=== PATIENT | male | born 1935 | race Caucasian/White ===

== ENCOUNTER 2019-01-31 09:04 | Inpatient (IN) | payer MEDICARE ==
[~2019-01-31] VITALS: Ht 172.7 cm; Wt 59.9 kg
--- NOTE | 2019-01-31 10:30 | NUR ---
Pt admitted to room 230, with an admitting diagnosis of S/P Aspiration Pneumonia, UTI, debility, from [facility] via w/c accompanied by transportation services. THEO SINGLETARY introduced to surroundings, call light, bed controls, phone, TV, temperature control, lights, meal times, smoking policy, visitor policy, side rail policy, bathrooms and showers. Patient Rights given to patient in the handbook. THEO SINGLETARY verbalizes understanding that [facility] is not responsible for the loss or damage to any personal effects or valuables that are kept in the patients posession during their hospitalization. The following Patient Care Plans were discussed with the pt: Discharge Planning, Impaired Mobility, Self Care Deficit, Alteration in skin integrity/air exchange. THEO SINGLETARY verbalizes understanding of Interdisciplinary Patient Education. Patient and/or family were informed about the Rapid Response Team and its purpose. Patient received Patient Rights Booklet, which includes Privacy Act Statement and Data Collection Information Summary. Pt inct of bm upon admission, max assist x2 to transfer from w/c to bed. Noted reddened bottom, & reddened, partially open areas on both heels, Allevyn patches applied to bottom & both heels.
[2019-01-31 10:45] VITALS: BP 118/75
--- NOTE | 2019-01-31 10:54 | NUR ---
Pt has reddened, irritated areas behind both ears, has dried scab which is RELAY ASSOCIATE on Rt flank area, has gauze bandadge on Lt neck. Pt was inct of Bm a 2nd time, assist of 2 to clean up, turn , new diaper on.
--- NOTE | 2019-01-31 11:34 | History & Physical ---
SENDY [facility]AE [facility] 01/31/19 1134: History of Present Illness History of Present Illness Reason for visit/HPI CC: weakness following hospitalizations Mr. Long is an 83 yo WM with a PHM of CHF. AFib with RVR, CAD, CKD Stage 3, and Prostate CA is admitted to the [facility]patient [facility] after a lengthy hospital stay. In November, he was admitted to [facility] for C. difficile and UTI with Shani and discharged on 12/07 to SNU for recovery. While in SNU, he developed hypoxia and SOB and found to have b/l aspiration pneumonia. He has a home baseline of 2L O2 requirement. He is now reporting to the unit for rehabilitation in hopes of regaining his previous lifestyle. Prior to his hospitalizations, he had been experiencing some decline in strength and had began to use a cane to ambulate. He has a multiple level home, with a chair lift access to the upper floor, but lives on the first floor. He has 3 steps needed to gain entry to his home from either the front entrance or the garage. He also has 2 larger dogs ( Witt and Retriever)He was Independent in his ADL's and has a desire to return to that level. 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 He is for the last couple of years and has support from his daughter who live approximately 8 miles away. He denies a history of smoking, and only uses alcohol sparingly. Date of Admission Jan 31, 2019 at 10:30 I consulted on this patient on 01/31/19 11:17 Attending Physician Clementina Hinton DO Admitting Physician Maryuri,Local Physician Consult Allergies and Home Medications Allergies Coded Allergies: diazepam (Verified Allergy, Unknown, 01/31/19) morphine (Verified Allergy, Unknown, 01/31/19) propoxyphene (Verified Allergy, Unknown, 01/31/19) Home Medications Acetaminophen 650 Mg Tablet.er, 650 MG PO Q6H PRN for PAIN-MILD, (Reported) Aspirin 325 Mg Tablet.dr, 325 MG PO DAILY, (Reported) Atorvastatin Calcium 40 Mg Tablet, 40 MG PO 1900, (Reported) Bisacodyl 10 Mg Supp.rect, 10 MG RC DAILY PRN for CONSTIPATION-4TH LINE, (Reported) Cetirizine HCl 10 Mg Tablet, 10 MG PO DAILY, (Reported) Cholecalciferol (Vitamin D3) 2,000 Unit Capsule, 2,000 UNIT PO BID, (Reported) Clopidogrel Bisulfate 75 Mg Tablet, 75 MG PO DAILY, (Reported) Collagenase 30 Gm Oint..gm., TP DAILY, (Reported) APPLY SANTYL NICKEL THICK TO ENTIRE WOUND BED ON BOTH HEALS DAILY. COVER WITH GAUZE AND SECURE WITH TAPE. Enoxaparin Sodium 40 Mg/0.4 Ml Syringe, 40 MG SQ 1700, (Reported) Famotidine 20 Mg Tablet, 20 MG PO BID, (Reported) Furosemide 10 Mg/1 Ml Vial, 40 MG IJ DAILY, (Reported) HOLD FOR SBP <100 Gabapentin 100 Mg Capsule, 500 MG PO TID, (Reported) TAKES 5 (100MG) CAPSULES Ipratropium/Albuterol Sulfate 3 Ml Ampul.neb, 3 ML NEB Q6H PRN for SHORTNESS OF BREATH, (Reported) Lactose-Reduced Food 237 Ml Liquid, 237 ML PO TIDWM, (Reported) Levothyroxine Sodium 75 Mcg Tablet, 75 MCG PO 0600, (Reported) Metoprolol Tartrate 5 Mg/5 Ml Vial, 2.5 MG IV Q6H PRN for PULSE>100, (Reported) Midodrine HCl 10 Mg Tablet, 10 MG PO TID, (Reported) Mv-Mn/FA/Coq10/Lycopene/Lutein 1 Each Tablet, 1 TAB PO DAILY, (Reported) Ondansetron 4 Mg Tab.rapdis, 4 MG PO Q8H PRN for NAUSEA/VOMITING-1ST LINE, (Reported) Ondansetron HCl/Pf 4 Mg/2 Ml Ampul, 4 MG IV Q6H PRN for NAUSEA/VOMITING-1ST LINE, (Reported) Oxybutynin Chloride 5 Mg Tablet, 5 MG PO BID, (Reported) Oxycodone Hcl 5 Mg Tab, 5 MG PO Q4H PRN for PAIN-SEVERE, (Reported) Pantoprazole Sodium 40 Mg Vial, 40 MG IV DAILY, (Reported) Polyethylene Glycol 3350 17 Gm Powd.pack, 17 GM PO DAILY PRN for CONSTIPATION- 2ND LINE, (Reported) Ropinirole HCl 1 Mg Tablet, 2 MG PO HS, (Reported) Sennosides/Docusate Sodium 1 Each Tablet, 1 TAB PO BID PRN for CONSTIPATION-6TH LINE, (Reported) Spironolactone 25 Mg Tablet, 25 MG PO DAILY, (Reported) Physical Exam Vital Signs Capillary Refill : Height, Weight, BMI Height: '" Weight: lbs. oz. kg; BMI Method: Rectal: Deferred Skin: Ecchymosis (to buttocks), Rash, Other (shallow wounds on b/l heels) CLEMENTINA HINTON DO 01/31/192028: History of Present Illness History of Present Illness Reason for visit/HPI Verification and Attestation of Medical Student E/M Service A medical student performed and documented this service in my presence. I reviewed and verified all information documented by the medical student and made modifications to such information, when appropriate. I personally performed the physical exam and medical decision making. Clementina Hinton, Jan 31, 2019,20:29 Date of Admission 01/31/19 Date Seen by a Provider: Jan 31, 2019 Time Seen by a Provider: 12:45 Allergies and Home Medications Allergies Coded Allergies: diazepam (Verified Allergy, Unknown, 01/31/19) morphine (Verified Allergy, Unknown, 01/31/19) propoxyphene (Verified Allergy, Unknown, 01/31/19) Home Medications Acetaminophen 650 Mg Tablet.er, 650 MG PO Q6H PRN for PAIN-MILD, (Reported) Aspirin 325 Mg Tablet.dr, 325 MG PO DAILY, (Reported) Atorvastatin Calcium 40 Mg Tablet, 40 MG PO 1900, (Reported) Bisacodyl 10 Mg Supp.rect, 10 MG RC DAILY PRN for CONSTIPATION-4TH LINE, (Reported) Cetirizine HCl 10 Mg Tablet, 10 MG PO DAILY, (Reported) Cholecalciferol (Vitamin D3) 2,000 Unit Capsule, 2,000 UNIT PO BID, (Reported) Clopidogrel Bisulfate 75 Mg Tablet, 75 MG PO DAILY, (Reported) Collagenase 30 Gm Oint..gm., TP DAILY, (Reported) APPLY SANTYL NICKEL THICK TO ENTIRE WOUND BED ON BOTH HEALS DAILY. COVER WITH GAUZE AND SECURE WITH TAPE. Enoxaparin Sodium 40 Mg/0.4 Ml Syringe, 40 MG SQ 1700, (Reported) Famotidine 20 Mg Tablet, 20 MG PO BID, (Reported) Furosemide 10 Mg/1 Ml Vial, 40 MG IJ DAILY, (Reported) HOLD FOR SBP <100 Gabapentin 100 Mg Capsule, 500 MG PO TID, (Reported) TAKES 5 (100MG) CAPSULES Ipratropium/Albuterol Sulfate 3 Ml Ampul.neb, 3 ML NEB Q6H PRN for SHORTNESS OF BREATH, (Reported) Lactose-Reduced Food 237 Ml Liquid, 237 ML PO TIDWM, (Reported) Levothyroxine Sodium 75 Mcg Tablet, 75 MCG PO 0600, (Reported) Metoprolol Tartrate 5 Mg/5 Ml Vial, 2.5 MG IV Q6H PRN for PULSE>100, (Reported) Midodrine HCl 10 Mg Tablet, 10 MG PO TID, (Reported) Mv-Mn/FA/Coq10/Lycopene/Lutein 1 Each Tablet, 1 TAB PO DAILY, (Reported) Ondansetron 4 Mg Tab.rapdis, 4 MG PO Q8H PRN for NAUSEA/VOMITING-1ST LINE, (Reported) Ondansetron HCl/Pf 4 Mg/2 Ml Ampul, 4 MG IV Q6H PRN for NAUSEA/VOMITING-1ST LINE, (Reported) Oxybutynin Chloride 5 Mg Tablet, 5 MG PO BID, (Reported) Oxycodone Hcl 5 Mg Tab, 5 MG PO Q4H PRN for PAIN-SEVERE, (Reported) Pantoprazole Sodium 40 Mg Vial, 40 MG IV DAILY, (Reported) Polyethylene Glycol 3350 17 Gm Powd.pack, 17 GM PO DAILY PRN for CONSTIPATION- 2ND LINE, (Reported) Ropinirole HCl 1 Mg Tablet, 2 MG PO HS, (Reported) Sennosides/Docusate Sodium 1 Each Tablet, 1 TAB PO BID PRN for CONSTIPATION-6TH LINE, (Reported) Spironolactone 25 Mg Tablet, 25 MG PO DAILY, (Reported) Patient Home Medication List Home Medication List Reviewed: Yes Past Nyjhzhb-Tkadyx-Tfkbcb Hx Patient Social History Marrital Status: Employed/Student: retired Review of Systems Constitutional: see HPI Physical Exam General Appearance: No Apparent Distress, WD/WN, Chronically ill Assessment/Plan Assessment and Plan Problems: (1) Myopathy Admission Diagnosis Admission Status: Inpatient Order (span 2 midnights) Reason for Inpatient Admission: irf Supervisory-Addendum Brief Verification & Attestation Participated in pt care: history, MDM, physical Personally performed: exam, history, MDM, supervision of care Care discussed with: Medical Student Procedures: n/a Results interpretation: Verified all documentation Verification and Attestation of Medical Student E/M Service A medical student performed and documented this service in my presence. I reviewed and verified all information documented by the medical student and made modifications to such information, when appropriate. I personally performed the physical exam and medical decision making. Clementina Hinton, Jan 31, 2019,20:29 SENDY [facility] Jan 31, 2019 11:34 CLEMENTINA HINTON DO Jan 31, 2019 20:29
--- NOTE | 2019-01-31 13:42 | ST Dysphagia Evaluation ---
Speech Evaluation-General Medical Diagnosis Aspiration Pneumonia Onset Date: Dec 10, 2018 Therapy Diagnosis Therapy Diagnosis: Oropharyngeal Dysphagia Precautions Precautions: Aspiration Precautions/Isolations: Aspiration, Fall Prevention, Standard Precautions Referral Referring Physician: Dr. Shi Reason for Referral: Evaluation/Treatment Medical History Pertinent Medical History: Atrial Fib, CAD, Heart Failure, Prostate CA CHF, A-Fib, CAD, Prostate CA Current History Aspiration Pneumonia Reviewed History: Yes Social History Home: Single Level Current Living Status: Alone Speech PLF/Current-Dysphagia Prior Level of Function The patient lived at home alone with support services of a medical corps officer 3x/wk and Meals on Wheels. He was independent for most of his daily needs. Subjective The patient was pleasant with the Bedside Dysphagia Evaluation. Cognitive Status Patient is oriented to all concepts Oral Motor Skills Denture Type: Full- Upper & Lower Current Food Consistancy: Mechanical Soft, Thin Liquids Ability to Follow Directions: Good Oral Expression Ability: No Impairment Voice Voice Phonatory-Based Quality: Normal Voice Pitch: Normal Voice Loudness: Normal Face Facial Symmetry: Symmetrical Oral-Facial Assessment Oral-Facial Dentition: Normal Labial Seal Description: Normal Smile: Normal Puff Cheeks: Reduced Strength Lingual Protrusion: Normal Lingual ROM: Normal Lingual Strength: Normal Volitional Dry Swallow: Yes Dysphagia Evaluation Consistencies Presented: Thin Liquid, Mechanical Soft, Ground, Pureed Patient exhibited normal function for oral phase. Patient exhibited normal function for pharyngeal phase. Funct. Velo/Pharyngeal Symptom: Clears Throat Dietary Recommendations: Mechanical Soft Liquid Recommendations: Thin Swallowing Precautions: Alternate Liquids/Solids, Liquids from Straw, Small Bites and Sips, Sitting Upright 90 Degrees, Sitting 90 Degrees 30 Post Intake Dysphagia Evaluation Summary The patient is a pleasant 83 year old man who was evaluated at bedside for his swallow function. The patient was admitted to the ARU from a SNF where he had been placed on a Dysphaia II diet level with thin liquids. The patient was followed by ST in the SNF with initial feedings via NG tube. He had advanced to the Dysphagia II diet level prior to discharge. The patient was presented trials of thin liquids at 1/2 tsp x3 and small sips via straw x3 without difficulty. He was also presented 1/2 tsp of puree, mechanical soft and ground meats without difficulty. The patient is recommended to remain on the current diet level of Dysphagia II diet with thin liquids. This information was provided to his nurse and written on the white board in patient's room. Barriers to Learning None identified Speech Short Term Goals Short Term Goals Short Term Goals 1) The patient will tolerate least restrictive diet level without s/s of aspiration with 90% or greater. 2) The patient will utilize compensatory strategies as trained with 90% or greater given minimal cues. Speech [facility] Goals [employer] Goals The patient will maintain adequate nutrition/hydration via safe effective swallow function. Speech-Plan Patient/Family Goals Patient/Family Goals: The patient plans on returning to his home post rehab. Treatment Plan Speech Therapy Treatment Plan: Continue Plan of Care The patient will receive skilled ST services for dysphagia. Treatment Duration: Feb 09, 2019 Frequency: 5 times per week Estimated Hrs Per Day: .5 hour per day Rehab Potential: Good Barriers to Learning: Patient's age Pt/Family Agrees to Plan: Yes Safety Risks/Education Teaching Recipient: Patient Teaching Methods: Demonstration, Discussion Response to Teaching: Verbalize Understanding, Return Demonstration Education Topics Provided: Safety of oral intake and diet level Time Speech Therapy Time In: 12:30 Speech Therapy Time Out: 12:45 Total Billed Time: 15 Billed Treatment Time [address]Y [address] Jan 31, 2019 13:42
[2019-01-31] MEDS ORDERED: SPIR25TA PO (13:50)
[2019-01-31] MEDS ORDERED: MIDO10TA PO (13:50)
[2019-01-31] MEDS ORDERED: IPRA3AMP31 NEB (13:50)
[2019-01-31] MEDS ORDERED: CETI10TA20 PO (13:50)
[2019-01-31] MEDS ORDERED: METO5VIA26 IV (13:50)
[2019-01-31] MEDS ORDERED: POLY17PO6 PO (13:50)
[2019-01-31] MEDS ORDERED: GABA-486 PO (13:50)
[2019-01-31] MEDS ORDERED: ONDA4AMP IV (13:50)
[2019-01-31] MEDS ORDERED: CLOP75TA69 PO (13:50)
[2019-01-31] MEDS ORDERED: ENOX40DI13 SQ (13:50)
[2019-01-31] MEDS ORDERED: FURO10VI IJ (13:50)
[2019-01-31] MEDS ORDERED: ROPI1TAB2 PO (13:50)
[2019-01-31] MEDS ORDERED: LEVO75TA6 PO (13:50)
[2019-01-31] MEDS ORDERED: ASPI325T32 PO (13:50)
[2019-01-31] MEDS ORDERED: ACET-2650 PO (13:50)
[2019-01-31] MEDS ORDERED: ATOR40TA PO (13:50)
[2019-01-31] MEDS ORDERED: OXC5T PO (13:50)
[2019-01-31] MEDS ORDERED: FAMO20TA3 PO (13:50)
[2019-01-31] MEDS ORDERED: CHOL20003 PO (13:50)
[2019-01-31] MEDS ORDERED: MV-M1TAB2 PO (13:50)
[2019-01-31] MEDS ORDERED: PANT40TA2 PO (13:50)
[2019-01-31] MEDS ORDERED: SENN-145 PO (13:50)
[2019-01-31] MEDS ORDERED: BISA10SU8 RC (13:50)
[2019-01-31] MEDS ORDERED: OXYB5TAB9 PO (13:50)
[2019-01-31] MEDS ORDERED: COLL30OI TP (13:50)
[2019-01-31] MEDS ORDERED: PANT40VI14 IV (13:55)
[2019-01-31] MEDS ORDERED: ONDA4TAB11 PO (13:55)
[2019-01-31] MEDS ORDERED: LACT-34 PO (13:59)
--- NOTE | 2019-01-31 14:02 | NUR ---
UPDATED MED REC WITH MAR FROM [facility].
[2019-01-31] MEDS ORDERED: ONDANSETRON 4 MG (ZOFRAN) ORAL DISSOLVE TAB PO PRN (14:30)
[2019-01-31] MEDS ORDERED: NON-FORMULARY MEDICATION 1 EA EA (Acetaminophen (Tylenol Arthritis) 650 MG) PO PRN (14:30)
[2019-01-31] MEDS ORDERED: NON-FORMULARY MEDICATION 1 EA EA (Sennosides/Docusate Sodium (Senna S Tablet) 1 TAB) PO PRN (14:30)
[2019-01-31] MEDS ORDERED: NON-FORMULARY MEDICATION 1 EA EA (Polyethylene Glycol 3350 (Miralax) 17 GM) PO PRN (14:30)
[2019-01-31] MEDS ORDERED: BISACODYL 10 MG SUPP (DULCOLAX) RC PRN (14:30)
[2019-01-31] MEDS ORDERED: RT-ALBUTEROL/IPRATROPIUM 3 ML (DUONEB) VIAL IH PRN (14:30)
--- NOTE | 2019-01-31 14:52 | Physical Therapy Evaluation ---
PT Evaluation-General Medical Diagnosis Admission Date Jan 31, 2019 at 10:30 Medical Diagnosis: Aspiration Pneumonia Onset Date: Dec 10, 2018 Therapy Diagnosis Therapy Diagnosis: abnormal gait Precautions Precautions/Isolations: Aspiration, Fall Prevention, Standard Precautions Referral Physician: Jose Guadalupe Reason for Referral: Evaluation/Treatment Medical History Pertinent Medical History: Atrial Fib, CAD, Heart Failure, HTN, Prostate CA Additional Medical History T3 compression fx, cirrhosis, pulmonary HTN> Current History Pt has had a lengthy recent medical course that began in September 2018. He has been on acute care, LTC, LTAC since that time. Most recently, his hospital stay was due to aspiration pneumonia. Reviewed History: Yes Social History Home: Multilevel (but he stays on one floor) Current Living Status: Alone Entry Into Home: Stairs With Railing PT Steps Into Home: 3 PT Steps Inside Home: 12 (he does not use the stairs (stays on the main level) but does have a stair lift if needed. ) Prior/Core FIM Prior Level of Function Therapy Code Descriptions/Definitions Functional Sanders Measure: 0=Not Assessed/NA 4=Minimal Assistance 1=Total Assistance 5=Supervision or Setup 2=Maximal Assistance 6=Modified Sanders 3=Moderate Assistance 7=Complete Sanders Therapy Quality Codes: 6 Independent with activity with or without an assistive device 5 Patient requires set up or clean up by helper. Patient completes activity by themselves 4 Supervision or touching assist (CGA). [place] provide cues , steadying assist 3 The helper provides less than half the effort to complete the activity 2 The helper provides more than half the effort to complete the activity 1 Dependent. The helper does all the effort to complete an activity 7 Patient refused to complete or attempt activity 9 The patient did not perform the activity before the current illness or injury 88 Not attempted due to Medical conditions or safety concerns Functional Abilities and Goals: Independent: Patient completed the activities by him/herself, with or without an assistive device, with no assistance from a helper. Needed Some Help: Patient needed partial assistance from another person to complete activities. Dependent: A helper completed the activities for the patient. Unknown: Not Applicable: Bed Mobility: 7 Transfers (B,C,W/C) (FIM): 7 Gait: 6 (cane) Stairs: 7 Indoor Mobility (Ambulation): Independent Stairs: Independent Prior Devices Use: Other-see list below (cane) Pt was indep at PLOF, driving, community mobilty, caring for himself. PT Evaluation-Current Subjective Agrees to PT. REports he is weak and needs to get stronger. Reports his plan is to discharge home. Pain Numeric Pain Scale: 0-No Pain Location: No Pain Reported Objective Patient Orientation: Person, Place, Time, Situation Problem Solving: Fair ROM/Strength ROM Lower Extremities WFL Strenght Lower Extremities B LE strength is grossly 4-/5 throughout Integumentary/Posture Integumentary Several areas covered with bandages; refer to nursing notes for full assessment Bowel Incontinence: Yes Bladder Incontinence: No Posture Thoracic kyphosis, rounded shoulders, forward head and in flexion with a slight rotation left. Forward flexed at hips as wll in standing. Neuromuscular (Tone, Coordination, Reflexes) intact and functional Sensory Vision: Functional Hearing: Functional Hand Dominance: Right Sensation Right Lower Extremit: Intact Sensation Left Lower Extremity: Intact Transfers Therapy Code Descriptions/Definitions Functional Sanders Measure: 0=Not Assessed/NA 4=Minimal Assistance 1=Total Assistance 5=Supervision or Setup 2=Maximal Assistance 6=Modified Sanders 3=Moderate Assistance 7=Complete Sanders Therapy Quality Codes: 6 Independent with activity with or without an assistive device 5 Patient requires set up or clean up by helper. Patient completes activity by themselves 4 Supervision or touching assist (CGA). [place] provide cues , steadying assist 3 The helper provides less than half the effort to complete the activity 2 The helper provides more than half the effort to complete the activity 1 Dependent. The helper does all the effort to complete an activity 7 Patient refused to complete or attempt activity 9 The patient did not perform the activity before the current illness or injury 88 Not attempted due to Medical conditions or safety concerns Transfers (B, C, W/C) (FIM): 3 Scootin Roll Left to Right (QC): 4 Supine to/from Sit: 3 (mod assit requiring assit with both legs) Sit to/from Stand: 3 (mod assist to come to a full stand) bed t/f WC(FIM only if WC use): 4 Sit to Lying (QC): 3 Lying to Sitting/Side of Bed(Q: 3 Sit to Stand (QC): 3 Chair/Zdu-rg-Bptrj Xfer(QC): 3 Car Transfer (QC): 3 Pt requires generally mod assist with all functional transfers. Follows cues well. Gait Does the Patient Walk?: Yes Mode of Locomotion: Walk Anticipated Mode of Locomotion: Walk Gait (FIM): 2 Distance (FIM): 8=150-88 ft Walk 10 feet (QC): 3 Walk 50 ft with 2 Turns(QC): 3 Walk 150 ft (QC): 88 (unable to walk this distance) Walking 10ft/uneven surface-QC: 3 Gait Assistive Device: FWW Comments/Gait Description mod assist with gait for balance; narrow BECKY with decreased step length and decreased velocity Wheelchair Training Does the Pt Use a Wheelchair?: No Stairs Stairs (FIM): 1 1 Step (curb) (QC): 1 4 Steps (QC): 88 12 Steps (QC): 88 Pt approached the step and lifted his right foot onto the step and then declined further attempt, stating he was too weak to attempt; unsafe to attempt the step Balance Sitting Static: Fair Sitting Dynamic: Fair Standing Static: Fair Standing Dynamic: Fair Picking up an Object (QC): 88 Treatment Functional mobilotiy within his room; on /off the commode x 2 with mod assist to transfer; min assist at gait belt during clothing management and min assist as he stood at the sink to wash his hands. Gait training in the room and bathroom with FWW with min assist and skilled cues for safety. Assessment/Needs Pt has had a lengthy course of institutional stays and presents with functional weakness, impaired balance, impaired functional activitiy tolerance all which lend to impaired bed mobiltiy, transfers and gait. He will benefit from a ggressive skilled intervention to allow him to return to a mod indep level of mobility Rehab Potential: Good PT Short Term Goals Short Term Goals Time Frame: Feb 14, 2019 Transfers (B,C,W/C) (FIM): 4 Gait (FIM): 4 Distance (FIM): 3=150 ft Gait Assistive Device: FWW PT Jockey Agent Goals Intermediate Goals PT Jockey Agent Goals Time Frame: Feb 28, 2019 Transfers (B,C,W/C) (FIM): 6 Sit to Lying (QC): 6 Lying-Sitting on Side/Bed(QC): 6 Sit to Stand (QC): 6 Roll Left to Right (QC): 6 Chair/Ide-pc-Lbbox Xfer(QC): 6 Car Transfer (QC): 6 Does the Patient Walk: Yes Gait (FIM): 6 Gait distance (FIM): 3=150 ft Walk 10 feet (QC): 6 Walk 10ft-Uneven Surface(QC): 6 Walk 50ft with 2 Turns (QC): 6 Walk 150 ft (QC): 6 Gait Assistive Device: FWW Does the Pt use WC or Scooter?: No Stairs (FIM): 5 # of Steps: 4 1 Step (curb) (QC): 6 4 Steps (QC): 6 12 Steps (QC): 9 Picking up an Object (QC): 88 Pt to be mod indep with all mobiltiy to return home alone PT Plan Problem List Problem List: Activity Tolerance, Functional Strength, Safety, Balance, Gait, Transfer, Bed Mobility Treatment/Plan Treatment Plan: Continue Plan of Care Treatment Plan: Bed Mobility, Education, Functional Activity Mahamed, Functional Strength, Group Therapy, Gait, Safety, Therapeutic Exercise, Transfers Treatment Duration: Feb 28, 2019 Frequency: At least 5 of 7 days/Wk (IRF) Estimated Hrs Per Day: 1.5 hours per day Patient and/or Family Agrees t: Yes Safety Risks/Education Patient Education: Transfer Techniques, Safety Issues Teaching Recipient: Patient Teaching Methods: Demonstration, Discussion Response to Teaching: Reinforcement Needed Discharge Recommendations Therapy D/C Recommendations: Physical Therapy Home Care Time/GCodes Time In: 1100 Time Out: 1200 Total Billed Treatment Time: 60 Total Billed Treatment visit EVM 15 FA 45 BENITO CHO PT Jan 31, 2019 14:52
[2019-01-31] MEDS ORDERED: SENNA W/DOCUSATE (SENOKOT S) TABLET PO PRN (15:00)
[2019-01-31] MEDS ORDERED: ACETAMINOPHEN 325 MG TABLET PO PRN (15:00)
[2019-01-31] MEDS ORDERED: POLYETHYLENE GLYCOL 17 GM (MIRALAX) PACK PO PRN (15:00)
--- NOTE | 2019-01-31 15:01 | ST Cognitive Linguistic Eval ---
Speech Evaluation-General Medical Diagnosis Aspiration Pneumonia Onset Date: Dec 10, 2018 Therapy Diagnosis Therapy Diagnosis: Cognitive-communication Precautions Precautions: Aspiration Precautions/Isolations: Aspiration, Fall Prevention, Standard Precautions Referral Referring Physician: Dr. Shi Reason for Referral: Evaluation/Treatment Medical History Pertinent Medical History: Atrial Fib, CAD, Heart Failure, HTN, Prostate CA Atrial Fib, CHF, CAD, Prostate CA Current History Aspiration Pneumonia Reviewed History: Yes Social History Home: Single Level Current Living Status: Alone Speech PLF-Current Status Prior Level of Function The patient lived in the home alone with assistance including a pulmonary physician 3x/wk and Meals on Wheels. Subjective The patient was pleasant and cooperative with the cognitive evaluation process. Language Eval: Auditory Comprehends Simple Yes/No Ques: Functional Indent/Objects Multiple [place]: Functional Ident/Pics in Multiple [place]: Functional Follows 1-Step Commands: Functional Follows Complex Directions: Functional Follows General Conversations: Functional Language Eval: Verbal Language Completes Spontaneous Greeting: Functional Produces Auto, Serial Info: Functional Imitates Simple Words/Phrases: Functional Word Finding: Functional Requests Basic Needs: Functional States Basic Personal Info: Functional Expresses Complex Ideas: Mild Objective Cognitive Domain Attention: WNL Memory: Mild Problem Solving: Functional Executive Functions: WNL Visuospatial Skills: WNL Composite Severity Rating: WNL Clock Drawing Severity Rating: WNL Objective Formal/Standardized Tests [facility] Mental Status ([facility]) Results , within normal range Oral Motor/Speech Production Within Functional Limits Impression The patient is a very pleasant 83 year old man who was admitted to the ARU from a SNF for further therapy services. The patient plans on returning home post rehab. The patient was given the SLUMS with score indicative of normal range of function. The patient does not warrant skilled dysphagia services at this time. Communication/Social Cognition Comprehension: 7 Expression: 7 Social Interaction: 7 Problem Solvin Memory: 7 Speech Patient Assess Expression of Ideas/Wants: Expression (4) Understanding Verbal Content: Understands (4) Brief Interview-Mental Status: Yes Repetition of Three Words: Three (3) Temporal Orientation: Year: Correct (3) Temporal Orientation: Month: Accurate within 5 days(2) Temporal Orientation: Day: Correct (1) Recall : Wear to say "Sock": Yes, no cue required (2) Recall : Color: Yes, after cueing (1) Recall : Bed: Yes,after cueing (1) Memory/Recall Ability: Current season, That he or she is in a hsp/hsp unit Speech Short Term Goals Short Term Goals Short Term Goals 1) The patient will tolerate least restrictive diet level without s/s of aspiration with 90% or greater. 2) The patient will utilize compensatory strategies as trained with 90% or greater given minimal cues. Speech Senior Software Engineer Goals Senior Living Goals The patient will maintain adequate nutrition/hydration via safe effective swallow function. Speech-Plan Patient/Family Goals Patient/Family Goals: The patient plans on returning home post rehab. Treatment Plan Speech Therapy Treatment Plan: Discontinue ST The patient does not warrant skilled ST services for cognitive function. Treatment Duration: Jan 31, 2019 Frequency: 1 time per week Estimated Hrs Per Day: .25 hour per day Rehab Potential: Good Barriers to Learning: None identified Pt/Family Agrees to Plan: Yes Safety Risks/Education Teaching Recipient: Patient Teaching Methods: Discussion Response to Teaching: Verbalize Understanding Education Topics Provided: Safety within his room Time Speech Therapy Time In: 14:25 Speech Therapy Time Out: 14:55 Total Billed Time: 30 Billed Treatment Time 1, KRISTIN Gonzalez Jan 31, 2019 15:01
--- NOTE | 2019-01-31 15:16 | Physical Therapy Daily Note ---
PT Daily Note-Current Subjective Pt agreeable to PT. Requests to lie down after treatment. Mental Status Patient Orientation: Person, Place, Time, Situation Transfers Therapy Code Descriptions/Definitions Functional [place] Measure: 0=Not Assessed/NA 4=Minimal Assistance 1=Total Assistance 5=Supervision or Setup 2=Maximal Assistance 6=Modified [place] 3=Moderate Assistance 7=Complete [place] Therapy Quality Codes: 6 Independent with activity with or without an assistive device 5 Patient requires set up or clean up by helper. Patient completes activity by themselves 4 Supervision or touching assist (CGA). [place] provide cues , steadying assist 3 The helper provides less than half the effort to complete the activity 2 The helper provides more than half the effort to complete the activity 1 Dependent. The helper does all the effort to complete an activity 7 Patient refused to complete or attempt activity 9 The patient did not perform the activity before the current illness or injury 88 Not attempted due to Medical conditions or safety concerns Transfers (B, C, W/C) (FIM): 3 Sit to/from Stand: 4 Sit to Stand (QC): 3 (skilled cues 50% of the time for hand placement and sequencing. ) Pt walked to the bed from the chair with FWW with min assist. Pt sat EOB and worked on functional dynamic balance activities in sitting. Pt returned to bed post treatment with needs met. Heels elevated Assessment Current Status: Good Progress Pt follows cues well with carryover of instruction noted. PT Short Term Goals Short Term Goals Time Frame: Feb 14, 2019 Transfers (B,C,W/C) (FIM): 4 Gait (FIM): 4 Distance (FIM): 3=150 ft Gait Assistive Device: FWW PT Half-Way Goals Bmet Goals PT Half-Way Goals Time Frame: Feb 28, 2019 Transfers (B,C,W/C) (FIM): 6 Sit to Lying (QC): 6 Lying-Sitting on Side/Bed(QC): 6 Sit to Stand (QC): 6 Roll Left to Right (QC): 6 Chair/Zsx-li-Zibct Xfer(QC): 6 Car Transfer (QC): 6 Does the Patient Walk: Yes Gait (FIM): 6 Gait distance (FIM): 3=150 ft Walk 10 feet (QC): 6 Walk 10ft-Uneven Surface(QC): 6 Walk 50ft with 2 Turns (QC): 6 Walk 150 ft (QC): 6 Gait Assistive Device: FWW Does the Pt use WC or Scooter?: No Stairs (FIM): 5 # of Steps: 4 1 Step (curb) (QC): 6 4 Steps (QC): 6 12 Steps (QC): 9 Picking up an Object (QC): 88 PT Plan Problem List Problem List: Activity Tolerance, Functional Strength, Safety, Balance, Gait, Transfer, Bed Mobility Treatment/Plan Treatment Plan: Continue Plan of Care Treatment Plan: Bed Mobility, Education, Functional Activity [place], Functional Strength, Group Therapy, Gait, Safety, Therapeutic Exercise, Transfers Treatment Duration: Feb 28, 2019 Frequency: At least 5 of 7 days/Wk (IRF) Estimated Hrs Per Day: 1.5 hours per day Patient and/or Family Agrees t: Yes Safety Risks/Education Patient Education: Transfer Techniques Teaching Recipient: Patient Teaching Methods: Demonstration, Discussion Response to Teaching: Return Demonstration, Reinforcement Needed Time/GCodes Time In: 1455 Time Out: 1505 Total Billed Treatment Time: 10 Total Billed Treatment visit FA 10 BENITO CHO PT Jan 31, 2019 15:16
--- NOTE | 2019-01-31 15:47 | Occupational Therapy Eval ---
OT Evaluation-General/PLF Medical Diagnosis Admission Date Jan 31, 2019 at 10:30 Medical Diagnosis: Aspiration Pneumonia Onset Date: Dec 10, 2018 Therapy Diagnosis Therapy Diagnosis: Weakness Height/Weight Height (Feet): 5 Height (Inches): 8.00 Weight (Pounds): 122 Weight (Ounces): 14.4 Precautions Precautions/Isolations: Aspiration, Fall Prevention, Standard Precautions Weight Bear Status Weight Bearing Restriction: Weight Bearing/Tolerated Referral Physician: Jose Guadalupe Referral Reason: Activity Tolerance, Self Care, Evaluation/Treatment, Strength ening/ROM Medical History Pertinent Medical History: Atrial Fib, CAD, Heart Failure, HTN, Prostate CA Additional Medical History SOB, Kyphosis, CHF Current History Pt. lives alone in [place], [place]. Daughter lives nearby and is supportive. Spouse recently . Pt. developed pneumonia and was hospitalized on 12-10-18. Reviewed History: Yes Social History Home: Multilevel (but he stays on one floor) Current Living Status: Alone Entry Into Home: Stairs With Railing Steps Into Home: 3 Steps Inside Home: 12 (he does not use the stairs (stays on the main level) but does have a stair lift if needed. ) ADL-Prior Level of Function Therapy Code Descriptions/Definitions Functional [place] Measure: 0=Not Assessed/NA 4=Minimal Assistance 1=Total Assistance 5=Supervision or Setup 2=Maximal Assistance 6=Modified [place] 3=Moderate Assistance 7=Complete [place] Therapy Quality Codes: 6 Independent with activity with or without an assistive device 5 Patient requires set up or clean up by helper. Patient completes activity by themselves 4 Supervision or touching assist (CGA). [place] provide cues , steadying assist 3 The helper provides less than half the effort to complete the activity 2 The helper provides more than half the effort to complete the activity 1 Dependent. The helper does all the effort to complete an activity 7 Patient refused to complete or attempt activity 9 The patient did not perform the activity before the current illness or injury 88 Not attempted due to Medical conditions or safety concerns Functional Abilities and Goals: Independent: Patient completed the activities by him/herself, with or without an assistive device, with no assistance from a helper. Needed Some Help: Patient needed partial assistance from another person to complete activities. Dependent: A helper completed the activities for the patient. Unknown: Not Applicable: ADL PLOF Comments Pt. reports that before becoming ill, he was independent with all tasks. Dr rojas. Self Care: Independent Functional Cognition: Independent DME/Equipment: Bath Chair, Grab Bars, Shower DME/Equipment Comments Pt. has a cane and a walker Drive Self: Yes OT Current Status Subjective No pain reported. Appearance Pt. up in chair. Agrees to treatment. Mental Status/Objective Patient Orientation: Person, Place, Time, Situation Attachments: Oxygen Current Glasses/Contacts: Yes Hand Dominance: Right Upper Extremity ROM Limited in shoulders due to kyphosis. ADL-Treatment Eating (FIM): 5 (Set up ) Eating (QC): 5 Lower Body Dressing (FIM): 4 Lower Body Dressing (QC): 4 On/Off Footwear (QC): 4 Transfers (B, C, W/C) (FIM): 4 (Sit-stand) Other Treatments Pt. up in chair. Finishing lunch when OT came into room. Pt. states that he hasn't been very hungry, but that he knows he needs to eat. OT offered to order pt. a shake and he agrees. OT does this for him. Pt. and OT talk in depth regarding home set up, and equipment at home. Spouse recently and pt. is very upset by this. Pt. already dressed from earlier hospital, and does not want to change clothing at this time. Pt. able to bend over and doff/don slippers. Stood at walker with min assist. Able to balance self once he is up. Very kyphotic posture and unable to bring head upright. Discussed OT and rehab goals. Pt. would like to be able to return home to his own house so that he can take care of his dogs. Education OT Patient Education: Correct positioning, Modified ADL techniques, Progress toward Goal/Update tx plan, Purpose of tx/functional activities, Reviewed precautions, Rehab process, Transfer techniques Teaching Recipient: Patient Teaching Methods: Demonstration, Discussion Response to Teaching: Verbalize Understanding, Return Demonstration OT Short Term Goals Short Term Goals Transfers (B,C,W/C) (FIM): 4 1=Demonstrate adherence to instructed precautions during ADL tasks. 2=Patient will verbalize/demonstrate understanding of assistive devices/modifications for ADL. 3=Patient will improve strength/tolerance for activity to enable patient to perform ADL's. OT Veneer Jointer Returner Goals Veneer Jointer Returner Goals Time Frame: Feb 21, 2019 Eating (FIM): 6 Eating (QC): 6 Groomin Oral Hygiene (QC): 6 Bathing(FIM): 5 Shower/Bathe Self (QC): 5 Upper Body Dressing(FIM): 6 Upper Body Dressing (QC): 6 Lower Body Dressing(FIM): 6 Lower Body Dressing (QC): 6 On/Off Footwear (QC): 6 Toileting(FIM): 6 Toileting Hygiene (QC): 6 Transfers (B,C,W/C) (FIM): 6 Toilet/Commode Transfer(FIM): 6 Toilet/Commode Transfer (QC): 6 Shower Transfer(FIM): 5 Additional Goals: 1-Demonstrate ADL Tasks, 2-Verbalize Understanding, 3- ImproveStrength/[place] 1=Demonstrate adherence to instructed precautions during ADL tasks. 2=Patient will verbalize/demonstrate understanding of assistive devices/modifications for ADL. 3=Patient will improve strength/tolerance for activity to enable patient to perform ADL's. OT Education/Plan Problem List/Assessment Assessment: Decreased Activ Tolerance, Decreased UE Strength, Dependent Transfers, Impaired Funct Balance, Impaired I ADL's, Impaired Self-Care Skills, Restricted Funct UE ROM Discharge Recommendations Plan/Recommendations: Continue POC Therapy D/C Recommendations: Home w/ Family Support, Occupational Therapy Home Care, Scheduled Assistance Treatment Plan/Plan of Care Treatment,Training & Education: Yes Patient would benefit from OT for education, treatment and training to promote independence in ADL's, mobility, safety and/or upper extremity function for ADL's. Plan of Care: ADL Retraining, Functional Mobility, Group Exercise/Act as Ind, UE Funct Exercise/Act Treatment Duration: Feb 21, 2019 Frequency: At least 5 of 7 days/Wk (IRF) Estimated Hrs Per Day: 1.5 hours per day Agreement: Yes Rehab Potential: Good Time/GCodes Start Time: 13:10 Stop Time: 14:25 Total Time Billed (hr/min): 75 Billed Treatment Time 1, EVM x 15minutes, ADL x 30minutes, FA x 30minutes ADITHYA MAC OT Jan 31, 2019 15:47
[2019-01-31 16:00] VITALS: BP 97/61
--- NOTE | 2019-01-31 16:22 | Consultation-Cardiology ---
HPI-Cardiology Cardiology Consultation: Date of Consultation 01/31/19 Time Seen by a Provider: 03:45 Date of Admission 01-31-19 Attending Physician Clementina Shi DO Admitting Physician Maryuri,Local Physician Consulting Physician Rebecca Blevins MD HPI: Chief Complaint: Chronic a-fib CAD SSS Mr. Long is an 83 year old male transferred to [facility] from [facility] in [place], [place] following a lengthy hospitalization for aspiration pneumonia and c- diff. He is a fair historian. He states his primary associate data scientist is Dr. Stern at [facility] in [place], [place]. He reports a h/o a-fib for which he has been on OAC, he believes Xarelto. He denies any c/o CP, palpitations, dyspnea, syncope or near syncope. He reports gen weakness and an approx 20 lb weight loss during his most recent hospitalization. He does report discomfort to his right heal. Review of Systems-Cardiology Review of Systems Constitutional: No chills, No fever; weight loss Eyes: No vision change Ears/Nose/Throat: No epistaxis, No recent hearing loss Respiratory: As described under HPI Cardiovascular: As described under HPI Gastrointestinal: No constipation, No diarrhea, No nausea, No vomiting Genitourinary: No dysuria Musculoskeletal: back pain Skin: dryness, ulcerations Psychiatric/Neurological: No anxiety, No depression, No seizure, No focal weakness, No syncope Hematologic: easy bruising; No bleeding abnormalities [id number]-[id number] Hx Patient Social History Alcohol Use: Denies Use Recreational Drug Use: No Smoking Status: Never a Smoker Recent Foreign Travel: No Recent Infectious Disease Expo: No Hospitalization with Isolation: Contact Physical Abuse Screen: No Sexual Abuse: No Past Medical History PMH As described under Assessment. Allergies and Home Medications Allergies Coded Allergies: diazepam (Verified Allergy, Unknown, 01/31/19) morphine (Verified Allergy, Unknown, 01/31/19) propoxyphene (Verified Allergy, Unknown, 01/31/19) Home Medications Acetaminophen 650 Mg Tablet.er, 650 MG PO Q6H PRN for PAIN-MILD, (Reported) Aspirin 325 Mg Tablet.dr, 325 MG PO DAILY, (Reported) Atorvastatin Calcium 40 Mg Tablet, 40 MG PO 1900, (Reported) Bisacodyl 10 Mg Supp.rect, 10 MG RC DAILY PRN for CONSTIPATION-4TH LINE, (Reported) Cetirizine HCl 10 Mg Tablet, 10 MG PO DAILY, (Reported) Cholecalciferol (Vitamin D3) 2,000 Unit Capsule, 2,000 UNIT PO BID, (Reported) Clopidogrel Bisulfate 75 Mg Tablet, 75 MG PO DAILY, (Reported) Collagenase 30 Gm Oint..gm., TP DAILY, (Reported) APPLY SANTYL NICKEL THICK TO ENTIRE WOUND BED ON BOTH HEALS DAILY. COVER WITH GAUZE AND SECURE WITH TAPE. Enoxaparin Sodium 40 Mg/0.4 Ml Syringe, 40 MG SQ 1700, (Reported) Famotidine 20 Mg Tablet, 20 MG PO BID, (Reported) Furosemide 10 Mg/1 Ml Vial, 40 MG IJ DAILY, (Reported) HOLD FOR SBP <100 Gabapentin 100 Mg Capsule, 500 MG PO TID, (Reported) TAKES 5 (100MG) CAPSULES Ipratropium/Albuterol Sulfate 3 Ml Ampul.neb, 3 ML NEB Q6H PRN for SHORTNESS OF BREATH, (Reported) Lactose-Reduced Food 237 Ml Liquid, 237 ML PO TIDWM, (Reported) Levothyroxine Sodium 75 Mcg Tablet, 75 MCG PO 0600, (Reported) Metoprolol Tartrate 5 Mg/5 Ml Vial, 2.5 MG IV Q6H PRN for PULSE>100, (Reported) Midodrine HCl 10 Mg Tablet, 10 MG PO TID, (Reported) Mv-Mn/FA/Coq10/Lycopene/Lutein 1 Each Tablet, 1 TAB PO DAILY, (Reported) Ondansetron 4 Mg Tab.rapdis, 4 MG PO Q8H PRN for NAUSEA/VOMITING-1ST LINE, (Reported) Ondansetron HCl/Pf 4 Mg/2 Ml Ampul, 4 MG IV Q6H PRN for NAUSEA/VOMITING-1ST LINE, (Reported) Oxybutynin Chloride 5 Mg Tablet, 5 MG PO BID, (Reported) Oxycodone Hcl 5 Mg Tab, 5 MG PO Q4H PRN for PAIN-SEVERE, (Reported) Pantoprazole Sodium 40 Mg Vial, 40 MG IV DAILY, (Reported) Polyethylene Glycol 3350 17 Gm Powd.pack, 17 GM PO DAILY PRN for CONSTIPATION- 2ND LINE, (Reported) Ropinirole HCl 1 Mg Tablet, 2 MG PO HS, (Reported) Sennosides/Docusate Sodium 1 Each Tablet, 1 TAB PO BID PRN for CONSTIPATION-6TH LINE, (Reported) Spironolactone 25 Mg Tablet, 25 MG PO DAILY, (Reported) Patient Home Medication List Home Medication List Reviewed: Yes Physical Exam-Cardiology Physical Exam Vital Signs/I&O 02/01/19 02/01/19 02/01/19 02/01/19 05:10 09:33 09:35 09:40 Temp 97.6 97.3 Pulse 100 155 88 Resp 16 20 B/P (MAP) 111/75 (87) 85/58 (67) 100/64 (76) Pulse Ox 95 98 O2 Delivery Nasal Cannula Nasal Cannula Nasal Cannula O2 Flow Rate 2.00 2.00 02/01/19 00:00 Intake Total 1340 ml Balance 1340 ml Capillary Refill : Constitutional: AAO x 3, other (thin) HEENT: PERRL, hearing is well preserved Neck: No carotid bruit; carotid pulses are 2 + bilaterally Respiratory: No accessory muscle use, No respiratory distress; chest expansion is symmetric, chest is bilaterally symmetric, lungs clear to auscultation Cardiovascular: irregularly irregular; No JVD; S1 and S2 Gastrointestinal: No tender; soft, round, audible bowel sounds Rectal: deferred Extremities: no lower extremity edema bilateral Neurologic/Psychiatric: alert, grossly intact Skin: other (dressings to heels bilat; not removed) Data Review Labs Laboratory Tests 02/01/19 05:55: White Blood Count 18.7H, Red Blood Count 3.65L, Hemoglobin 11.7L, Hematocrit 36L , Mean Corpuscular Volume 100H, Mean Corpuscular Hemoglobin 32, Mean Corpuscular Hemoglobin Concent 32, Red Cell Distribution Width 16.7H, Platelet Count 325, Mean Platelet Volume 10.4, Neutrophils (%) (Auto) 85H, Lymphocytes (%) (Auto) 7L , Monocytes (%) (Auto) 8, Eosinophils (%) (Auto) 1, Basophils (%) (Auto) 0, Neutrophils # (Auto) 15.9H, Lymphocytes # (Auto) 1.3, Monocytes # (Auto) 1.5H, Eosinophils # (Auto) 0.1, Basophils # (Auto) 0.0, Neutrophils % (Manual) 85, Lymphocytes % (Manual) 6, Monocytes % (Manual) 8, Eosinophils % (Manual) 0, Basophils % (Manual) 1, Band Neutrophils 0, Blood Morphology Comment NORMAL, Sodium Level 139, Potassium Level 4.9, Chloride Level 100, Carbon Dioxide Level 29, Anion Gap 10, Blood Urea Nitrogen 32H, Creatinine 1.02, Estimat Glomerular Filtration Rate > 60, BUN/Creatinine Ratio 31, Glucose Level 124H, Calcium Level 10.0, Corrected Calcium 10.7H, Total Bilirubin 0.8, Aspartate Amino Transf (AST/SGOT) 32, Alanine Aminotransferase (ALT/SGPT) 38, Alkaline Phosphatase 342H , Total Protein 6.4, Albumin 3.1L A/P-Cardiology Assessment/Admission Diagnosis Generalized weakness following lengthy hospitalization for aspiration pneumonia and c-diff CAD - reports h/o stents x7 - unsure of details - primary associate data scientist Dr. Stern at [facility] in [place], [place] Chronic a-fib with episodes of SB (per records) OAC in the past - he believes Xarelto, but unsure - currently on Lovenox and full strength ASA HLD - statin tx H/O bilat CEA - unsure of details - reports done at [facility] H/O tobacco use - quit > 20 years ago HTN CKD stage III Reported h/o cirrhosis Chronic back pain with nerve stimulator in place Kyphosis H/O hypothyroidism Clinical Quality Measures DVT/VTE Risk/Contraindication: Risk Factor Score Per Nursin RFS Level Per Nursing on Admit: 3=High FRANK REYES Jan 31, 2019 16:22
--- NOTE | 2019-01-31 16:41 | NUR ---
Dr. Mora's office called, & stated that he is unavailable until Monday. Dr. Shi requests to consult Dr. Emerson, which was done. Allevyn patches on bilat heels, bottom, 02 nasal cannula tubing padded. Heel protectors on when in bed.
[2019-01-31] MEDS ORDERED: ENOXAPARIN 40 MG/0.4 ML (LOVENOX) SYR SC SCH (17:00)
[2019-01-31] MEDS ORDERED: NON-FORMULARY MEDICATION 1 EA EA (Enoxaparin Sodium (Lovenox) 40 MG) SQ SCH (17:00)
[2019-01-31] MEDS: ATORVASTATIN 40 MG (LIPITOR) TABLET PO SCH (17:19)
[2019-01-31] MEDS: MIDODRINE 10 MG (PROAMATINE) TAB PO SCH (17:19)
--- NOTE | 2019-01-31 17:37 | Consultation-Cardiology ---
HPI-Cardiology Cardiology Consultation: Date of Consultation 01/31/19 Time Seen by a Provider: 17:10 Date of Admission Attending Physician Clementina Shi DO Admitting Physician Maryuri,Local Physician Consulting Physician NYA PENALOZA MD, MA, FACP, FACC, [facility], CCDS Physician requesting consult: Dr Shi HPI: Chief Complaint: Reason for consultation: Chronic a-fib, CAD, SSS HPI Mr. Long is an 83 year old male transferred to [facility] from [facility] in [place], [place] following a lengthy hospitalization for aspiration pneumonia and C-Diff. He is a fair historian. He states his primary auto rebuilder is Dr. Stern at [facility] in [place], [place]. He reports a h/o a-fib for which he has been on OAC, he believes Xarelto. He denies any c/o CP, palpitations, dyspnea, syncope or near syncope. He reports gen weakness and an approx 20 lb weight loss during his most recent hospitalization. He does report discomfort to his right heel. Review of Systems-Cardiology Review of Systems Constitutional: No chills, No fever; weight loss Eyes: No vision change Ears/Nose/Throat: No epistaxis, No recent hearing loss Respiratory: As described under HPI Cardiovascular: As described under HPI Gastrointestinal: No constipation, No diarrhea, No nausea, No vomiting Genitourinary: No dysuria Musculoskeletal: back pain Skin: dryness, ulcerations Psychiatric/Neurological: No anxiety, No depression, No seizure, No focal weakness, No syncope Hematologic: easy bruising; No bleeding abnormalities ZMT-Vwujcz-Ubnhtc Hx Patient Social History Alcohol Use: Denies Use Recreational Drug Use: No Smoking Status: Never a Smoker Recent Foreign Travel: No Recent Infectious Disease Expo: No Hospitalization with Isolation: Contact Physical Abuse Screen: No Sexual Abuse: No Past Medical History PMH As described under Assessment. Family Medical History Family Medical History: Denies fam h/o early CAD or SCD Allergies and Home Medications Allergies Coded Allergies: diazepam (Verified Allergy, Unknown, 01/31/19) morphine (Verified Allergy, Unknown, 01/31/19) propoxyphene (Verified Allergy, Unknown, 01/31/19) Home Medications Acetaminophen 650 Mg Tablet.er, 650 MG PO Q6H PRN for PAIN-MILD, (Reported) Aspirin 325 Mg Tablet.dr, 325 MG PO DAILY, (Reported) Atorvastatin Calcium 40 Mg Tablet, 40 MG PO 1900, (Reported) Bisacodyl 10 Mg Supp.rect, 10 MG RC DAILY PRN for CONSTIPATION-4TH LINE, (Reported) Cetirizine HCl 10 Mg Tablet, 10 MG PO DAILY, (Reported) Cholecalciferol (Vitamin D3) 2,000 Unit Capsule, 2,000 UNIT PO BID, (Reported) Clopidogrel Bisulfate 75 Mg Tablet, 75 MG PO DAILY, (Reported) Collagenase 30 Gm Oint..gm., TP DAILY, (Reported) APPLY SANTYL NICKEL THICK TO ENTIRE WOUND BED ON BOTH HEALS DAILY. COVER WITH GAUZE AND SECURE WITH TAPE. Enoxaparin Sodium 40 Mg/0.4 Ml Syringe, 40 MG SQ 1700, (Reported) Famotidine 20 Mg Tablet, 20 MG PO BID, (Reported) Furosemide 10 Mg/1 Ml Vial, 40 MG IJ DAILY, (Reported) HOLD FOR SBP <100 Gabapentin 100 Mg Capsule, 500 MG PO TID, (Reported) TAKES 5 (100MG) CAPSULES Ipratropium/Albuterol Sulfate 3 Ml Ampul.neb, 3 ML NEB Q6H PRN for SHORTNESS OF BREATH, (Reported) Lactose-Reduced Food 237 Ml Liquid, 237 ML PO TIDWM, (Reported) Levothyroxine Sodium 75 Mcg Tablet, 75 MCG PO 0600, (Reported) Metoprolol Tartrate 5 Mg/5 Ml Vial, 2.5 MG IV Q6H PRN for PULSE>100, (Reported) Midodrine HCl 10 Mg Tablet, 10 MG PO TID, (Reported) Mv-Mn/FA/Coq10/Lycopene/Lutein 1 Each Tablet, 1 TAB PO DAILY, (Reported) Ondansetron 4 Mg Tab.rapdis, 4 MG PO Q8H PRN for NAUSEA/VOMITING-1ST LINE, (Reported) Ondansetron HCl/Pf 4 Mg/2 Ml Ampul, 4 MG IV Q6H PRN for NAUSEA/VOMITING-1ST LINE, (Reported) Oxybutynin Chloride 5 Mg Tablet, 5 MG PO BID, (Reported) Oxycodone Hcl 5 Mg Tab, 5 MG PO Q4H PRN for PAIN-SEVERE, (Reported) Pantoprazole Sodium 40 Mg Vial, 40 MG IV DAILY, (Reported) Polyethylene Glycol 3350 17 Gm Powd.pack, 17 GM PO DAILY PRN for CONSTIPATION- 2ND LINE, (Reported) Ropinirole HCl 1 Mg Tablet, 2 MG PO HS, (Reported) Sennosides/Docusate Sodium 1 Each Tablet, 1 TAB PO BID PRN for CONSTIPATION-6TH LINE, (Reported) Spironolactone 25 Mg Tablet, 25 MG PO DAILY, (Reported) Patient Home Medication List Home Medication List Reviewed: Yes Physical Exam-Cardiology Physical Exam Vital Signs/I&O 01/31/19 10:45 Temp 97.0 Pulse 76 Resp 20 B/P (MAP) 118/75 (89) Pulse Ox 97 O2 Delivery Room Air Capillary Refill : Constitutional: AAO x 3, other (thin) HEENT: PERRL, hearing is well preserved Neck: No carotid bruit; carotid pulses are 2 + bilaterally Respiratory: No accessory muscle use, No respiratory distress; chest expansion is symmetric, chest is bilaterally symmetric, lungs clear to auscultation Cardiovascular: irregularly irregular; No JVD; S1 and S2 Gastrointestinal: No tender; soft, round, audible bowel sounds Rectal: deferred Extremities: no lower extremity edema bilateral Neurologic/Psychiatric: alert, grossly intact Skin: other (dressings to heels bilat; not removed) A/P-Cardiology Assessment/Admission Diagnosis Generalized weakness following lengthy hospitalization for aspiration pneumonia and C-Diff CAD - reports h/o stents x7 - unsure of details - primary auto rebuilder Dr. Stern at [facility] in [place], [place] Chronic a-fib with episodes of bradycardia (per records) OAC in the past - he believes Xarelto, but unsure - currently on Lovenox and full strength ASA and Plavix HLD - statin tx H/O bilat CEA - unsure of details - reports done at [facility] H/O tobacco use - quit > 20 years ago HTN CKD stage III Reported h/o cirrhosis Chronic back pain with nerve stimulator in place Kyphosis H/O hypothyroidism Discussion and Recomendations * Obtain card recs, if possible * If last cor stent more than a year ago, then d/c Plavix and resume Xarelto. D/c enoxaparin when Xarelto is resumed * Change ASA to 81 mg daily * ECG * Echo * Monitor labs Clinical Quality Measures DVT/VTE Risk/Contraindication: Risk Factor Score Per Nursin RFS Level Per Nursing on Admit: 3=High NYA PENALOZA MD FACP FACC CCDS Jan 31, 2019 17:37
[2019-01-31] MEDS: LACTOSE REDUCED FOOD PO SCH (17:45)
--- NOTE | 2019-01-31 18:20 | NUR ---
PT IS ON AIR BED.
[2019-01-31 20:30] VITALS: BP 115/77
--- NOTE | 2019-01-31 20:38 | PM&R H&P / Post Admit Assess ---
History of Present Illness HPI/Chief Complaint Chief complaint: Myopathy HPI: This is a 83yoWM who previously worked at [employer] who has been to [facility]x recently, because the first was pneumonia the second C-Diff colitis, and the third was an aspiration pneumonia, so he was transferred to [facility] tub was placed for nutrition and he was able to work with speech therapy ultimately and resume a dysphasia one diet. Overall he has dramatically improved but definitely needs a lot of therapy to return home. He was placed in a custodial facility after the pneumonia and the C-Diff colitis episode but his intention is to go home. I did speak with speech therapy who will evaluate what his needs are as far as his diet and resume that. He does have a history of chronic atrial fibrillation and he does have some rapid ventricular response of 120s when he was up working with therapy so I did consult cardiology, Dr. Blevins and updated him and L[place]to regarding this new Pt set to arrive any minute. I did speak with Dr. Ibrahim from [facility] regarding the admission and transfer and I accepted the care. Source: patient, RN/MD, old records Exam Limitations: no limitations Date Seen 01/31/19 Time Seen by a Provider: 12:45 Attending Physician Clementina Hinton DO PCP No,Local Physician Referring Physician Date of Admission Jan 31, 2019 at 10:30 Home Medications & Allergies Home Medications Reviewed patient Home Medication Reconciliation performed by pharmacy medication reconciliations graphics edit technician and/or nursing. Patients Allergies have been reviewed. Allergies Allergies Coded Allergies diazepam (Verified Allergy, Unknown, 01/31/19) morphine (Verified Allergy, Unknown, 01/31/19) propoxyphene (Verified Allergy, Unknown, 01/31/19) Past Utwbcpw-Txwimd-Aitger Hx Past Med/Social Hx: Reviewed Nursing Past Med/Soc Hx, Reviewed and Corrections made Patient Social History Marrital Status: Employed/Student: retired Alcohol Use: Denies Use Recreational Drug Use: No Smoking Status: Never a Smoker Physical Abuse Screen: No Sexual Abuse: No Recent Foreign Travel: No Contact w/other who traveled: No Recent Hopitalizations: Yes Recent Infectious Disease Expo: No Immunizations Up To Date Date of Pneumonia Vaccine: Jun 12, 2018 Seasonal Allergies Seasonal Allergies: No Past Medical History Respiratory: COPD, Pneumonia Currently Using CPAP: No Currently Using BIPAP: No Cardiac: Atrial Fibrillation, Chronic Edema/Swelling, Hypertension Genitourinary: Kidney Stones, UTI-Chronic prostate cancer Gastrointestinal: C-Diff, Cirrhosis Musculoskeletal: Arthritis Hearing Impairment: Hard of Hearing Skin/Integumentary: Psoriasis History of Blood Disorders: No Adverse Reaction to Blood Kaplan: No Review of Systems Constitutional: see HPI EENTM: no symptoms reported Respiratory: dyspnea on exertion Cardiovascular: no symptoms reported Gastrointestinal: no symptoms reported Genitourinary: no symptoms reported Musculoskeletal: joint pain Skin: no symptoms reported Psychiatric/Neurological: Depressed All Other Systems Reviewed Negative Unless Noted: Yes Physical Exam Exam Vital Signs Vital Signs Date Time Temp Pulse Resp B/P (MAP) Pulse Ox O2 Delivery O2 Flow Rate FiO2 01/31/19 19:29 Nasal Cannula 01/31/19 18:24 56 01/31/19 10:45 97.0 20 118/75 (89) 97 Capillary Refill : Less Than 3 Seconds General Appearance: No Apparent Distress, WD/WN, Chronically ill HEENT: PERRL/EOMI, Normal ENT Inspection, Pharynx Normal, Moist Mucous Membran es Neck: Full Range of Motion, Normal Inspection, Non Tender, Supple Respiratory: Chest Non Tender, Lungs Clear, Normal Breath Sounds, No Accessory Muscle Use, No Respiratory Distress Cardiovascular: No Gallop, No JVD, No Murmur, Irregularly Irregular, Tachycardia Gastrointestinal: Normal Bowel Sounds, No Organomegaly, No Pulsatile Mass, Non Tender, Soft Rectal: Deferred Back: Normal Inspection, No CVA Tenderness, No Vertebral Tenderness Extremity: Normal Capillary Refill, Normal Inspection, Normal Range of Motion, Non Tender, No Calf Tenderness, No Pedal Edema Neurologic/Psychiatric: Alert, Oriented x3, No Motor/Sensory Deficits, Normal Mood/Affect, educational psychology professor II-XII Norm as Tested, Motor Weakness (generalized weakness all extremities) Skin: Ecchymosis (to buttocks), Rash, Other (shallow wounds on b/l heels) Results Results/Procedures Labs Patient resulted labs reviewed. Assessment/Plan Assessment and Plan Assess & Plan/Chief Complaint Plan: IRF protocol Dysphagia management Eval for aspiration Cardiology appreciated Home meds Monitor for falls (1) Myopathy Status: Acute (2) Atrial fibrillation with rapid ventricular response Status: Acute (3) Atrial fibrillation, chronic Status: Chronic (4) CHF (congestive heart failure) Status: Chronic Qualifiers: Heart failure type: unspecified (5) COPD (chronic obstructive pulmonary disease) Status: Chronic Qualifiers: COPD type: unspecified COPD Qualified Codes: J44.9 - Chronic obstructive pulmonary disease, unspecified (6) Oxygen dependent Status: Chronic (7) Prostate cancer Status: Chronic (8) Presbycusis of both ears Status: Chronic (9) Advanced age Status: Chronic (10) At risk for aspiration Status: Chronic (11) History of Clostridioides difficile colitis Status: Chronic Post Admission Physician Asses Date seen by provider: Jan 31, 2019 Time seen by provider: 12:45 Admisison Dx: (1) Myopathy Status: Acute The preadmission screen agrees with the post admission assessment that the patient is a good candidate for inpatient rehabilitation. The patient will have a comprehensive program of inpatient rehabilitation with a goal of maximizing level of functional independence prior to discharge home with family. The patient will have PT/OT ninety minutes per day, each discipline, five days a week for gait, strengthening, conditioning, balance, ADLs, any patient/family/caregiver training as necessary. Speech therapy to do cognitive assessment and treat as indicated. Rehabilitation nursing to assist with bowel, bladder, skin, wound care, medication administration, pain management. Mobile Manager to assist with discharge planning, community reentry. SCD's for DVT prophylaxis. He appears to be well motivated to participate in three hours of therapy a day. He should be able to tolerate three hours of therapy a day from a medical standpoint. He should benefit from the three hours of therapy a day. He has a reasonable discharge plan, reasonable discharge rehabilitation goals and a supportive family. He has various comorbidities that need to be closely monitored with medications and treatments adjusted on a daily basis as needed. These include: see list Barriers to discharge for this patient who had been independent prior to this are for him to be modified independent to supervision for ADLs and mobility skills prior to discharge home with family, so as to lessen the burden of the caregivers. Risks for this patient include: 1. Fall 2. Fracture 3. DVT 4. Pulmonary embolism 5. Wound infection 6. Skin breakdown 7. Contractures 8. Poorly controlled pain 9. Urinary retention 10. UTI 11. Respiratory infection 12. Aspiration Estimated Length of Stay: 14 days Prognosis: Rehab prognosis appears good for goal of discharge home with family modified independent to supervision for ADLs and mobility skills. CLEMENTINA HINTON DO Jan 31, 2019 20:37
--- NOTE | 2019-01-31 20:40 | Individualized Plan of Care ---
Individualized Plan of Care Rehab Nursing IPOC Order Admission Date Jan 31, 2019 at 10:30 Current Orders Orders Admission Order(Inpt,Obs,Sdc) (01/31/19 09:29) Seedling Sorter-Inpt Rehab Con (01/31/19 09:29) Rehab Nursing Orders-Ipoc (01/31/19 09:29) Physical Therapy Rehab Orders (01/31/19 09:29) Occupational Therapy Rehab Ord (01/31/19 09:29) Speech Therapy Rehab Orders (01/31/19 09:29) General/Regular (01/31/19 Lunch) Intake & Output 06,14,22 (01/31/19 09:29) Precautions (Aru) (01/31/19 09:29) Weekly Weight (Lbs) WEEK (01/31/19 09:29) Rehab-Intensity Of Therapy (01/31/19 09:29) Initiate Admission Nursing Pro .admission (01/31/19 09:29) Admission Arrival Bed Request (01/31/19 10:30) Dys2 Mechanically Altered (01/31/19 Lunch) Sequential Compression Device (01/31/19 13:58) Dvt/Vte Risk - Notifiy Physici .ONCE (01/31/19 13:58) Consult Wound Care Physician (01/31/19 14:13) Aspirin Enteric Coated Tablet (Ecotrin T (02/01/19 09:00) Atorvastatin Tablet (Lipitor) (01/31/19 19:00) Bisacodyl Suppository (Dulcolax Supposit (01/31/19 14:30) Clopidogrel Tablet (Plavix Tablet) (02/01/19 09:00) Collagenase Ointment (Santyl Ointment) (02/01/19 09:00) Gabapentin Capsule/Tablet (Neurontin Cap (01/31/19 21:00) Albuterol/Ipra Inhalation Soln (Duoneb I (01/31/19 14:30) Levothyroxine Tablet (Synthroid Tablet) (02/01/19 06:00) Midodrine Tablet (Proamatine) (01/31/19 17:00) Ondansetron Oral Dissolve Tab (Zofran (01/31/19 14:30) Oxycodone Immediate Rel Tablet (Oxyir Ta (01/31/19 14:30) (Nf) Acetaminophen (Tylenol Arthritis) (01/31/19 14:30) (Nf) Cetirizine Hcl (Zyrtec) (02/01/19 09:00) (Nf) Cholecalciferol (Vitamin D3) (Vitam (01/31/19 21:00) (Nf) Enoxaparin Sodium (Lovenox) (01/31/19 17:00) (Nf) Famotidine (Acid Machinery Rigger (Famotidin (01/31/19 21:00) (Nf) Lactose-Reduced Food (Ensure Liquid (01/31/19 17:00) (Nf) Mv-Mn/Fa/Coq10/Lycopene/Lutein (The (02/01/19 09:00) (Nf) Oxybutynin Chloride (01/31/19 21:00) (Nf) Polyethylene Glycol 3350 (Miralax) (01/31/19 14:30) (Nf) Ropinirole Hcl (01/31/19 21:00) (Nf) Sennosides/Docusate Sodium (Senna S (01/31/19 14:30) (Nf) Spironolactone (Aldactone) (02/01/19 09:00) Enoxaparin Injection (Lovenox Injection) (01/31/19 17:00) Cholecalciferol Capsule/Tablet (Vitamin (01/31/19 21:00) Acetaminophen Tablet/Caplet (Tylenol T (01/31/19 15:00) Ropinirole Tablet (Requip Tablet) (01/31/19 21:00) Loratadine Tablet (Claritin Tablet) (02/01/19 09:00) Famotidine Tablet (Pepcid Tablet) (01/31/19 21:00) Spironolactone Tablet (Aldactone Tablet) (02/01/19 09:00) Polyethylene Glycol Powder Pkt (Miralax (01/31/19 15:00) Oxybutynin Tablet (Ditropan Tablet) (01/31/19 21:00) Therapeutic Multivitamin Tab (Vitamins, (02/01/19 07:00) Senna S Tablet (Senokot S Tablet) (01/31/19 15:00) Patient Visit (01/31/19 ) Pt Eval Moderate Complexity (01/31/19 ) Functional Activities, Ea 15 (01/31/19 ) Patient Visit (01/31/19 ) Dysphagia Evaluation Std (01/31/19 ) Patient Visit (01/31/19 ) Speech Sound Lang Comp (01/31/19 ) Telemetry (01/31/19 16:21) Telemetry Nursing Assessment ( (01/31/19 16:21) Obtain Records From (Order) (01/31/19 16:21) Consult Cardiology (01/31/19 16:21) Consult General Surgery (01/31/19 16:38) Seedling Sorter Consult (01/31/19 16:44) Nursing Communication (Order) (01/31/19 16:45) Aspirin Chewable Tablet (Baby Aspirin Ch (02/01/19 09:00) Echo W Doppler/Color Flow (02/01/19 06:00) Ekg Tracing (02/01/19 06:00) Dietary Consult (01/31/19 18:21) Rehab Nursing Orders: Ongoing Assess. of Cognitive Status, Ongoing Assess. of Function Status, Bladder Management, Bladder Scan, Bladder Training, Bowel Management, Bowel Training, Disease Management & Educaiton, DVT Prophylaxis, Fall Prevention, Fluid/Electrolyte/Nutrition Mgmt, Infection Prevention, Medication Management & Education, Management of Risks & Complications, Management of Skin Intergrity, Nutrition Management, Patient/Family Support, Safety Management, Swallow Precautions, Wound Management Intensity of Therapy to be met Patient to be seen: 15 hrs over 7 cons. days PT IPOC Problem List: Activity Tolerance, Functional Strength, Safety, Balance, Gait, Transfer, Bed Mobility Treatment Plan: Continue Plan of Care Bed Mobility, Education, Functional Activity Mahamed, Functional Strength, Group Therapy, Gait, Safety, Therapeutic Exercise, Transfers Treatment Duration: Feb 28, 2019 Frequency: At least 5 of 7 days/Wk (IRF) Estimated Hrs Per Day: 1.5 hours per day OT IPOC Problems: Decreased Activ Tolerance, Decreased UE Strength, Dependent Transfers, Impaired Funct Balance, Impaired I ADL's, Impaired Self-Care Skills, Restricted Funct UE ROM OT Treatment, Training and Edu: Yes Plan of Care: ADL Retraining, Functional Mobility, Group Exercise/Act as Ind, UE Funct Exercise/Act Treatment Duration: Feb 21, 2019 Frequency: At least 5 of 7 days/Wk (IRF) Estimated Hrs Per Day: 1.[address] IPOC Speech Therapy Treatment Plan: Discontinue ST Treatment Duration: Jan 31, 2019 Frequency: 1 time per week Estimated Hrs Per Day: .25 hour per day Seedling Sorter/Case Mgmt Seedling Sorter/Case Managemen: Discharge Planning Dietitian/Tool Grinding Technician Dietitian/Tool Grinding Technician to monitor nutritional status and make changes and/or recommendations as needed and work with speech pathology on dietary upgrades as the occur. Physician IPOC Medical Issues being managed closely and that require the 24 hour availability of a physician: AF w/RVR will require close monitoring of Cardiology and wound care will need to manage heels and buttocks Medical Issues: Bowel/Bladder Function, DVT Prophylaxis, Falls Precautions, Fluid/Electrolyte/Nutrition Balance, Infection Protection, Pain Management, Swallowing Precautions, Weight Bearing Precautions, Wound Care Brief Synthesis of Preadmission Screen, Post-Admission Evaluation, and Therapy Evaluations: PT will focus on ambulation with walker and fall prevention OT will help him regain independent ADL's ST will focus on aspiration prevention Medical Prognosis: Good Anticipated Length of Stay: 14 days QUANG HINTON DO Jan 31, 2019 20:40
[2019-01-31] MEDS ORDERED: NON-FORMULARY MEDICATION 1 EA EA (Famotidine (Acid Reducer (FAMOTIDINE)) 20 MG) PO SCH (21:00)
[2019-01-31] MEDS ORDERED: NON-FORMULARY MEDICATION 1 EA EA (Oxybutynin Chloride 5 MG) PO SCH (21:00)
[2019-01-31] MEDS ORDERED: NON-FORMULARY MEDICATION 1 EA EA (Cholecalciferol (Vitamin D3) (Vitamin D3) 2,000 UNIT) PO SCH (21:00)
[2019-01-31] MEDS ORDERED: NON-FORMULARY MEDICATION 1 EA EA (Ropinirole HCl 2 MG) PO SCH (21:00)
[2019-01-31] MEDS: VITAMIN D3 1,000 UNITS (CHOLECALCIFEROL) TABLET PO SCH (21:11)
[2019-01-31] MEDS: rOPINIRole 1 MG (REQUIP) TABLET PO SCH (21:11)
[2019-01-31] MEDS: OXYBUTYNIN (DITROPAN) 5 MG TAB PO SCH (21:11)
[2019-01-31] MEDS: GABAPENTIN 100 MG (NEURONTIN) CAP PO SCH (21:11)
[2019-01-31] MEDS: FAMOTIDINE 20 MG (PEPCID) TABLET PO SCH (21:11)
[2019-01-31] MEDS ORDERED: DILTIAZEM 240 MG (CARDIZEM CD) CAP PO ONE (21:15)
--- NOTE | 2019-01-31 22:11 | NUR ---
icu reports telemetry shows rate 150-155. pt asymptomatic, v/s taken . dr hernandez notified new orders noted. cont. to monitor patient
--- NOTE | 2019-02-01 05:00 | NUR ---
pt heart rate noted 80-100. pt rested most of noc with eyes closed resp reg et easy, pt incont. of b&b anisa care et linens chg. pt repositioned freq in bed
[2019-02-01 05:10] VITALS: BP 111/75
[2019-02-01 06:18] LABS: BASOPHILS % (AUTO) 0 % (0-10); EOSINOPHILS # (AUTO) 0.1 10^3/uL (0.0-0.3); EOSINOPHILS % (AUTO) 1 % (0-10); HEMATOCRIT 36 % (40-54); HEMOGLOBIN 11.7 G/DL (13.3-17.7); LYMPHOCYTES # (AUTO) 1.3 X 10^3 (1.0-4.0); LYMPHOCYTES % (AUTO) 7 % (12-44); MEAN CORPUSCULAR HEMOGLOBIN 32 PG (25-34); MEAN CORPUSCULAR HGB CONC 32 G/DL (32-36); MEAN CORPUSCULAR VOLUME 100 FL (80-99); MEAN PLATELET VOLUME 10.4 FL (7.4-10.4); MONOCYTES # (AUTO) 1.5 X 10^3 (0.0-1.0); MONOCYTES % (AUTO) 8 % (0-12); NEUTROPHILS # (AUTO) 15.9 X 10^3 (1.8-7.8); NEUTROPHILS % (AUTO) 85 % (42-75); PLATELET COUNT 325 10^3/uL (130-400); RED CELL DISTRIBUTION WIDTH 16.7 % (10.0-14.5); WHITE BLOOD COUNT 18.7 10^3/uL (4.3-11.0)
[2019-02-01] MEDS: LEVOTHYROXINE 75 MCG (LEVOTHROID) TABLET PO SCH (06:36)
[2019-02-01] MEDS: MULTIVIT W/MINERALS TAB (THERAGRAN M) PO SCH (06:36)
[2019-02-01] MEDS: MIDODRINE 10 MG (PROAMATINE) TAB PO SCH ×3 (06:36→16:38)
[2019-02-01 06:37] LABS: ALANINE AMINOTRANSFERASE 38 U/L (0-55); ALBUMIN 3.1 GM/DL (3.2-4.5); ALKALINE PHOSPHATASE 342 U/L (40-136); BILIRUBIN,TOTAL 0.8 MG/DL (0.1-1.0); BUN/CREATININE RATIO 31; CARBON DIOXIDE 29 MMOL/L (21-32); CHLORIDE 100 MMOL/L (98-107); CREATININE SERUM 1.02 MG/DL (0.60-1.30); GFR ESTIMATED > 60; GLUCOSE 124 MG/DL (70-105); POTASSIUM 4.9 MMOL/L (3.6-5.0); SODIUM 139 MMOL/L (135-145); TOTAL PROTEIN 6.4 GM/DL (6.4-8.2)
[2019-02-01 07:14] LABS: BAND NEUTROPHILS 0 %; BASOPHILS % (MANUAL) 1 %; EOSINOPHILS % (MANUAL) 0 %; LYMPHOCYTES % (MANUAL) 6 %; MONOCYTES % (MANUAL) 8 %; NEUTROPHILS % (MANUAL) 85 %; RBC MORPH NORMAL
[2019-02-01] MEDS: LACTOSE REDUCED FOOD PO SCH ×3 (07:52→17:18)
[2019-02-01] MEDS ORDERED: CLOPIDOGREL 75 MG (PLAVIX) TABLET PO SCH (09:00)
[2019-02-01] MEDS ORDERED: NON-FORMULARY MEDICATION 1 EA EA (Spironolactone (Aldactone) 25 MG) PO SCH (09:00)
[2019-02-01] MEDS ORDERED: DILTIAZEM 240 MG (CARDIZEM CD) CAP PO SCH (09:00)
[2019-02-01] MEDS ORDERED: ASPIRIN E.C. 325 MG (ECOTRIN) TABLET PO SCH (09:00)
[2019-02-01] MEDS ORDERED: NON-FORMULARY MEDICATION 1 EA EA (Cetirizine HCl (Zyrtec) 10 MG) PO SCH (09:00)
[2019-02-01 09:33] VITALS: BP 85/58
[2019-02-01 09:35] VITALS: BP 100/64
[2019-02-01] MEDS: OXYBUTYNIN (DITROPAN) 5 MG TAB PO SCH ×2 (09:47→21:39)
[2019-02-01] MEDS: GABAPENTIN 100 MG (NEURONTIN) CAP PO SCH ×3 (09:47→21:38)
[2019-02-01] MEDS: ASPIRIN 81 MG CHEW (CHILDREN'S ASA) PO SCH (09:48)
[2019-02-01] MEDS: SPIRONOLACTONE 25 MG (ALDACTONE) TAB PO SCH (09:48)
[2019-02-01] MEDS: LORATADINE (CLARITIN) 10 MG TAB PO SCH (09:48)
[2019-02-01] MEDS: FAMOTIDINE 20 MG (PEPCID) TABLET PO SCH ×2 (09:48→21:38)
[2019-02-01] MEDS: VITAMIN D3 1,000 UNITS (CHOLECALCIFEROL) TABLET PO SCH ×2 (09:48→21:38)
[2019-02-01] MEDS: DILTIAZEM 240 MG (CARDIZEM CD) CAP PO SCH (09:48)
--- NOTE | 2019-02-01 10:04 | Progress Note - Cardiology ---
Cardiology SOAP Progress Note Subjective: Gen malaise and weakness No cp or palp or syncope Did not have symptoms during episodes of tachycardia overnight Objective: I&O/Vital Signs 02/01/19 02/01/19 02/01/19 02/01/19 00:00 01:00 05:10 09:33 Temp 97.6 97.3 Pulse 81 77 100 Resp 16 B/P (MAP) 111/75 (87) 85/58 (67) Pulse Ox 95 O2 Delivery Nasal Cannula Nasal Cannula O2 Flow Rate 2.00 02/01/19 02/01/19 09:35 09:40 Pulse 155 88 Resp 20 B/P (MAP) 100/64 (76) Pulse Ox 98 O2 Delivery Nasal Cannula O2 Flow Rate 2.00 02/01/19 00:00 Intake Total 1340 ml Balance 1340 ml Weight (Pounds): 122 Weight (Ounces): 14.4 Weight (Calculated Kilograms): [id number] Constitutional: AAO x 3, other (thin) Respiratory: No accessory muscle use, No respiratory distress; chest expansion is symmetric, chest is bilaterally symmetric, lungs clear to auscultation Cardiovascular: irregularly irregular; No JVD; S1 and S2 Gastrointestional: No tender; soft, round, audible bowel sounds Extremities: no lower extremity edema bilateral Neurologic/Psychiatric: alert, grossly intact Skin: other (dressings to heels bilat; not removed) Results/Procedures: Labs Laboratory Tests 02/01/19 05:55: White Blood Count 18.7H, Red Blood Count 3.65L, Hemoglobin 11.7L, Hematocrit 36L , Mean Corpuscular Volume 100H, Mean Corpuscular Hemoglobin 32, Mean Corpuscular Hemoglobin Concent 32, Red Cell Distribution Width 16.7H, Platelet Count 325, Mean Platelet Volume 10.4, Neutrophils (%) (Auto) 85H, Lymphocytes (%) (Auto) 7L , Monocytes (%) (Auto) 8, Eosinophils (%) (Auto) 1, Basophils (%) (Auto) 0, Neutrophils # (Auto) 15.9H, Lymphocytes # (Auto) 1.3, Monocytes # (Auto) 1.5H, Eosinophils # (Auto) 0.1, Basophils # (Auto) 0.0, Neutrophils % (Manual) 85, Lymphocytes % (Manual) 6, Monocytes % (Manual) 8, Eosinophils % (Manual) 0, Basophils % (Manual) 1, Band Neutrophils 0, Blood Morphology Comment NORMAL, Sodium Level 139, Potassium Level 4.9, Chloride Level 100, Carbon Dioxide Level 29, Anion Gap 10, Blood Urea Nitrogen 32H, Creatinine 1.02, Estimat Glomerular Filtration Rate > 60, BUN/Creatinine Ratio 31, Glucose Level 124H, Calcium Level 10.0, Corrected Calcium 10.7H, Total Bilirubin 0.8, Aspartate Amino Transf (AST/SGOT) 32, Alanine Aminotransferase (ALT/SGPT) 38, Alkaline Phosphatase 342H , Total Protein 6.4, Albumin 3.1L Laboratory Tests 02/01/19 05:55 A/P: Assessment: PAF/Flutter vs SVT with vent rates up to 150 bpm Generalized weakness following lengthy hospitalization for aspiration pneumonia and C-Diff CAD - reports h/o stents x7 - states last cor stent over 2 years ago - primary personal banking assistant Dr. Stern at [facility] in [place], [place] OAC in the past - he believes Xarelto, but unsure - currently on Lovenox and ASA and Plavix HLD - statin tx H/O bilat CEA - unsure of details - reports done at [facility] H/O tobacco use - quit > 20 years ago HTN CKD stage III Reported h/o cirrhosis Chronic back pain with nerve stimulator in place Kyphosis H/O hypothyroidism Plan: * I reviewed his tele and ECG today * Long-acting dilt for vent rate control * Eliquis for stroke prophylaxis (low dose for now, given low BMI and age 83) * Echo * Monitor labs * I explained our treatment plan and answered questions NYA PENALOZA MD [facility] CCDS Feb 01, 2019 10:04
--- NOTE | 2019-02-01 10:08 | PM&R Progress Note ---
Subjective HPI/CC On Admission Date Seen by Provider: Feb 01, 2019 Time Seen by Provider: 09:45 Chief complaint: Myopathy HPI: This is a 83yoWM who previously worked at [employer] who has been to [facility] 3x recently, because the first was pneumonia the second C-Diff colitis, and the third was an aspiration pneumonia, so he was transferred to [place], NG tub was placed for nutrition and he was able to work with speech therapy ultimately and resume a dysphasia one diet. Overall he has dramatically improved but definitely needs a lot of therapy to return home. He was placed in a senior living facility after the pneumonia and the C-Diff colitis episode but his intention is to go home. I did speak with speech therapy who will evaluate what his needs are as far as his diet and resume that. He does have a history of chronic atrial fibrillation and he does have some rapid ventricular response of 120s when he was up working with therapy so I did consult cardiology, Dr. Blevins and updated him and L[place] regarding this new Pt set to arrive any minute. I did speak with Dr. Ibrahim from [facility] regarding the admission and transfer and I accepted the care. Subjective/Events-last exam Patient wants to DO NOT RESUSCITATE order as he has in the past EKG and echocardiogram completed today Telemetry with therapy showed heart rate of 140s with A. fib and cardiology was notified Cardizem 240 mg was given C. difficile presumed due to loose stools and elevated white count but no fever Conferred with RN Reviewed therapy notes Check meds and labs Denies any pain except for his right heel and wound care is managing Review of Systems General: Fatigue Pulmonary: Dyspnea Gastrointestinal: Diarrhea Objective Exam Vital Signs Vital Signs Date Time Temp Pulse Resp B/P (MAP) Pulse Ox O2 Delivery O2 Flow Rate FiO2 02/01/19 19:59 Nasal Cannula 1.00 02/01/19 18:29 68 02/01/19 16:00 98.7 16 102/64 (77) 93 Capillary Refill : Less Than 3 Seconds General Appearance: No Apparent Distress, WD/WN, Chronically ill HEENT: PERRL/EOMI, Normal ENT Inspection, Pharynx Normal, Moist Mucous Membranes Neck: Full Range of Motion, Normal Inspection, Non Tender, Supple Respiratory: Chest Non Tender, Lungs Clear, Normal Breath Sounds, No Accessory Muscle Use, No Respiratory Distress Cardiovascular: No Gallop, No JVD, No Murmur, Irregularly Irregular, Tachycardia Gastrointestinal: Normal Bowel Sounds, No Organomegaly, No Pulsatile Mass, Non Tender, Soft Rectal: Deferred Back: Normal Inspection, No CVA Tenderness, Decreased Range of Motion, Other (sevre kyphosis) Extremity: Normal Capillary Refill, Normal Inspection, Normal Range of Motion, Non Tender, No Calf Tenderness, No Pedal Edema Neurologic/Psychiatric: Alert, Oriented x3, No Motor/Sensory Deficits, Normal Mood/Affect, 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 FIM Transfers Therapy Code Descriptions/Definitions Functional [place] Measure: 0=Not Assessed/NA 4=Minimal Assistance 1=Total Assistance 5=Supervision or Setup 2=Maximal Assistance 6=Modified [place] 3=Moderate Assistance 7=Complete [place] Therapy Quality Codes: 6 Independent with activity with or without an assistive device 5 Patient requires set up or clean up by helper. Patient completes activity by themselves 4 Supervision or touching assist (CGA). [place] provide cues , steadying assist 3 The helper provides less than half the effort to complete the activity 2 The helper provides more than half the effort to complete the activity 1 Dependent. The helper does all the effort to complete an activity 7 Patient refused to complete or attempt activity 9 The patient did not perform the activity before the current illness or injury 88 Not attempted due to Medical conditions or safety concerns Transfers (B, C, W/C) (FIM): 4 (Sit-stand) Scootin Roll Left to Right (QC): 4 Supine to/from Sit: 3 (mod assit requiring assit with both legs) Sit to/from Stand: 4 Sit to Lying (QC): 3 Sit to Stand (QC): 3 (skilled cues 50% of the time for hand placement and sequencing. ) Chair/Xgn-aa-Ufgqa Xfer(QC): 3 Bed to/from Chair: 4 Car Transfer (QC): 3 Gait Training Does the Patient Walk?: Yes Gait (FIM): 2 Distance (FIM): 0=658-47 ft Walk 10 feet (QC): 3 Walk 50 ft with 2 Turns(QC): 3 Walk 150 ft (QC): 88 (unable to walk this distance) Walking 10ft/uneven surface-QC: 3 Gait Assistive Device: FWW Wheelchair Training Does the Pt Use a Wheelchair?: No Stair Training Stairs (FIM): 1 1 Step (curb) (QC): 1 4 Steps (QC): 88 12 Steps (QC): 88 Balance Picking up an Object (QC): 88 Mental Status/Objective Comprehension: 7 Expression: 7 Social Interaction: 7 Problem Solvin Memory: 7 ADL-Treatment Feedin (Set up ) Eating (QC): 5 Lower Extremity Dressin Lower Body Dressing (QC): 4 On/Off Footwear (QC): 4 Assessment/Plan Assessment and Plan Assess & Plan/Chief Complaint Plan: IRF protocol Dysphagia management Eval for aspiration Cardiology appreciated Home meds Monitor for falls Noted severe kyphosis will limit overall physical function Monitor wbc count C diff check Appreciate Cardiology management (1) Myopathy Status: Acute (2) Kyphosis Status: Chronic Qualifiers: Kyphosis type: postural Spinal region: cervicothoracic Qualified Codes: 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, cervicothoracic region (3) DNR (do not resuscitate) Status: Chronic (4) COPD (chronic obstructive pulmonary disease) Status: Chronic Qualifiers: COPD type: unspecified COPD Qualified Codes: J44.9 - Chronic obstructive pulmonary disease, unspecified (5) CHF (congestive heart failure) Status: Chronic Qualifiers: Heart failure type: unspecified (6) Prostate cancer Status: Chronic (7) Oxygen dependent Status: Chronic (8) Atrial fibrillation with rapid ventricular response Status: Acute (9) Advanced age Status: Chronic (10) Atrial fibrillation, chronic Status: Chronic (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
--- NOTE | 2019-02-01 10:42 | Progress Note - Hospitalist ---
SENDY [facility] 02/01/19 1042: Progress Note Mr Mercedes had a roungh night sleep His WBC was 18.7 this AM and is complaining of profuse diarrhea Ordering stool culture and placing in isolation with recent hx of C Diff. Beginning oral Vancomycin Follow up on echo once read by CLEMENTINA Lacy DO 02/01/19 2135: Supervisory-Addendum Brief Verification & Attestation Participated in pt care: history, MDM, physical Personally performed: exam, history, MDM, supervision of care Care discussed with: Medical Student Procedures: n/a Results interpretation: Verified all documentation Verification and Attestation of Medical Student E/M Service A medical student performed and documented this service in my presence. I reviewed and verified all information documented by the medical student and made modifications to such information, when appropriate. I personally performed the physical exam and medical decision making. Clementina Shi, Feb 01, 2019,21:[address] [facility] Feb 01, 2019 10:42 CLEMENTINA SHI DO Feb 01, 2019 21:35
--- NOTE | 2019-02-01 11:04 | Physical Therapy Daily Note ---
PT Daily Note-Current Subjective Agreeable to PT. Reports he is feeling well. Post treatment, reports he is tired. Transfers Therapy Code Descriptions/Definitions Functional [place] Measure: 0=Not Assessed/NA 4=Minimal Assistance 1=Total Assistance 5=Supervision or Setup 2=Maximal Assistance 6=Modified [place] 3=Moderate Assistance 7=Complete [place] Therapy Quality Codes: 6 Independent with activity with or without an assistive device 5 Patient requires set up or clean up by helper. Patient completes activity by themselves 4 Supervision or touching assist (CGA). [place] provide cues , steadying assist 3 The helper provides less than half the effort to complete the activity 2 The helper provides more than half the effort to complete the activity 1 Dependent. The helper does all the effort to complete an activity 7 Patient refused to complete or attempt activity 9 The patient did not perform the activity before the current illness or injury 88 Not attempted due to Medical conditions or safety concerns Transfers (B, C, W/C) (FIM): 3 Sit to/from Stand: 3 (mod assist to come to a stand and skilled cues for sequencing. ) Gait Training Does the Patient Walk?: Yes Gait (FIM): 2 Distance (FIM): 6=230-63 ft Distance: 100 ft x 5 reps Gait Assistive Device: FWW slow gait with decreased step length, lacks full hip extension and head down--these increase fall risk. Skilled cues provided 50% of the time and pt able to correct. Exercises Seated Therapy Exercises: Ankle pumps, Long arc quads, Hip flexion, Hamstring Curls, Hip abd/add Seated Reps: 12 (to increase LE strength for functional transfer and gait progression) Assessment Current Status: Good Progress PT is pleasant and cooperative. Fatigues quickly and requires frequent rest breaks but is cooperative and motivated. PT Short Term Goals Short Term Goals Time Frame: Feb 14, 2019 Transfers (B,C,W/C) (FIM): 4 Gait (FIM): 4 Distance (FIM): 3=150 ft Gait Assistive Device: FWW PT Longterm Goals Longterm Goals PT Longterm Goals Time Frame: Feb 28, 2019 Transfers (B,C,W/C) (FIM): 6 Sit to Lying (QC): 6 Lying-Sitting on Side/Bed(QC): 6 Sit to Stand (QC): 6 Roll Left to Right (QC): 6 Chair/Fns-gx-Npnih Xfer(QC): 6 Car Transfer (QC): 6 Does the Patient Walk: Yes Gait (FIM): 6 Gait distance (FIM): 3=150 ft Walk 10 feet (QC): 6 Walk 10ft-Uneven Surface(QC): 6 Walk 50ft with 2 Turns (QC): 6 Walk 150 ft (QC): 6 Gait Assistive Device: FWW Does the Pt use WC or Scooter?: No Stairs (FIM): 5 # of Steps: 4 1 Step (curb) (QC): 6 4 Steps (QC): 6 12 Steps (QC): 9 Picking up an Object (QC): 88 PT Plan Problem List Problem List: Activity Tolerance, Functional Strength, Safety, Balance, Gait, Transfer, Bed Mobility Treatment/Plan Treatment Plan: Continue Plan of Care Treatment Plan: Bed Mobility, Education, Functional Activity Mahamed, Functional Strength, Group Therapy, Gait, Safety, Therapeutic Exercise, Transfers Treatment Duration: Feb 28, 2019 Frequency: At least 5 of 7 days/Wk (IRF) Estimated Hrs Per Day: 1.5 hours per day Patient and/or Family Agrees t: Yes Safety Risks/Education Patient Education: Gait Training, Transfer Techniques, Safety Issues Teaching Recipient: Patient Teaching Methods: Demonstration, Discussion Response to Teaching: Reinforcement Needed Time/GCodes Time In: 930 Time Out: 1031 Total Billed Treatment Time: 61 Total Billed Treatment visit EX 16 FA 45 BENITO CHO PT Feb 01, 2019 11:04
--- NOTE | 2019-02-01 11:26 | Occupational Ther Daily Note ---
OT Current Status-Daily Note Subjective Pt in bed, agrees to therapy. States he had a rough night secondary to diarrhea. Pt reports pain in right foot. RN states okay for shower this morning. Mental Status/Objective Therapy Code Descriptions/Definitions Functional [place] Measure: 0=Not Assessed/NA 4=Minimal Assistance 1=Total Assistance 5=Supervision or Setup 2=Maximal Assistance 6=Modified [place] 3=Moderate Assistance 7=Complete [place] Attachments: Oxygen ADL-Treatment Pt incontinent of bowel while in bed. Rolls with assist, requires total assist for hygiene. Pt would like to shower this morning. Supine to sit with mod assist. Pt sit to stand with mod assist. Gait to restroom with FWW, slow pace. Transfer to walk in shower with min assist using grab bars, cues for hand placement and safety. Pt then requests to use BSC. Transfer to BSC with mod assist. Pt requires total assist for toileting hygiene. Seated bathing completed using hand held shower. Pt able to wash upper body with SBA. Bathes bilateral upper legs and anisa area. Assist for lower legs and buttocks. don pullover shirt with minimal assistance to pull down in back. Pt fatigues with activity, so requires max assist to don pants. Pt performed gait to chair with FWW. Sitting in chair with needs met and nursing present after session. Therapy Code Descriptions/Definitions Functional [place] Measure: 0=Not Assessed/NA 4=Minimal Assistance 1=Total Assistance 5=Supervision or Setup 2=Maximal Assistance 6=Modified [place] 3=Moderate Assistance 7=Complete [place] Therapy Quality Codes: 6 Independent with activity with or without an assistive device 5 Patient requires set up or clean up by helper. Patient completes activity by themselves 4 Supervision or touching assist (CGA). [place] provide cues , steadying assist 3 The helper provides less than half the effort to complete the activity 2 The helper provides more than half the effort to complete the activity 1 Dependent. The helper does all the effort to complete an activity 7 Patient refused to complete or attempt activity 9 The patient did not perform the activity before the current illness or injury 88 Not attempted due to Medical conditions or safety concerns Bathing (FIM): 3 Shower/Bathe Self (QC): 3 Upper Body (FIM): 4 Upper Body Dressing (QC): 3 Lower Body Dressing (FIM): 2 Lower Body Dressing (QC): 2 Toileting (FIM): 1 Toileting Hygiene (QC): 1 Toilet/Commode Transfer (FIM): 3 Shower Transfer(FIM): 3 OT Short Term Goals Short Term Goals Transfers (B,C,W/C) (FIM): 4 1=Demonstrate adherence to instructed precautions during ADL tasks. 2=Patient will verbalize/demonstrate understanding of assistive devices/modifications for ADL. 3=Patient will improve strength/tolerance for activity to enable patient to perform ADL's. OT General Foundry Worker Goals Prison Goals Time Frame: Feb 21, 2019 Eating (FIM): 6 Eating (QC): 6 Groomin Oral Hygiene (QC): 6 Bathing(FIM): 5 Shower/Bathe Self (QC): 5 Upper Body Dressing(FIM): 6 Upper Body Dressing (QC): 6 Lower Body Dressing(FIM): 6 Lower Body Dressing (QC): 6 On/Off Footwear (QC): 6 Toileting(FIM): 5 Toileting Hygiene (QC): 6 Transfers (B,C,W/C) (FIM): 6 Toilet/Commode Transfer(FIM): 6 Toilet/Commode Transfer (QC): 6 Shower Transfer(FIM): 5 Comprehension(FIM): 6 Expression (FIM): 6 Social Interaction(FIM): 6 Problem Solving(FIM): 6 Memory(FIM): 6 Additional Goals: 1-Demonstrate ADL Tasks, 2-Verbalize Understanding, 3- ImproveStrength/Mahamed 1=Demonstrate adherence to instructed precautions during ADL tasks. 2=Patient will verbalize/demonstrate understanding of assistive devices/modifications for ADL. 3=Patient will improve strength/tolerance for activity to enable patient to perform ADL's. OT Education/Plan Discharge Recommendations Plan/Recommendations: Continue POC Treatment Plan/Plan of Care Patient would benefit from OT for education, treatment and training to promote independence in ADL's, mobility, safety and/or upper extremity function for ADL's. Plan of Care: ADL Retraining, Functional Mobility, Group Exercise/Act as Ind, UE Funct Exercise/Act Treatment Duration: Feb 21, 2019 Frequency: At least 5 of 7 days/Wk (IRF) Estimated Hrs Per Day: 1.5 hours per day Agreement: Yes Rehab Potential: Good Time/GCodes Start Time: 08:30 Stop Time: 09:30 Total Time Billed (hr/min): 60 Billed Treatment Time 1 visit, ADLx4(60minutes) NOEMI LUQUE OT Feb 01, 2019 11:26
--- NOTE | 2019-02-01 11:37 | NUR ---
ENGINE PILOT met with patient to complete initial assessment. Patient was alert and oriented and agreeable to assessment; however, patient did express occasional loss in word finding. Patient admitted to ARU from [facility] following lengthy hospitalization courses and diagnosis of myopathy. Prior to hospitalization patient resided alone in [place], [place], after his approximately 3-6 months ago. The home is multilevel; however he is able to utilize the main floor, but does have a chairlift for the stairs. The home has 3 steps at the entrance with railing. Patient reports several hospitalizations since the beginning of the year. Prior to most recent hospitalization patient utilized a front-wheeled walker or Rollator walker for ambulation and can slowly complete ADLs dependently. Patient does however possess several pieces of DME left over from his handles wheelchair and a walk in shower with grab bars. Primary local contact identified as daughterInes of [place] at [phone] and secondary contact as daughter and MARIA VICTORIAAZita at [phone] and daughterEs at [phone]. Insurance verified as Medicare as listed on facies; however, patient reports having a supplemental insurance plan, but cannot recall the name at this time. Patient also reports having prescription coverage, but also cannot recall this provider. ENGINE PILOT will obtain information from family. PCP identified as Dr. Daryl Randall of [place]. ENGINE PILOT reviewed typical a RU length of stay and weekly team conferences. Patient expresses no questions or concerns at this time. ENGINE PILOT will continue to follow.
[2019-02-01] MEDS ORDERED: VANCOMYCIN ORAL SUSPENSION 60 ML BOTTLE PO SCH (12:15)
--- NOTE | 2019-02-01 12:47 | Consultation - Surgery ---
History of Present Illness History of Present Illness Patient Consulted On(kacey/time) 02/01/19 12:41 Time Seen by Provider: 12:31 History of Present Illness Surgery asked to consult regarding b/l heel wound and behind ear. HPI per IM: This is a 83yoWM who previously worked at [employer] who has been to [facility] 3x recently, because the first was pneumonia the second C-Diff colitis, and the third was an aspiration pneumonia, so he was transferred to [place], tub was placed for nutrition and he was able to work with speech therapy ultimately and resume a dysphasia one diet. Overall he has dramatically improved but definitely needs a lot of therapy to return home. He was placed in a custodial facility after the pneumonia and the C-Diff colitis episode but his intention is to go home. I did speak with speech therapy who will evaluate what his needs are as far as his diet and resume that. He does have a history of chronic atrial fibrillation and he does have some rapid ventricular response of 120s when he was up working with therapy so I did consult cardiology, Dr. Blevins and updated him and Loreto regarding this new Pt set to arrive any minute. I did speak with Dr. Ibrahim from [facility] regarding the admission and transfer and I accepted the care. When I spoke to and assessed pt he was sitting comfortably in chair, sleeping. He was easily arousable and admitted to some heel pain, right more than left. He denied any abdominal pain, nausea or vomiting. They had just brought food in for him. Allergies and Home Medications Allergies Coded Allergies: diazepam (Verified Allergy, Unknown, 01/31/19) morphine (Verified Allergy, Unknown, 01/31/19) propoxyphene (Verified Allergy, Unknown, 01/31/19) Home Medications Acetaminophen 650 Mg Tablet.er, 650 MG PO Q6H PRN for PAIN-MILD, (Reported) Aspirin 325 Mg Tablet.dr, 325 MG PO DAILY, (Reported) Atorvastatin Calcium 40 Mg Tablet, 40 MG PO 1900, (Reported) Bisacodyl 10 Mg Supp.rect, 10 MG RC DAILY PRN for CONSTIPATION-4TH LINE, (Reported) Cetirizine HCl 10 Mg Tablet, 10 MG PO DAILY, (Reported) Cholecalciferol (Vitamin D3) 2,000 Unit Capsule, 2,000 UNIT PO BID, (Reported) Clopidogrel Bisulfate 75 Mg Tablet, 75 MG PO DAILY, (Reported) Collagenase 30 Gm Oint..gm., TP DAILY, (Reported) APPLY SANTYL NICKEL THICK TO ENTIRE WOUND BED ON BOTH HEALS DAILY. COVER WITH GAUZE AND SECURE WITH TAPE. Enoxaparin Sodium 40 Mg/0.4 Ml Syringe, 40 MG SQ 1700, (Reported) Famotidine 20 Mg Tablet, 20 MG PO BID, (Reported) Furosemide 10 Mg/1 Ml Vial, 40 MG IJ DAILY, (Reported) HOLD FOR SBP <100 Gabapentin 100 Mg Capsule, 500 MG PO TID, (Reported) TAKES 5 (100MG) CAPSULES Ipratropium/Albuterol Sulfate 3 Ml Ampul.neb, 3 ML NEB Q6H PRN for SHORTNESS OF BREATH, (Reported) Lactose-Reduced Food 237 Ml Liquid, 237 ML PO TIDWM, (Reported) Levothyroxine Sodium 75 Mcg Tablet, 75 MCG PO 0600, (Reported) Metoprolol Tartrate 5 Mg/5 Ml Vial, 2.5 MG IV Q6H PRN for PULSE>100, (Reported) Midodrine HCl 10 Mg Tablet, 10 MG PO TID, (Reported) Mv-Mn/FA/Coq10/Lycopene/Lutein 1 Each Tablet, 1 TAB PO DAILY, (Reported) Ondansetron 4 Mg Tab.rapdis, 4 MG PO Q8H PRN for NAUSEA/VOMITING-1ST LINE, (Reported) Ondansetron HCl/Pf 4 Mg/2 Ml Ampul, 4 MG IV Q6H PRN for NAUSEA/VOMITING-1ST LINE, (Reported) Oxybutynin Chloride 5 Mg Tablet, 5 MG PO BID, (Reported) Oxycodone Hcl 5 Mg Tab, 5 MG PO Q4H PRN for PAIN-SEVERE, (Reported) Pantoprazole Sodium 40 Mg Vial, 40 MG IV DAILY, (Reported) Polyethylene Glycol 3350 17 Gm Powd.pack, 17 GM PO DAILY PRN for CONSTIPATION- 2ND LINE, (Reported) Ropinirole HCl 1 Mg Tablet, 2 MG PO HS, (Reported) Sennosides/Docusate Sodium 1 Each Tablet, 1 TAB PO BID PRN for CONSTIPATION-6TH LINE, (Reported) Spironolactone 25 Mg Tablet, 25 MG PO DAILY, (Reported) Patient Home Medication List Home Medication List Reviewed: Yes Past Jyqfkxq-Gdyzkg-Vibqyc Hx Patient Social History Alcohol Use: Denies Use Recreational Drug Use: No Smoking Status: Never a Smoker Recent Foreign Travel: No Contact w/Someone Who Travel: No Recent Infectious Disease Expo: No Recent Hopitalizations: Yes Physical Abuse Screen: No Sexual Abuse: No Immunizations Up To Date Date of Pneumonia Vaccine: Jun 12, 2018 Seasonal Allergies Seasonal Allergies: No Surgeries Surgeries: Angioplasty (with 7 stents) Respiratory History of Respiratory Disorde: Yes (pulmonary hypertension) Respiratory Disorders: Pneumonia Cardiovascular History of Cardiac Disorders: Yes (Cardiac stents) Cardiac Disorders: Atrial Fibrillation, Chronic Edema/Swelling, Hypertension Neurological History of Neurological Disord: No Genitourinary History of Genitourinary Disor: Yes Genitourinary Disorders: Kidney Stones, UTI-Chronic Gastrointestinal History of Gastrointestinal Di: Yes Gastrointestinal Disorders: C-Diff, Cirrhosis Musculoskeletal History of Musculoskeletal Dis: Yes (kyphosis, T3 fracture) Musculoskeletal Disorders: Arthritis Endocrine History of Endocrine Disorders: Yes HEENT History of HEENT Disorders: No Hearing Impairment: Hard of Hearing Cancer History of Cancer: No Psychosocial History of Psychiatric Problem: No Integumentary History of Skin or Integumenta: No Skin/Integumentary Disorders: Psoriasis Blood Transfusions History of Blood Disorders: No Adverse Reaction to a Blood Tr: No Family Medical History Significant Family History: Asthma (sister), Diabetes (pt denies any in his family) Review of Systems-General Constitutional: malaise, weakness EENTM: hearing loss, blurred vision; No mouth pain, No mouth swelling, No epistaxis Respiratory: No cough; dyspnea on exertion; No hemoptysis, No orthopnea, No short of breath Cardiovascular: No chest pain; palpitations, vascular heart diseas Gastrointestinal: No abdominal pain, No dysphagia, No hematemesis, No melena, No nausea, No vomiting Genitourinary: No dysuria, No frequency, No hematuria; hesitancy, incontinence Musculoskeletal: joint pain, joint swelling, muscle stiffness Skin: other (pt has bruising covering both arms) Psychiatric/Neurological: Denies Anxiety, Denies Depressed, Denies Seizure, Denies Tremors Other pt is on blood thinners, so easily bruises and bleeds. Denies heat or cold intolerance Physical Exam-General Problems Physical Exam Vital Signs Vital Signs - First Documented 01/31/19 01/31/19 10:45 20:30 Temp 97.0 Pulse 76 Resp 20 B/P (MAP) 118/75 (89) Pulse Ox 97 O2 Delivery Room Air O2 Flow Rate 2.00 Capillary Refill : Less Than 3 Seconds General Appearance: no apparent distress, other (chronically ill) Eyes: Bilateral Eye PERRL, Bilateral Eye EOMI HEENT: pharynx normal; No scleral icterus (R), No scleral icterus (L); other (poor dentition) Neck: supple; No thyromegaly Respiratory: no respiratory distress, no accessory muscle use, decreased breath sounds, crackles (at bases), wheezing Cardiovascular: no murmur, irregularly irregular Gastrointestinal: normal bowel sounds, non tender, soft, no organomegaly, no pulsatile mass Back: no CVA tenderness, no vertebral tenderness Extremities: no pedal edema, no calf tenderness, normal capillary refill Neurologic/Psychiatric: alert; No aphasia, No facial droop Skin: warm/dry, other (right heel ulcer appx 1cm diameter and 5mm deep, left heel ulcer slightly smaller, superficial erosion behind left ear. appx palm size area of erythema over sacrum) Lymphatic: no adenopathy (neck, axilla or groin) Data Review Labs Laboratory Tests 02/01/19 05:55: White Blood Count 18.7H, Red Blood Count 3.65L, Hemoglobin 11.7L, Hematocrit 36L , Mean Corpuscular Volume 100H, Mean Corpuscular Hemoglobin 32, Mean Corpuscular Hemoglobin Concent 32, Red Cell Distribution Width 16.7H, Platelet Count 325, Mean Platelet Volume 10.4, Neutrophils (%) (Auto) 85H, Lymphocytes (%) (Auto) 7L , Monocytes (%) (Auto) 8, Eosinophils (%) (Auto) 1, Basophils (%) (Auto) 0, Neutrophils # (Auto) 15.9H, Lymphocytes # (Auto) 1.3, Monocytes # (Auto) 1.5H, Eosinophils # (Auto) 0.1, Basophils # (Auto) 0.0, Neutrophils % (Manual) 85, Lymphocytes % (Manual) 6, Monocytes % (Manual) 8, Eosinophils % (Manual) 0, Basophils % (Manual) 1, Band Neutrophils 0, Blood Morphology Comment NORMAL, Sodium Level 139, Potassium Level 4.9, Chloride Level 100, Carbon Dioxide Level 29, Anion Gap 10, Blood Urea Nitrogen 32H, Creatinine 1.02, Estimat Glomerular Filtration Rate > 60, BUN/Creatinine Ratio 31, Glucose Level 124H, Calcium Level 10.0, Corrected Calcium 10.7H, Total Bilirubin 0.8, Aspartate Amino Transf (AST/SGOT) 32, Alanine Aminotransferase (ALT/SGPT) 38, Alkaline Phosphatase 342H , Total Protein 6.4, Albumin 3.1L Assessment/Plan Assessment/Plan Assessment/Plan B/L Heel ulcer Left neck superficial erosion - probably secondary to O2 tubing Sacral Decub stage I Plan is to use Evelyn-boots for both feet and continue Santyl dressings BID to heel ulcers. Apply tegaderm to area behind left ear. Apply tegaderm to Sacral area and rotate pt in bed every 2 hours, up to chair as often as possible; anything to keep pt off sacral area. Clinical Quality Measures DVT/VTE Risk/Contraindication: Risk Factor Score Per Nursin RFS Level Per Nursing on Admit: 3=High SATURNINO MOONEY DO Feb 01, 2019 12:47
--- NOTE | 2019-02-01 13:42 | Speech Therapy Daily Note ---
Speech Daily Progress Note Subjective Date Seen by Provider: Feb 01, 2019 Time Seen by Provider: 00:30 The patient was beginning to eat lunch when I entered his room. Objective Patient utilized compensatory strategy of food:drink alternation 2:1 at 80% with min to mod verbal cues. Assessment Assessment Current Status: Good Progress Treatment Plan Continue Plan of Care Communication Comprehension: 7 Expression: 7 Social Cognition Social Interaction: 7 Problem Solvin Memory: 7 Speech Short Term Goals Short Term Goals Short Term Goals 1) The patient will tolerate least restrictive diet level without s/s of aspiration with 90% or greater. 2) The patient will utilize compensatory strategies as trained with 90% or greater given minimal cues. Speech Correction Goals Glycerin Operator Goals The patient will maintain adequate nutrition/hydration via safe effective swallow function. Comprehension: 6 Expression: 6 Social Interaction: 6 Problem Solvin Memory: 6 Speech-Plan Patient/Family Goals Patient/Family Goals: The patient plans on returning home with family and home support post rehab. Treatment Plan Speech Therapy Treatment Plan: Continue Plan of Care The patient is progressing. Treatment Duration: Feb 08, 2019 Frequency: 1 time per week Estimated Hrs Per Day: .25 hour per day Rehab Potential: Good Barriers to Learning: Mild cognitive deficits, dysphagia Pt/Family Agrees to Plan: Yes Safety Risks/Education Teaching Recipient: Patient Teaching Methods: Demonstration, Discussion Response to Teaching: Verbalize Understanding, Return Demonstration Education Topics Provided: Safety of oral intake. Time Speech Therapy Time In: 12:30 Speech Therapy Time Out: 13:00 Total Billed Time: 30 Billed Treatment Time 1, JAYNE KRISTIN Nam Feb 01, 2019 13:42
--- NOTE | 2019-02-01 14:25 | Therapy Group Daily Note ---
Therapy Daily Group Note Patient Education Topic Home Safety, Fall Prevention, Home Safety, Energy Cons Session Ratio (pt:therapist): 3:1 Goal of Session: Education on ARU Expectations, Energy Conservation Tech., Home Safety Strategies, UE/LE Strengthing Goal Met for this Session: Yes Pt Benefit of Group: Contributions to Others, F/U Use of Strategies @Home, Increased Functional Safety, Improved Cognition, Recognition of Peers, Socialization Other/Notes Pt transported via wheelchair to [facility] for OT group. Group consisted of introductions (name, and fun fact about patient), socialization, ARU e xpectations, energy conservation techniques, home safety strategies, and memory strategies. Pt introduced self appropriately and actively listened to peers. pt participate in matching memory game with peer with moderate difficulty with task. pt given handout of energy conservation techniques to incorporate in every day living. Pt acknowledged understanding of hand out by giving personal strategies of how to incorporate techniques within person daily life. After therapy, pt sitting in recliner chair, with call light/phone in reach. All needs met in room. Start Time: 13:00 Stop Time: 14:05 Total Billed Treatment GRP 65 minutes SAWYER HODGSON OT Feb 01, 2019 14:25
[2019-02-01 16:00] VITALS: BP 102/64
[2019-02-01] MEDS: COLLAGENASE 30 GM (SANTYL) TUBE TP SCH (16:30)
[2019-02-01] MEDS: VANCOMYCIN ORAL 250 MG/5 ML 120 ML PO SCH ×4 (16:34→17:18)
--- NOTE | 2019-02-01 17:00 | NUR ---
Have notified Dr. Shi that pt has not had more stools or diarrhea since earlier this morning. Have not started Vanco yet d/t this. No c diff specimen. Rec'd orders to hold Vanco until any results re: c diff.
[2019-02-01] MEDS: ATORVASTATIN 40 MG (LIPITOR) TABLET PO SCH (17:14)
[2019-02-01] MEDS: CHOLESTYRAMINE 4 GM (QUESTRAN LITE, PREVALITE) PKT PO SCH (20:37)
[2019-02-01] MEDS: rOPINIRole 1 MG (REQUIP) TABLET PO SCH (21:38)
[2019-02-01] MEDS: APIXABAN 2.5 MG (ELIQUIS) TABLET PO SCH (21:39)
[2019-02-02 06:00] VITALS: BP 95/60
[2019-02-02] MEDS: MULTIVIT W/MINERALS TAB (THERAGRAN M) PO SCH (06:14)
[2019-02-02] MEDS: LEVOTHYROXINE 75 MCG (LEVOTHROID) TABLET PO SCH (06:14)
[2019-02-02] MEDS: MIDODRINE 10 MG (PROAMATINE) TAB PO SCH (06:14)
[2019-02-02] MEDS: LACTOSE REDUCED FOOD PO SCH ×3 (06:19→18:42)
[2019-02-02 07:20] LABS: BASOPHILS % (AUTO) 0 % (0-10); EOSINOPHILS # (AUTO) 0.3 10^3/uL (0.0-0.3); EOSINOPHILS % (AUTO) 2 % (0-10); HEMATOCRIT 31 % (40-54); LYMPHOCYTES # (AUTO) 1.4 X 10^3 (1.0-4.0); LYMPHOCYTES % (AUTO) 10 % (12-44); MEAN CORPUSCULAR HEMOGLOBIN 33 PG (25-34); MEAN CORPUSCULAR HGB CONC 32 G/DL (32-36); MEAN CORPUSCULAR VOLUME 101 FL (80-99); MEAN PLATELET VOLUME 10.5 FL (7.4-10.4); MONOCYTES # (AUTO) 0.9 X 10^3 (0.0-1.0); MONOCYTES % (AUTO) 7 % (0-12); NEUTROPHILS % (AUTO) 81 % (42-75); PLATELET COUNT 313 10^3/uL (130-400); RED CELL DISTRIBUTION WIDTH 16.2 % (10.0-14.5); WHITE BLOOD COUNT 13.6 10^3/uL (4.3-11.0)
[2019-02-02 07:39] LABS: ALANINE AMINOTRANSFERASE 37 U/L (0-55); ALBUMIN 2.9 GM/DL (3.2-4.5); ALKALINE PHOSPHATASE 255 U/L (40-136); BILIRUBIN,TOTAL 0.9 MG/DL (0.1-1.0); BUN/CREATININE RATIO 32; CALCIUM 9.7 MG/DL (8.5-10.1); CARBON DIOXIDE 24 MMOL/L (21-32); CHLORIDE 100 MMOL/L (98-107); CREATININE SERUM 0.95 MG/DL (0.60-1.30); GFR ESTIMATED > 60; GLUCOSE 96 MG/DL (70-105); POTASSIUM 4.1 MMOL/L (3.6-5.0); SODIUM 137 MMOL/L (135-145); TOTAL PROTEIN 5.7 GM/DL (6.4-8.2)
[2019-02-02] MEDS: VITAMIN D3 1,000 UNITS (CHOLECALCIFEROL) TABLET PO SCH ×2 (09:10→20:08)
[2019-02-02] MEDS: DILTIAZEM 240 MG (CARDIZEM CD) CAP PO SCH (09:10)
[2019-02-02] MEDS: ASPIRIN 81 MG CHEW (CHILDREN'S ASA) PO SCH (09:10)
[2019-02-02] MEDS: FAMOTIDINE 20 MG (PEPCID) TABLET PO SCH ×2 (09:13→20:08)
[2019-02-02] MEDS: SPIRONOLACTONE 25 MG (ALDACTONE) TAB PO SCH (09:13)
[2019-02-02] MEDS: APIXABAN 2.5 MG (ELIQUIS) TABLET PO SCH ×2 (09:13→20:08)
[2019-02-02] MEDS: GABAPENTIN 100 MG (NEURONTIN) CAP PO SCH ×3 (09:13→20:09)
[2019-02-02] MEDS: LORATADINE (CLARITIN) 10 MG TAB PO SCH (09:13)
[2019-02-02] MEDS: OXYBUTYNIN (DITROPAN) 5 MG TAB PO SCH ×2 (09:13→20:08)
[2019-02-02] MEDS: COLLAGENASE 30 GM (SANTYL) TUBE TP SCH (09:15)
[2019-02-02] MEDS: CHOLESTYRAMINE 4 GM (QUESTRAN LITE, PREVALITE) PKT PO SCH ×2 (10:38→21:48)
--- NOTE | 2019-02-02 11:25 | Physical Therapy Daily Note ---
PT Daily Note-Current Subjective Pt agreeable to PT visit, states he really wants to get good enough to be able to get home and walk more so he can keep his mind off the loss of his . Pt states he is going to talk to the dr about changing his type of food because is always all ground up and is very unappetizing to look at and eat. Pain Numeric Pain Scale: 0-No Pain Appearance Pt in bed awake and alert upon arrival. At end of session, pt sitting up in recliner with call light, phone and bedside table within reach Mental Status Patient Orientation: Person, Place, Time, Eyes Open, Situation Attachments: Oxygen Transfers Therapy Code Descriptions/Definitions Functional [place] Measure: 0=Not Assessed/NA 4=Minimal Assistance 1=Total Assistance 5=Supervision or Setup 2=Maximal Assistance 6=Modified [place] 3=Moderate Assistance 7=Complete [place] Therapy Quality Codes: 6 Independent with activity with or without an assistive device 5 Patient requires set up or clean up by helper. Patient completes activity by themselves 4 Supervision or touching assist (CGA). [place] provide cues , steadying assist 3 The helper provides less than half the effort to complete the activity 2 The helper provides more than half the effort to complete the activity 1 Dependent. The helper does all the effort to complete an activity 7 Patient refused to complete or attempt activity 9 The patient did not perform the activity before the current illness or injury 88 Not attempted due to Medical conditions or safety concerns Transfers (B, C, W/C) (FIM): 4 Scootin Rollin Supine to/from Sit: 5 (requiring effort, HOB elevated, use of bedrails) Sit to/from Stand: 4 pt requiring skilled cues x1 episode for safety and hand placement. Requires physical assist to stand but able to control descent to sit into chair with hands on armrests Gait Training Does the Patient Walk?: Yes Gait (FIM): 2 Distance (FIM): 0=042-12 ft Distance: 100 x2 Gait Level of Assist: 4 (CGA provided for safety due to pt report of occasional dizziness) Gait Persons Needed: 1 Gait Assistive Device: FWW slow gait with decreased step length, lacks full hip ext, kyphotic with fwd hanging head, skilled cues required occasionally but able to correct. Fatigues quickly, rest breaks required after each distance. Treatments bed mobility, transfers, balance, strength, gait, safety, education, functional mobility, activity tolerance Assessment Current Status: Good Progress fatigues easily, continues to require physical assist sit to stand, balance and quality improving with gait PT Short Term Goals Short Term Goals Time Frame: Feb 14, 2019 Transfers (B,C,W/C) (FIM): 4 Gait (FIM): 4 Distance (FIM): 3=150 ft Gait Assistive Device: FWW PT Gasoline Power Shovel Operator Goals Chcf Goals PT Chcf Goals Time Frame: Feb 28, 2019 Transfers (B,C,W/C) (FIM): 6 Sit to Lying (QC): 6 Lying-Sitting on Side/Bed(QC): 6 Sit to Stand (QC): 6 Roll Left to Right (QC): 6 Chair/Ncu-ly-Jvhwp Xfer(QC): 6 Car Transfer (QC): 6 Does the Patient Walk: Yes Gait (FIM): 6 Gait distance (FIM): 3=150 ft Walk 10 feet (QC): 6 Walk 10ft-Uneven Surface(QC): 6 Walk 50ft with 2 Turns (QC): 6 Walk 150 ft (QC): 6 Gait Assistive Device: FWW Does the Pt use WC or Scooter?: No Stairs (FIM): 5 # of Steps: 4 1 Step (curb) (QC): 6 4 Steps (QC): 6 12 Steps (QC): 9 Picking up an Object (QC): 88 PT Plan Treatment/Plan Treatment Plan: Continue Plan of Care Treatment Plan: Bed Mobility, Education, Functional Activity [place], Functional Strength, Group Therapy, Gait, Safety, Therapeutic Exercise, Transfers Treatment Duration: Feb 28, 2019 Frequency: At least 5 of 7 days/Wk (IRF) Estimated Hrs Per Day: 1.5 hours per day Patient and/or Family Agrees t: Yes Safety Risks/Education Patient Education: Gait Training, Transfer Techniques, Safety Issues Teaching Recipient: Patient Teaching Methods: Demonstration, Discussion Response to Teaching: Verbalize Understanding, Return Demonstration, Reinforcement Needed Time/GCodes Time In: 1050 Time Out: 1132 Total Billed Treatment Time: 42 Total Billed Treatment 1 visit, GT x23 min, FA x19 EMILY GARCIA STRUCTURAL RIGGER Feb 02, 2019 11:25
--- NOTE | 2019-02-02 12:25 | PM&R Progress Note ---
Subjective HPI/CC On Admission Date Seen by Provider: Feb 02, 2019 Time Seen by Provider: 12:10 Chief complaint: Myopathy HPI: This is a 83yoWM who previously worked at [employer] [facility] [employer] who has been to [facility] 3x recently, because the first was pneumonia the second C-Diff colitis, and the third was an aspiration pneumonia, so he was transferred to [place], NG tub was placed for nutrition and he was able to work with speech therapy ultimately and resume a dysphasia one diet. Overall he has dramatically improved but definitely needs a lot of therapy to return home. He was placed in a [facility] facility after the pneumonia and the C-Diff colitis episode but his intention is to go home. I did speak with speech therapy who will evaluate what his needs are as far as his diet and resume that. He does have a history of chronic atrial fibrillation and he does have some rapid ventricular response of 120s when he was up working with therapy so I did consult cardiology, Dr. Blevins and updated him and [place]ore[place] regarding this new Pt set to arrive any minute. I did speak with Dr. Ibrahim from [facility] regarding the admission and transfer and I accepted the care. Subjective/Events-last exam Patient doing well except his diet and he cannot stand the dysphagia 2 diet so he thinks he can swallow and not aspirate so will initiate regular diet and he will order soft food and eat slowly EKG and echocardiogram completed yesterday Yesterday Telemetry with therapy showed heart rate of 140s with A. fib and cardiology was notified Cardizem 240 mg was given yesterday and will monitor RVR C. difficile no longer suspected since he is now have solid stools and no diarrhea nad the RN though he had an impaction the other day and the loose stool was just going around the impaction Conferred with RN Reviewed therapy notes Check meds and labs Denies any pain except for his right heel and wound care is managing Review of Systems General: Fatigue Objective Exam Vital Signs Vital Signs Date Time Temp Pulse Resp B/P (MAP) Pulse Ox O2 Delivery O2 Flow Rate FiO2 02/02/19 17:15 97.4 62 18 92/52 (65) 96 Nasal Cannula 1.00 Capillary Refill : Less Than 3 Seconds General Appearance: No Apparent Distress, WD/WN, Chronically ill HEENT: PERRL/EOMI, Normal ENT Inspection, Pharynx Normal, Moist Mucous Membranes Neck: Full Range of Motion, Normal Inspection, Non Tender, Supple Respiratory: Chest Non Tender, Lungs Clear, Normal Breath Sounds, No Accessory Muscle Use, No Respiratory Distress Cardiovascular: No Gallop, No JVD, No Murmur, Irregularly Irregular, Tachycardia Gastrointestinal: Normal Bowel Sounds, No Organomegaly, No Pulsatile Mass, Non Tender, Soft Rectal: Deferred Back: Normal Inspection, No CVA Tenderness, Decreased Range of Motion, Other (sevre kyphosis) Extremity: Normal Capillary Refill, Normal Inspection, Normal Range of Motion, Non Tender, No Calf Tenderness, No Pedal Edema Neurologic/Psychiatric: Alert, Oriented x3, No Motor/Sensory Deficits, Normal Mood/Affect, valuer II-XII Norm as Tested, Motor Weakness (generalized weakness all extremities) Skin: Ecchymosis (to buttocks), Rash, Other (shallow wounds on b/l heels) Results/Procedures Lab Laboratory Tests 02/02/19 07:00 Patient resulted labs reviewed. FIM Transfers Therapy Code Descriptions/Definitions Functional [place] Measure: 0=Not Assessed/NA 4=Minimal Assistance 1=Total Assistance 5=Supervision or Setup 2=Maximal Assistance 6=Modified [place] 3=Moderate Assistance 7=Complete [place] Therapy Quality Codes: 6 Independent with activity with or without an assistive device 5 Patient requires set up or clean up by helper. Patient completes activity by themselves 4 Supervision or touching assist (CGA). [place] provide cues , steadying assist 3 The helper provides less than half the effort to complete the activity 2 The helper provides more than half the effort to complete the activity 1 Dependent. The helper does all the effort to complete an activity 7 Patient refused to complete or attempt activity 9 The patient did not perform the activity before the current illness or injury 88 Not attempted due to Medical conditions or safety concerns Transfers (B, C, W/C) (FIM): 4 Scootin Rollin Roll Left to Right (QC): 4 Supine to/from Sit: 5 (requiring effort, HOB elevated, use of bedrails) Sit to/from Stand: 4 Sit to Lying (QC): 3 Sit to Stand (QC): 3 (skilled cues 50% of the time for hand placement and sequencing. ) Chair/Vdo-li-Hzkfs Xfer(QC): 3 Bed to/from Chair: 4 Car Transfer (QC): 3 Gait Training Does the Patient Walk?: Yes Gait (FIM): 2 Distance (FIM): 4=680-18 ft Distance: 100 x2 Walk 10 feet (QC): 3 Walk 50 ft with 2 Turns(QC): 3 Walk 150 ft (QC): 88 (unable to walk this distance) Walking 10ft/uneven surface-QC: 3 Gait Level of Assist: 4 (CGA provided for safety due to pt report of occasional dizziness) Gait Persons Needed: 1 Gait Assistive Device: FWW Wheelchair Training Does the Pt Use a Wheelchair?: No Stair Training Stairs (FIM): 1 1 Step (curb) (QC): 1 4 Steps (QC): 88 12 Steps (QC): 88 Balance Picking up an Object (QC): 88 Mental Status/Objective Comprehension: 7 Expression: 7 Social Interaction: 7 Problem Solvin Memory: 7 ADL-Treatment Feedin (Set up ) Eating (QC): 5 Bathin Shower/Bathe Self (QC): 3 Upper Extremity Dressin Upper Body Dressing (QC): 3 Lower Extremity Dressin Lower Body Dressing (QC): 2 On/Off Footwear (QC): 4 Toiletin Toileting Hygiene (QC): 1 Toilet/Commode Transfer: 3 Shower: 3 Assessment/Plan Assessment and Plan Assess & Plan/Chief Complaint Plan: IRF protocol Dysphagia management Eval for aspiration Cardiology appreciated Home meds Monitor for falls Noted severe kyphosis will limit overall physical function Monitor wbc count but improved today C diff DC since no loose stools and solid stools noted Appreciate Cardiology management (1) Myopathy Status: Acute (2) Kyphosis Status: Chronic Qualifiers: Kyphosis type: postural Spinal region: cervicothoracic Qualified Codes: 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, cervicothoracic region (3) DNR (do not resuscitate) Status: Chronic (4) COPD (chronic obstructive pulmonary disease) Status: Chronic Qualifiers: COPD type: unspecified COPD Qualified Codes: J44.9 - Chronic obstructive pulmonary disease, unspecified (5) CHF (congestive heart failure) Status: Chronic Qualifiers: Heart failure type: unspecified (6) Prostate cancer Status: Chronic (7) Oxygen dependent Status: Chronic (8) Atrial fibrillation with rapid ventricular response Status: Acute (9) Advanced age Status: Chronic (10) Atrial fibrillation, chronic Status: Chronic (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
--- NOTE | 2019-02-02 13:21 | Progress Note - Cardiology ---
Cardiology SOAP Progress Note Subjective: No cp or syncope No palp (even during documented episodes of A Fib with RVR on telemetry) No shortness of breath Gen weakness present Objective: I&O/Vital Signs 02/02/19 02/02/19 02/02/19 06:00 07:00 12:30 Temp 97.4 Pulse 61 56 60 Resp 16 B/P (MAP) 95/60 (72) Pulse Ox 95 O2 Delivery Nasal Cannula O2 Flow Rate 1.00 02/02/19 00:00 Intake Total 1100 ml Output Total 550 ml Balance 550 ml Weight (Pounds): 122 Weight (Ounces): 14.4 Weight (Calculated Kilograms): 55.674783 Constitutional: AAO x 3, other (thin) Respiratory: No accessory muscle use, No respiratory distress; chest expansion is symmetric, chest is bilaterally symmetric, lungs clear to auscultation Cardiovascular: irregularly irregular; No JVD; S1 and S2 Gastrointestional: No tender; soft, round, audible bowel sounds Extremities: no lower extremity edema bilateral Neurologic/Psychiatric: alert, grossly intact Skin: other (dressings to heels bilat; not removed) Results/Procedures: Labs Laboratory Tests 02/02/19 07:00: White Blood Count 13.6H, Red Blood Count 3.07L, Hemoglobin 10.0L, Hematocrit 31L , Mean Corpuscular Volume 101H, Mean Corpuscular Hemoglobin 33, Mean Corpuscular Hemoglobin Concent 32, Red Cell Distribution Width 16.2H, Platelet Count 313, Mean Platelet Volume 10.5H, Neutrophils (%) (Auto) 81H, Lymphocytes (%) (Auto) 10L, Monocytes (%) (Auto) 7, Eosinophils (%) (Auto) 2, Basophils (%) (Auto) 0, Neutrophils # (Auto) 11.0H, Lymphocytes # (Auto) 1.4, Monocytes # (Auto) 0.9, Eosinophils # (Auto) 0.3, Basophils # (Auto) 0.0, Sodium Level 137, Potassium Level 4.1, Chloride Level 100, Carbon Dioxide Level 24, Anion Gap 13, Blood Urea Nitrogen 30H, Creatinine 0.95, Estimat Glomerular Filtration Rate > 60, BUN/Creatinine Ratio 32, Glucose Level 96, Calcium Level 9.7, Corrected Calcium 10.6H, Total Bilirubin 0.9, Aspartate Amino Transf (AST/SGOT) 25, Alanine Aminotransferase (ALT/SGPT) 37, Alkaline Phosphatase 255H, Total Protein 5.7L, Albumin 2.9L A/P: Assessment: PAF/Flutter vs SVT with vent rates up to 150 bpm. These are relatively brief episodes that are asymptomatic Echo of 02/01/19: LVEF 50%, dilated LA, trivial AI, mild MR, RVSP 19 mmHg Generalized weakness following lengthy hospitalization for aspiration pneumonia and C-Diff CAD - reports h/o stents x7 - states last cor stent over 2 years ago - primary aesthetics instructor Dr. Stern at [facility] in [place], [place] OAC in the past - he believes Xarelto, but unsure - currently on Lovenox and ASA and Plavix HLD - statin tx H/O bilat CEA - unsure of details - reports done at [facility] H/O tobacco use - quit > 20 years ago HTN CKD stage III Reported h/o cirrhosis Chronic back pain with nerve stimulator in place Kyphosis H/O hypothyroidism Plan: * Continue long-acting dilt for vent rate control * Continue Eliquis for stroke prophylaxis (low dose for now, given low BMI and age 83) * Monitor labs * I explained our treatment plan and answered questions NYA PENALOZA MD FACP [facility] CCDS Feb 02, 2019 13:21
[2019-02-02 17:15] VITALS: BP 92/52
[2019-02-02] MEDS: ATORVASTATIN 40 MG (LIPITOR) TABLET PO SCH (18:38)
[2019-02-02] MEDS: rOPINIRole 1 MG (REQUIP) TABLET PO SCH (20:08)
[2019-02-03 06:02] VITALS: BP 103/62
[2019-02-03] MEDS: MULTIVIT W/MINERALS TAB (THERAGRAN M) PO SCH (06:04)
[2019-02-03] MEDS: LACTOSE REDUCED FOOD PO SCH ×3 (06:04→17:01)
[2019-02-03] MEDS: LEVOTHYROXINE 75 MCG (LEVOTHROID) TABLET PO SCH (06:04)
[2019-02-03 06:16] LABS: ALANINE AMINOTRANSFERASE 27 U/L (0-55); ALBUMIN 2.9 GM/DL (3.2-4.5); ALKALINE PHOSPHATASE 273 U/L (40-136); BILIRUBIN,TOTAL 0.7 MG/DL (0.1-1.0); BUN/CREATININE RATIO 35; CALCIUM 9.5 MG/DL (8.5-10.1); CARBON DIOXIDE 25 MMOL/L (21-32); CHLORIDE 103 MMOL/L (98-107); CREATININE SERUM 0.97 MG/DL (0.60-1.30); GFR ESTIMATED > 60; GLUCOSE 110 MG/DL (70-105); MAGNESIUM 1.7 MG/DL (1.6-2.4); POTASSIUM 4.4 MMOL/L (3.6-5.0); SODIUM 139 MMOL/L (135-145)
[2019-02-03] MEDS: LORATADINE (CLARITIN) 10 MG TAB PO SCH (08:16)
[2019-02-03] MEDS: OXYBUTYNIN (DITROPAN) 5 MG TAB PO SCH ×2 (08:16→20:18)
[2019-02-03] MEDS: FAMOTIDINE 20 MG (PEPCID) TABLET PO SCH ×2 (08:17→20:18)
[2019-02-03] MEDS: DILTIAZEM 240 MG (CARDIZEM CD) CAP PO SCH (08:17)
[2019-02-03] MEDS: APIXABAN 2.5 MG (ELIQUIS) TABLET PO SCH ×2 (08:17→20:18)
[2019-02-03] MEDS: ASPIRIN 81 MG CHEW (CHILDREN'S ASA) PO SCH (08:17)
[2019-02-03] MEDS: VITAMIN D3 1,000 UNITS (CHOLECALCIFEROL) TABLET PO SCH ×2 (08:19→20:18)
[2019-02-03] MEDS: COLLAGENASE 30 GM (SANTYL) TUBE TP SCH (08:20)
[2019-02-03 08:47] VITALS: BP 117/50
[2019-02-03] MEDS: GABAPENTIN 100 MG (NEURONTIN) CAP PO SCH ×3 (08:47→20:11)
[2019-02-03] MEDS: CHOLESTYRAMINE 4 GM (QUESTRAN LITE, PREVALITE) PKT PO SCH ×2 (11:04→21:15)
--- NOTE | 2019-02-03 12:01 | PM&R Progress Note ---
Subjective HPI/CC On Admission Date Seen by Provider: Feb 03, 2019 Time Seen by Provider: 11:40 Chief complaint: Myopathy HPI: This is a 83yoWM who previously worked at [employer] who has been to [facility] 3x recently, because the first was pneumonia the second C-Diff colitis, and the third was an aspiration pneumonia, so he was transferred to [place], NG tub was placed for nutrition and he was able to work with speech therapy ultimately and resume a dysphasia one diet. Overall he has dramatically improved but definitely needs a lot of therapy to return home. He was placed in a [facility] facility after the pneumonia and the C-Diff colitis episode but his intention is to go home. I did speak with speech therapy who will evaluate what his needs are as far as his diet and resume that. He does have a history of chronic atrial fibrillation and he does have some rapid ventricular response of 120s when he was up working with therapy so I did consult cardiology, Dr. Blevins and updated him and Loreto regarding this new Pt set to arrive any minute. I did speak with Dr. Ibrahim from [facility] regarding the admission and transfer and I accepted the care. Subjective/Events-last exam Patient doing well on regular diet and eating soft food Cardiology appreciated Labs are OK TSH nl Pills taking well without choking Bowels moving well Conferred with RN Reviewed therapy notes Check meds and labs Heels off bed helps the pain Review of Systems General: Fatigue Musculoskeletal: foot pain Objective Exam Vital Signs Vital Signs Date Time Temp Pulse Resp B/P (MAP) Pulse Ox O2 Delivery O2 Flow Rate FiO2 02/03/19 13:00 70 02/03/19 09:59 97 Nasal Cannula 2.00 02/03/19 08:47 117/50 (72) 02/03/19 06:02 97.5 16 Capillary Refill : Less Than 3 Seconds General Appearance: No Apparent Distress, WD/WN, Chronically ill HEENT: PERRL/EOMI, Normal ENT Inspection, Pharynx Normal, Moist Mucous Membranes Neck: Full Range of Motion, Normal Inspection, Non Tender, Supple Respiratory: Chest Non Tender, Lungs Clear, Normal Breath Sounds, No Accessory Muscle Use, No Respiratory Distress Cardiovascular: No Gallop, No JVD, No Murmur, Irregularly Irregular, Tachycardia Gastrointestinal: Normal Bowel Sounds, No Organomegaly, No Pulsatile Mass, Non Tender, Soft Rectal: Deferred Back: Normal Inspection, No CVA Tenderness, Decreased Range of Motion, Other (sevre kyphosis) Extremity: Normal Capillary Refill, Normal Inspection, Normal Range of Motion, Non Tender, No Calf Tenderness, No Pedal Edema Neurologic/Psychiatric: Alert, Oriented x3, No Motor/Sensory Deficits, Normal Mood/Affect, music therapy teacher II-XII Norm as Tested, Motor Weakness (generalized weakness all extremities) Skin: Ecchymosis (to buttocks), Rash, Other (shallow wounds on b/l heels) Results/Procedures Lab Laboratory Tests 02/03/19 05:30 Patient resulted labs reviewed. FIM Transfers Therapy Code Descriptions/Definitions Functional [place] Measure: 0=Not Assessed/NA 4=Minimal Assistance 1=Total Assistance 5=Supervision or Setup 2=Maximal Assistance 6=Modified [place] 3=Moderate Assistance 7=Complete [place] Therapy Quality Codes: 6 Independent with activity with or without an assistive device 5 Patient requires set up or clean up by helper. Patient completes activity by themselves 4 Supervision or touching assist (CGA). [place] provide cues , steadying assist 3 The helper provides less than half the effort to complete the activity 2 The helper provides more than half the effort to complete the activity 1 Dependent. The helper does all the effort to complete an activity 7 Patient refused to complete or attempt activity 9 The patient did not perform the activity before the current illness or injury 88 Not attempted due to Medical conditions or safety concerns Transfers (B, C, W/C) (FIM): 4 Scootin Rollin Roll Left to Right (QC): 4 Supine to/from Sit: 5 (requiring effort, HOB elevated, use of bedrails) Sit to/from Stand: 4 Sit to Lying (QC): 3 Sit to Stand (QC): 3 (skilled cues 50% of the time for hand placement and sequencing. ) Chair/Ucw-vp-Olphj Xfer(QC): 3 Bed to/from Chair: 4 Car Transfer (QC): 3 Gait Training Does the Patient Walk?: Yes Gait (FIM): 2 Distance (FIM): 6=549-93 ft Distance: 100 x2 Walk 10 feet (QC): 3 Walk 50 ft with 2 Turns(QC): 3 Walk 150 ft (QC): 88 (unable to walk this distance) Walking 10ft/uneven surface-QC: 3 Gait Level of Assist: 4 (CGA provided for safety due to pt report of occasional dizziness) Gait Persons Needed: 1 Gait Assistive Device: FWW Wheelchair Training Does the Pt Use a Wheelchair?: No Stair Training Stairs (FIM): 1 1 Step (curb) (QC): 1 4 Steps (QC): 88 12 Steps (QC): 88 Balance Picking up an Object (QC): 88 Mental Status/Objective Comprehension: 7 Expression: 7 Social Interaction: 7 Problem Solvin Memory: 7 ADL-Treatment Feedin (Set up ) Eating (QC): 5 Bathin Shower/Bathe Self (QC): 3 Upper Extremity Dressin Upper Body Dressing (QC): 3 Lower Extremity Dressin Lower Body Dressing (QC): 2 On/Off Footwear (QC): 4 Toiletin Toileting Hygiene (QC): 1 Toilet/Commode Transfer: 3 Shower: 3 Assessment/Plan Assessment and Plan Assess & Plan/Chief Complaint Plan: IRF protocol Cardiology appreciated Home meds Monitor for falls Noted severe kyphosis will limit overall physical function Monitor wbc count but improved Regular diet tolerated Heels off bed Appreciate Cardiology management (1) Myopathy Status: Acute (2) Kyphosis Status: Chronic Qualifiers: Kyphosis type: postural Spinal region: cervicothoracic Qualified Codes: 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, cervicothoracic region (3) DNR (do not resuscitate) Status: Chronic (4) COPD (chronic obstructive pulmonary disease) Status: Chronic Qualifiers: COPD type: unspecified COPD Qualified Codes: J44.9 - Chronic obstructive pulmonary disease, unspecified (5) CHF (congestive heart failure) Status: Chronic Qualifiers: Heart failure type: unspecified (6) Prostate cancer Status: Chronic (7) Oxygen dependent Status: Chronic (8) Atrial fibrillation with rapid ventricular response Status: Acute (9) Advanced age Status: Chronic (10) Atrial fibrillation, chronic Status: Chronic (11) Presbycusis of both ears Status: Chronic (12) At risk for aspiration Status: Chronic (13) History of Clostridioides difficile colitis Status: Chronic QUANG HINTON DO Feb 03, 2019 12:01
--- NOTE | 2019-02-03 14:13 | NUR ---
Rec'd records from [facility]... request was sent this AM. Dr. Blevins notified that, per records, most recent Heart Cath with stenting was done on 07/27/17. Orders to continue ASA and Eliquis.
--- NOTE | 2019-02-03 14:14 | Progress Note - Cardiology ---
Cardiology SOAP Progress Note Subjective: No cp or palp or syncope Persistent gen weakness Objective: I&O/Vital Signs 02/03/19 02/03/19 02/03/19 02/03/19 06:02 07:00 08:47 09:39 Temp 97.5 Pulse 66 73 69 Resp 16 B/P (MAP) 103/62 (76) 117/50 (72) Pulse Ox 93 96 O2 Delivery Nasal Cannula Nasal Cannula O2 Flow Rate 1.00 1.00 02/03/19 09:59 Pulse Ox 97 O2 Delivery Nasal Cannula O2 Flow Rate 2.00 02/03/19 00:00 Intake Total 300 ml Balance 300 ml Weight (Pounds): 122 Weight (Ounces): 14.4 Weight (Calculated Kilograms): 55.691393 Constitutional: AAO x 3, other (thin) Respiratory: No accessory muscle use, No respiratory distress; chest expansion is symmetric, chest is bilaterally symmetric, lungs clear to auscultation Cardiovascular: irregularly irregular; No JVD; S1 and S2 Gastrointestional: No tender; soft, round, audible bowel sounds Extremities: no lower extremity edema bilateral Neurologic/Psychiatric: alert, grossly intact Skin: other (dressings to heels bilat; not removed) Results/Procedures: Labs Laboratory Tests 02/03/19 05:30: Sodium Level 139, Potassium Level 4.4, Chloride Level 103, Carbon Dioxide Level 25, Anion Gap 11, Blood Urea Nitrogen 34H, Creatinine 0.97, Estimat Glomerular Filtration Rate > 60, BUN/Creatinine Ratio 35, Glucose Level 110H, Calcium Level 9.5, Corrected Calcium 10.4H, Magnesium Level 1.7, Total Bilirubin 0.7, Aspartate Amino Transf (AST/SGOT) 20, Alanine Aminotransferase (ALT/SGPT) 27, Alkaline Phosphatase 273H, Total Protein 6.0L, Albumin 2.9L, Thyroid Stimulating Hormone (TSH) 1.43 Laboratory Tests 02/02/19 07:00 02/03/19 05:30 A/P: Assessment: PAF/Flutter vs SVT with vent rates up to 150 bpm. These are relatively brief episodes that are asymptomatic Stroke prophylaxis with apixaban Echo of 02/01/19: LVEF 50%, dilated LA, trivial AI, mild MR, RVSP 19 mmHg Generalized weakness following lengthy hospitalization for aspiration pneumonia and C-Diff CAD - reports h/o stents x7 - states last cor stent was to [facility] in Jul 2017 - primary hasher operator Dr. Stern at [facility] in [place], [place] HLD - statin tx H/O bilat CEA - unsure of details - reports done at [facility] H/O tobacco use - quit > 20 years ago HTN CKD stage III Reported h/o cirrhosis Chronic back pain with nerve stimulator in place Kyphosis H/o hypothyroidism. TSH normal (1.43) on 02/03/19 Plan: * Continue long-acting dilt for vent rate control * Continue Eliquis for stroke prophylaxis (low dose for now, given low BMI and age 83) * We reviewed his records from [facility] * We reviewed his labs of 02/03/19. Continue to monitor labs * I answered his questions regarding his arrhythmia and other cardiac issues NYA PENALOZA MD FACP [facility]S Feb 03, 2019 14:14
--- NOTE | 2019-02-03 16:57 | NUR ---
Incontinent of stool in diaper. Stool is formed. New [place] to bottom.
[2019-02-03 17:26] VITALS: BP 90/51
[2019-02-03] MEDS: ATORVASTATIN 40 MG (LIPITOR) TABLET PO SCH (18:03)
[2019-02-03] MEDS: rOPINIRole 1 MG (REQUIP) TABLET PO SCH (20:17)
[2019-02-04 05:34] VITALS: BP 117/69
[2019-02-04] MEDS: MULTIVIT W/MINERALS TAB (THERAGRAN M) PO SCH (05:37)
[2019-02-04] MEDS: LEVOTHYROXINE 75 MCG (LEVOTHROID) TABLET PO SCH (05:37)
[2019-02-04] MEDS: LACTOSE REDUCED FOOD PO SCH ×3 (05:49→16:54)
[2019-02-04 05:54] LABS: BASOPHILS % (AUTO) 0 % (0-10); EOSINOPHILS # (AUTO) 0.3 10^3/uL (0.0-0.3); EOSINOPHILS % (AUTO) 3 % (0-10); HEMATOCRIT 32 % (40-54); HEMOGLOBIN 10.3 G/DL (13.3-17.7); LYMPHOCYTES # (AUTO) 1.1 X 10^3 (1.0-4.0); LYMPHOCYTES % (AUTO) 11 % (12-44); MEAN CORPUSCULAR HEMOGLOBIN 33 PG (25-34); MEAN CORPUSCULAR HGB CONC 32 G/DL (32-36); MEAN CORPUSCULAR VOLUME 101 FL (80-99); MEAN PLATELET VOLUME 9.7 FL (7.4-10.4); MONOCYTES # (AUTO) 1.1 X 10^3 (0.0-1.0); MONOCYTES % (AUTO) 10 % (0-12); NEUTROPHILS # (AUTO) 7.9 X 10^3 (1.8-7.8); NEUTROPHILS % (AUTO) 76 % (42-75); PLATELET COUNT 274 10^3/uL (130-400); WHITE BLOOD COUNT 10.4 10^3/uL (4.3-11.0)
[2019-02-04 06:22] LABS: ALANINE AMINOTRANSFERASE 29 U/L (0-55); ALBUMIN 2.9 GM/DL (3.2-4.5); ALKALINE PHOSPHATASE 225 U/L (40-136); BILIRUBIN,TOTAL 0.6 MG/DL (0.1-1.0); BUN/CREATININE RATIO 33; CALCIUM 9.3 MG/DL (8.5-10.1); CARBON DIOXIDE 26 MMOL/L (21-32); CHLORIDE 103 MMOL/L (98-107); CREATININE SERUM 0.81 MG/DL (0.60-1.30); GFR ESTIMATED > 60; GLUCOSE 91 MG/DL (70-105); POTASSIUM 4.2 MMOL/L (3.6-5.0); SODIUM 137 MMOL/L (135-145); TOTAL PROTEIN 5.7 GM/DL (6.4-8.2)
--- NOTE | 2019-02-04 07:42 | Progress Note - Surgery ---
A[place] JOVEL,MED STUDENT 02/04/19 0742: Subjective Date Seen by a Provider: Feb 04, 2019 Time Seen by a Provider: 07:21 Subjective/Events-last exam Patient eating breakfast during exam. R heel ulcer continues to cause pain he characterizes as "deep, like someone is driving a screw into the bone." Had previously been seen in [place] a few months ago for this ulcer and was treated with sulfadiene with little improvement. No family at bedside but states daughter was helping with wound care. Review of Systems General: No Chills; Night Sweats Gastrointestinal: No: Nausea, Vomiting Objective Exam Vital Signs Date Time Temp Pulse Resp B/P (MAP) Pulse Ox O2 Delivery O2 Flow Rate FiO2 02/04/19 05:34 98.4 75 18 117/69 (85) 95 Nasal Cannula 1.00 02/04/19 01:00 82 02/03/19 20:45 Nasal Cannula 2.00 02/03/19 20:44 Nasal Cannula 2.00 02/03/19 19:00 116 02/03/19 17:26 98.7 64 16 90/51 (64) 95 Nasal Cannula 1.00 02/03/19 13:00 70 02/03/19 09:59 97 Nasal Cannula 2.00 02/03/19 09:39 96 Nasal Cannula 1.00 02/03/19 08:47 69 117/50 (72) I & O 02/04/19 07:00 Intake Total 1100 ml Output Total 1150 ml Balance -50 ml Capillary Refill : Less Than 3 Seconds General Appearance: No Apparent Distress, WD/WN, Chronically ill HEENT: PERRL/EOMI Neck: Normal Inspection; No Thyromegaly Respiratory: No Accessory Muscle Use, No Respiratory Distress Cardiovascular: No Edema Extremity: No Pedal Edema Neurologic/Psychiatric: Alert, Oriented x3, No Motor/Sensory Deficits, Normal Mood/Affect Skin: Rash, Other (Shallow ulcer on R heel, some scarring on L heel ) Results Lab Laboratory Tests 02/04/19 05:40: White Blood Count 10.4, Red Blood Count 3.16L, Hemoglobin 10.3L, Hematocrit 32L, Mean Corpuscular Volume 101H, Mean Corpuscular Hemoglobin 33, Mean Corpuscular Hemoglobin Concent 32, Red Cell Distribution Width 16.0H, Platelet Count 274, Mean Platelet Volume 9.7, Neutrophils (%) (Auto) 76H, Lymphocytes (%) (Auto) 11L , Monocytes (%) (Auto) 10, Eosinophils (%) (Auto) 3, Basophils (%) (Auto) 0, Neutrophils # (Auto) 7.9H, Lymphocytes # (Auto) 1.1, Monocytes # (Auto) 1.1H, Eosinophils # (Auto) 0.3, Basophils # (Auto) 0.0, Sodium Level 137, Potassium Level 4.2, Chloride Level 103, Carbon Dioxide Level 26, Anion Gap 8, Blood Urea Nitrogen 27H, Creatinine 0.81, Estimat Glomerular Filtration Rate > 60, BUN/Creatinine Ratio 33, Glucose Level 91, Calcium Level 9.3, Corrected Calcium 10.2H, Total Bilirubin 0.6, Aspartate Amino Transf (AST/SGOT) 24, Alanine Aminotransferase (ALT/SGPT) 29, Alkaline Phosphatase 225H, Total Protein 5.7L, Albumin 2.9L Assessment/Plan Assessment/Plan Assessment/Plan B/L Heel ulcer Left neck superficial erosion - probably secondary to O2 tubing Sacral Decub stage I Plan is to use Evelyn-boots for both feet and continue Santyl dressings BID to heel ulcers. Apply tegaderm to area behind left ear. Apply tegaderm to Sacral area and rotate pt in bed every 2 hours, up to chair as often as possible; anything to keep pt off sacral area. Clinical Quality Measures DVT/VTE Risk/Contraindication: Risk Factor Score Per Nursin RFS Level Per Nursing on Admit: 3=High UGO EMERSON DO 02/07/19 1249: Subjective Time Seen by a Provider: 12:01 Supervisory-Addendum Brief Verification & Attestation Participated in pt care: history, MDM, physical Personally performed: history, MDM Care discussed with: Medical Student Procedures: n/a Verification and Attestation of Medical Student E/M Service A medical student performed and documented this service in my presence. I reviewed and verified all information documented by the medical student and made modifications to such information, when appropriate. I personally performed the physical exam and medical decision making. Ugo Emerson, Feb 07, 2019,12:48 A[place] JOVEL,MED STUDENT Feb 04, 2019 07:42 UGO EMERSON DO Feb 07, 2019 12:49
[2019-02-04 08:00] VITALS: BP 91/60
--- NOTE | 2019-02-04 08:00 | NUR ---
HEART RATE 108 AND IRREGULAR. J2EE APPLICATION DEVELOPER CALLED AND CONFIRMED IS IN [place]. DR. PENALOZA CALLED DUE TO TACHYCARDIA AND HYPOTENSION (BP 91/60) AND NEW PARAMETERS OBTAINED FOR CARDIZEM. ONLY COMPLAINT OF PAIN IS CHRONIC RIGHT FOOT PAIN. O2 ON. STATES STILL MILD DIFFICULTY IN SWALLOWING, BUT IS OKAY BECAUSE HE IS CAREFUL.
--- NOTE | 2019-02-04 08:07 | PM&R Progress Note ---
Subjective HPI/CC On Admission Date Seen by Provider: Feb 04, 2019 Time Seen by Provider: 08:00 Chief complaint: Myopathy HPI: This is a 83yoWM who previously worked at [employer] who has been to [facility] 3x recently, because the first was pneumonia the second C-Diff colitis, and the third was an aspiration pneumonia, so he was transferred to [place], NG tub was placed for nutrition and he was able to work with speech therapy ultimately and resume a dysphasia one diet. Overall he has dramatically improved but definitely needs a lot of therapy to return home. He was placed in a shelter facility after the pneumonia and the C-Diff colitis episode but his intention is to go home. I did speak with speech therapy who will evaluate what his needs are as far as his diet and resume that. He does have a history of chronic atrial fibrillation and he does have some rapid ventricular response of 120s when he was up working with therapy so I did consult cardiology, Dr. Blevins and updated him and Loreto regarding this new Pt set to arrive any minute. I did speak with Dr. Ibrahim from [facility] regarding the admission and transfer and I accepted the care. Subjective/Events-last exam Bowel movement yesterday No loose stools No pain is reported Regular diet is being tolerated I spoke with speech therapy about advancing the diet this weekend White count remains normal at 10.4 and hgb at 10.3 Alkaline Phosphatase improved at 225 Overall progressing nicely Conferred with RN Reviewed therapy notes Check meds and labs Heels off bed helps the pain Review of Systems General: Fatigue Objective Exam Vital Signs Vital Signs Date Time Temp Pulse Resp B/P (MAP) Pulse Ox O2 Delivery O2 Flow Rate FiO2 02/04/19 20:38 Nasal Cannula 2.00 02/04/19 18:00 97.9 74 18 101/68 (79) 94 Capillary Refill : Less Than 3 Seconds General Appearance: No Apparent Distress, WD/WN, Chronically ill HEENT: PERRL/EOMI Neck: Normal Inspection; No Thyromegaly Respiratory: No Accessory Muscle Use, No Respiratory Distress Cardiovascular: No Edema Gastrointestinal: Normal Bowel Sounds, No Organomegaly, No Pulsatile Mass, Non Tender, Soft Rectal: Deferred Back: Normal Inspection, No CVA Tenderness, Decreased Range of Motion, Other (sevre kyphosis) Extremity: No Pedal Edema Neurologic/Psychiatric: Alert, Oriented x3, No Motor/Sensory Deficits, Normal Mood/Affect Skin: Rash, Other (Shallow ulcer on R heel, some scarring on L heel ) Results/Procedures Lab Laboratory Tests 02/04/19 05:40 Patient resulted labs reviewed. FIM Transfers Therapy Code Descriptions/Definitions Functional [place] Measure: 0=Not Assessed/NA 4=Minimal Assistance 1=Total Assistance 5=Supervision or Setup 2=Maximal Assistance 6=Modified [place] 3=Moderate Assistance 7=Complete [place] Therapy Quality Codes: 6 Independent with activity with or without an assistive device 5 Patient requires set up or clean up by helper. Patient completes activity by themselves 4 Supervision or touching assist (CGA). [place] provide cues , steadying assist 3 The helper provides less than half the effort to complete the activity 2 The helper provides more than half the effort to complete the activity 1 Dependent. The helper does all the effort to complete an activity 7 Patient refused to complete or attempt activity 9 The patient did not perform the activity before the current illness or injury 88 Not attempted due to Medical conditions or safety concerns Transfers (B, C, W/C) (FIM): 4 Scootin Rollin Roll Left to Right (QC): 4 Supine to/from Sit: 5 (requiring effort, HOB elevated, use of bedrails) Sit to/from Stand: 4 Sit to Lying (QC): 3 Sit to Stand (QC): 3 (skilled cues 50% of the time for hand placement and sequencing. ) Chair/Euy-dy-Pwwmb Xfer(QC): 3 Bed to/from Chair: 4 Car Transfer (QC): 3 Gait Training Does the Patient Walk?: Yes Gait (FIM): 2 Distance (FIM): 6=996-24 ft Distance: 100 x2 Walk 10 feet (QC): 3 Walk 50 ft with 2 Turns(QC): 3 Walk 150 ft (QC): 88 (unable to walk this distance) Walking 10ft/uneven surface-QC: 3 Gait Level of Assist: 4 (CGA provided for safety due to pt report of occasional dizziness) Gait Persons Needed: 1 Gait Assistive Device: FWW Wheelchair Training Does the Pt Use a Wheelchair?: No Stair Training Stairs (FIM): 1 1 Step (curb) (QC): 1 4 Steps (QC): 88 12 Steps (QC): 88 Balance Picking up an Object (QC): 88 Mental Status/Objective Comprehension: 7 Expression: 7 Social Interaction: 7 Problem Solvin Memory: 7 ADL-Treatment Feedin (Set up ) Eating (QC): 5 Bathin Shower/Bathe Self (QC): 3 Upper Extremity Dressin Upper Body Dressing (QC): 3 Lower Extremity Dressin Lower Body Dressing (QC): 2 On/Off Footwear (QC): 4 Toiletin Toileting Hygiene (QC): 1 Toilet/Commode Transfer: 3 Shower: 3 Assessment/Plan Assessment and Plan Assess & Plan/Chief Complaint Plan: IRF protocol Cardiology appreciated Home meds Monitor for falls Noted severe kyphosis will limit overall physical function Monitor wbc count but improved Regular diet tolerated Heels off bed Appreciate Cardiology management (1) Myopathy Status: Acute (2) Kyphosis Status: Chronic Qualifiers: Kyphosis type: postural Spinal region: cervicothoracic Qualified Codes: 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, cervicothoracic region (3) DNR (do not resuscitate) Status: Chronic (4) COPD (chronic obstructive pulmonary disease) Status: Chronic Qualifiers: COPD type: unspecified COPD Qualified Codes: J44.9 - Chronic obstructive pulmonary disease, unspecified (5) CHF (congestive heart failure) Status: Chronic Qualifiers: Heart failure type: unspecified (6) Prostate cancer Status: Chronic (7) Oxygen dependent Status: Chronic (8) Atrial fibrillation with rapid ventricular response Status: Acute (9) Advanced age Status: Chronic (10) Atrial fibrillation, chronic Status: Chronic (11) Presbycusis of both ears Status: Chronic (12) At risk for aspiration Status: Chronic (13) History of Clostridioides difficile colitis Status: Chronic QUANG HINTON DO Feb 04, 2019 08:07
[2019-02-04] MEDS: VITAMIN D3 1,000 UNITS (CHOLECALCIFEROL) TABLET PO SCH ×2 (08:29→20:29)
[2019-02-04] MEDS: FAMOTIDINE 20 MG (PEPCID) TABLET PO SCH ×2 (08:29→20:29)
[2019-02-04] MEDS: GABAPENTIN 100 MG (NEURONTIN) CAP PO SCH ×3 (08:29→20:28)
[2019-02-04] MEDS: OXYBUTYNIN (DITROPAN) 5 MG TAB PO SCH ×2 (08:29→20:29)
[2019-02-04] MEDS: ASPIRIN 81 MG CHEW (CHILDREN'S ASA) PO SCH (08:29)
[2019-02-04] MEDS: LORATADINE (CLARITIN) 10 MG TAB PO SCH (08:29)
[2019-02-04] MEDS: DILTIAZEM 240 MG (CARDIZEM CD) CAP PO SCH (08:34)
[2019-02-04] MEDS: APIXABAN 2.5 MG (ELIQUIS) TABLET PO SCH ×2 (08:37→20:29)
[2019-02-04] MEDS: CHOLESTYRAMINE 4 GM (QUESTRAN LITE, PREVALITE) PKT PO SCH ×2 (10:28→21:31)
[2019-02-04] MEDS: COLLAGENASE 30 GM (SANTYL) TUBE TP SCH (10:30)
[2019-02-04] MEDS ORDERED: CATHETER FLUSH 10 ML SYR IV PRN (11:00)
--- NOTE | 2019-02-04 11:54 | Physical Therapy Daily Note ---
PT Daily Note-Current Subjective Patient in bed pre tx, agrees to PT, has pain in his right foot, nurse is aware. Appearance Patient in recliner post tx with nurse call, phone, tray, set up for lunch. Mental Status Patient Orientation: Person, Place, Situation Attachments: Oxygen Transfers Therapy Code Descriptions/Definitions Functional [place] Measure: 0=Not Assessed/NA 4=Minimal Assistance 1=Total Assistance 5=Supervision or Setup 2=Maximal Assistance 6=Modified [place] 3=Moderate Assistance 7=Complete [place] Therapy Quality Codes: 6 Independent with activity with or without an assistive device 5 Patient requires set up or clean up by helper. Patient completes activity by themselves 4 Supervision or touching assist (CGA). [place] provide cues , steadying assist 3 The helper provides less than half the effort to complete the activity 2 The helper provides more than half the effort to complete the activity 1 Dependent. The helper does all the effort to complete an activity 7 Patient refused to complete or attempt activity 9 The patient did not perform the activity before the current illness or injury 88 Not attempted due to Medical conditions or safety concerns Transfers (B, C, W/C) (FIM): 3 Scootin Rollin Supine to/from Sit: 3 Sit to/from Stand: 3 Bed to/from Chair: 4 Mod assist for sit to stand, cues for hand placement. Gait Training Gait (FIM): 2 Distance: 120', 70', 50' Gait Level of Assist: 4 Gait Persons Needed: 1 Gait Assistive Device: FWW slow, fatigues quickly Exercises NuStep Minutes: 12 NuStep Workload: 4 Treatments bed mobility and transfers, ambulation, LE exercise, patient had a wet brief, changed in the room patient had to stand twice to change with max assist Assessment Current Status: Poor Progress no change in mobility PT Short Term Goals Short Term Goals Time Frame: Feb 14, 2019 Transfers (B,C,W/C) (FIM): 4 Gait (FIM): 4 Distance (FIM): 3=150 ft Gait Assistive Device: FWW PT Chcf Goals Kennel Manager Goals PT Kennel Manager Goals Time Frame: Feb 28, 2019 Transfers (B,C,W/C) (FIM): 6 Sit to Lying (QC): 6 Lying-Sitting on Side/Bed(QC): 6 Sit to Stand (QC): 6 Rollin Roll Left to Right (QC): 6 Chair/Qev-yr-Wzfrd Xfer(QC): 6 Car Transfer (QC): 6 Does the Patient Walk: Yes Gait (FIM): 6 Gait distance (FIM): 3=150 ft Walk 10 feet (QC): 6 Walk 10ft-Uneven Surface(QC): 6 Walk 50ft with 2 Turns (QC): 6 Walk 150 ft (QC): 6 Gait Assistive Device: FWW Does the Pt use WC or Scooter?: No Stairs (FIM): 5 # of Steps: 4 1 Step (curb) (QC): 6 4 Steps (QC): 6 12 Steps (QC): 9 Picking up an Object (QC): 88 PT Plan Problem List Problem List: Activity Tolerance, Functional Strength, Safety, Balance, Gait, Transfer, Bed Mobility, ROM Treatment/Plan Treatment Plan: Continue Plan of Care Treatment Plan: Bed Mobility, Education, Functional Activity Mahamed, Functional Strength, Group Therapy, Gait, Safety, Therapeutic Exercise, Transfers Treatment Duration: Feb 28, 2019 Frequency: At least 5 of 7 days/Wk (IRF) Estimated Hrs Per Day: 1.5 hours per day Patient and/or Family Agrees t: Yes Safety Risks/Education Patient Education: Gait Training, Transfer Techniques, Correct Positioning, Safety Issues Teaching Recipient: Patient Teaching Methods: Demonstration, Discussion Response to Teaching: Reinforcement Needed Time/GCodes Time In: 1100 Time Out: 1200 Total Billed Treatment Time: 60 Total Billed Treatment 1 visit EX 12' GT 30' FA 18' BIN ROSE PT Feb 04, 2019 11:54
[2019-02-04] MEDS: CATHETER FLUSH 10 ML SYR IV SCH ×2 (13:05→21:33)
--- NOTE | 2019-02-04 13:44 | Physical Therapy Daily Note ---
PT Daily Note-Current Subjective Patient in recliner pre tx, agrees to PT, has pain in right foot, states he has already had pain meds for it. Appearance Patient in bed post tx, has nurse call, phone, tray, all needs met. Mental Status Patient Orientation: Person, Place, Situation Attachments: Oxygen Transfers Therapy Code Descriptions/Definitions Functional [place] Measure: 0=Not Assessed/NA 4=Minimal Assistance 1=Total Assistance 5=Supervision or Setup 2=Maximal Assistance 6=Modified [place] 3=Moderate Assistance 7=Complete [place] Therapy Quality Codes: 6 Independent with activity with or without an assistive device 5 Patient requires set up or clean up by helper. Patient completes activity by themselves 4 Supervision or touching assist (CGA). [place] provide cues , steadying assist 3 The helper provides less than half the effort to complete the activity 2 The helper provides more than half the effort to complete the activity 1 Dependent. The helper does all the effort to complete an activity 7 Patient refused to complete or attempt activity 9 The patient did not perform the activity before the current illness or injury 88 Not attempted due to Medical conditions or safety concerns Transfers (B, C, W/C) (FIM): 4 Scootin Rollin Supine to/from Sit: 5 Sit to/from Stand: 4 Bed to/from Chair: 4 min assist for sit to stand, cues for hand placement Gait Training Gait (FIM): 4 Distance: 150' Gait Level of Assist: 4 Gait Persons Needed: 1 Gait Assistive Device: FWW CGA, very slow, needs cues for direction Exercises Seated Therapy Exercises: Ankle pumps, Long arc quads, Hip flexion Seated Reps: 15 Treatments bed mobility and transfers, ambulation, LE exercise Assessment Current Status: Fair Progress improved endurance PT Short Term Goals Short Term Goals Time Frame: Feb 14, 2019 Transfers (B,C,W/C) (FIM): 4 Gait (FIM): 4 Distance (FIM): 3=150 ft Gait Assistive Device: FWW PT Wallpaper Printer Goals Alf Goals PT Wallpaper Printer Goals Time Frame: Feb 28, 2019 Transfers (B,C,W/C) (FIM): 6 Sit to Lying (QC): 6 Lying-Sitting on Side/Bed(QC): 6 Sit to Stand (QC): 6 Rollin Roll Left to Right (QC): 6 Chair/Lry-kv-Tjjmm Xfer(QC): 6 Car Transfer (QC): 6 Does the Patient Walk: Yes Gait (FIM): 6 Gait distance (FIM): 3=150 ft Walk 10 feet (QC): 6 Walk 10ft-Uneven Surface(QC): 6 Walk 50ft with 2 Turns (QC): 6 Walk 150 ft (QC): 6 Gait Assistive Device: FWW Does the Pt use WC or Scooter?: No Stairs (FIM): 5 # of Steps: 4 1 Step (curb) (QC): 6 4 Steps (QC): 6 12 Steps (QC): 9 Picking up an Object (QC): 88 PT Plan Problem List Problem List: Activity Tolerance, Functional Strength, Safety, Balance, Gait, Transfer, Bed Mobility, ROM Treatment/Plan Treatment Plan: Continue Plan of Care Treatment Plan: Bed Mobility, Education, Functional Activity Mahamed, Functional Strength, Group Therapy, Gait, Safety, Therapeutic Exercise, Transfers Treatment Duration: Feb 28, 2019 Frequency: At least 5 of 7 days/Wk (IRF) Estimated Hrs Per Day: 1.5 hours per day Patient and/or Family Agrees t: Yes Safety Risks/Education Patient Education: Gait Training, Transfer Techniques, Correct Positioning, Safety Issues Teaching Recipient: Patient Teaching Methods: Demonstration, Discussion Response to Teaching: Reinforcement Needed Time/GCodes Time In: 1320 Time Out: 1340 Total Billed Treatment Time: 20 Total Billed Treatment 1 visit FA Adolfo BIN ROSE PT Feb 04, 2019 13:44
--- NOTE | 2019-02-04 14:04 | Occupational Ther Daily Note ---
OT Current Status-Daily Note Subjective No pain reported. Appearance Pt. in bed. Agrees to work with therapy. Mental Status/Objective Patient Orientation: Person, Place Therapy Code Descriptions/Definitions Functional [place] Measure: 0=Not Assessed/NA 4=Minimal Assistance 1=Total Assistance 5=Supervision or Setup 2=Maximal Assistance 6=Modified [place] 3=Moderate Assistance 7=Complete [place] ADL-Treatment Therapy Code Descriptions/Definitions Functional [place] Measure: 0=Not Assessed/NA 4=Minimal Assistance 1=Total Assistance 5=Supervision or Setup 2=Maximal Assistance 6=Modified [place] 3=Moderate Assistance 7=Complete [place] Therapy Quality Codes: 6 Independent with activity with or without an assistive device 5 Patient requires set up or clean up by helper. Patient completes activity by themselves 4 Supervision or touching assist (CGA). [place] provide cues , steadying assist 3 The helper provides less than half the effort to complete the activity 2 The helper provides more than half the effort to complete the activity 1 Dependent. The helper does all the effort to complete an activity 7 Patient refused to complete or attempt activity 9 The patient did not perform the activity before the current illness or injury 88 Not attempted due to Medical conditions or safety concerns Bathing (FIM): 3 (Pt. utilizes LH sponge to wash bilateral LE. Requires mod assist in stance and assist to wash anisa area.) Shower/Bathe Self (QC): 3 Upper Body (FIM): 4 Upper Body Dressing (QC): 4 Lower Body Dressing (FIM): 2 (Pt. utlilized AE for LE dressing. However, re quires assist to don over feet with DS due to heel protector pads. Required assistance in stance to don over hips.) Lower Body Dressing (QC): 2 On/Off Footwear (QC): 2 (Pt. attempted to use sock aide, as he uses one at home. However, this sock aide was different than his and he had difficulty over his heel protectors.) Toileting (FIM): 1 (Pt. incontinent of BM at bed level in depends. Required dependent assist to doff depend and cleanse anisa area.) Toileting Hygiene (QC): 1 Transfers (B, C, W/C) (FIM): 3 (Mod assist supine-sit and sit-stand.) Other Treatment Pt. completed ADLs in chair in room. Declines showering stating that he doesn't feel safe in shower. Pt. issued AE for LE bathing/dressing. Increased time overall needed and pt. required cues to continue with tasks. Pt. states that he has had diarrhea multiple times over weekend. Nursing is aware. All needs met up in chair. Education OT Patient Education: Correct positioning, Modified ADL techniques, Progress toward Goal/Update tx plan, Purpose of tx/functional activities, Reviewed precautions, Rehab process, Transfer techniques, Use of adapted equipment Teaching Recipient: Patient Teaching Methods: Demonstration, Discussion Response to Teaching: Verbalize Understanding, Return Demonstration OT Short Term Goals Short Term Goals Transfers (B,C,W/C) (FIM): 4 1=Demonstrate adherence to instructed precautions during ADL tasks. 2=Patient will verbalize/demonstrate understanding of assistive devices/modifications for ADL. 3=Patient will improve strength/tolerance for activity to enable patient to perform ADL's. OT Crayon Grader Goals Crayon Grader Goals Time Frame: Feb 21, 2019 Eating (FIM): 6 Eating (QC): 6 Groomin Oral Hygiene (QC): 6 Bathing(FIM): 5 Shower/Bathe Self (QC): 5 Upper Body Dressing(FIM): 6 Upper Body Dressing (QC): 6 Lower Body Dressing(FIM): 6 Lower Body Dressing (QC): 6 On/Off Footwear (QC): 6 Toileting(FIM): 5 Toileting Hygiene (QC): 6 Transfers (B,C,W/C) (FIM): 6 Toilet/Commode Transfer(FIM): 6 Toilet/Commode Transfer (QC): 6 Shower Transfer(FIM): 5 Comprehension(FIM): 6 Expression (FIM): 6 Social Interaction(FIM): 6 Problem Solving(FIM): 6 Memory(FIM): 6 Additional Goals: 1-Demonstrate ADL Tasks, 2-Verbalize Understanding, 3-Impr oveStrength/Mahamed 1=Demonstrate adherence to instructed precautions during ADL tasks. 2=Patient will verbalize/demonstrate understanding of assistive devices/modifications for ADL. 3=Patient will improve strength/tolerance for activity to enable patient to perform ADL's. OT Education/Plan Problem List/Assessment Assessment: Decreased Activ Tolerance, Decreased UE Strength, Dependent Transfers, Impaired Bed Mobility, Impaired Funct Balance, Impaired I ADL's, Impa ired Self-Care Skills, Restricted Funct UE ROM Discharge Recommendations Plan/Recommendations: Continue POC Equpiment Recommendations-D/C: Hip Kit Treatment Plan/Plan of Care Treatment,Training & Education: Yes Patient would benefit from OT for education, treatment and training to promote independence in ADL's, mobility, safety and/or upper extremity function for ADL's. Plan of Care: ADL Retraining, Functional Mobility, Group Exercise/Act as Ind, UE Funct Exercise/Act Treatment Duration: Feb 21, 2019 Frequency: At least 5 of 7 days/Wk (IRF) Estimated Hrs Per Day: 1.5 hours per day Agreement: Yes Rehab Potential: Fair Time/GCodes Start Time: 08:30 Stop Time: 10:00 Total Time Billed (hr/min): 90 Billed Treatment Time 1, ADL x 6 ADITHYA MAC OT Feb 04, 2019 14:04
--- NOTE | 2019-02-04 14:05 | Speech Therapy Daily Note ---
Speech Daily Progress Note Subjective Date Seen by Provider: Feb 04, 2019 Time Seen by Provider: 00:30 The patient was sitting in his chair eating lunch when I entered his room. Objective The patient utilized compensatory strategies as trained at 80% with min to mod verbal and/or visual cues. Assessment Assessment Current Status: Good Progress Treatment Plan Continue Plan of Care Communication Comprehension: 7 Expression: 7 Social Cognition Social Interaction: 7 Problem Solvin Memory: 7 Speech Short Term Goals Short Term Goals Short Term Goals 1) The patient will tolerate least restrictive diet level without s/s of aspiration with 90% or greater. 2) The patient will utilize compensatory strategies as trained with 90% or greater given minimal cues. Speech Margin Clerk Goals Longterm Goals The patient will maintain adequate nutrition/hydration via safe effective swallow function. Comprehension: 6 Expression: 6 Social Interaction: 6 Problem Solvin Memory: 6 Speech-Plan Patient/Family Goals Patient/Family Goals: The patient plans on returning to his home post rehab if he is able to. Treatment Plan Speech Therapy Treatment Plan: Continue Plan of Care The patient was upgraded to a regular diet level over the weekend by Dr. Shi. Treatment Duration: Feb 08, 2019 Frequency: 1 time per week Estimated Hrs Per Day: .25 hour per day Rehab Potential: Good Barriers to Learning: Patient has multiple health related issues. Pt/Family Agrees to Plan: Yes Safety Risks/Education Teaching Recipient: Patient Teaching Methods: Demonstration, Discussion Response to Teaching: Verbalize Understanding, Return Demonstration Education Topics Provided: Continued safety of oral intake strategies training. Time Speech Therapy Time In: 12:45 Speech Therapy Time Out: 13:15 Total Billed Time: 30 Billed Treatment Time 1, KRISTIN Stanford Feb 04, 2019 14:05
--- NOTE | 2019-02-04 16:00 | NUR ---
HEART RATE REGULAR. APPEARS TO GO IN AND OUT OF AFIB. MEDICATED FOR RIGHT HEEL ULCER PAIN AT 1300. STATES PAIN MED "TAKES THE EDGE OFF OF THE PAIN". O2 ON AT 2L, BUT CANNULA FREQUENTLY OUT OF NOSE.
--- NOTE | 2019-02-04 17:06 | NUR ---
Pastoral care visit, pt shared about recent loss of his and also much of his life story.
[2019-02-04 18:00] VITALS: BP 101/68
[2019-02-04] MEDS: ATORVASTATIN 40 MG (LIPITOR) TABLET PO SCH (18:56)
[2019-02-04] MEDS: rOPINIRole 1 MG (REQUIP) TABLET PO SCH (20:30)
[2019-02-05 06:01] VITALS: BP 108/66
[2019-02-05] MEDS: LEVOTHYROXINE 75 MCG (LEVOTHROID) TABLET PO SCH (06:12)
[2019-02-05] MEDS: MULTIVIT W/MINERALS TAB (THERAGRAN M) PO SCH (06:12)
[2019-02-05] MEDS: LACTOSE REDUCED FOOD PO SCH ×3 (06:12→17:13)
[2019-02-05] MEDS: CATHETER FLUSH 10 ML SYR IV SCH ×3 (06:12→22:07)
--- NOTE | 2019-02-05 08:30 | NUR ---
Dr. Shi to floor and informed of loose incontinent stool in diaper. This RN asked if we still need to send down a stool to test for Cdiff??? Orders to DC Cdiff order. States, "not worried about it". New order for I/S and Acapella. RT, Alexandre, notified.
--- NOTE | 2019-02-05 08:45 | PM&R Progress Note ---
Subjective HPI/CC On Admission Date Seen by Provider: Feb 05, 2019 Time Seen by Provider: 08:30 Chief complaint: Myopathy HPI: This is a 83yoWM who previously worked at [facility] who has been to [facility] 3x recently, because the first was pneumonia the second C-Diff colitis, and the third was an aspiration pneumonia, so he was transferred to [place], NG tub was placed for nutrition and he was able to work with speech therapy [facility] and resume a dysphasia one diet. Overall he has dramatically improved but definitely needs a lot of therapy to return home. He was placed in a fpc facility after the pneumonia and the C-Diff colitis episode but his intention is to go home. I did speak with speech therapy who will evaluate what his needs are as far as his diet and resume that. He does have a history of chronic atrial fibrillation and he does have some rapid ventricular response of 120s when he was up working with therapy so I did consult cardiology, Dr. Blevins and updated him and [place] regarding this new Pt set to arrive any minute. I did speak with Dr. Ibrahim from [facility] regarding the admission and transfer and I accepted the care. Subjective/Events-last exam Will discontinue telemetry. Coughing when he ate a little bit of supper last night is rare. Loose stools periodically. Lower lung sounds are crackly so will initiate IS. Kyphosis puts him at risk for pneumonias. No pain is reported except for the heel. No SOB. Bowels are moving, a little bit loose still, but no suspicion for C-diff at this current time. Overall progressing nicely Conferred with RN Reviewed therapy notes Check meds and labs Heels off bed helps the pain Review of Systems General: Fatigue Pulmonary: Dyspnea Objective Exam Vital Signs Vital Signs Date Time Temp Pulse Resp B/P (MAP) Pulse Ox O2 Delivery O2 Flow Rate FiO2 02/05/19 19:47 2.00 02/05/19 18:35 92 Room Air 02/05/19 17:54 98.1 78 18 119/69 (86) Capillary Refill : Less Than 3 Seconds General Appearance: No Apparent Distress, WD/WN, Chronically ill HEENT: PERRL/EOMI, Normal ENT Inspection, Pharynx Normal Neck: Normal Inspection; No Thyromegaly Respiratory: Chest Non Tender, No Accessory Muscle Use, No Respiratory Distress, Crackles, Decreased Breath Sounds Cardiovascular: Regular Rate, Rhythm, No Edema, Tachycardia Gastrointestinal: Normal Bowel Sounds, No Organomegaly, No Pulsatile Mass, Non Tender, Soft Rectal: Deferred Back: Normal Inspection, No CVA Tenderness, Decreased Range of Motion, Other (sevre kyphosis) Extremity: No Pedal Edema Neurologic/Psychiatric: Alert, Oriented x3, No Motor/Sensory Deficits, Normal Mood/Affect Skin: Rash, Other (Shallow ulcer on R heel, some scarring on L heel ) Results/Procedures Lab Patient resulted labs reviewed. FIM Transfers Therapy Code Descriptions/Definitions Functional [place] Measure: 0=Not Assessed/NA 4=Minimal Assistance 1=Total Assistance 5=Supervision or Setup 2=Maximal Assistance 6=Modified [place] 3=Moderate Assistance 7=Complete [place] Therapy Quality Codes: 6 Independent with activity with or without an assistive device 5 Patient requires set up or clean up by helper. Patient completes activity by themselves 4 Supervision or touching assist (CGA). [place] provide cues , steadying assist 3 The helper provides less than half the effort to complete the activity 2 The helper provides more than half the effort to complete the activity 1 Dependent. The helper does all the effort to complete an activity 7 Patient refused to complete or attempt activity 9 The patient did not perform the activity before the current illness or injury 88 Not attempted due to Medical conditions or safety concerns Transfers (B, C, W/C) (FIM): 3 (Mod assist supine-sit and sit-stand.) Scootin Rollin Roll Left to Right (QC): 4 Supine to/from Sit: 5 Sit to/from Stand: 4 Sit to Lying (QC): 3 Sit to Stand (QC): 3 (skilled cues 50% of the time for hand placement and sequencing. ) Chair/Jrn-pa-Jkoyw Xfer(QC): 3 Bed to/from Chair: 4 Car Transfer (QC): 3 Gait Training Does the Patient Walk?: Yes Gait (FIM): 4 Distance (FIM): 8=332-94 ft Distance: 150' Walk 10 feet (QC): 3 Walk 50 ft with 2 Turns(QC): 3 Walk 150 ft (QC): 88 (unable to walk this distance) Walking 10ft/uneven surface-QC: 3 Gait Level of Assist: 4 Gait Persons Needed: 1 Gait Assistive Device: FWW Wheelchair Training Does the Pt Use a Wheelchair?: No Stair Training Stairs (FIM): 1 1 Step (curb) (QC): 1 4 Steps (QC): 88 12 Steps (QC): 88 Balance Picking up an Object (QC): 88 Mental Status/Objective Comprehension: 7 Expression: 7 Social Interaction: 7 Problem Solvin Memory: 7 ADL-Treatment Feedin (Set up ) Eating (QC): 5 Bathin (Pt. utilizes LH sponge to wash bilateral LE. Requires mod assist in stance and assist to wash anisa area.) Shower/Bathe Self (QC): 3 Upper Extremity Dressin Upper Body Dressing (QC): 4 Lower Extremity Dressin (Pt. utlilized AE for LE dressing. However, requires assist to don over feet with DS due to heel protector pads. Required assistance in stance to don over hips.) Lower Body Dressing (QC): 2 On/Off Footwear (QC): 2 (Pt. attempted to use sock aide, as he uses one at home. However, this sock aide was different than his and he had difficulty over his heel protectors.) Toiletin (Pt. incontinent of BM at bed level in depends. Required d ependent assist to doff depend and cleanse anisa area.) Toileting Hygiene (QC): 1 Toilet/Commode Transfer: 3 Shower: 3 Assessment/Plan Assessment and Plan Assess & Plan/Chief Complaint Plan: IRF protocol Cardiology appreciated Home meds Monitor for falls Noted severe kyphosis will limit overall physical function Monitor wbc count but improved Regular diet tolerated Heels off bed Appreciate Cardiology management IS for lung expansion due to severe kyphosis and crackles on exam (1) Myopathy Status: Acute (2) Kyphosis Status: Chronic Qualifiers: Kyphosis type: postural Spinal region: cervicothoracic Qualified Codes: 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, cervicothoracic region (3) DNR (do not resuscitate) Status: Chronic (4) COPD (chronic obstructive pulmonary disease) Status: Chronic Qualifiers: COPD type: unspecified COPD Qualified Codes: J44.9 - Chronic obstructive pulmonary disease, unspecified (5) CHF (congestive heart failure) Status: Chronic Qualifiers: Heart failure type: unspecified (6) Prostate cancer Status: Chronic (7) Oxygen dependent Status: Chronic (8) Atrial fibrillation with rapid ventricular response Status: Acute (9) Advanced age Status: Chronic (10) Atrial fibrillation, chronic Status: Chronic (11) Presbycusis of both ears Status: Chronic (12) At risk for aspiration Status: Chronic (13) History of Clostridioides difficile colitis Status: Chronic QUANG HINTON DO Feb 05, 2019 08:44
[2019-02-05] MEDS: GABAPENTIN 100 MG (NEURONTIN) CAP PO SCH ×3 (08:47→20:39)
[2019-02-05] MEDS: VITAMIN D3 1,000 UNITS (CHOLECALCIFEROL) TABLET PO SCH ×2 (08:48→20:40)
[2019-02-05] MEDS: ASPIRIN 81 MG CHEW (CHILDREN'S ASA) PO SCH (08:48)
[2019-02-05] MEDS: DILTIAZEM 240 MG (CARDIZEM CD) CAP PO SCH (08:48)
[2019-02-05] MEDS: APIXABAN 2.5 MG (ELIQUIS) TABLET PO SCH ×2 (08:48→20:40)
[2019-02-05] MEDS: OXYBUTYNIN (DITROPAN) 5 MG TAB PO SCH ×2 (08:48→20:40)
[2019-02-05] MEDS: LORATADINE (CLARITIN) 10 MG TAB PO SCH (08:48)
[2019-02-05] MEDS: FAMOTIDINE 20 MG (PEPCID) TABLET PO SCH (08:48)
[2019-02-05] MEDS: COLLAGENASE 30 GM (SANTYL) TUBE TP SCH (08:56)
[2019-02-05 08:57] VITALS: BP 105/70
[2019-02-05] MEDS: CHOLESTYRAMINE 4 GM (QUESTRAN LITE, PREVALITE) PKT PO SCH ×2 (10:44→20:40)
--- NOTE | 2019-02-05 10:45 | NUR ---
Pastoral care visit, pt continues to do life review w/Barrel [employer]s Sol[facility]
--- NOTE | 2019-02-05 11:25 | Progress Note - Cardiology ---
Cardiology SOAP Progress Note Subjective: Working with PT. States he feels he is improving. Denies any c/o CP or palpitations. Objective: I&O/Vital Signs 02/05/19 02/05/19 02/05/19 02/05/19 08:57 09:59 15:08 17:54 Temp 98.1 Pulse 78 Resp 18 B/P (MAP) 105/70 (82) 119/69 (86) Pulse Ox 96 O2 Delivery Room Air Nasal Cannula Nasal Cannula O2 Flow Rate 2.00 2.00 02/05/19 18:35 Pulse Ox 92 O2 Delivery Room Air 02/05/19 00:00 Intake Total 620 ml Output Total 250 ml Balance 370 ml Weight (Pounds): 122 Weight (Ounces): 14.4 Weight (Calculated Kilograms): 55.545803 Constitutional: AAO x 3, other (thin) Respiratory: No accessory muscle use, No respiratory distress; chest expansion is symmetric, chest is bilaterally symmetric, lungs clear to auscultation Cardiovascular: irregularly irregular; No JVD; S1 and S2 Gastrointestional: No tender; soft, round, audible bowel sounds Extremities: no lower extremity edema bilateral Neurologic/Psychiatric: alert, grossly intact Skin: other (dressings to heels bilat; not removed) A/P: Assessment: PAF/Flutter vs SVT with vent rates up to 150 bpm. 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 Stern at [facility] in [place], [place] HLD - statin tx H/O bilat CEA - unsure of details - reports done at [facility] H/O tobacco use - quit > 20 years ago HTN CKD stage III Reported h/o cirrhosis Chronic back pain with nerve stimulator in place Kyphosis H/o hypothyroidism. TSH normal (1.43) on 02/03/19 Plan: * Continue long-acting dilt for vent rate control * Low dose Dig for rate control * Not suitable candidate for BB d/t hypotension * Continue Eliquis for stroke prophylaxis (low dose for now, given low BMI and age 83) * I answered his questions regarding his arrhythmia and other cardiac issues Physician Assessment Physician Assessment He feels he is regaining some strength Denies cp or palp or syncope or shortness of breath Lungs: good air entry, diminished at the bases Cor: irreg Ext: no c/c/e A&R * As documented in our note above that I updated and as noted below * Continue current regimen * Monitor labs * I answered his CV-related questions FRANK REYES [facility] Feb 05, 2019 11:25 NYA PENALOZA MD FACP [facility] Feb 05, 2019 19:12
--- NOTE | 2019-02-05 11:26 | NUR ---
HBaima to floor. Informed of HR in the 150s for most of the morning.
[2019-02-05] MEDS ORDERED: DIGOXIN 0.125 MG (LANOXIN) TAB PO ONE (11:30)
--- NOTE | 2019-02-05 11:56 | Physical Therapy Daily Note ---
PT Daily Note-Current Subjective Patient in chair at bedside pre tx, agrees to PT, has no complaints of pain at rest. Appearance Patient in chair at bedside post tx with nurse call, phone, tray, all needs met. Mental Status Patient Orientation: Person, Place, Situation Transfers Therapy Code Descriptions/Definitions Functional [place] Measure: 0=Not Assessed/NA 4=Minimal Assistance 1=Total Assistance 5=Supervision or Setup 2=Maximal Assistance 6=Modified [place] 3=Moderate Assistance 7=Complete [place] Therapy Quality Codes: 6 Independent with activity with or without an assistive device 5 Patient requires set up or clean up by helper. Patient completes activity by themselves 4 Supervision or touching assist (CGA). [place] provide cues , steadying assist 3 The helper provides less than half the effort to complete the activity 2 The helper provides more than half the effort to complete the activity 1 Dependent. The helper does all the effort to complete an activity 7 Patient refused to complete or attempt activity 9 The patient did not perform the activity before the current illness or injury 88 Not attempted due to Medical conditions or safety concerns Transfers (B, C, W/C) (FIM): 4 Sit to/from Stand: 4 Bed to/from Chair: 4 Min assist for sit to stand, CGA for transfers, cues for hand placement and safety. Gait Training Gait (FIM): 4 Distance: 400', 200', 150' Gait Level of Assist: 4 Gait Persons Needed: 1 Gait Assistive Device: FWW After the first ambulation patient's O2 was at 95% but HR was 163bpm. Patient ambulates slowly, very slumped kyphotic posture. Exercises Standing: Hip Abduction, Heel/toe raises, Marching, Mini squats Standing Reps: 20 LAQ alternating for 5 min Treatments transfers, ambulation, LE exercise Assessment Current Status: Fair Progress improved endurance PT Short Term Goals Short Term Goals Time Frame: Feb 14, 2019 Transfers (B,C,W/C) (FIM): 4 Gait (FIM): 4 Distance (FIM): 3=150 ft Gait Assistive Device: FWW PT Tree Planter Goals Custodial Goals PT Tree Planter Goals Time Frame: Feb 28, 2019 Transfers (B,C,W/C) (FIM): 6 Sit to Lying (QC): 6 Lying-Sitting on Side/Bed(QC): 6 Sit to Stand (QC): 6 Rollin Roll Left to Right (QC): 6 Chair/Mzs-cc-Wavvg Xfer(QC): 6 Car Transfer (QC): 6 Does the Patient Walk: Yes Gait (FIM): 6 Gait distance (FIM): 3=150 ft Walk 10 feet (QC): 6 Walk 10ft-Uneven Surface(QC): 6 Walk 50ft with 2 Turns (QC): 6 Walk 150 ft (QC): 6 Gait Assistive Device: FWW Does the Pt use WC or Scooter?: No Stairs (FIM): 5 # of Steps: 4 1 Step (curb) (QC): 6 4 Steps (QC): 6 12 Steps (QC): 9 Picking up an Object (QC): 88 PT Plan Problem List Problem List: Activity Tolerance, Functional Strength, Safety, Balance, Gait, Transfer, Bed Mobility, ROM Treatment/Plan Treatment Plan: Continue Plan of Care Treatment Plan: Bed Mobility, Education, Functional Activity Mahamed, Functional Strength, Group Therapy, Gait, Safety, Therapeutic Exercise, Transfers Treatment Duration: Feb 28, 2019 Frequency: At least 5 of 7 days/Wk (IRF) Estimated Hrs Per Day: 1.5 hours per day Patient and/or Family Agrees t: Yes Safety Risks/Education Patient Education: Gait Training, Transfer Techniques, Correct Positioning, Safety Issues Teaching Recipient: Patient Teaching Methods: Demonstration, Discussion Response to Teaching: Reinforcement Needed Time/GCodes Time In: 1100 Time Out: 1200 Total Billed Treatment Time: 60 Total Billed Treatment 1 visit EX 20' GT 40' BIN ROSE PT Feb 05, 2019 11:56
--- NOTE | 2019-02-05 13:03 | Occupational Ther Daily Note ---
OT Current Status-Daily Note Subjective No pain reported. Appearance Pt. in bed finishing breakfast. Agrees to work with OT. Mental Status/Objective Patient Orientation: Person, Place Therapy Code Descriptions/Definitions Functional [place] Measure: 0=Not Assessed/NA 4=Minimal Assistance 1=Total Assistance 5=Supervision or Setup 2=Maximal Assistance 6=Modified [place] 3=Moderate Assistance 7=Complete [place] ADL-Treatment Therapy Code Descriptions/Definitions Functional [place] Measure: 0=Not Assessed/NA 4=Minimal Assistance 1=Total Assistance 5=Supervision or Setup 2=Maximal Assistance 6=Modified [place] 3=Moderate Assistance 7=Complete [place] Therapy Quality Codes: 6 Independent with activity with or without an assistive device 5 Patient requires set up or clean up by helper. Patient completes activity by themselves 4 Supervision or touching assist (CGA). [place] provide cues , steadying assist 3 The helper provides less than half the effort to complete the activity 2 The helper provides more than half the effort to complete the activity 1 Dependent. The helper does all the effort to complete an activity 7 Patient refused to complete or attempt activity 9 The patient did not perform the activity before the current illness or injury 88 Not attempted due to Medical conditions or safety concerns Eating (FIM): 5 Eating (QC): 5 Grooming (FIM): 5 Oral Hygiene (QC): 4 Bathing (FIM): 3 Shower/Bathe Self (QC): 3 Upper Body (FIM): 4 Upper Body Dressing (QC): 4 Lower Body Dressing (FIM): 3 Lower Body Dressing (QC): 3 Toileting (FIM): 1 Toileting Hygiene (QC): 1 Transfers (B, C, W/C) (FIM): 3 Pt. agrees to work with therapist. Transfers to EOB with mod assist and notices that he has been incontinent of BM in depend. Requires max assist to cleanse self and apply cream to bottom area. Transferred to chair to finish ADLs. Pt. declines showering. Attempts to utilize AE as needed for ADLs. Requires increased time and effort for these tasks. Pt. requires mod assist for sit- stand out of chair, and assist to maintain upright balance while standing to pull depends and pants over hips. After ADL tasks, pt. up in chair with call light and all needs met. Education OT Patient Education: Correct positioning, Modified ADL techniques, Progress toward Goal/Update tx plan, Purpose of tx/functional activities, Reviewed precautions, Rehab process, Transfer techniques, Use of adapted equipment Teaching Recipient: Patient Teaching Methods: Demonstration, Discussion Response to Teaching: Verbalize Understanding, Return Demonstration OT Short Term Goals Short Term Goals Transfers (B,C,W/C) (FIM): 4 1=Demonstrate adherence to instructed precautions during ADL tasks. 2=Patient will verbalize/demonstrate understanding of assistive devices/modifications for ADL. 3=Patient will improve strength/tolerance for activity to enable patient to perform ADL's. OT Flask Maker Goals Flask Maker Goals Time Frame: Feb 21, 2019 Eating (FIM): 6 Eating (QC): 6 Groomin Oral Hygiene (QC): 6 Bathing(FIM): 5 Shower/Bathe Self (QC): 5 Upper Body Dressing(FIM): 6 Upper Body Dressing (QC): 6 Lower Body Dressing(FIM): 6 Lower Body Dressing (QC): 6 On/Off Footwear (QC): 6 Toileting(FIM): 5 Toileting Hygiene (QC): 6 Transfers (B,C,W/C) (FIM): 6 Toilet/Commode Transfer(FIM): 6 Toilet/Commode Transfer (QC): 6 Shower Transfer(FIM): 5 Comprehension(FIM): 6 Expression (FIM): 6 Social Interaction(FIM): 6 Problem Solving(FIM): 6 Memory(FIM): 6 Additional Goals: 1-Demonstrate ADL Tasks, 2-Verbalize Understanding, 3-I mproveStrength/Mahamed 1=Demonstrate adherence to instructed precautions during ADL tasks. 2=Patient will verbalize/demonstrate understanding of assistive devices/modifications for ADL. 3=Patient will improve strength/tolerance for activity to enable patient to perform ADL's. OT Education/Plan Problem List/Assessment Assessment: Decreased Activ Tolerance, Decreased UE Strength, Dependent Transfers, Impaired Bed Mobility, Impaired Funct Balance, Impaired I ADL's, I mpaired Self-Care Skills, Restricted Funct UE ROM Discharge Recommendations Plan/Recommendations: Continue POC Therapy D/C Recommendations: 24 hr Supervision Equpiment Recommendations-D/C: Hip Kit Treatment Plan/Plan of Care Treatment,Training & Education: Yes Patient would benefit from OT for education, treatment and training to promote independence in ADL's, mobility, safety and/or upper extremity function for ADL's. Plan of Care: ADL Retraining, Functional Mobility, Group Exercise/Act as Ind, UE Funct Exercise/Act Treatment Duration: Feb 21, 2019 Frequency: At least 5 of 7 days/Wk (IRF) Estimated Hrs Per Day: 1.5 hours per day Agreement: Yes Rehab Potential: Fair Time/GCodes Start Time: 08:15 Stop Time: 09:30 Total Time Billed (hr/min): 75 Billed Treatment Time 1, ADL x 5 ADITHYA MAC OT Feb 05, 2019 13:02
[2019-02-05] MEDS ORDERED: DIGOXIN 0.125 MG (LANOXIN) TAB ONE (13:34)
--- NOTE | 2019-02-05 13:51 | Physical Therapy Daily Note ---
PT Daily Note-Current Subjective Patient in chair at bedside pre tx, agrees to PT, has 8/10 pain in right foot, nurse notified. Appearance Patient in chair at bedside post tx with nurse call, phone, tray, all needs met. Mental Status Patient Orientation: Person, Place, Situation Transfers Therapy Code Descriptions/Definitions Functional [place] Measure: 0=Not Assessed/NA 4=Minimal Assistance 1=Total Assistance 5=Supervision or Setup 2=Maximal Assistance 6=Modified [place] 3=Moderate Assistance 7=Complete [place] Therapy Quality Codes: 6 Independent with activity with or without an assistive device 5 Patient requires set up or clean up by helper. Patient completes activity by themselves 4 Supervision or touching assist (CGA). [place] provide cues , steadying assist 3 The helper provides less than half the effort to complete the activity 2 The helper provides more than half the effort to complete the activity 1 Dependent. The helper does all the effort to complete an activity 7 Patient refused to complete or attempt activity 9 The patient did not perform the activity before the current illness or injury 88 Not attempted due to Medical conditions or safety concerns Transfers (B, C, W/C) (FIM): 4 Sit to/from Stand: 4 Bed to/from Chair: 4 min assist for sit to stand, CGA for transfers Gait Training Gait (FIM): 4 Distance: 200', 150' Gait Level of Assist: 4 Gait Assistive Device: FWW slow ambulation, slumped kyphotic posture Treatments transfers, ambulation Assessment Current Status: Poor Progress patient fatigued this afternoon. PT Short Term Goals Short Term Goals Time Frame: Feb 14, 2019 Transfers (B,C,W/C) (FIM): 4 Gait (FIM): 4 Distance (FIM): 3=150 ft Gait Assistive Device: FWW PT Mcfp Goals Special Technical Operations Officer Goals PT Special Technical Operations Officer Goals Time Frame: Feb 28, 2019 Transfers (B,C,W/C) (FIM): 6 Sit to Lying (QC): 6 Lying-Sitting on Side/Bed(QC): 6 Sit to Stand (QC): 6 Rollin Roll Left to Right (QC): 6 Chair/Hwv-im-Thxcj Xfer(QC): 6 Car Transfer (QC): 6 Does the Patient Walk: Yes Gait (FIM): 6 Gait distance (FIM): 3=150 ft Walk 10 feet (QC): 6 Walk 10ft-Uneven Surface(QC): 6 Walk 50ft with 2 Turns (QC): 6 Walk 150 ft (QC): 6 Gait Assistive Device: FWW Does the Pt use WC or Scooter?: No Stairs (FIM): 5 # of Steps: 4 1 Step (curb) (QC): 6 4 Steps (QC): 6 12 Steps (QC): 9 Picking up an Object (QC): 88 PT Plan Problem List Problem List: Activity Tolerance, Functional Strength, Safety, Balance, Gait, Transfer, Bed Mobility, ROM Treatment/Plan Treatment Plan: Continue Plan of Care Treatment Plan: Bed Mobility, Education, Functional Activity Mahamed, Functional Strength, Group Therapy, Gait, Safety, Therapeutic Exercise, Transfers Treatment Duration: Feb 28, 2019 Frequency: At least 5 of 7 days/Wk (IRF) Estimated Hrs Per Day: 1.5 hours per day Patient and/or Family Agrees t: Yes Safety Risks/Education Patient Education: Gait Training, Transfer Techniques, Correct Positioning, Safety Issues Teaching Recipient: Patient Teaching Methods: Demonstration, Discussion Response to Teaching: Reinforcement Needed Time/GCodes Time In: 1325 Time Out: 1340 Total Billed Treatment Time: 15 Total Billed Treatment 1 visit GT 15' BIN ROSE PT Feb 05, 2019 13:51
--- NOTE | 2019-02-05 15:48 | Speech Therapy Daily Note ---
Speech Daily Progress Note Subjective Date Seen by Provider: Feb 05, 2019 Time Seen by Provider: 00:30 The patient was eating his lunch when I entered his room. Objective The patient utilized compensatory strategies as trained at 80% with minimal verbal cues. Assessment Assessment Current Status: Good Progress Treatment Plan Continue Plan of Care Communication Comprehension: 7 Expression: 7 Social Cognition Social Interaction: 7 Problem Solvin Memory: 7 Speech Short Term Goals Short Term Goals Short Term Goals 1) The patient will tolerate least restrictive diet level without s/s of aspiration with 90% or greater. 2) The patient will utilize compensatory strategies as trained with 90% or greater given minimal cues. Speech Therapy Assistant Goals Mcc Goals The patient will maintain adequate nutrition/hydration via safe effective swallow function. Comprehension: 6 Expression: 6 Social Interaction: 6 Problem Solvin Memory: 6 Speech-Plan Patient/Family Goals Patient/Family Goals: The patient plans on returning to his home post rehab, however his current medical status may make SNF a better placement. Treatment Plan Speech Therapy Treatment Plan: Continue Plan of Care The patient is progressing on the upgraded diet. Treatment Duration: Feb 08, 2019 Frequency: 1 time per week Estimated Hrs Per Day: .25 hour per day Rehab Potential: Fair Barriers to Learning: Patient has a complex medical status Pt/Family Agrees to Plan: Yes Safety Risks/Education Teaching Recipient: Patient Teaching Methods: Discussion Response to Teaching: Verbalize Understanding Education Topics Provided: Safety of oral intake Time Speech Therapy Time In: 12:30 Speech Therapy Time Out: 13:00 Total Billed Time: 30 Billed Treatment Time 1, DYST KRISTIN Nam Feb 05, 2019 15:48
[2019-02-05 17:54] VITALS: BP 119/69
[2019-02-05] MEDS: ATORVASTATIN 40 MG (LIPITOR) TABLET PO SCH (18:16)
[2019-02-05] MEDS: rOPINIRole 1 MG (REQUIP) TABLET PO SCH (20:39)
[2019-02-06 06:00] VITALS: BP 97/58
[2019-02-06] MEDS: LACTOBACILLUS ACIDOPHILUS (PROBIOTIC) CAPSULE PO SCH ×3 (06:11→16:53)
[2019-02-06] MEDS: MULTIVIT W/MINERALS TAB (THERAGRAN M) PO SCH (06:11)
[2019-02-06] MEDS: LEVOTHYROXINE 75 MCG (LEVOTHROID) TABLET PO SCH (06:11)
[2019-02-06] MEDS: LACTOSE REDUCED FOOD PO SCH ×3 (06:12→16:54)
[2019-02-06] MEDS: CATHETER FLUSH 10 ML SYR IV SCH ×3 (06:16→21:19)
[2019-02-06 06:27] LABS: HEMOGLOBIN 9.6 G/DL (13.3-17.7); RED CELL DISTRIBUTION WIDTH 15.9 % (10.0-14.5); WHITE BLOOD COUNT 11.2 10^3/uL (4.3-11.0)
[2019-02-06 06:47] LABS: ALANINE AMINOTRANSFERASE 29 U/L (0-55); ALBUMIN 2.8 GM/DL (3.2-4.5); ALKALINE PHOSPHATASE 246 U/L (40-136); BILIRUBIN,TOTAL 0.4 MG/DL (0.1-1.0); BUN/CREATININE RATIO 27; CALCIUM 9.1 MG/DL (8.5-10.1); CARBON DIOXIDE 27 MMOL/L (21-32); CHLORIDE 106 MMOL/L (98-107); CREATININE SERUM 0.85 MG/DL (0.60-1.30); GFR ESTIMATED > 60; GLUCOSE 100 MG/DL (70-105); MAGNESIUM 1.9 MG/DL (1.6-2.4); POTASSIUM 4.1 MMOL/L (3.6-5.0); SODIUM 140 MMOL/L (135-145); TOTAL PROTEIN 5.6 GM/DL (6.4-8.2)
[2019-02-06 08:43] VITALS: BP 100/64
[2019-02-06 08:50] VITALS: BP 105/63
[2019-02-06] MEDS: DIGOXIN 0.125 MG (LANOXIN) TAB PO SCH (08:54)
[2019-02-06] MEDS: GABAPENTIN 100 MG (NEURONTIN) CAP PO SCH ×3 (08:55→21:10)
[2019-02-06] MEDS: DILTIAZEM 240 MG (CARDIZEM CD) CAP PO SCH (08:56)
[2019-02-06] MEDS: ASPIRIN 81 MG CHEW (CHILDREN'S ASA) PO SCH (08:56)
[2019-02-06] MEDS: APIXABAN 2.5 MG (ELIQUIS) TABLET PO SCH ×2 (08:57→21:10)
[2019-02-06] MEDS: OXYBUTYNIN (DITROPAN) 5 MG TAB PO SCH ×2 (08:57→21:10)
[2019-02-06] MEDS: VITAMIN D3 1,000 UNITS (CHOLECALCIFEROL) TABLET PO SCH ×3 (08:57→21:11)
[2019-02-06] MEDS: LORATADINE (CLARITIN) 10 MG TAB PO SCH (08:57)
[2019-02-06] MEDS: FAMOTIDINE 20 MG (PEPCID) TABLET PO SCH (08:59)
--- NOTE | 2019-02-06 09:19 | NUR ---
Spoke to Minesh, in Pharmacy re: Vitamin D3
[2019-02-06] MEDS: CHOLESTYRAMINE 4 GM (QUESTRAN LITE, PREVALITE) PKT PO SCH ×2 (09:20→21:10)
[2019-02-06] MEDS: COLLAGENASE 30 GM (SANTYL) TUBE TP SCH (09:21)
--- NOTE | 2019-02-06 09:56 | PM&R Progress Note ---
Subjective HPI/CC On Admission Date Seen by Provider: Feb 06, 2019 Time Seen by Provider: 09:00 Chief complaint: Myopathy HPI: This is a 83yoWM who previously worked at [employer] who has been to [facility] 3x recently, because the first was pneumonia the second C-Diff colitis, and the third was an aspiration pneumonia, so he was transferred to [place], NG tub was placed for nutrition and he was able to work with speech therapy ultimately and resume a dysphasia one diet. Overall he has dramatically improved but definitely needs a lot of therapy to return home. He was placed in a [facility] facility after the pneumonia and the C-Diff colitis episode but his intention is to go home. I did speak with speech therapy who will evaluate what his needs are as far as his diet and resume that. He does have a history of chronic atrial fibrillation and he does have some rapid ventricular response of 120s when he was up working with therapy so I did consult cardiology, Dr. Blevins and updated him and [place] regarding this new Pt set to arrive any minute. I did speak with Dr. Ibrahim from [facility] regarding the admission and transfer and I accepted the care. Subjective/Events-last exam Pt doing very well. Oxygen maintained at night most of the time. IS use has been very helpful in clearing out the crackles in the lower lobes. Heel pain is the only pain he has, he takes Oxycodone for that. BM was yesterday. PT reports he walks 400 feet but speech therapy will continue working with him for aspiration risk and dysphasia and cognition and assisted living will be pursued for the Pt. Conferred with RN Reviewed therapy notes Check meds and labs Heels off bed helps the pain Review of Systems General: Fatigue Pulmonary: Cough Objective Exam Vital Signs Vital Signs Date Time Temp Pulse Resp B/P (MAP) Pulse Ox O2 Delivery O2 Flow Rate FiO2 02/06/19 20:18 Nasal Cannula 2.00 02/06/19 18:00 99.3 110 18 113/68 (83) 96 Capillary Refill : Less Than 3 Seconds General Appearance: No Apparent Distress, WD/WN, Chronically ill HEENT: PERRL/EOMI, Normal ENT Inspection, Pharynx Normal Neck: Normal Inspection; No Thyromegaly Respiratory: Chest Non Tender, No Accessory Muscle Use, No Respiratory Distress, Crackles, Decreased Breath Sounds Cardiovascular: Regular Rate, Rhythm, No Edema, Tachycardia Gastrointestinal: Normal Bowel Sounds, No Organomegaly, No Pulsatile Mass, Non Tender, Soft Rectal: Deferred Back: Normal Inspection, No CVA Tenderness, Decreased Range of Motion, Other (sevre kyphosis) Extremity: No Pedal Edema Neurologic/Psychiatric: Alert, Oriented x3, No Motor/Sensory Deficits, Normal Mood/Affect Skin: Rash, Other (Shallow ulcer on R heel, some scarring on L heel ) Results/Procedures Lab Laboratory Tests 02/06/19 06:15 Patient resulted labs reviewed. FIM Transfers Therapy Code Descriptions/Definitions Functional [place] Measure: 0=Not Assessed/NA 4=Minimal Assistance 1=Total Assistance 5=Supervision or Setup 2=Maximal Assistance 6=Modified [place] 3=Moderate Assistance 7=Complete [place] Therapy Quality Codes: 6 Independent with activity with or without an assistive device 5 Patient requires set up or clean up by helper. Patient completes activity by themselves 4 Supervision or touching assist (CGA). [place] provide cues , steadying assist 3 The helper provides less than half the effort to complete the activity 2 The helper provides more than half the effort to complete the activity 1 Dependent. The helper does all the effort to complete an activity 7 Patient refused to complete or attempt activity 9 The patient did not perform the activity before the current illness or injury 88 Not attempted due to Medical conditions or safety concerns Transfers (B, C, W/C) (FIM): 4 Scootin Rollin Roll Left to Right (QC): 4 Supine to/from Sit: 5 Sit to/from Stand: 4 Sit to Lying (QC): 3 Sit to Stand (QC): 3 (skilled cues 50% of the time for hand placement and sequencing. ) Chair/Zkv-uv-Iadyx Xfer(QC): 3 Bed to/from Chair: 4 Car Transfer (QC): 3 Gait Training Does the Patient Walk?: Yes Gait (FIM): 4 Distance (FIM): 1=498-93 ft Distance: 200', 150' Walk 10 feet (QC): 3 Walk 50 ft with 2 Turns(QC): 3 Walk 150 ft (QC): 88 (unable to walk this distance) Walking 10ft/uneven surface-QC: 3 Gait Level of Assist: 4 Gait Persons Needed: 1 Gait Assistive Device: FWW Wheelchair Training Does the Pt Use a Wheelchair?: No Stair Training Stairs (FIM): 1 1 Step (curb) (QC): 1 4 Steps (QC): 88 12 Steps (QC): 88 Balance Picking up an Object (QC): 88 Mental Status/Objective Comprehension: 7 Expression: 7 Social Interaction: 7 Problem Solvin Memory: 7 ADL-Treatment Feedin Eating (QC): 5 Groomin Oral Hygiene (QC): 4 Bathin Shower/Bathe Self (QC): 3 Upper Extremity Dressin Upper Body Dressing (QC): 4 Lower Extremity Dressin Lower Body Dressing (QC): 3 On/Off Footwear (QC): 2 (Pt. attempted to use sock aide, as he uses one at home. However, this sock aide was different than his and he had difficulty over his heel protectors.) Toiletin Toileting Hygiene (QC): 1 Toilet/Commode Transfer: 3 Shower: 3 Assessment/Plan Assessment and Plan Assess & Plan/Chief Complaint Plan: IRF protocol Cardiology appreciated Home meds Monitor for falls Noted severe kyphosis will limit overall physical function Monitor wbc count but improved Regular diet tolerated Heels off bed Appreciate Cardiology management IS for lung expansion due to severe kyphosis and crackles on exam which are now much improved Needs AL (1) Myopathy Status: Acute (2) Kyphosis Status: Chronic Qualifiers: Kyphosis type: postural Spinal region: cervicothoracic Qualified Codes: 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, cervicothoracic region (3) DNR (do not resuscitate) Status: Chronic (4) COPD (chronic obstructive pulmonary disease) Status: Chronic Qualifiers: COPD type: unspecified COPD Qualified Codes: J44.9 - Chronic obstructive pulmonary disease, unspecified (5) CHF (congestive heart failure) Status: Chronic Qualifiers: Heart failure type: unspecified (6) Prostate cancer Status: Chronic (7) Oxygen dependent Status: Chronic (8) Atrial fibrillation with rapid ventricular response Status: Acute (9) Advanced age Status: Chronic (10) Atrial fibrillation, chronic Status: Chronic (11) Presbycusis of both ears Status: Chronic (12) At risk for aspiration Status: Chronic (13) History of Clostridioides difficile colitis Status: Chronic QUANG HINTON DO Feb 06, 2019 09:55
--- NOTE | 2019-02-06 12:13 | Physical Therapy Daily Note ---
PT Daily Note-Current Subjective Pt sitting in Therapy Gym on Arm bike upon arrival. OT is just finishing as PT begins. Pt agrees to PT. Pain Location: No Pain Reported Mental Status Patient Orientation: Person, Place, Time, Situation Transfers Therapy Code Descriptions/Definitions Functional [place] Measure: 0=Not Assessed/NA 4=Minimal Assistance 1=Total Assistance 5=Supervision or Setup 2=Maximal Assistance 6=Modified [place] 3=Moderate Assistance 7=Complete [place] Therapy Quality Codes: 6 Independent with activity with or without an assistive device 5 Patient requires set up or clean up by helper. Patient completes activity by themselves 4 Supervision or touching assist (CGA). [place] provide cues , steadying assist 3 The helper provides less than half the effort to complete the activity 2 The helper provides more than half the effort to complete the activity 1 Dependent. The helper does all the effort to complete an activity 7 Patient refused to complete or attempt activity 9 The patient did not perform the activity before the current illness or injury 88 Not attempted due to Medical conditions or safety concerns Scootin Sit to/from Stand: 4 Sit to Stand (QC): 4 Weight Bearing Full Weight Bearing Full Weight Bearing Gait Training Does the Patient Walk?: Yes Gait (FIM): 5 Distance (FIM): 3=150 ft Distance: 200' Walk 10 feet (QC): 5 Walk 50 ft with 2 Turns(QC): 5 Walk 150 ft (QC): 5 Gait Level of Assist: 5 Gait Persons Needed: 1 Gait Assistive Device: FWW Pt walks with kyphotic posture. Pt has slow mateo as well. Pt fatigues and needs occasional RB. Wheelchair Training Does the Pt Use a Wheelchair?: No Exercises Seated Therapy Exercises: Ankle pumps, Long arc quads, Hip flexion, Kicking activity Seated Reps: 15 Standing: Hamstring curls, Heel/toe raises, Marching, Mini squats, Weight shifts Standing Reps: 15 Treatments Pt completes time on Arm bike. Pt completes Standing Ex at //bars. Pt takes RB before ambulating in hallway. Pt completes Seated EX in chair. Pt takes RB before ambulating back to room. Pt transfers back to recliner awaiting lunch. Pt has all needs met, call light next to pt. Assessment Current Status: Good Progress Pt tolerates tx well despite feeling fatigued at times, needing RB. PT Short Term Goals Short Term Goals Time Frame: Feb 14, 2019 Transfers (B,C,W/C) (FIM): 4 Gait (FIM): 4 Distance (FIM): 3=150 ft Gait Assistive Device: FWW PT Senior Care Goals Senior Care Goals PT Hospital Insurance Clerk Goals Time Frame: Feb 28, 2019 Transfers (B,C,W/C) (FIM): 6 Sit to Lying (QC): 6 Lying-Sitting on Side/Bed(QC): 6 Sit to Stand (QC): 6 Rollin Roll Left to Right (QC): 6 Chair/[id number] Xfer(QC): 6 Car Transfer (QC): 6 Does the Patient Walk: Yes Gait (FIM): 6 Gait distance (FIM): 3=150 ft Walk 10 feet (QC): 6 Walk 10ft-Uneven Surface(QC): 6 Walk 50ft with 2 Turns (QC): 6 Walk 150 ft (QC): 6 Gait Assistive Device: FWW Does the Pt use WC or Scooter?: No Stairs (FIM): 5 # of Steps: 4 1 Step (curb) (QC): 6 4 Steps (QC): 6 12 Steps (QC): 9 Picking up an Object (QC): 88 PT Plan Problem List Problem List: Activity Tolerance, Functional Strength, Transfer Treatment/Plan Treatment Plan: Continue Plan of Care Treatment Plan: Bed Mobility, Education, Functional Activity Mahamed, Functional Strength, Group Therapy, Gait, Safety, Therapeutic Exercise, Transfers Treatment Duration: Feb 28, 2019 Frequency: At least 5 of 7 days/Wk (IRF) Estimated Hrs Per Day: 1.5 hours per day Patient and/or Family Agrees t: Yes Safety Risks/Education Patient Education: Gait Training, Transfer Techniques, Correct Positioning, Safety Issues Teaching Recipient: Patient Teaching Methods: Discussion Response to Teaching: Verbalize Understanding Time/GCodes Time In: 1100 Time Out: 1200 Total Billed Treatment Time: 60 Total Billed Treatment 1, GT (20m), FA (10m) & EX x2 (30m) PRINCE MENDOZA CARD HANGER Feb 06, 2019 12:12
--- NOTE | 2019-02-06 13:30 | Occupational Ther Daily Note ---
OT Current Status-Daily Note Subjective No pain reported. Appearance Pt. in bed. Agrees to work with therapy. Mental Status/Objective Patient Orientation: Person, Place Therapy Code Descriptions/Definitions Functional [place] Measure: 0=Not Assessed/NA 4=Minimal Assistance 1=Total Assistance 5=Supervision or Setup 2=Maximal Assistance 6=Modified [place] 3=Moderate Assistance 7=Complete [place] ADL-Treatment Therapy Code Descriptions/Definitions Functional [place] Measure: 0=Not Assessed/NA 4=Minimal Assistance 1=Total Assistance 5=Supervision or Setup 2=Maximal Assistance 6=Modified [place] 3=Moderate Assistance 7=Complete [place] Therapy Quality Codes: 6 Independent with activity with or without an assistive device 5 Patient requires set up or clean up by helper. Patient completes activity by themselves 4 Supervision or touching assist (CGA). [place] provide cues , steadying assist 3 The helper provides less than half the effort to complete the activity 2 The helper provides more than half the effort to complete the activity 1 Dependent. The helper does all the effort to complete an activity 7 Patient refused to complete or attempt activity 9 The patient did not perform the activity before the current illness or injury 88 Not attempted due to Medical conditions or safety concerns Upper Body (FIM): 4 (Increased time needed.) Upper Body Dressing (QC): 4 Lower Body Dressing (FIM): 3 Lower Body Dressing (QC): 3 On/Off Footwear (QC): 3 Toileting (FIM): 4 (With urinal) Toileting Hygiene (QC): 4 Transfers (B, C, W/C) (FIM): 3 (Min assist supine-sit and increased time. Mod assist sit-stand. Once pt. is on his feet and his balance is good, he can ambulate with CGA with walker.) Other Treatment After ADLS in room, pt. ambulated with CGA and walker to therapy gym. Tolerated arm bike x 10 minutes at min resistance for increased strength and overall endurance for daily tasks. PT took over in therapy gym to assist pt. All needs met. Education OT Patient Education: Correct positioning, Exercise program, Modified ADL techniques, Progress toward Goal/Update tx plan, Purpose of tx/functional activities, Reviewed precautions, Rehab process, Transfer techniques, Use of adapted equipment Teaching Recipient: Patient Teaching Methods: Demonstration, Discussion Response to Teaching: Verbalize Understanding, Return Demonstration OT Short Term Goals Short Term Goals Transfers (B,C,W/C) (FIM): 4 1=Demonstrate adherence to instructed precautions during ADL tasks. 2=Patient will verbalize/demonstrate understanding of assistive devices/modifications for ADL. 3=Patient will improve strength/tolerance for activity to enable patient to perform ADL's. OT Concrete Carpenter Goals Concrete Carpenter Goals Time Frame: Feb 21, 2019 Eating (FIM): 6 Eating (QC): 6 Groomin Oral Hygiene (QC): 6 Bathing(FIM): 5 Shower/Bathe Self (QC): 5 Upper Body Dressing(FIM): 6 Upper Body Dressing (QC): 6 Lower Body Dressing(FIM): 6 Lower Body Dressing (QC): 6 On/Off Footwear (QC): 6 Toileting(FIM): 5 Toileting Hygiene (QC): 6 Transfers (B,C,W/C) (FIM): 6 Toilet/Commode Transfer(FIM): 6 Toilet/Commode Transfer (QC): 6 Shower Transfer(FIM): 5 Comprehension(FIM): 6 Expression (FIM): 6 Social Interaction(FIM): 6 Problem Solving(FIM): 6 Memory(FIM): 6 Additional Goals: 1-Demonstrate ADL Tasks, 2-Verbalize Understanding, 3- ImproveStrength/[place] 1=Demonstrate adherence to instructed precautions during ADL tasks. 2=Patient will verbalize/demonstrate understanding of assistive devices/mo difications for ADL. 3=Patient will improve strength/tolerance for activity to enable patient to perform ADL's. OT Education/Plan Problem List/Assessment Assessment: Decreased Activ Tolerance, Decreased UE Strength, Dependent Transfers, Impaired Bed Mobility, Impaired Funct Balance, Impaired I ADL's, Impaired Self-Care Skills, Restricted Funct UE ROM Discharge Recommendations Plan/Recommendations: Continue POC Therapy D/C Recommendations: 24 hr Supervision Comment Equipment needs to be determined. Treatment Plan/Plan of Care Treatment,Training & Education: Yes Patient would benefit from OT for education, treatment and training to promote independence in ADL's, mobility, safety and/or upper extremity function for ADL's. Plan of Care: ADL Retraining, Functional Mobility, Group Exercise/Act as Ind, UE Funct Exercise/Act Treatment Duration: Feb 21, 2019 Frequency: At least 5 of 7 days/Wk (IRF) Estimated Hrs Per Day: 1.5 hours per day Agreement: Yes Rehab Potential: Fair Time/GCodes Start Time: 10:00 Stop Time: 11:00 Total Time Billed (hr/min): 60 Billed Treatment Time 1, ADL x 45minutes, Ex x 15minutes ADITHYA MAC OT Feb 06, 2019 13:30
--- NOTE | 2019-02-06 13:55 | Progress Note - Cardiology ---
Cardiology SOAP Progress Note Subjective: Gen weakness and malaise No cp or palp or syncope Shortness of breath with mild to mod exertion Objective: I&O/Vital Signs 02/06/19 02/06/19 02/06/19 02/06/19 06:00 06:00 06:28 08:43 Temp 97.9 97.0 Pulse 75 73 Resp 18 18 B/P (MAP) 97/58 (71) 100/64 (76) Pulse Ox 92 92 O2 Delivery Nasal Cannula Nasal Cannula Room Air O2 Flow Rate 2.00 2.00 02/06/19 02/06/19 08:49 08:50 B/P (MAP) 105/63 (77) Pulse Ox 97 O2 Delivery Room Air 02/06/19 00:00 Intake Total 560 ml Output Total 475 ml Balance 85 ml Weight (Pounds): 122 Weight (Ounces): 14.4 Weight (Calculated Kilograms): 55.109294 Constitutional: AAO x 3, other (thin) Respiratory: No accessory muscle use, No respiratory distress; chest expansion is symmetric, chest is bilaterally symmetric, lungs clear to auscultation Cardiovascular: irregularly irregular; No JVD; S1 and S2 Gastrointestional: No tender; soft, round, audible bowel sounds Extremities: no lower extremity edema bilateral Neurologic/Psychiatric: alert, grossly intact Skin: other (dressings to heels bilat; not removed) Results/Procedures: Labs Laboratory Tests 02/06/19 06:15: White Blood Count 11.2H, Red Blood Count 2.96L, Hemoglobin 9.6L, Hematocrit 30L, Mean Corpuscular Volume 101H, Mean Corpuscular Hemoglobin 32, Mean Corpuscular Hemoglobin Concent 32, Red Cell Distribution Width 15.9H, Platelet Count 281, Mean Platelet Volume 10.0, Sodium Level 140, Potassium Level 4.1, Chloride Level 106, Carbon Dioxide Level 27, Anion Gap 7, Blood Urea Nitrogen 23H, Creatinine 0.85, Estimat Glomerular Filtration Rate > 60, BUN/Creatinine Ratio 27, Glucose Level 100, Calcium Level 9.1, Corrected Calcium 10.1, Magnesium Level 1.9, Total Bilirubin 0.4, Aspartate Amino Transf (AST/SGOT) 23, Alanine Aminotransferase (ALT/SGPT) 29, Alkaline Phosphatase 246H, Total Protein 5.6L, Albumin 2.8L, Digoxin Level < 0.30L Laboratory Tests 02/06/19 06:15 A/P: Assessment: PAF/Flutter vs SVT with vent rates up to 150 bpm. 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 Stern at [facility] in [place], [place] HLD - statin tx H/O bilat CEA - unsure of details - reports done at [facility] H/O tobacco use - quit > 20 years ago HTN CKD stage III Reported h/o cirrhosis Chronic back pain with nerve stimulator in place Kyphosis H/o hypothyroidism. TSH normal (1.43) on 02/03/19 Plan: * Continue long-acting dilt for vent rate control * Low dose Dig added on 12/06/18 for rate control * Not suitable candidate for BB d/t hypotension * Continue Eliquis for stroke prophylaxis (low dose for now, given low BMI and age 83) * I answered his questions regarding his arrhythmia and other cardiac issues NYA PENALOZA MD FACP FAC CCDS Feb 06, 2019 13:55
--- NOTE | 2019-02-06 14:11 | Therapy Group Daily Note ---
Therapy Daily Group Note Patient Education Topic Home Safety, Fall Prevention, Home Safety, ADL Session Ratio (pt:therapist): 4:1 Goal of Session: Education on ARU Expectations, Energy Conservation Tech., Home Safety Strategies, Safety with Transfers, Use of Adaptive Equipment Goal Met for this Session: Yes Pt Benefit of Group: Contributions to Others, F/U Use of Strategies @Home, Increased Functional Safety, Improved Cognition, Recognition of Peers, Socialization Other/Notes Pt transported via wheelchair to [facility] for OT group. Group consisted of introductions (name, place living, and favorite invention), socialization, use of AE/ DME, and ARU expectations. Pt introduced self appropriately and actively listened to peers. Pt acknowledged understanding of educational topics of AE/ DME within the house including: shower chair vs. shower bench, buildup handle, basket for RW, rocker knife, leg delivery and mail sorter, and maintaining a personal emergency card. pt engaged in session by listing example of how to personally use AE within own daily live. After therapy, pt lying in bed with call light/phone in reach. All needs met in room. Start Time: 12:40 Stop Time: 13:50 Total Billed Treatment GRP 70 minutes SAWYER HODGSON OT Feb 06, 2019 14:11
--- NOTE | 2019-02-06 15:17 | Speech Therapy Daily Note ---
Speech Daily Progress Note Subjective Date Seen by Provider: Feb 06, 2019 Time Seen by Provider: 00:30 The patient stated he ate a little of his lunch but didn't really care for it. He stated he thought he would like a shake. Clinician assisted patient in ordering a shake. Objective The patient utilized compensatory strategies as trained with intake of his shake at 80% with min to mod verbal cues. Assessment Assessment Current Status: Good Progress Treatment Plan Continue Plan of Care Communication Comprehension: 7 Expression: 7 Social Cognition Social Interaction: 7 Problem Solvin Memory: 7 Speech Short Term Goals Short Term Goals Short Term Goals 1) The patient will tolerate least restrictive diet level without s/s of aspiration with 90% or greater. 2) The patient will utilize compensatory strategies as trained with 90% or greater given minimal cues. Speech Longterm Goals Java Developer Goals The patient will maintain adequate nutrition/hydration via safe effective swallow function. Comprehension: 6 Expression: 6 Social Interaction: 6 Problem Solvin Memory: 6 Speech-Plan Patient/Family Goals Patient/Family Goals: The patient plans on returning to his home upon discharge from rehab. Treatment Plan Speech Therapy Treatment Plan: Continue Plan of Care The patient is progressing toward meeting ST goals. Treatment Duration: Feb 15, 2019 Frequency: 1 time per week Estimated Hrs Per Day: .25 hour per day Rehab Potential: Fair Barriers to Learning: Patient's age and mild decrease in memory Pt/Family Agrees to Plan: Yes Safety Risks/Education Teaching Recipient: Patient Teaching Methods: Demonstration, Discussion Response to Teaching: Verbalize Understanding, Return Demonstration Education Topics Provided: Continued safety of oral intake. Time Speech Therapy Time In: 14:00 Speech Therapy Time Out: 14:30 Total Billed Time: 30 Billed Treatment Time 1, KRISTIN Stanford Feb 06, 2019 15:17
[2019-02-06] MEDS: ATORVASTATIN 40 MG (LIPITOR) TABLET PO SCH (16:53)
--- NOTE | 2019-02-06 16:56 | NUR ---
manufacturing shift supervisor RN, Calli Flanagan changed midline drsg changed this AM.
[2019-02-06 18:00] VITALS: BP 113/68
[2019-02-06] MEDS: rOPINIRole 1 MG (REQUIP) TABLET PO SCH (21:10)
[2019-02-07 06:23] VITALS: BP 119/72
[2019-02-07] MEDS: MULTIVIT W/MINERALS TAB (THERAGRAN M) PO SCH (06:38)
[2019-02-07] MEDS: LEVOTHYROXINE 75 MCG (LEVOTHROID) TABLET PO SCH (06:38)
[2019-02-07] MEDS: LACTOBACILLUS ACIDOPHILUS (PROBIOTIC) CAPSULE PO SCH ×3 (06:38→18:29)
[2019-02-07] MEDS: LACTOSE REDUCED FOOD PO SCH ×3 (06:38→17:45)
[2019-02-07] MEDS: CATHETER FLUSH 10 ML SYR IV SCH ×3 (06:38→20:51)
--- NOTE | 2019-02-07 09:04 | PM&R Progress Note ---
Subjective HPI/CC On Admission Date Seen by Provider: Feb 07, 2019 Time Seen by Provider: 08:30 Chief complaint: Myopathy HPI: This is a 83yoWM who previously worked at [employer] who has been to [facility] 3x recently, because the first was pneumonia the second C-Diff colitis, and the third was an aspiration pneumonia, so he was transferred to [place], NG tub was placed for nutrition and he was able to work with speech therapy Swagsya Anipipo and resume a dysphasia one diet. Overall he has dramatically improved but definitely needs a lot of therapy to return home. He was placed in a long-term facility after the pneumonia and the C-Diff colitis episode but his intention is to go home. I did speak with speech therapy who will evaluate what his needs are as far as his diet and resume that. He does have a history of chronic atrial fibrillation and he does have some rapid ventricular response of 120s when he was up working with therapy so I did consult cardiology, Dr. Blevins and updated him and [place] regarding this new Pt set to arrive any minute. I did speak with Dr. Ibrahim from [facility] regarding the admission and transfer and I accepted the care. Subjective/Events-last exam Crackles upon exam but minimal and he will be increasing the use of IS. Dr. Blevins did review records from [facility]. Slow recovery. Bowels are moving and no evidence of any loose stools to think that it is C-Diff colitis. Conferred with RN Reviewed therapy notes Check meds and labs Heels off bed helps the pain Review of Systems General: Fatigue Pulmonary: Cough Musculoskeletal: foot pain Objective Exam Vital Signs Vital Signs Date Time Temp Pulse Resp B/P (MAP) Pulse Ox O2 Delivery O2 Flow Rate FiO2 02/07/19 20:38 Room Air 02/07/19 16:28 97.4 110 16 100/61 (74) 94 02/07/19 08:15 2.00 Capillary Refill : Less Than 3 Seconds General Appearance: No Apparent Distress, WD/WN, Chronically ill HEENT: PERRL/EOMI, Normal ENT Inspection, Pharynx Normal Neck: Normal Inspection; No Thyromegaly Respiratory: Chest Non Tender, No Accessory Muscle Use, No Respiratory Distress, Crackles, Decreased Breath Sounds Cardiovascular: Regular Rate, Rhythm, No Edema, Tachycardia Gastrointestinal: Normal Bowel Sounds, No Organomegaly, No Pulsatile Mass, Non Tender, Soft Rectal: Deferred Back: Normal Inspection, No CVA Tenderness, Decreased Range of Motion, Other (sevre kyphosis) Extremity: No Pedal Edema Neurologic/Psychiatric: Alert, Oriented x3, No Motor/Sensory Deficits, Normal Mood/Affect Skin: Rash, Other (Shallow ulcer on R heel, some scarring on L heel ) Results/Procedures Lab Patient resulted labs reviewed. FIM Transfers Therapy Code Descriptions/Definitions Functional [place] Measure: 0=Not Assessed/NA 4=Minimal Assistance 1=Total Assistance 5=Supervision or Setup 2=Maximal Assistance 6=Modified [place] 3=Moderate Assistance 7=Complete [place] Therapy Quality Codes: 6 Independent with activity with or without an assistive device 5 Patient requires set up or clean up by helper. Patient completes activity by themselves 4 Supervision or touching assist (CGA). [place] provide cues , steadying assist 3 The helper provides less than half the effort to complete the activity 2 The helper provides more than half the effort to complete the activity 1 Dependent. The helper does all the effort to complete an activity 7 Patient refused to complete or attempt activity 9 The patient did not perform the activity before the current illness or injury 88 Not attempted due to Medical conditions or safety concerns Transfers (B, C, W/C) (FIM): 3 (Min assist supine-sit and increased time. Mod assist sit-stand. Once pt. is on his feet and his balance is good, he can ambulate with CGA with walker.) Scootin Rollin Roll Left to Right (QC): 4 Supine to/from Sit: 5 Sit to/from Stand: 4 Sit to Lying (QC): 3 Sit to Stand (QC): 4 Chair/[id number]-Qzvhr Xfer(QC): 3 Bed to/from Chair: 4 Car Transfer (QC): 3 Gait Training Does the Patient Walk?: Yes Gait (FIM): 5 Distance (FIM): 3=150 ft Distance: 200' Walk 10 feet (QC): 5 Walk 50 ft with 2 Turns(QC): 5 Walk 150 ft (QC): 5 Walking 10ft/uneven surface-QC: 3 Gait Level of Assist: 5 Gait Persons Needed: 1 Gait Assistive Device: FWW Wheelchair Training Does the Pt Use a Wheelchair?: No Stair Training Stairs (FIM): 1 1 Step (curb) (QC): 1 4 Steps (QC): 88 12 Steps (QC): 88 Balance Picking up an Object (QC): 88 Mental Status/Objective Comprehension: 7 Expression: 7 Social Interaction: 7 Problem Solvin Memory: 7 ADL-Treatment Feedin Eating (QC): 5 Groomin Oral Hygiene (QC): 4 Bathin Shower/Bathe Self (QC): 3 Upper Extremity Dressin (Increased time needed.) Upper Body Dressing (QC): 4 Lower Extremity Dressin Lower Body Dressing (QC): 3 On/Off Footwear (QC): 3 Toiletin (With urinal) Toileting Hygiene (QC): 4 Toilet/Commode Transfer: 3 Shower: 3 Assessment/Plan Assessment and Plan Assess & Plan/Chief Complaint Plan: IRF protocol Cardiology appreciated Home meds Monitor for falls Noted severe kyphosis will limit overall physical function Monitor wbc count but improved Regular diet tolerated Heels off bed Appreciate Cardiology management IS for lung expansion due to severe kyphosis and crackles on exam which are now much improved Needs AL so will inquire with SW regarding that option (1) Myopathy Status: Acute (2) Kyphosis Status: Chronic Qualifiers: Kyphosis type: postural Spinal region: cervicothoracic Qualified Codes: 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, cervicothoracic region (3) DNR (do not resuscitate) Status: Chronic (4) COPD (chronic obstructive pulmonary disease) Status: Chronic Qualifiers: COPD type: unspecified COPD Qualified Codes: J44.9 - Chronic obstructive pulmonary disease, unspecified (5) CHF (congestive heart failure) Status: Chronic Qualifiers: Heart failure type: unspecified (6) Prostate cancer Status: Chronic (7) Oxygen dependent Status: Chronic (8) Atrial fibrillation with rapid ventricular response Status: Acute (9) Advanced age Status: Chronic (10) Atrial fibrillation, chronic Status: Chronic (11) Presbycusis of both ears Status: Chronic (12) At risk for aspiration Status: Chronic (13) History of Clostridioides difficile colitis Status: Chronic QUANG HINTON DO Feb 07, 2019 09:04
[2019-02-07] MEDS ORDERED: DIGOXIN 0.125 MG (LANOXIN) TAB PO ONE (09:30)
[2019-02-07] MEDS: APIXABAN 2.5 MG (ELIQUIS) TABLET PO SCH ×2 (09:40→20:50)
[2019-02-07] MEDS: LORATADINE (CLARITIN) 10 MG TAB PO SCH (09:40)
[2019-02-07] MEDS: GABAPENTIN 100 MG (NEURONTIN) CAP PO SCH ×3 (09:41→20:51)
[2019-02-07] MEDS: DIGOXIN 0.125 MG (LANOXIN) TAB PO SCH (09:41)
[2019-02-07] MEDS: ASPIRIN 81 MG CHEW (CHILDREN'S ASA) PO SCH (09:42)
[2019-02-07] MEDS: DILTIAZEM 240 MG (CARDIZEM CD) CAP PO SCH (09:42)
[2019-02-07] MEDS: FAMOTIDINE 20 MG (PEPCID) TABLET PO SCH (09:42)
[2019-02-07] MEDS: VITAMIN D3 1,000 UNITS (CHOLECALCIFEROL) TABLET PO SCH ×2 (09:42→20:51)
[2019-02-07] MEDS: OXYBUTYNIN (DITROPAN) 5 MG TAB PO SCH ×2 (09:42→20:50)
[2019-02-07] MEDS: CHOLESTYRAMINE 4 GM (QUESTRAN LITE, PREVALITE) PKT PO SCH ×2 (09:43→20:49)
[2019-02-07] MEDS: COLLAGENASE 30 GM (SANTYL) TUBE TP SCH (09:44)
--- NOTE | 2019-02-07 11:03 | Physical Therapy Daily Note ---
PT Daily Note-Current Subjective Pt laying Supine in bed upon arrival. Pt agrees to PT. Pain Numeric Pain Scale: 4 Location: Left Location Body Site: Knee Pain Description: Ache Mental Status Patient Orientation: Person, Place, Time, Situation Transfers Therapy Code Descriptions/Definitions Functional [place] Measure: 0=Not Assessed/NA 4=Minimal Assistance 1=Total Assistance 5=Supervision or Setup 2=Maximal Assistance 6=Modified [place] 3=Moderate Assistance 7=Complete [place] Therapy Quality Codes: 6 Independent with activity with or without an assistive device 5 Patient requires set up or clean up by helper. Patient completes activity by themselves 4 Supervision or touching assist (CGA). [place] provide cues , steadying assist 3 The helper provides less than half the effort to complete the activity 2 The helper provides more than half the effort to complete the activity 1 Dependent. The helper does all the effort to complete an activity 7 Patient refused to complete or attempt activity 9 The patient did not perform the activity before the current illness or injury 88 Not attempted due to Medical conditions or safety concerns Scootin Rollin Supine to/from Sit: 5 Sit to/from Stand: 4 Sit to Stand (QC): 4 Weight Bearing Full Weight Bearing Full Weight Bearing Gait Training Does the Patient Walk?: Yes Gait (FIM): 5 Distance (FIM): 3=150 ft Distance: 175' Walk 10 feet (QC): 5 Walk 50 ft with 2 Turns(QC): 5 Walk 150 ft (QC): 5 Gait Level of Assist: 5 Gait Persons Needed: 1 Gait Assistive Device: FWW Pt walks with kyphotic posture and slow mateo. Wheelchair Training Does the Pt Use a Wheelchair?: No Exercises NuStep Minutes: 15 NuStep Workload: 5 Treatments Pt transfers from bed to EOB to Standing. Pt needs assistance donning shoes. Pt then ambulates in hallway. Pt uses NuStep for 15m at WL 5. Pt takes RB before returning to room at end of tx. Pt resting in recliner at end of tx with all needs met, call light in hand. Assessment Current Status: Good Progress Pt takes extended time to complete any task due to slow mateo as well needing VC to continue to work while visiting. PT Short Term Goals Short Term Goals Time Frame: Feb 14, 2019 Transfers (B,C,W/C) (FIM): 4 Gait (FIM): 4 Distance (FIM): 3=150 ft Gait Assistive Device: FWW PT Cracker Dough Mixer Goals Correction Goals PT Cracker Dough Mixer Goals Time Frame: Feb 28, 2019 Transfers (B,C,W/C) (FIM): 6 Sit to Lying (QC): 6 Lying-Sitting on Side/Bed(QC): 6 Sit to Stand (QC): 6 Rollin Roll Left to Right (QC): 6 Chair/Mpw-ht-Vforq Xfer(QC): 6 Car Transfer (QC): 6 Does the Patient Walk: Yes Gait (FIM): 6 Gait distance (FIM): 3=150 ft Walk 10 feet (QC): 6 Walk 10ft-Uneven Surface(QC): 6 Walk 50ft with 2 Turns (QC): 6 Walk 150 ft (QC): 6 Gait Assistive Device: FWW Does the Pt use WC or Scooter?: No Stairs (FIM): 5 # of Steps: 4 1 Step (curb) (QC): 6 4 Steps (QC): 6 12 Steps (QC): 9 Picking up an Object (QC): 88 PT Plan Problem List Problem List: Activity Tolerance, Functional Strength, Safety, Balance, Gait, Transfer Treatment/Plan Treatment Plan: Continue Plan of Care Treatment Plan: Bed Mobility, Education, Functional Activity Mahamed, Functional Strength, Group Therapy, Gait, Safety, Therapeutic Exercise, Transfers Treatment Duration: Feb 28, 2019 Frequency: At least 5 of 7 days/Wk (IRF) Estimated Hrs Per Day: 1.5 hours per day Patient and/or Family Agrees t: Yes Safety Risks/Education Patient Education: Gait Training, Transfer Techniques, Correct Positioning, Safety Issues Teaching Recipient: Patient Teaching Methods: Discussion Response to Teaching: Verbalize Understanding Time/GCodes Time In: 800 Time Out: 900 Total Billed Treatment Time: 60 Total Billed Treatment 1, FA (15m), GT x2 (25m) & EX (20m) PRINCE MENDOZA PTA Feb 07, 2019 11:03
--- NOTE | 2019-02-07 12:46 | Occupational Ther Daily Note ---
OT Current Status-Daily Note Subjective No pain reported. Appearance Pt. up in chair. Agrees to shower today. Mental Status/Objective Patient Orientation: Person Therapy Code Descriptions/Definitions Functional [place] Measure: 0=Not Assessed/NA 4=Minimal Assistance 1=Total Assistance 5=Supervision or Setup 2=Maximal Assistance 6=Modified [place] 3=Moderate Assistance 7=Complete [place] ADL-Treatment Therapy Code Descriptions/Definitions Functional [place] Measure: 0=Not Assessed/NA 4=Minimal Assistance 1=Total Assistance 5=Supervision or Setup 2=Maximal Assistance 6=Modified [place] 3=Moderate Assistance 7=Complete [place] Therapy Quality Codes: 6 Independent with activity with or without an assistive device 5 Patient requires set up or clean up by helper. Patient completes activity by themselves 4 Supervision or touching assist (CGA). [place] provide cues , steadying assist 3 The helper provides less than half the effort to complete the activity 2 The helper provides more than half the effort to complete the activity 1 Dependent. The helper does all the effort to complete an activity 7 Patient refused to complete or attempt activity 9 The patient did not perform the activity before the current illness or injury 88 Not attempted due to Medical conditions or safety concerns Bathing (FIM): 4 (CGA in stance in shower.) Shower/Bathe Self (QC): 4 Upper Body (FIM): 4 Upper Body Dressing (QC): 4 Lower Body Dressing (FIM): 3 (Pt. utilized AE. Required assistance in stance to don over hips and apply suspenders.) Lower Body Dressing (QC): 3 On/Off Footwear (QC): 4 (Min assist with sock aide.) Toileting (FIM): 1 (Pt. incontinent of BM in depend.) Toileting Hygiene (QC): 1 Transfers (B, C, W/C) (FIM): 3 (Mod assist the first time to transfer sit- stand. The second time, from lower chair, pt. required min assist. Min/Mod in stance to gain balance.) Shower Transfer(FIM): 4 Other Treatment After ADLs, pt. ambulated to therapy gym with CGA and increased time needed. Completed 10 minutes on arm bike to increase overall strength and independence. Increased time needed, as pt. would slow down on the bike. Cues to continue for strengthening. Ambulated back to room with all needs met. Education OT Patient Education: Correct positioning, Exercise program, Modified ADL techniques, Progress toward Goal/Update tx plan, Purpose of tx/functional activities, Reviewed precautions, Rehab process, Transfer techniques, Use of adapted equipment Teaching Recipient: Patient Teaching Methods: Demonstration, Discussion Response to Teaching: Verbalize Understanding, Return Demonstration OT Short Term Goals Short Term Goals Transfers (B,C,W/C) (FIM): 4 1=Demonstrate adherence to instructed precautions during ADL tasks. 2=Patient will verbalize/demonstrate understanding of assistive devices/nora fications for ADL. 3=Patient will improve strength/tolerance for activity to enable patient to perform ADL's. OT User Interface Developer Goals User Interface Developer Goals Time Frame: Feb 21, 2019 Eating (FIM): 6 Eating (QC): 6 Groomin Oral Hygiene (QC): 6 Bathing(FIM): 5 Shower/Bathe Self (QC): 5 Upper Body Dressing(FIM): 6 Upper Body Dressing (QC): 6 Lower Body Dressing(FIM): 6 Lower Body Dressing (QC): 6 On/Off Footwear (QC): 6 Toileting(FIM): 5 Toileting Hygiene (QC): 6 Transfers (B,C,W/C) (FIM): 6 Toilet/Commode Transfer(FIM): 6 Toilet/Commode Transfer (QC): 6 Shower Transfer(FIM): 5 Comprehension(FIM): 6 Expression (FIM): 6 Social Interaction(FIM): 6 Problem Solving(FIM): 6 Memory(FIM): 6 Additional Goals: 1-Demonstrate ADL Tasks, 2-Verbalize Understanding, 3- ImproveStrength/Mahamed 1=Demonstrate adherence to instructed precautions during ADL tasks. 2=Patient will verbalize/demonstrate understanding of assistive devices/modifications for ADL. 3=Patient will improve strength/tolerance for activity to enable patient to perform ADL's. OT Education/Plan Problem List/Assessment Assessment: Decreased Activ Tolerance, Decreased UE Strength, Dependent Transfers, Impaired Bed Mobility, Impaired Funct Balance, Impaired I ADL's, Impaired Self-Care Skills, Restricted Funct UE ROM Discharge Recommendations Plan/Recommendations: Continue POC Equpiment Recommendations-D/C: Hip Kit Treatment Plan/Plan of Care Treatment,Training & Education: Yes Patient would benefit from OT for education, treatment and training to promote independence in ADL's, mobility, safety and/or upper extremity function for ADL's. Plan of Care: ADL Retraining, Functional Mobility, Group Exercise/Act as Ind, UE Funct Exercise/Act Treatment Duration: Feb 21, 2019 Frequency: At least 5 of 7 days/Wk (IRF) Estimated Hrs Per Day: 1.5 hours per day Agreement: Yes Rehab Potential: Fair Time/GCodes Start Time: 10:00 Stop Time: 11:30 Total Time Billed (hr/min): 90 Billed Treatment Time 1, ADL x 60minutes, FA x 15minutes, Ex x 15minutes ADITHYA MAC OT Feb 07, 2019 12:46
--- NOTE | 2019-02-07 13:05 | NUR ---
APPRENTICE PAINTER BRUSH met with patient to review team conference summary. As patient is performing transfers with min assist, lower body ADLs with mod assist, upper body ADLs with min assist and requires max assist for sit to stand sectioning, team is recommended patient be reevaluated at next team conference on 02/13. Patient is agreeable to this. Team made recommendation of assisted living; however, APPRENTICE PAINTER BRUSH reviewed recommendation with patient and he has not interested at this time. APPRENTICE PAINTER BRUSH will continue to follow.
--- NOTE | 2019-02-07 13:20 | NUR ---
Pastoral care visit.
--- NOTE | 2019-02-07 13:28 | Speech Therapy Daily Note ---
Speech Daily Progress Note Subjective Date Seen by Provider: Feb 07, 2019 Time Seen by Provider: 00:30 The patient was eating his lunch when I entered his room for our ST session. Objective The patient utilized compensatory strategies as trained at 80% with min to mod cues. Assessment Assessment Current Status: Good Progress Treatment Plan Continue Plan of Care Communication Comprehension: 7 Expression: 7 Social Cognition Social Interaction: 7 Problem Solvin Memory: 7 Speech Short Term Goals Short Term Goals Short Term Goals 1) The patient will tolerate least restrictive diet level without s/s of aspiration with 90% or greater. 2) The patient will utilize compensatory strategies as trained with 90% or greater given minimal cues. Speech Pricing Actuary Goals Pricing Actuary Goals The patient will maintain adequate nutrition/hydration via safe effective swallow function. Comprehension: 6 Expression: 6 Social Interaction: 6 Problem Solvin Memory: 6 Speech-Plan Patient/Family Goals Patient/Family Goals: The patient plans on returnig home when discharged from skilled rehab. Treatment Plan Speech Therapy Treatment Plan: Continue Plan of Care The patient is progressing with dysphagia therapy. Treatment Duration: Feb 15, 2019 Frequency: 5 times per week Estimated Hrs Per Day: .25 hour per day Rehab Potential: Fair Barriers to Learning: The patient's age and medical status. Pt/Family Agrees to Plan: Yes Safety Risks/Education Teaching Recipient: Patient Teaching Methods: Demonstration, Discussion Response to Teaching: Verbalize Understanding, Return Demonstration Education Topics Provided: Continued safety and utilization of compensatory strategies with oral intake. Time Speech Therapy Time In: 12:30 Speech Therapy Time Out: 13:00 Total Billed Time: 30 Billed Treatment Time 1, DYST KRISTIN Nam Feb 07, 2019 13:28
--- NOTE | 2019-02-07 14:29 | NUR ---
JOB SETTER contacted patient's daughter, Ines to review team conference summary and recommendation of reevaluation at next team conference. Ines is agreeable to this as she is hopeful that patient will advance more prior to discharge. Ines informs JOB SETTER of intent to install additional hand rails, modify steps going into the home and install a walk in tub. Ines states she resides only 6 miles away and visits the patient several times throughout each day. She expresses no concerns regarding his plan to return home.
--- NOTE | 2019-02-07 16:09 | Progress Note - Cardiology ---
Cardiology SOAP Progress Note Subjective: Gen weakness No cp or palp or syncope or shortness of breath Objective: I&O/Vital Signs 02/07/19 02/07/19 06:23 08:15 Temp 97.4 Pulse 67 Resp 16 B/P (MAP) 119/72 (88) Pulse Ox 93 O2 Delivery Room Air Nasal Cannula O2 Flow Rate 2.00 02/07/19 00:00 Intake Total 1250 ml Output Total 830 ml Balance 420 ml Weight (Pounds): 132 Weight (Ounces): 1.6 Weight (Calculated Kilograms): [id number] Constitutional: AAO x 3, other (thin) Respiratory: No accessory muscle use, No respiratory distress; chest expansion is symmetric, chest is bilaterally symmetric, lungs clear to auscultation Cardiovascular: irregularly irregular; No JVD; S1 and S2 Gastrointestional: No tender; soft, round, audible bowel sounds Extremities: no lower extremity edema bilateral Neurologic/Psychiatric: alert, grossly intact Skin: other (dressings to heels bilat; not removed) Results/Procedures: Labs Laboratory Tests 02/06/19 06:15 A/P: Assessment: PAF/Flutter vs SVT with vent rates up to 150 bpm. 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 Stern at [facility] in [place], [place] HLD - statin tx H/O bilat CEA - unsure of details - reports done at [facility] H/O tobacco use - quit > 20 years ago HTN CKD stage III Reported h/o cirrhosis Chronic back pain with nerve stimulator in place Kyphosis H/o hypothyroidism. TSH normal (1.43) on 02/03/19 Plan: * Additional dig today because dig level undetectable and continual A Fib/Fl with RVR * Continue long-acting dilt for vent rate control * Not suitable candidate for BB d/t hypotension * Continue Eliquis for stroke prophylaxis * I answered his questions regarding his arrhythmia and other cardiac issues NYA PENALOAZ MD FACP FAC CCDS Feb 07, 2019 16:09
[2019-02-07 16:28] VITALS: BP 100/61
--- NOTE | 2019-02-07 18:21 | Progress Note - Surgery ---
AFR[place] JOVEL,MED STUDENT 02/07/19 1821: Subjective Date Seen by a Provider: Feb 08, 2019 Time Seen by a Provider: 09:06 Subjective/Events-last exam Pt states he feels well. Appears in good spirits today and says he is motivated to get better. Has continued pain in his right heel but no other complaints at this time. Rates the pain 6/10, stable, like a screw driving into his heel. No family at bedside. Objective Exam Vital Signs Date Time Temp Pulse Resp B/P (MAP) Pulse Ox O2 Delivery O2 Flow Rate FiO2 02/07/19 16:28 97.4 110 16 100/61 (74) 94 Room Air 02/07/19 08:15 Nasal Cannula 2.00 02/07/19 06:23 97.4 67 16 119/72 (88) 93 Room Air 02/06/19 20:40 Nasal Cannula 2.00 02/06/19 20:18 Nasal Cannula 2.00 I & O 02/07/19 07:00 Intake Total 1500 ml Output Total 1280 ml Balance 220 ml Capillary Refill : Less Than 3 Seconds General Appearance: No Apparent Distress, WD/WN, Chronically ill HEENT: PERRL/EOMI; No Pale Conjunctivae (L), No Pale Conjunctivae (R) Neck: Normal Inspection; No Thyromegaly Respiratory: No Accessory Muscle Use, No Respiratory Distress Cardiovascular: Regular Rate, Rhythm, Irregularly Irregular Extremity: Normal Inspection; No Swelling Neurologic/Psychiatric: Alert, Oriented x3, Normal Mood/Affect Skin: Ecchymosis, Mottled, Rash, Other (Shallow ulcer on R heel, appears to be improving. L heel still blanching ) Assessment/Plan Assessment/Plan Assessment/Plan L/R Heel ulcer Left neck superficial erosion - probably secondary to O2 tubing Sacral Decub stage I Continue Evelyn-boots and Santyl dressings BID for both feet. Continue tegaderm for L ear. Discontinue tegaderm for sacral area but continue rotating patient and moving him into the chair as often as possible. Movement as tolerated and continue OT. Clinical Quality Measures DVT/VTE Risk/Contraindication: Risk Factor Score Per Nursin RFS Level Per Nursing on Admit: 3=High UGO EMERSON DO 02/08/19 0947: Subjective Time Seen by a Provider: 09:06 Assessment/Plan Assessment/Plan Assessment/Plan Med student saw pt yesterday and today, I only saw pt today. Supervisory-Addendum Brief Verification & Attestation Participated in pt care: history, MDM, physical Personally performed: exam, history, MDM Care discussed with: Medical Student Procedures: n/a Verification and Attestation of Medical Student E/M Service A medical student performed and documented this service in my presence. I reviewed and verified all information documented by the medical student and made modifications to such information, when appropriate. I personally performed the physical exam and medical decision making. Ugo Emerson, Feb 08, 2019,09:47 AFRICA JOVEL,MED STUDENT Feb 07, 2019 18:21 UGO EMERSON DO Feb 08, 2019 09:47
[2019-02-07] MEDS: ATORVASTATIN 40 MG (LIPITOR) TABLET PO SCH (18:29)
[2019-02-07] MEDS: rOPINIRole 1 MG (REQUIP) TABLET PO SCH (20:50)
[2019-02-08] MEDS: LEVOTHYROXINE 75 MCG (LEVOTHROID) TABLET PO SCH (06:05)
[2019-02-08] MEDS: MULTIVIT W/MINERALS TAB (THERAGRAN M) PO SCH (06:05)
[2019-02-08] MEDS: LACTOBACILLUS ACIDOPHILUS (PROBIOTIC) CAPSULE PO SCH ×3 (06:05→18:24)
[2019-02-08] MEDS: CATHETER FLUSH 10 ML SYR IV SCH ×3 (06:06→21:13)
[2019-02-08] MEDS: LACTOSE REDUCED FOOD PO SCH ×3 (06:06→18:24)
[2019-02-08 06:23] LABS: HEMOGLOBIN 9.8 G/DL (13.3-17.7); MEAN PLATELET VOLUME 10.2 FL (7.4-10.4); RED CELL DISTRIBUTION WIDTH 15.9 % (10.0-14.5); WHITE BLOOD COUNT 8.8 10^3/uL (4.3-11.0)
[2019-02-08 06:45] LABS: BUN/CREATININE RATIO 27; CALCIUM 9.4 MG/DL (8.5-10.1); CARBON DIOXIDE 23 MMOL/L (21-32); CHLORIDE 106 MMOL/L (98-107); CREATININE SERUM 0.82 MG/DL (0.60-1.30); GFR ESTIMATED > 60; GLUCOSE 89 MG/DL (70-105); MAGNESIUM 1.9 MG/DL (1.6-2.4); POTASSIUM 4.1 MMOL/L (3.6-5.0); SODIUM 140 MMOL/L (135-145)
[2019-02-08 06:49] VITALS: BP 112/66
--- NOTE | 2019-02-08 09:38 | PM&R Progress Note ---
Subjective HPI/CC On Admission Date Seen by Provider: Feb 08, 2019 Time Seen by Provider: 09:30 Chief complaint: Myopathy HPI: This is a 83yoWM who previously worked at [employer] who has been to [facility] 3x recently, because the first was pneumonia the second C-Diff colitis, and the third was an aspiration pneumonia, so he was transferred to [place], NG tub was placed for nutrition and he was able to work with speech therapy ultimately and resume a dysphasia one diet. Overall he has dramatically improved but definitely needs a lot of therapy to return home. He was placed in a fdc facility after the pneumonia and the C-Diff colitis episode but his intention is to go home. I did speak with speech therapy who will evaluate what his needs are as far as his diet and resume that. He does have a history of chronic atrial fibrillation and he does have some rapid ventricular response of 120s when he was up working with therapy so I did consult cardiology, Dr. Blevins and updated him and [place] regarding this new Pt set to arrive any minute. I did speak with Dr. Ibrahim from [facility] regarding the admission and transfer and I accepted the care. Subjective/Events-last exam Patient doing very well Had a large bowel movement today Lately weaned off oxygen on room air now Using incentive spirometer and instructed him to do this on a long-term basis Pain is well controlled at the heel No falls reported Participating in therapy Check meds and labs Reviewed therapy notes Conferred with aluminum molding machine operator of Systems General: Fatigue Pulmonary: Cough Musculoskeletal: foot pain Objective Exam Vital Signs Vital Signs Date Time Temp Pulse Resp B/P (MAP) Pulse Ox O2 Delivery O2 Flow Rate FiO2 02/08/19 08:00 Room Air 95 02/08/19 06:49 97.8 65 16 112/66 (81) 94 02/07/19 08:15 2.00 Capillary Refill : Less Than 3 Seconds General Appearance: No Apparent Distress, WD/WN, Chronically ill HEENT: PERRL/EOMI; No Pale Conjunctivae (L), No Pale Conjunctivae (R) Neck: Normal Inspection; No Thyromegaly Respiratory: Chest Non Tender, No Accessory Muscle Use, No Respiratory Distress, Crackles Cardiovascular: Regular Rate, Rhythm, Irregularly Irregular Gastrointestinal: Normal Bowel Sounds, No Organomegaly, No Pulsatile Mass, Non Tender, Soft Rectal: Deferred Back: Normal Inspection, No CVA Tenderness, Decreased Range of Motion, Other (sevre kyphosis) Extremity: Normal Inspection; No Swelling Neurologic/Psychiatric: Alert, Oriented x3, Normal Mood/Affect Skin: Ecchymosis, Mottled, Rash, Other (Shallow ulcer on R heel, appears to be improving. L heel still blanching ) Results/Procedures Lab Laboratory Tests 02/08/19 06:10 Patient resulted labs reviewed. FIM Transfers Therapy Code Descriptions/Definitions Functional [place] Measure: 0=Not Assessed/NA 4=Minimal Assistance 1=Total Assistance 5=Supervision or Setup 2=Maximal Assistance 6=Modified [place] 3=Moderate Assistance 7=Complete [place] Therapy Quality Codes: 6 Independent with activity with or without an assistive device 5 Patient requires set up or clean up by helper. Patient completes activity by themselves 4 Supervision or touching assist (CGA). [place] provide cues , steadying assist 3 The helper provides less than half the effort to complete the activity 2 The helper provides more than half the effort to complete the activity 1 Dependent. The helper does all the effort to complete an activity 7 Patient refused to complete or attempt activity 9 The patient did not perform the activity before the current illness or injury 88 Not attempted due to Medical conditions or safety concerns Transfers (B, C, W/C) (FIM): 3 (Mod assist the first time to transfer sit-stand . The second time, from lower chair, pt. required min assist. Min/Mod in stance to gain balance.) Scootin Rollin Roll Left to Right (QC): 4 Supine to/from Sit: 5 Sit to/from Stand: 4 Sit to Lying (QC): 3 Sit to Stand (QC): 4 Chair/Hvd-im-Hjioq Xfer(QC): 3 Bed to/from Chair: 4 Car Transfer (QC): 3 Gait Training Does the Patient Walk?: Yes Gait (FIM): 5 Distance (FIM): 3=150 ft Distance: 175' Walk 10 feet (QC): 5 Walk 50 ft with 2 Turns(QC): 5 Walk 150 ft (QC): 5 Walking 10ft/uneven surface-QC: 3 Gait Level of Assist: 5 Gait Persons Needed: 1 Gait Assistive Device: FWW Wheelchair Training Does the Pt Use a Wheelchair?: No Stair Training Stairs (FIM): 1 1 Step (curb) (QC): 1 4 Steps (QC): 88 12 Steps (QC): 88 Balance Picking up an Object (QC): 88 Mental Status/Objective Comprehension: 7 Expression: 7 Social Interaction: 7 Problem Solvin Memory: 7 ADL-Treatment Feedin Eating (QC): 5 Groomin Oral Hygiene (QC): 4 Bathin (CGA in stance in shower.) Shower/Bathe Self (QC): 4 Upper Extremity Dressin Upper Body Dressing (QC): 4 Lower Extremity Dressin (Pt. utilized AE. Required assistance in stance to don over hips and apply suspenders.) Lower Body Dressing (QC): 3 On/Off Footwear (QC): 4 (Min assist with sock aide.) Toiletin (Pt. incontinent of BM in depend.) Toileting Hygiene (QC): 1 Toilet/Commode Transfer: 3 Shower: 4 Assessment/Plan Assessment and Plan Assess & Plan/Chief Complaint Plan: IRF protocol Cardiology appreciated Home meds Monitor for falls Noted severe kyphosis will limit overall physical function Monitor wbc count but improved Regular diet tolerated Heels off bed Appreciate Cardiology management IS for lung expansion due to severe kyphosis and crackles on exam which are now much improved Needs AL so will inquire with SW regarding that option (1) Myopathy Status: Acute (2) Kyphosis Status: Chronic Qualifiers: Kyphosis type: postural Spinal region: cervicothoracic Qualified Codes: 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, cervicothoracic region (3) DNR (do not resuscitate) Status: Chronic (4) COPD (chronic obstructive pulmonary disease) Status: Chronic Qualifiers: COPD type: unspecified COPD Qualified Codes: J44.9 - Chronic obstructive pulmonary disease, unspecified (5) CHF (congestive heart failure) Status: Chronic Qualifiers: Heart failure type: unspecified (6) Prostate cancer Status: Chronic (7) Oxygen dependent Status: Chronic (8) Atrial fibrillation with rapid ventricular response Status: Acute (9) Advanced age Status: Chronic (10) Atrial fibrillation, chronic Status: Chronic (11) Presbycusis of both ears Status: Chronic (12) At risk for aspiration Status: Chronic (13) History of Clostridioides difficile colitis Status: Chronic QUANG HINTON DO Feb 08, 2019 09:38
--- NOTE | 2019-02-08 10:19 | Occupational Ther Daily Note ---
OT Current Status-Daily Note Subjective Pt in bed, agrees to therapy. Mental Status/Objective Therapy Code Descriptions/Definitions Functional [place] Measure: 0=Not Assessed/NA 4=Minimal Assistance 1=Total Assistance 5=Supervision or Setup 2=Maximal Assistance 6=Modified [place] 3=Moderate Assistance 7=Complete [place] ADL-Treatment Pt incontinent of bowel while in bed, requires total assist for hygiene. Supine to sit with min assist. Sat EOB for sponge bath. Upper body bathing with SBA. Pt able to wash upper legs and anisa area. Required assist to wash buttocks thoroughly. Pt donned button up shirt with min assist. Able to thread bilateral LE into Depends with min assist using dressing stick. Stood with min assist for pant hike. Requests to use restroom. Gait to restroom with FWW. Transfer to [facility] over toilet with min assist. Pt requires assist for thorough hygiene. Able to pull pants down/up with min assist for balance. Stood at sink to wash hands with supervision. Pt returned to chair to finish dressing. Donned pants with min assist. Assist to don shoes. Pt sit to stand with min assist. Pt ambulated a round commons area to increase activity tolerance and strength for mobility. Pt uses FWW and requires occasional cues for safety. Pt returned to room, transferred to bed with FWW. Sit to supine with min assist. Pt resting in bed with needs met after session. Therapy Code Descriptions/Definitions Functional [place] Measure: 0=Not Assessed/NA 4=Minimal Assistance 1=Total Assistance 5=Supervision or Setup 2=Maximal Assistance 6=Modified [place] 3=Moderate Assistance 7=Complete [place] Therapy Quality Codes: 6 Independent with activity with or without an assistive device 5 Patient requires set up or clean up by helper. Patient completes activity by themselves 4 Supervision or touching assist (CGA). [place] provide cues , steadying assist 3 The helper provides less than half the effort to complete the activity 2 The helper provides more than half the effort to complete the activity 1 Dependent. The helper does all the effort to complete an activity 7 Patient refused to complete or attempt activity 9 The patient did not perform the activity before the current illness or injury 88 Not attempted due to Medical conditions or safety concerns Upper Body (FIM): 4 Upper Body Dressing (QC): 3 Lower Body Dressing (FIM): 3 Toilet/Commode Transfer (FIM): 4 Toilet Transfer (QC): 3 OT Short Term Goals Short Term Goals Transfers (B,C,W/C) (FIM): 4 1=Demonstrate adherence to instructed precautions during ADL tasks. 2=Patient will verbalize/demonstrate understanding of assistive devices/modifications for ADL. 3=Patient will improve strength/tolerance for activity to enable patient to perform ADL's. OT Political Theory Professor Goals Care Home Goals Time Frame: Feb 21, 2019 Eating (FIM): 6 Eating (QC): 6 Groomin Oral Hygiene (QC): 6 Bathing(FIM): 5 Shower/Bathe Self (QC): 5 Upper Body Dressing(FIM): 6 Upper Body Dressing (QC): 6 Lower Body Dressing(FIM): 6 Lower Body Dressing (QC): 6 On/Off Footwear (QC): 6 Toileting(FIM): 5 Toileting Hygiene (QC): 6 Transfers (B,C,W/C) (FIM): 6 Toilet/Commode Transfer(FIM): 6 Toilet/Commode Transfer (QC): 6 Shower Transfer(FIM): 5 Comprehension(FIM): 6 Expression (FIM): 6 Social Interaction(FIM): 6 Problem Solving(FIM): 6 Memory(FIM): 6 Additional Goals: 1-Demonstrate ADL Tasks, 2-Verbalize Understanding, 3- ImproveStrength/Mahamed 1=Demonstrate adherence to instructed precautions during ADL tasks. 2=Patient will verbalize/demonstrate understanding of assistive devices/modifications for ADL. 3=Patient will improve strength/tolerance for activity to enable patient to perform ADL's. OT Education/Plan Discharge Recommendations Plan/Recommendations: Continue POC Treatment Plan/Plan of Care Patient would benefit from OT for education, treatment and training to promote independence in ADL's, mobility, safety and/or upper extremity function for ADL's. Plan of Care: ADL Retraining, Functional Mobility, Group Exercise/Act as Ind, UE Funct Exercise/Act Treatment Duration: Feb 21, 2019 Frequency: At least 5 of 7 days/Wk (IRF) Estimated Hrs Per Day: 1.5 hours per day Agreement: Yes Rehab Potential: Fair Time/GCodes Start Time: 09:00 Stop Time: 10:00 Total Time Billed (hr/min): 60 Billed Treatment Time 1 visit, ADLx3(50minutes), FA(10minutes) NOEMI LUQUE OT Feb 08, 2019 10:19
--- NOTE | 2019-02-08 11:29 | Physical Therapy Daily Note ---
PT Daily Note-Current Subjective Patient in bed pre tx, agrees to PT, has no complaints of pain. Appearance Patient in bed post tx with nurse call, phone tray, all needs met. Mental Status Patient Orientation: Person, Place, Situation Transfers Therapy Code Descriptions/Definitions Functional [place] Measure: 0=Not Assessed/NA 4=Minimal Assistance 1=Total Assistance 5=Supervision or Setup 2=Maximal Assistance 6=Modified [place] 3=Moderate Assistance 7=Complete [place] Therapy Quality Codes: 6 Independent with activity with or without an assistive device 5 Patient requires set up or clean up by helper. Patient completes activity by themselves 4 Supervision or touching assist (CGA). [place] provide cues , steadying assist 3 The helper provides less than half the effort to complete the activity 2 The helper provides more than half the effort to complete the activity 1 Dependent. The helper does all the effort to complete an activity 7 Patient refused to complete or attempt activity 9 The patient did not perform the activity before the current illness or injury 88 Not attempted due to Medical conditions or safety concerns Transfers (B, C, W/C) (FIM): 4 Scootin Rollin Supine to/from Sit: 5 Sit to/from Stand: 4 Bed to/from Chair: 4 Min assist to stand from lower surfaces,, CGA for transfers Weight Bearing Full Weight Bearing Full Weight Bearing Gait Training Gait (FIM): 5 Distance: 200', 150' Gait Level of Assist: 5 Gait Persons Needed: 1 Gait Assistive Device: FWW very slow ambulation but steady Exercises Standing: Hip Abduction, Hamstring curls, Heel/toe raises, Marching, Mini squats Standing Reps: 15 NuStep Minutes: 15 NuStep Workload: 4 Treatments bed mobility and transfers, ambulation, LE exercise Assessment Current Status: Fair Progress improving endurance PT Short Term Goals Short Term Goals Time Frame: Feb 14, 2019 Transfers (B,C,W/C) (FIM): 4 Gait (FIM): 4 Distance (FIM): 3=150 ft Gait Assistive Device: FWW PT Pad Assembler Goals Pad Assembler Goals PT Pad Assembler Goals Time Frame: Feb 28, 2019 Transfers (B,C,W/C) (FIM): 6 Sit to Lying (QC): 6 Lying-Sitting on Side/Bed(QC): 6 Sit to Stand (QC): 6 Rollin Roll Left to Right (QC): 6 Chair/Pel-qv-Rxzte Xfer(QC): 6 Car Transfer (QC): 6 Does the Patient Walk: Yes Gait (FIM): 6 Gait distance (FIM): 3=150 ft Walk 10 feet (QC): 6 Walk 10ft-Uneven Surface(QC): 6 Walk 50ft with 2 Turns (QC): 6 Walk 150 ft (QC): 6 Gait Assistive Device: FWW Does the Pt use WC or Scooter?: No Stairs (FIM): 5 # of Steps: 4 1 Step (curb) (QC): 6 4 Steps (QC): 6 12 Steps (QC): 9 Picking up an Object (QC): 88 PT Plan Problem List Problem List: Activity Tolerance, Functional Strength, Safety, Balance, Gait, Transfer, Bed Mobility, ROM Treatment/Plan Treatment Plan: Continue Plan of Care Treatment Plan: Bed Mobility, Education, Functional Activity Mahamed, Functional Strength, Group Therapy, Gait, Safety, Therapeutic Exercise, Transfers Treatment Duration: Feb 28, 2019 Frequency: At least 5 of 7 days/Wk (IRF) Estimated Hrs Per Day: 1.5 hours per day Patient and/or Family Agrees t: Yes Safety Risks/Education Patient Education: Gait Training, Transfer Techniques, Correct Positioning, Safety Issues Teaching Recipient: Patient Teaching Methods: Demonstration, Discussion Response to Teaching: Reinforcement Needed Time/GCodes Time In: 1030 Time Out: 1130 Total Billed Treatment Time: 60 Total Billed Treatment 1 visit EX 30' GT 20' FA 10' BIN ROSE PT Feb 08, 2019 11:29
[2019-02-08] MEDS: FAMOTIDINE 20 MG (PEPCID) TABLET PO SCH (12:02)
[2019-02-08] MEDS: DIGOXIN 0.125 MG (LANOXIN) TAB PO SCH (12:02)
[2019-02-08] MEDS: GABAPENTIN 100 MG (NEURONTIN) CAP PO SCH ×3 (12:02→21:07)
[2019-02-08] MEDS: LORATADINE (CLARITIN) 10 MG TAB PO SCH (12:03)
[2019-02-08] MEDS: ASPIRIN 81 MG CHEW (CHILDREN'S ASA) PO SCH (12:03)
[2019-02-08] MEDS: DILTIAZEM 240 MG (CARDIZEM CD) CAP PO SCH (12:03)
[2019-02-08] MEDS: APIXABAN 2.5 MG (ELIQUIS) TABLET PO SCH ×2 (12:03→21:07)
[2019-02-08] MEDS: OXYBUTYNIN (DITROPAN) 5 MG TAB PO SCH ×2 (12:03→21:07)
[2019-02-08] MEDS: VITAMIN D3 1,000 UNITS (CHOLECALCIFEROL) TABLET PO SCH ×2 (12:09→21:13)
[2019-02-08] MEDS: COLLAGENASE 30 GM (SANTYL) TUBE TP SCH (12:09)
[2019-02-08] MEDS: CHOLESTYRAMINE 4 GM (QUESTRAN LITE, PREVALITE) PKT PO SCH ×2 (12:10→22:39)
--- NOTE | 2019-02-08 13:01 | Progress Note - Cardiology ---
Cardiology SOAP Progress Note Subjective: No cp or palp or syncope or shortness of breath Persistent weakness and malaise Objective: I&O/Vital Signs 02/08/19 02/08/19 06:49 08:00 Temp 97.8 Pulse 65 Resp 16 B/P (MAP) 112/66 (81) Pulse Ox 94 O2 Delivery Room Air Room Air FiO2 95 02/08/19 00:00 Intake Total 680 ml Output Total 250 ml Balance 430 ml Weight (Pounds): 132 Weight (Ounces): 1.6 Weight (Calculated Kilograms): [id number] Constitutional: AAO x 3, other (thin) Respiratory: No accessory muscle use, No respiratory distress; chest expansion is symmetric, chest is bilaterally symmetric, lungs clear to auscultation Cardiovascular: irregularly irregular; No JVD; S1 and S2 Gastrointestional: No tender; soft, round, audible bowel sounds Extremities: no lower extremity edema bilateral Neurologic/Psychiatric: alert, grossly intact Skin: other (dressings to heels bilat; not removed) Results/Procedures: Labs Laboratory Tests 02/08/19 06:10: White Blood Count 8.8, Red Blood Count 2.99L, Hemoglobin 9.8L, Hematocrit 30L, Mean Corpuscular Volume 101H, Mean Corpuscular Hemoglobin 33, Mean Corpuscular Hemoglobin Concent 32, Red Cell Distribution Width 15.9H, Platelet Count 285, Mean Platelet Volume 10.2, Sodium Level 140, Potassium Level 4.1, Chloride Level 106, Carbon Dioxide Level 23, Anion Gap 11, Blood Urea Nitrogen 22H, Creatinine 0.82, Estimat Glomerular Filtration Rate > 60, BUN/Creatinine Ratio 27, Glucose Level 89, Calcium Level 9.4, Magnesium Level 1.9, Digoxin Level 0.58L Laboratory Tests 02/08/19 06:10 A/P: Assessment: PAF/Flutter vs SVT with vent rates up to 150 bpm. These are relatively brief episodes that are asymptomatic Stroke prophylaxis with apixaban Echo of 02/01/19: LVEF 50%, dilated LA, trivial AI, mild MR, RVSP 19 mmHg Generalized weakness following lengthy hospitalization for aspiration pneumonia and C-Diff CAD - reports h/o stents x7 - states last cor stent was to [facility] in Jul 2017 - primary research development manager Dr. Stern at [facility] in [place], [place] HLD - statin tx H/O bilat CEA - unsure of details - reports done at [facility] H/O tobacco use - quit > 20 years ago HTN CKD stage III Reported h/o cirrhosis Chronic back pain with nerve stimulator in place Kyphosis H/o hypothyroidism. TSH normal (1.43) on 02/03/19 Plan: * Continue long-acting dilt for vent rate control * Not suitable candidate for BB d/t hypotension * Continue Eliquis for stroke prophylaxis * Dr Almeida covering the Card Svce this long weekend. Please call if needed NYA PENALOZA MD FACP FACC CCDS Feb 08, 2019 13:01
--- NOTE | 2019-02-08 13:25 | Speech Therapy Daily Note ---
Speech Daily Progress Note Subjective Date Seen by Provider: Feb 08, 2019 Time Seen by Provider: 00:30 The patient was sitting up in his bed eating his lunch when I entered his room. Objective The patient utilized compensatory strategies for safe oral intake of his regular diet at 80% with minimal verbal cues. Assessment Assessment Current Status: Good Progress Treatment Plan Continue Plan of Care Communication Comprehension: 7 Expression: 7 Social Cognition Social Interaction: 7 Problem Solvin Memory: 7 Speech Short Term Goals Short Term Goals Short Term Goals 1) The patient will tolerate least restrictive diet level without s/s of aspiration with 90% or greater. 2) The patient will utilize compensatory strategies as trained with 90% or greater given minimal cues. Speech [facility] Goals Ladies Attendant Goals The patient will maintain adequate nutrition/hydration via safe effective swallow function. Comprehension: 6 Expression: 6 Social Interaction: 6 Problem Solvin Memory: 6 Speech-Plan Patient/Family Goals Patient/Family Goals: The patient plans on returning to his home post rehab if he is able. He will have a daughter close by for assistance as needed. Treatment Plan Speech Therapy Treatment Plan: Continue Plan of Care The patient is continuing to improve percentage of oral intake. Treatment Duration: Feb 15, 2019 Frequency: 5 times per week Estimated Hrs Per Day: .25 hour per day Rehab Potential: Fair Barriers to Learning: The patient is weak and has multiple health issues. Pt/Family Agrees to Plan: Yes Safety Risks/Education Teaching Recipient: Patient Teaching Methods: Demonstration, Discussion Response to Teaching: Verbalize Understanding, Return Demonstration Education Topics Provided: Continued safety of oral intake Time Speech Therapy Time In: 12:30 Speech Therapy Time Out: 13:00 Total Billed Time: 30 Billed Treatment Time 1, DYST KRISTIN Nam Feb 08, 2019 13:25
--- NOTE | 2019-02-08 14:36 | Therapy Group Daily Note ---
Therapy Daily Group Note Patient Education Topic Home Safety, Fall Prevention, Home Safety, Exercises Exercises LE Seated Exercise, UE Exercise Session Ratio (pt:therapist): 4:1 Goal of Session: Education on ARU Expectations, Home Safety Strategies, UE/LE Strengthing Goal Met for this Session: Yes Pt Benefit of Group: Contributions to Others, F/U Use of Strategies @Home, Increased Functional Safety, Increased Functional Strength, Recognition of Peers, Socialization Other/Notes Each patient participated in group therapy in the common area of rehab. Each patient ambulated or was transported into a seated [place] with the other patients. Each patient had to introduce themselves and answer a question involving memory and recall. Patients then played a home safety jeopardy game with UE and LE exercises at different times. Patients were encouraged to participate with others during the answer time and exercises. Afterward, each patient ambulated or was transported back to their room and placed in bed or recliner with nurse call, phone, tray. Patient benefitted from this group by knowing more about home safety to decrease risk of falling and injury at home. Start Time: 13:00 Stop Time: 14:15 Total Billed Treatment Time: 75 Total Billed Treatment 1 visit GRP 75' BIN ROSE PT Feb 08, 2019 14:36
[2019-02-08 17:28] VITALS: BP 93/61
[2019-02-08] MEDS: ATORVASTATIN 40 MG (LIPITOR) TABLET PO SCH (18:24)
[2019-02-08] MEDS: rOPINIRole 1 MG (REQUIP) TABLET PO SCH (21:08)
[2019-02-09 05:51] VITALS: BP 105/62
[2019-02-09] MEDS: LEVOTHYROXINE 75 MCG (LEVOTHROID) TABLET PO SCH (06:20)
[2019-02-09] MEDS: MULTIVIT W/MINERALS TAB (THERAGRAN M) PO SCH (06:20)
[2019-02-09] MEDS: LACTOBACILLUS ACIDOPHILUS (PROBIOTIC) CAPSULE PO SCH ×3 (06:20→18:09)
[2019-02-09] MEDS: LACTOSE REDUCED FOOD PO SCH ×3 (06:21→17:37)
[2019-02-09] MEDS: CATHETER FLUSH 10 ML SYR IV SCH ×3 (06:21→20:51)
[2019-02-09] MEDS: DILTIAZEM 240 MG (CARDIZEM CD) CAP PO SCH (09:16)
[2019-02-09] MEDS: OXYBUTYNIN (DITROPAN) 5 MG TAB PO SCH ×2 (09:16→20:48)
[2019-02-09] MEDS: DIGOXIN 0.125 MG (LANOXIN) TAB PO SCH (09:16)
[2019-02-09] MEDS: FAMOTIDINE 20 MG (PEPCID) TABLET PO SCH (09:16)
[2019-02-09] MEDS: GABAPENTIN 100 MG (NEURONTIN) CAP PO SCH ×3 (09:17→20:47)
[2019-02-09] MEDS: APIXABAN 2.5 MG (ELIQUIS) TABLET PO SCH ×2 (09:17→20:47)
[2019-02-09] MEDS: LORATADINE (CLARITIN) 10 MG TAB PO SCH (09:17)
[2019-02-09] MEDS: ASPIRIN 81 MG CHEW (CHILDREN'S ASA) PO SCH (09:17)
[2019-02-09] MEDS: VITAMIN D3 1,000 UNITS (CHOLECALCIFEROL) TABLET PO SCH ×2 (09:18→20:48)
[2019-02-09] MEDS: COLLAGENASE 30 GM (SANTYL) TUBE TP SCH (09:37)
[2019-02-09 10:08] VITALS: BP 92/57
[2019-02-09] MEDS: CHOLESTYRAMINE 4 GM (QUESTRAN LITE, PREVALITE) PKT PO SCH ×2 (10:17→21:01)
--- NOTE | 2019-02-09 10:35 | PM&R Progress Note ---
Subjective HPI/CC On Admission Date Seen by Provider: Feb 09, 2019 Time Seen by Provider: 10:30 Chief complaint: Myopathy HPI: This is a 83yoWM who previously worked at [employer] [employer] [facility] who has been to [facility] 3x recently, because the first was pneumonia the second C-Diff colitis, and the third was an aspiration pneumonia, so he was transferred to [place], NG tub was placed for nutrition and he was able to work with speech therapy [employer] and resume a dysphasia one diet. Overall he has dramatically improved but definitely needs a lot of therapy to return home. He was placed in a [facility] facility after the pneumonia and the C-Diff colitis episode but his intention is to go home. I did speak with speech therapy who will evaluate what his needs are as far as his diet and resume that. He does have a history of chronic atrial fibrillation and he does have some rapid ventricular response of 120s when he was up working with therapy so I did consult cardiology, Dr. Blevins and updated him and [place] regarding this new Pt set to arrive any minute. I did speak with Dr. Ibrahim from [facility] regarding the admission and transfer and I accepted the care. Subjective/Events-last exam Patient doing very well Had a large bowel movement yesterday Weaned off O2 now Using incentive spirometer and instructed him to do this on a long-term basis which has made a dramatic difference in his overall status and prognosis Pain is well controlled at the heel No falls reported Sometimes he spills urinal Hypotension occurs at times Participating in therapy Check meds and labs Reviewed therapy notes Conferred with batter mixer of Systems General: Fatigue Pulmonary: Dyspnea Objective Exam Vital Signs Vital Signs Date Time Temp Pulse Resp B/P (MAP) Pulse Ox O2 Delivery O2 Flow Rate FiO2 02/09/19 17:00 97.3 68 16 105/61 (76) 93 Room Air 02/08/19 08:00 95 02/07/19 08:15 2.00 Capillary Refill : Less Than 3 Seconds General Appearance: No Apparent Distress, WD/WN, Chronically ill HEENT: PERRL/EOMI, Normal ENT Inspection, Pharynx Normal; No Pale Conjunctivae (L), No Pale Conjunctivae (R) Neck: Normal Inspection; No Thyromegaly Respiratory: Chest Non Tender, Lungs Clear, Normal Breath Sounds, No Accessory Muscle Use, No Respiratory Distress, Crackles (subtle) Cardiovascular: Regular Rate, Rhythm, Irregularly Irregular Gastrointestinal: Normal Bowel Sounds, No Organomegaly, No Pulsatile Mass, Non Tender, Soft Rectal: Deferred Back: Normal Inspection, No CVA Tenderness, Decreased Range of Motion, Other (sevre kyphosis) Extremity: Normal Inspection; No Swelling Neurologic/Psychiatric: Alert, Oriented x3, Normal Mood/Affect Skin: Ecchymosis, Mottled, Rash, Other (Shallow ulcer on R heel, appears to be improving. L heel still blanching ) Results/Procedures Lab Patient resulted labs reviewed. FIM Transfers Therapy Code Descriptions/Definitions Functional [place] Measure: 0=Not Assessed/NA 4=Minimal Assistance 1=Total Assistance 5=Supervision or Setup 2=Maximal Assistance 6=Modified [place] 3=Moderate Assistance 7=Complete [place] Therapy Quality Codes: 6 Independent with activity with or without an assistive device 5 Patient requires set up or clean up by helper. Patient completes activity by themselves 4 Supervision or touching assist (CGA). [place] provide cues , steadying assist 3 The helper provides less than half the effort to complete the activity 2 The helper provides more than half the effort to complete the activity 1 Dependent. The helper does all the effort to complete an activity 7 Patient refused to complete or attempt activity 9 The patient did not perform the activity before the current illness or injury 88 Not attempted due to Medical conditions or safety concerns Transfers (B, C, W/C) (FIM): 4 Scootin Rollin Roll Left to Right (QC): 4 Supine to/from Sit: 5 Sit to/from Stand: 4 Sit to Lying (QC): 3 Sit to Stand (QC): 4 Chair/Rha-tn-Kiara Xfer(QC): 3 Bed to/from Chair: 4 Car Transfer (QC): 3 Gait Training Does the Patient Walk?: Yes Gait (FIM): 5 Distance (FIM): 3=150 ft Distance: 200', 150' Walk 10 feet (QC): 5 Walk 50 ft with 2 Turns(QC): 5 Walk 150 ft (QC): 5 Walking 10ft/uneven surface-QC: 3 Gait Level of Assist: 5 Gait Persons Needed: 1 Gait Assistive Device: FWW Wheelchair Training Does the Pt Use a Wheelchair?: No Stair Training Stairs (FIM): 1 1 Step (curb) (QC): 1 4 Steps (QC): 88 12 Steps (QC): 88 Balance Picking up an Object (QC): 88 Mental Status/Objective Comprehension: 7 Expression: 7 Social Interaction: 7 Problem Solvin Memory: 7 ADL-Treatment Feedin Eating (QC): 5 Groomin Oral Hygiene (QC): 4 Bathin (CGA in stance in shower.) Shower/Bathe Self (QC): 4 Upper Extremity Dressin Upper Body Dressing (QC): 3 Lower Extremity Dressin Lower Body Dressing (QC): 3 On/Off Footwear (QC): 4 (Min assist with sock aide.) Toiletin (Pt. incontinent of BM in depend.) Toileting Hygiene (QC): 1 Toilet/Commode Transfer: 4 Toilet Transfer (QC): 3 Shower: 4 Assessment/Plan Assessment and Plan Assess & Plan/Chief Complaint Plan: IRF protocol Cardiology appreciated Home meds Monitor for falls Noted severe kyphosis will limit overall physical function Monitor wbc count but improved Regular diet tolerated Heels off bed Appreciate Cardiology management IS for lung expansion due to severe kyphosis and crackles on exam which are now much improved Needs AL so will inquire with SW regarding that option (1) Myopathy Status: Acute (2) Kyphosis Status: Chronic Qualifiers: Kyphosis type: postural Spinal region: cervicothoracic Qualified Codes: 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, cervicothoracic region (3) DNR (do not resuscitate) Status: Chronic (4) COPD (chronic obstructive pulmonary disease) Status: Chronic Qualifiers: COPD type: unspecified COPD Qualified Codes: J44.9 - Chronic obstructive pulmonary disease, unspecified (5) CHF (congestive heart failure) Status: Chronic Qualifiers: Heart failure type: unspecified (6) Prostate cancer Status: Chronic (7) Oxygen dependent Status: Chronic (8) Atrial fibrillation with rapid ventricular response Status: Acute (9) Advanced age Status: Chronic (10) Atrial fibrillation, chronic Status: Chronic (11) Presbycusis of both ears Status: Chronic (12) At risk for aspiration Status: Chronic (13) History of Clostridioides difficile colitis Status: Chronic QUANG HINTON DO Feb 09, 2019 10:35
--- NOTE | 2019-02-09 12:53 | Physical Therapy Daily Note ---
PT Daily Note-Current Subjective Pt is awake and agreeable to treatment. Mental Status Patient Orientation: Person, Place, Situation Transfers Therapy Code Descriptions/Definitions Functional [place] Measure: 0=Not Assessed/NA 4=Minimal Assistance 1=Total Assistance 5=Supervision or Setup 2=Maximal Assistance 6=Modified [place] 3=Moderate Assistance 7=Complete [place] Therapy Quality Codes: 6 Independent with activity with or without an assistive device 5 Patient requires set up or clean up by helper. Patient completes activity by themselves 4 Supervision or touching assist (CGA). [place] provide cues , steadying assist 3 The helper provides less than half the effort to complete the activity 2 The helper provides more than half the effort to complete the activity 1 Dependent. The helper does all the effort to complete an activity 7 Patient refused to complete or attempt activity 9 The patient did not perform the activity before the current illness or injury 88 Not attempted due to Medical conditions or safety concerns Transfers (B, C, W/C) (FIM): 5 Scootin Rollin Supine to/from Sit: 5 Sit to/from Stand: 5 Sit to Stand (QC): 5 Weight Bearing Full Weight Bearing Full Weight Bearing Gait Training Does the Patient Walk?: Yes Distance (FIM): 3=150 ft Distance: 150ft x2 Gait Assistive Device: FWW Wheelchair Training Does the Pt Use a Wheelchair?: No Exercises Standin way Ex=Flex, Abd, Ext, Marching Standing Reps: 20 NuStep Minutes: 10 NuStep Workload: 5 Assessment Current Status: Good Progress Pt was motivated to continue with his normal exercises. He appeared safe when moving between exercises and with sit to/from standing. PT Short Term Goals Short Term Goals Time Frame: Feb 14, 2019 Transfers (B,C,W/C) (FIM): 4 Gait (FIM): 4 Distance (FIM): 3=150 ft Gait Assistive Device: FWW PT Detention Goals Detention Goals PT Detention Goals Time Frame: Feb 28, 2019 Transfers (B,C,W/C) (FIM): 6 Sit to Lying (QC): 6 Lying-Sitting on Side/Bed(QC): 6 Sit to Stand (QC): 6 Rollin Roll Left to Right (QC): 6 Chair/Wch-vb-Owxno Xfer(QC): 6 Car Transfer (QC): 6 Does the Patient Walk: Yes Gait (FIM): 6 Gait distance (FIM): 3=150 ft Walk 10 feet (QC): 6 Walk 10ft-Uneven Surface(QC): 6 Walk 50ft with 2 Turns (QC): 6 Walk 150 ft (QC): 6 Gait Assistive Device: FWW Does the Pt use WC or Scooter?: No Stairs (FIM): 5 # of Steps: 4 1 Step (curb) (QC): 6 4 Steps (QC): 6 12 Steps (QC): 9 Picking up an Object (QC): 88 PT Plan Treatment/Plan Treatment Plan: Continue Plan of Care Treatment Plan: Bed Mobility, Education, Functional Activity Mahamed, Functional Strength, Group Therapy, Gait, Safety, Therapeutic Exercise, Transfers Treatment Duration: Feb 28, 2019 Frequency: At least 5 of 7 days/Wk (IRF) Estimated Hrs Per Day: 1.5 hours per day Patient and/or Family Agrees t: Yes Time/GCodes Time In: 0905 Time Out: 9045 Total Billed Treatment Time: 40 Total Billed Treatment 1, gt 10, exx2 30' HENRY MELO PT Feb 09, 2019 12:53
[2019-02-09 17:00] VITALS: BP 105/61
[2019-02-09] MEDS: ATORVASTATIN 40 MG (LIPITOR) TABLET PO SCH (18:09)
[2019-02-09] MEDS: rOPINIRole 1 MG (REQUIP) TABLET PO SCH (20:51)
[2019-02-10 05:45] VITALS: BP 109/60
[2019-02-10] MEDS: CATHETER FLUSH 10 ML SYR IV SCH ×3 (06:27→21:10)
[2019-02-10] MEDS: LACTOSE REDUCED FOOD PO SCH ×3 (06:28→16:35)
[2019-02-10] MEDS: LACTOBACILLUS ACIDOPHILUS (PROBIOTIC) CAPSULE PO SCH ×3 (06:28→16:35)
[2019-02-10] MEDS: LEVOTHYROXINE 75 MCG (LEVOTHROID) TABLET PO SCH (06:28)
[2019-02-10] MEDS: MULTIVIT W/MINERALS TAB (THERAGRAN M) PO SCH (06:28)
[2019-02-10] MEDS: APIXABAN 2.5 MG (ELIQUIS) TABLET PO SCH ×2 (12:04→20:57)
[2019-02-10] MEDS: DIGOXIN 0.125 MG (LANOXIN) TAB PO SCH (12:04)
[2019-02-10] MEDS: OXYBUTYNIN (DITROPAN) 5 MG TAB PO SCH ×2 (12:04→20:58)
[2019-02-10] MEDS: GABAPENTIN 100 MG (NEURONTIN) CAP PO SCH ×3 (12:05→20:57)
[2019-02-10] MEDS: FAMOTIDINE 20 MG (PEPCID) TABLET PO SCH (12:06)
[2019-02-10] MEDS: VITAMIN D3 1,000 UNITS (CHOLECALCIFEROL) TABLET PO SCH ×2 (12:06→21:07)
[2019-02-10] MEDS: ASPIRIN 81 MG CHEW (CHILDREN'S ASA) PO SCH (12:07)
[2019-02-10] MEDS: LORATADINE (CLARITIN) 10 MG TAB PO SCH (12:07)
[2019-02-10] MEDS: CHOLESTYRAMINE 4 GM (QUESTRAN LITE, PREVALITE) PKT PO SCH ×2 (12:08→21:05)
[2019-02-10] MEDS: COLLAGENASE 30 GM (SANTYL) TUBE TP SCH (12:08)
[2019-02-10] MEDS: DILTIAZEM 240 MG (CARDIZEM CD) CAP PO SCH (12:08)
--- NOTE | 2019-02-10 13:29 | PM&R Progress Note ---
Subjective HPI/CC On Admission Date Seen by Provider: Feb 10, 2019 Time Seen by Provider: 11:10 Chief complaint: Myopathy HPI: This is a 83yoWM who previously worked at [employer] who has been to [facility] 3x recently, because the first was pneumonia the second C-Diff colitis, and the third was an aspiration pneumonia, so he was transferred to [place], NG tub was placed for nutrition and he was able to work with speech therapy [employer] and resume a dysphasia one diet. Overall he has dramatically improved but definitely needs a lot of therapy to return home. He was placed in a half-way facility after the pneumonia and the C-Diff colitis episode but his intention is to go home. I did speak with speech therapy who will evaluate what his needs are as far as his diet and resume that. He does have a history of chronic atrial fibrillation and he does have some rapid ventricular response of 120s when he was up working with therapy so I did consult cardiology, Dr. Blevins and updated him and Loreto regarding this new Pt set to arrive any minute. I did speak with Dr. Ibrahim from [facility] regarding the admission and transfer and I accepted the care. Subjective/Events-last exam Patient doing very well BM regular and normal Weaned off O2 now Using incentive spirometer and instructed him to do this on a long-term basis which has made a dramatic difference in his overall status and prognosis Pain is well controlled at the heel and it only hurts some of the time No falls reported Hypotension occurs at times will monitor closely Participating in therapy Check meds and labs Reviewed therapy notes Conferred with RN Objective Exam Vital Signs Vital Signs Date Time Temp Pulse Resp B/P (MAP) Pulse Ox O2 Delivery O2 Flow Rate FiO2 02/10/19 20:00 Room Air 02/10/19 17:00 98.4 71 16 114/73 (87) 93 02/08/19 08:00 95 02/07/19 08:15 2.00 Capillary Refill : Less Than 3 Seconds General Appearance: No Apparent Distress, WD/WN, Chronically ill HEENT: PERRL/EOMI, Normal ENT Inspection, Pharynx Normal; No Pale Conjunctivae (L), No Pale Conjunctivae (R) Neck: Normal Inspection; No Thyromegaly Respiratory: Chest Non Tender, Lungs Clear, Normal Breath Sounds, No Accessory Muscle Use, No Respiratory Distress, Crackles (subtle) Cardiovascular: Regular Rate, Rhythm, Irregularly Irregular Gastrointestinal: Normal Bowel Sounds, No Organomegaly, No Pulsatile Mass, Non Tender, Soft Rectal: Deferred Back: Normal Inspection, No CVA Tenderness, Decreased Range of Motion, Other (sevre kyphosis) Extremity: Normal Inspection; No Swelling Neurologic/Psychiatric: Alert, Oriented x3, Normal Mood/Affect Skin: Ecchymosis, Mottled, Rash, Other (Shallow ulcer on R heel, appears to be improving. L heel still blanching ) Results/Procedures Lab Patient resulted labs reviewed. FIM Transfers Therapy Code Descriptions/Definitions Functional [place] Measure: 0=Not Assessed/NA 4=Minimal Assistance 1=Total Assistance 5=Supervision or Setup 2=Maximal Assistance 6=Modified [place] 3=Moderate Assistance 7=Complete [place] Therapy Quality Codes: 6 Independent with activity with or without an assistive device 5 Patient requires set up or clean up by helper. Patient completes activity by themselves 4 Supervision or touching assist (CGA). [place] provide cues , steadying assist 3 The helper provides less than half the effort to complete the activity 2 The helper provides more than half the effort to complete the activity 1 Dependent. The helper does all the effort to complete an activity 7 Patient refused to complete or attempt activity 9 The patient did not perform the activity before the current illness or injury 88 Not attempted due to Medical conditions or safety concerns Transfers (B, C, W/C) (FIM): 5 Scootin Rollin Roll Left to Right (QC): 4 Supine to/from Sit: 5 Sit to/from Stand: 5 Sit to Lying (QC): 3 Sit to Stand (QC): 5 Chair/Rav-te-Ogzpx Xfer(QC): 3 Bed to/from Chair: 4 Car Transfer (QC): 3 Gait Training Does the Patient Walk?: Yes Gait (FIM): 5 Distance (FIM): 3=150 ft Distance: 150ft x2 Walk 10 feet (QC): 5 Walk 50 ft with 2 Turns(QC): 5 Walk 150 ft (QC): 5 Walking 10ft/uneven surface-QC: 3 Gait Level of Assist: 5 Gait Persons Needed: 1 Gait Assistive Device: FWW Wheelchair Training Does the Pt Use a Wheelchair?: No Stair Training Stairs (FIM): 1 1 Step (curb) (QC): 1 4 Steps (QC): 88 12 Steps (QC): 88 Balance Picking up an Object (QC): 88 Mental Status/Objective Comprehension: 7 Expression: 7 Social Interaction: 7 Problem Solvin Memory: 7 ADL-Treatment Feedin Eating (QC): 5 Groomin Oral Hygiene (QC): 4 Bathin (CGA in stance in shower.) Shower/Bathe Self (QC): 4 Upper Extremity Dressin Upper Body Dressing (QC): 3 Lower Extremity Dressin Lower Body Dressing (QC): 3 On/Off Footwear (QC): 4 (Min assist with sock aide.) Toiletin (Pt. incontinent of BM in depend.) Toileting Hygiene (QC): 1 Toilet/Commode Transfer: 4 Toilet Transfer (QC): 3 Shower: 4 Assessment/Plan Assessment and Plan Assess & Plan/Chief Complaint Plan: IRF protocol Cardiology appreciated Home meds Monitor for falls Noted severe kyphosis will limit overall physical function Monitor wbc count but improved Regular diet tolerated Heels off bed Appreciate Cardiology management IS for lung expansion due to severe kyphosis and crackles on exam which are now much improved Needs AL so will inquire with SW regarding that option (1) Myopathy Status: Acute (2) Kyphosis Status: Chronic Qualifiers: Kyphosis type: postural Spinal region: cervicothoracic Qualified Codes: 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, cervicothoracic region (3) DNR (do not resuscitate) Status: Chronic (4) COPD (chronic obstructive pulmonary disease) Status: Chronic Qualifiers: COPD type: unspecified COPD Qualified Codes: J44.9 - Chronic obstructive pulmonary disease, unspecified (5) CHF (congestive heart failure) Status: Chronic Qualifiers: Heart failure type: unspecified (6) Prostate cancer Status: Chronic (7) Oxygen dependent Status: Chronic (8) Atrial fibrillation with rapid ventricular response Status: Acute (9) Advanced age Status: Chronic (10) Atrial fibrillation, chronic Status: Chronic (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
[2019-02-10] MEDS: ATORVASTATIN 40 MG (LIPITOR) TABLET PO SCH (16:36)
[2019-02-10 17:00] VITALS: BP 114/73
[2019-02-10] MEDS: rOPINIRole 1 MG (REQUIP) TABLET PO SCH (20:57)
[2019-02-11 05:40] VITALS: BP 108/58
[2019-02-11] MEDS: CATHETER FLUSH 10 ML SYR IV SCH ×3 (06:08→22:30)
[2019-02-11] MEDS: LEVOTHYROXINE 75 MCG (LEVOTHROID) TABLET PO SCH (06:09)
[2019-02-11] MEDS: LACTOBACILLUS ACIDOPHILUS (PROBIOTIC) CAPSULE PO SCH ×3 (06:09→16:33)
[2019-02-11] MEDS: LACTOSE REDUCED FOOD PO SCH ×3 (06:09→16:34)
[2019-02-11] MEDS: MULTIVIT W/MINERALS TAB (THERAGRAN M) PO SCH (06:09)
[2019-02-11 06:21] LABS: BASOPHILS % (AUTO) 0 % (0-10); EOSINOPHILS # (AUTO) 0.3 10^3/uL (0.0-0.3); EOSINOPHILS % (AUTO) 3 % (0-10); HEMATOCRIT 31 % (40-54); HEMOGLOBIN 9.7 G/DL (13.3-17.7); LYMPHOCYTES # (AUTO) 1.8 X 10^3 (1.0-4.0); LYMPHOCYTES % (AUTO) 17 % (12-44); MEAN CORPUSCULAR HEMOGLOBIN 32 PG (25-34); MEAN CORPUSCULAR HGB CONC 32 G/DL (32-36); MEAN CORPUSCULAR VOLUME 102 FL (80-99); MEAN PLATELET VOLUME 9.4 FL (7.4-10.4); MONOCYTES # (AUTO) 0.9 X 10^3 (0.0-1.0); MONOCYTES % (AUTO) 9 % (0-12); NEUTROPHILS # (AUTO) 7.2 X 10^3 (1.8-7.8); NEUTROPHILS % (AUTO) 71 % (42-75); PLATELET COUNT 306 10^3/uL (130-400); RED CELL DISTRIBUTION WIDTH 16.4 % (10.0-14.5); WHITE BLOOD COUNT 10.2 10^3/uL (4.3-11.0)
[2019-02-11 06:40] LABS: ALANINE AMINOTRANSFERASE 43 U/L (0-55); ALBUMIN 2.7 GM/DL (3.2-4.5); ALKALINE PHOSPHATASE 322 U/L (40-136); BILIRUBIN,TOTAL 0.5 MG/DL (0.1-1.0); BUN/CREATININE RATIO 28; CALCIUM 8.7 MG/DL (8.5-10.1); CARBON DIOXIDE 28 MMOL/L (21-32); CHLORIDE 107 MMOL/L (98-107); CREATININE SERUM 0.79 MG/DL (0.60-1.30); GFR ESTIMATED > 60; GLUCOSE 77 MG/DL (70-105); SODIUM 140 MMOL/L (135-145); TOTAL PROTEIN 5.5 GM/DL (6.4-8.2)
[2019-02-11 08:31] VITALS: BP 116/63
[2019-02-11] MEDS: GABAPENTIN 100 MG (NEURONTIN) CAP PO SCH ×3 (08:45→21:19)
[2019-02-11] MEDS: DIGOXIN 0.125 MG (LANOXIN) TAB PO SCH (08:45)
[2019-02-11] MEDS: FAMOTIDINE 20 MG (PEPCID) TABLET PO SCH (08:45)
[2019-02-11] MEDS: ASPIRIN 81 MG CHEW (CHILDREN'S ASA) PO SCH (08:45)
[2019-02-11] MEDS: LORATADINE (CLARITIN) 10 MG TAB PO SCH (08:46)
[2019-02-11] MEDS: APIXABAN 2.5 MG (ELIQUIS) TABLET PO SCH ×2 (08:46→21:20)
[2019-02-11] MEDS: CHOLESTYRAMINE 4 GM (QUESTRAN LITE, PREVALITE) PKT PO SCH ×2 (08:46→21:30)
[2019-02-11] MEDS: OXYBUTYNIN (DITROPAN) 5 MG TAB PO SCH ×2 (08:46→21:20)
[2019-02-11] MEDS: DILTIAZEM 240 MG (CARDIZEM CD) CAP PO SCH (08:46)
[2019-02-11] MEDS: VITAMIN D3 1,000 UNITS (CHOLECALCIFEROL) TABLET PO SCH ×2 (08:47→21:20)
--- NOTE | 2019-02-11 08:47 | NUR ---
Have notified industrial service technician that the vitamin D is still not scanning, as was the case on Monday.
[2019-02-11] MEDS: COLLAGENASE 30 GM (SANTYL) TUBE TP SCH (09:43)
--- NOTE | 2019-02-11 10:10 | PM&R Progress Note ---
Subjective HPI/CC On Admission Date Seen by Provider: Feb 11, 2019 Time Seen by Provider: 10:45 Chief complaint: Myopathy HPI: This is a 83yoWM who previously worked at [employer] [facility] who has been to [facility] 3x recently, because the first was pneumonia the second C-Diff colitis, and the third was an aspiration pneumonia, so he was transferred to [place], NG tub was placed for nutrition and he was able to work with speech therapy ultimately and resume a dysphasia one diet. Overall he has dramatically improved but definitely needs a lot of therapy to return home. [place] [facility] after the pneumonia and the C-Diff colitis episode but his intention is to go home. I did speak with speech therapy who will evaluate what his needs are as far as his diet and resume that. He does have a history of c hronic atrial fibrillation and he does have some rapid ventricular response of 120s when he was up working with therapy so I did consult cardiology, Dr. Blevins and updated him and [place]oreto regarding this new Pt set to arrive any minute. I did speak with Dr. Ibrahim from [facility] regarding the admission and transfer and I accepted the care. Subjective/Events-last exam Patient doing very well and walking with parallel bars today with PT BM regular and normal Weaned off O2 now Using incentive spirometer and instructed him to do this on a long-term basis which has made a dramatic difference in his overall status and prognosis Pain is well controlled at the heel and it only hurts some of the time No falls reported Hypotension will be monitored closely Participating in therapy Check meds and labs Reviewed therapy notes Conferred with oil well shooter of Systems General: Fatigue Musculoskeletal: foot pain Objective Exam Vital Signs Vital Signs Date Time Temp Pulse Resp B/P (MAP) Pulse Ox O2 Delivery O2 Flow Rate FiO2 02/11/19 08:31 96.7 69 20 116/63 (80) 95 Room Air 02/08/19 08:00 95 02/07/19 08:15 2.00 Capillary Refill : Less Than 3 Seconds General Appearance: No Apparent Distress, WD/WN, Chronically ill HEENT: PERRL/EOMI, Normal ENT Inspection, Pharynx Normal; No Pale Conjunctivae (L), No Pale Conjunctivae (R) Neck: Normal Inspection; No Thyromegaly Respiratory: Chest Non Tender, Lungs Clear, Normal Breath Sounds, No Accessory Muscle Use, No Respiratory Distress, Crackles (subtle) Cardiovascular: Regular Rate, Rhythm, Irregularly Irregular Gastrointestinal: Normal Bowel Sounds, No Organomegaly, No Pulsatile Mass, Non Tender, Soft Rectal: Deferred Back: Normal Inspection, No CVA Tenderness, Decreased Range of Motion, Other (sevre kyphosis) Extremity: Normal Inspection; No Swelling Neurologic/Psychiatric: Alert, Oriented x3, Normal Mood/Affect Skin: Ecchymosis, Mottled, Rash, Other (Shallow ulcer on R heel, appears to be improving. L heel still blanching ) Results/Procedures Lab Laboratory Tests 02/11/19 06:15 Patient resulted labs reviewed. FIM Transfers Therapy Code Descriptions/Definitions Functional [place] Measure: 0=Not Assessed/NA 4=Minimal Assistance 1=Total Assistance 5=Supervision or Setup 2=Maximal Assistance 6=Modified [place] 3=Moderate Assistance 7=Complete [place] Therapy Quality Codes: 6 Independent with activity with or without an assistive device 5 Patient requires set up or clean up by helper. Patient completes activity by themselves 4 Supervision or touching assist (CGA). [place] provide cues , steadying assist 3 The helper provides less than half the effort to complete the activity 2 The helper provides more than half the effort to complete the activity 1 Dependent. The helper does all the effort to complete an activity 7 Patient refused to complete or attempt activity 9 The patient did not perform the activity before the current illness or injury 88 Not attempted due to Medical conditions or safety concerns Transfers (B, C, W/C) (FIM): 5 Scootin Rollin Roll Left to Right (QC): 4 Supine to/from Sit: 5 Sit to/from Stand: 5 Sit to Lying (QC): 3 Sit to Stand (QC): 5 Chair/Qen-sa-Nmwnb Xfer(QC): 3 Bed to/from Chair: 4 Car Transfer (QC): 3 Gait Training Does the Patient Walk?: Yes Gait (FIM): 5 Distance (FIM): 3=150 ft Distance: 150ft x2 Walk 10 feet (QC): 5 Walk 50 ft with 2 Turns(QC): 5 Walk 150 ft (QC): 5 Walking 10ft/uneven surface-QC: 3 Gait Level of Assist: 5 Gait Persons Needed: 1 Gait Assistive Device: FWW Wheelchair Training Does the Pt Use a Wheelchair?: No Stair Training Stairs (FIM): 1 1 Step (curb) (QC): 1 4 Steps (QC): 88 12 Steps (QC): 88 Balance Picking up an Object (QC): 88 Mental Status/Objective Comprehension: 7 Expression: 7 Social Interaction: 7 Problem Solvin Memory: 7 ADL-Treatment Feedin Eating (QC): 5 Groomin Oral Hygiene (QC): 4 Bathin (CGA in stance in shower.) Shower/Bathe Self (QC): 4 Upper Extremity Dressin Upper Body Dressing (QC): 3 Lower Extremity Dressin Lower Body Dressing (QC): 3 On/Off Footwear (QC): 4 (Min assist with sock aide.) Toiletin (Pt. incontinent of BM in depend.) Toileting Hygiene (QC): 1 Toilet/Commode Transfer: 4 Toilet Transfer (QC): 3 Shower: 4 Assessment/Plan Assessment and Plan Assess & Plan/Chief Complaint Plan: IRF protocol Cardiology appreciated Home meds Monitor for falls Noted severe kyphosis will limit overall physical function wbc count now normal Regular diet tolerated Heels off bed Appreciate Cardiology management IS for lung expansion due to severe kyphosis and crackles on exam which are now much improved Needs AL so will inquire with SW regarding that option (1) Myopathy Status: Acute (2) Kyphosis Status: Chronic Qualifiers: Kyphosis type: postural Spinal region: cervicothoracic Qualified Codes: 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, cervicothoracic region (3) DNR (do not resuscitate) Status: Chronic (4) COPD (chronic obstructive pulmonary disease) Status: Chronic Qualifiers: COPD type: unspecified COPD Qualified Codes: J44.9 - Chronic obstructive pulmonary disease, unspecified (5) CHF (congestive heart failure) Status: Chronic Qualifiers: Heart failure type: unspecified (6) Prostate cancer Status: Chronic (7) Oxygen dependent Status: Chronic (8) Atrial fibrillation with rapid ventricular response Status: Acute (9) Advanced age Status: Chronic (10) Atrial fibrillation, chronic Status: Chronic (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
--- NOTE | 2019-02-11 10:46 | Speech Therapy Daily Note ---
Speech Daily Progress Note Subjective Date Seen by Provider: Feb 11, 2019 Time Seen by Provider: 00:30 The patient was in bed, just finishing his breakfast when I entered his room. Objective The patient finished eating his morning meal with utilization of compensatory strategies as trained at 90% with minimal cues. Assessment Assessment Current Status: Good Progress Treatment Plan Continue Plan of Care Communication Comprehension: 7 Expression: 7 Social Cognition Social Interaction: 7 Problem Solvin Memory: 7 Speech Short Term Goals Short Term Goals Short Term Goals 1) The patient will tolerate least restrictive diet level without s/s of aspiration with 90% or greater. 2) The patient will utilize compensatory strategies as trained with 90% or greater given minimal cues. Speech [facility]iary Goals Leaf Stamper Goals The patient will maintain adequate nutrition/hydration via safe effective swallow function. Comprehension: 6 Expression: 6 Social Interaction: 6 Problem Solvin Memory: 6 Speech-Plan Patient/Family Goals Patient/Family Goals: The patient plans on returning home post rehab. Treatment Plan Speech Therapy Treatment Plan: Continue Plan of Care The patient is noted to be consuming more of his meals each day. Treatment Duration: Feb 15, 2019 Frequency: 5 times per week Estimated Hrs Per Day: .25 hour per day Rehab Potential: Fair Barriers to Learning: Patient's age and decreased level of intake. Pt/Family Agrees to Plan: Yes Safety Risks/Education Teaching Recipient: Patient Teaching Methods: Demonstration, Discussion Response to Teaching: Verbalize Understanding, Return Demonstration Education Topics Provided: Continued safety with his oral intake. Time Speech Therapy Time In: 08:30 Speech Therapy Time Out: 09:00 Total Billed Time: 30 Billed Treatment Time 1, KRISTIN Stanford Feb 11, 2019 10:46
--- NOTE | 2019-02-11 11:14 | Occupational Ther Daily Note ---
OT Current Status-Daily Note Subjective Pt laying in bed at start of session, agreed to OT tx focusing on ADLs. Pt did not report any pain this session. Mental Status/Objective Patient Orientation: Normal For Age Therapy Code Descriptions/Definitions Functional [place] Measure: 0=Not Assessed/NA 4=Minimal Assistance 1=Total Assistance 5=Supervision or Setup 2=Maximal Assistance 6=Modified [place] 3=Moderate Assistance 7=Complete [place] Attachments: IV ADL-Treatment Therapy Code Descriptions/Definitions Functional [place] Measure: 0=Not Assessed/NA 4=Minimal Assistance 1=Total Assistance 5=Supervision or Setup 2=Maximal Assistance 6=Modified [place] 3=Moderate Assistance 7=Complete [place] Therapy Quality Codes: 6 Independent with activity with or without an assistive device 5 Patient requires set up or clean up by helper. Patient completes activity by themselves 4 Supervision or touching assist (CGA). [place] provide cues , steadying assist 3 The helper provides less than half the effort to complete the activity 2 The helper provides more than half the effort to complete the activity 1 Dependent. The helper does all the effort to complete an activity 7 Patient refused to complete or attempt activity 9 The patient did not perform the activity before the current illness or injury 88 Not attempted due to Medical conditions or safety concerns Grooming (FIM): 5 (set up, pt used electric razor to shave, brushed his dentures, washed face and hands with set up assistance) Oral Hygiene (QC): 5 Bathing (FIM): 4 (Pt completed sponge bath seated EOB, CGA during stand) Shower/Bathe Self (QC): 4 Upper Body (FIM): 4 (Min A required to don button up shirt) Upper Body Dressing (QC): 3 Lower Body Dressing (FIM): 3 (Pt able to don shoes and donned pants with CGA during stand at [facility]. OT assisted pt in donning tab style brief.) Lower Body Dressing (QC): 3 On/Off Footwear (QC): 6 (shoes only) Toileting (FIM): 5 (CGA during stand for clothing management) Toileting Hygiene (QC): 4 Transfers (B, C, W/C) (FIM): 3 (Min A to stand, Mod A supine to sit (assist with trunk)) Toilet/Commode Transfer (FIM): 4 (Min A to stand) Toilet Transfer (QC): 3 Other Treatment Pt laying in bed with nurse present at start of session, OT prepared room for ADLs as nurse finished her task. Pt used electric razor then transferred to EOB to complete sponge bath and UE dressing. After donning shirt, pt stated he needed to use the restroom and ambulated to toilet using FWW. Pt completed toileting, then transferred to recliner to finish LE dressing. Pt then ambulated to bathroom to complete grooming standing at sink and FWW. Pt transferred back to recliner. Post OT session, pt seated in recliner, call light in reach and all needs met with PT present to begin session. Education OT Patient Education: Correct positioning, Energy conservation, Progress toward Goal/Update tx plan, Purpose of tx/functional activities, Transfer techniques Teaching Recipient: Patient Teaching Methods: Demonstration Response to Teaching: Verbalize Understanding, Return Demonstration OT Short Term Goals Short Term Goals Transfers (B,C,W/C) (FIM): 4 1=Demonstrate adherence to instructed precautions during ADL tasks. 2=Patient will verbalize/demonstrate understanding of assistive d evices/modifications for ADL. 3=Patient will improve strength/tolerance for activity to enable patient to perform ADL's. OT Residential Goals Fsr Goals Time Frame: Feb 21, 2019 Eating (FIM): 6 Eating (QC): 6 Groomin Oral Hygiene (QC): 6 Bathing(FIM): 5 Shower/Bathe Self (QC): 5 Upper Body Dressing(FIM): 6 Upper Body Dressing (QC): 6 Lower Body Dressing(FIM): 6 Lower Body Dressing (QC): 6 On/Off Footwear (QC): 6 Toileting(FIM): 5 Toileting Hygiene (QC): 6 Transfers (B,C,W/C) (FIM): 6 Toilet/Commode Transfer(FIM): 6 Toilet/Commode Transfer (QC): 6 Shower Transfer(FIM): 5 Comprehension(FIM): 6 Expression (FIM): 6 Social Interaction(FIM): 6 Problem Solving(FIM): 6 Memory(FIM): 6 Additional Goals: 1-Demonstrate ADL Tasks, 2-Verbalize Understanding, 3- ImproveStrength/[place]amed 1=Demonstrate adherence to instructed precautions during ADL tasks. 2=Patient will verbalize/demonstrate understanding of assistive devices/modifications for ADL. 3=Patient will improve strength/tolerance for activity to enable patient to perform ADL's. OT Education/Plan Problem List/Assessment Assessment: Decreased Activ Tolerance, Decreased UE Strength, Impaired Self- Care Skills Discharge Recommendations Plan/Recommendations: Continue POC Treatment Plan/Plan of Care Treatment,Training & Education: Yes Patient would benefit from OT for education, treatment and training to promote independence in ADL's, mobility, safety and/or upper extremity function for ADL's. Plan of Care: ADL Retraining, Functional Mobility, Group Exercise/Act as Ind, UE Funct Exercise/Act Treatment Duration: Feb 21, 2019 Frequency: At least 5 of 7 days/Wk (IRF) Estimated Hrs Per Day: 1.5 hours per day Agreement: Yes Rehab Potential: Fair Time/GCodes Start Time: 10:00 Stop Time: 11:00 Total Time Billed (hr/min): 60 Billed Treatment Time 1, ADL 4 [id number] EARNEST BETTENCOURT OT Feb 11, 2019 11:14
--- NOTE | 2019-02-11 11:59 | Physical Therapy Daily Note ---
PT Daily Note-Current Subjective Patient in recliner pre tx, agrees to PT, has no complaints of pain Appearance Patient in recliner post tx with nurse call, phone, tray, all needs met. Mental Status Patient Orientation: Person, Place, Situation Transfers Therapy Code Descriptions/Definitions Functional [place] Measure: 0=Not Assessed/NA 4=Minimal Assistance 1=Total Assistance 5=Supervision or Setup 2=Maximal Assistance 6=Modified [place] 3=Moderate Assistance 7=Complete [place] Therapy Quality Codes: 6 Independent with activity with or without an assistive device 5 Patient requires set up or clean up by helper. Patient completes activity by themselves 4 Supervision or touching assist (CGA). [place] provide cues , steadying assist 3 The helper provides less than half the effort to complete the activity 2 The helper provides more than half the effort to complete the activity 1 Dependent. The helper does all the effort to complete an activity 7 Patient refused to complete or attempt activity 9 The patient did not perform the activity before the current illness or injury 88 Not attempted due to Medical conditions or safety concerns Transfers (B, C, W/C) (FIM): 5 Sit to/from Stand: 5 Bed to/from Chair: 5 no retropulsion initially with standing Weight Bearing Full Weight Bearing Full Weight Bearing Gait Training Gait (FIM): 5 Distance: 250', 150' Gait Level of Assist: 5 Gait Assistive Device: FWW slow but steady ambulation Exercises Standing: Hip Abduction, Hamstring curls (x10), Heel/toe raises, Marching (x10), Mini squats Standing Reps: 20 NuStep Minutes: 15 NuStep Workload: 4 Treatments transfers, ambulation, LE exercise Assessment Current Status: Fair Progress improved ambulation and balance PT Short Term Goals Short Term Goals Time Frame: Feb 14, 2019 Transfers (B,C,W/C) (FIM): 4 Gait (FIM): 4 Distance (FIM): 3=150 ft Gait Assistive Device: FWW PT Pile Driver Operator Helper Goals Pile Driver Operator Helper Goals PT Usp Goals Time Frame: Feb 28, 2019 Transfers (B,C,W/C) (FIM): 6 Sit to Lying (QC): 6 Lying-Sitting on Side/Bed(QC): 6 Sit to Stand (QC): 6 Rollin Roll Left to Right (QC): 6 Chair/[place] Xfer(QC): 6 Car Transfer (QC): 6 Does the Patient Walk: Yes Gait (FIM): 6 Gait distance (FIM): 3=150 ft Walk 10 feet (QC): 6 Walk 10ft-Uneven Surface(QC): 6 Walk 50ft with 2 Turns (QC): 6 Walk 150 ft (QC): 6 Gait Assistive Device: FWW Does the Pt use WC or Scooter?: No Stairs (FIM): 5 # of Steps: 4 1 Step (curb) (QC): 6 4 Steps (QC): 6 12 Steps (QC): 9 Picking up an Object (QC): 88 PT Plan Problem List Problem List: Activity Tolerance, Functional Strength, Safety, Balance, Gait, Transfer, Bed Mobility Treatment/Plan Treatment Plan: Continue Plan of Care Treatment Plan: Bed Mobility, Education, Functional Activity [place], Functional Strength, Group Therapy, Gait, Safety, Therapeutic Exercise, Transfers Treatment Duration: Feb 28, 2019 Frequency: At least 5 of 7 days/Wk (IRF) Estimated Hrs Per Day: 1.5 hours per day Patient and/or Family Agrees t: Yes Safety Risks/Education Patient Education: Gait Training, Transfer Techniques, Correct Positioning, Safety Issues Teaching Recipient: Patient Teaching Methods: Demonstration, Discussion Response to Teaching: Reinforcement Needed Time/GCodes Time In: 1100 Time Out: 1200 Total Billed Treatment Time: 60 Total Billed Treatment 1 visit GT 25' EX 35' BIN ROSE PT Feb 11, 2019 11:59
--- NOTE | 2019-02-11 14:26 | Therapy Group Daily Note ---
Therapy Daily Group Note Patient Education Topic Exercises Exercises LE Seated Exercise, UE Exercise Session Ratio (pt:therapist): 3:1 Goal of Session: Education on ARU Expectations, UE/LE Strengthing Goal Met for this Session: Yes Pt Benefit of Group: Contributions to Others, Increased Functional Strength, Improved Cognition, Recognition of Peers, Socialization Other/Notes Pt ambulated using FWW to [facility] for OT/PT group. Group consisted of introductions (name, place living, first job), socialization, description/expectations of ARU, benefits of exercise and pt lead exercises. Pt able to introduced self appropriately and actively listened to peers. Pt acknowledged understanding of educational topics by leading own exercise and giving personal experiences. Pt tolerated exercises well and actively participated when other pt's led exercises. Pt acknowledged understanding of ARU description by affirmative gestures. After therapy, pt requested to sit in [facility] area to finish lunch. All needs met. Start Time: 12:40 Stop Time: 13:50 Total Billed Treatment Time: 70 Total Billed Treatment 1-BENITO ALMARAZ Feb 11, 2019 14:26
[2019-02-11 17:00] VITALS: BP 97/66
[2019-02-11] MEDS: ATORVASTATIN 40 MG (LIPITOR) TABLET PO SCH (17:45)
--- NOTE | 2019-02-11 19:16 | NUR ---
bedside report received from JARAD BARFIELD, assume care of pt
--- NOTE | 2019-02-11 19:28 | NUR ---
reports pain level 2/10 on numeric scale
[2019-02-11] MEDS: rOPINIRole 1 MG (REQUIP) TABLET PO SCH (21:20)
--- NOTE | 2019-02-11 21:20 | NUR ---
assessments & interventions completed, see assessments & interventions, refused Aidan mace
[2019-02-12 06:04] VITALS: BP 92/58
[2019-02-12] MEDS: CATHETER FLUSH 10 ML SYR IV SCH ×3 (06:29→20:59)
[2019-02-12] MEDS: LEVOTHYROXINE 75 MCG (LEVOTHROID) TABLET PO SCH (06:30)
[2019-02-12] MEDS: LACTOBACILLUS ACIDOPHILUS (PROBIOTIC) CAPSULE PO SCH ×3 (06:30→16:44)
[2019-02-12] MEDS: MULTIVIT W/MINERALS TAB (THERAGRAN M) PO SCH (06:30)
--- NOTE | 2019-02-12 07:18 | NUR ---
bedside report given to WIL BARFIELD
[2019-02-12] MEDS: LACTOSE REDUCED FOOD PO SCH ×3 (07:45→17:04)
[2019-02-12] MEDS: DIGOXIN 0.125 MG (LANOXIN) TAB PO SCH (08:37)
[2019-02-12] MEDS: GABAPENTIN 100 MG (NEURONTIN) CAP PO SCH ×3 (08:37→20:59)
[2019-02-12] MEDS: ASPIRIN 81 MG CHEW (CHILDREN'S ASA) PO SCH (08:37)
[2019-02-12] MEDS: APIXABAN 2.5 MG (ELIQUIS) TABLET PO SCH ×2 (08:37→20:58)
[2019-02-12] MEDS: FAMOTIDINE 20 MG (PEPCID) TABLET PO SCH (08:37)
[2019-02-12] MEDS: LORATADINE (CLARITIN) 10 MG TAB PO SCH (08:38)
[2019-02-12] MEDS: DILTIAZEM 240 MG (CARDIZEM CD) CAP PO SCH (08:38)
[2019-02-12] MEDS: VITAMIN D3 1,000 UNITS (CHOLECALCIFEROL) TABLET PO SCH ×2 (08:38→20:59)
[2019-02-12] MEDS: OXYBUTYNIN (DITROPAN) 5 MG TAB PO SCH ×2 (08:38→20:58)
[2019-02-12] MEDS: COLLAGENASE 30 GM (SANTYL) TUBE TP SCH (08:39)
[2019-02-12 08:43] VITALS: BP 96/62
--- NOTE | 2019-02-12 09:52 | PM&R Progress Note ---
Subjective HPI/CC On Admission Date Seen by Provider: Feb 12, 2019 Time Seen by Provider: 09:00 Chief complaint: Myopathy HPI: This is a 83yoWM who previously worked at [employer] who has been to [facility] 3x recently, because the first was pneumonia the second C-Diff colitis, and the third was an aspiration pneumonia, so he was transferred to [place], NG tub was placed for nutrition and he was able to work with speech therapy [employer] and resume a dysphasia one diet. Overall he has dramatically improved but definitely needs a lot of therapy to return home. He was placed in a fdc facility after the pneumonia and the C-Diff colitis episode but his intention is to go home. I did speak with speech therapy who will evaluate what his needs are as far as his diet and resume that. He does have a history of chronic atrial fibrillation and he does have some rapid ventricular response of 120s when he was up working with therapy so I did consult cardiology, Dr. Blevins and updated him and L[place]to regarding this new Pt set to arrive any minute. I did speak with Dr. Ibrahim from [facility] regarding the admission and transfer and I accepted the care. Subjective/Events-last exam Pt hopes to go home at the end of the week. Using IS well. That has made a huge difference for the Pt overall. Stools are normal now. Will discontinue Vancomycin which has been on hold before it was given for the first time. Participating in therapy Check meds and labs Reviewed therapy notes Conferred with connection worker of Systems General: Fatigue Objective Exam Vital Signs Vital Signs Date Time Temp Pulse Resp B/P (MAP) Pulse Ox O2 Delivery O2 Flow Rate FiO2 02/12/19 17:31 97.9 71 20 113/66 (82) 94 Room Air 02/08/19 08:00 95 02/07/19 08:15 2.00 Capillary Refill : Less Than 3 Seconds General Appearance: No Apparent Distress, WD/WN, Chronically ill HEENT: PERRL/EOMI, Normal ENT Inspection, Pharynx Normal; No Pale Conjunctivae (L), No Pale Conjunctivae (R) Neck: Normal Inspection; No Thyromegaly Respiratory: Chest Non Tender, Lungs Clear, Normal Breath Sounds, No Accessory Muscle Use, No Respiratory Distress, Crackles (subtle) Cardiovascular: Regular Rate, Rhythm, Irregularly Irregular Gastrointestinal: Normal Bowel Sounds, No Organomegaly, No Pulsatile Mass, Non Tender, Soft Rectal: Deferred Back: Normal Inspection, No CVA Tenderness, Decreased Range of Motion, Other (sevre kyphosis) Extremity: Normal Inspection; No Swelling Neurologic/Psychiatric: Alert, Oriented x3, Normal Mood/Affect Skin: Ecchymosis, Mottled, Rash, Other (Shallow ulcer on R heel, appears to be improving. L heel still blanching ) Results/Procedures Lab Patient resulted labs reviewed. FIM Transfers Therapy Code Descriptions/Definitions Functional [place] Measure: 0=Not Assessed/NA 4=Minimal Assistance 1=Total Assistance 5=Supervision or Setup 2=Maximal Assistance 6=Modified K[place] 3=Moderate Assistance 7=Complete K[place] Therapy Quality Codes: 6 Independent with activity with or without an assistive device 5 Patient requires set up or clean up by helper. Patient completes activity by themselves 4 Supervision or touching assist (CGA). [place] provide cues , steadying assist 3 The helper provides less than half the effort to complete the activity 2 The helper provides more than half the effort to complete the activity 1 Dependent. The helper does all the effort to complete an activity 7 Patient refused to complete or attempt activity 9 The patient did not perform the activity before the current illness or injury 88 Not attempted due to Medical conditions or safety concerns Transfers (B, C, W/C) (FIM): 5 Scootin Rollin Roll Left to Right (QC): 4 Supine to/from Sit: 5 Sit to/from Stand: 5 Sit to Lying (QC): 3 Sit to Stand (QC): 5 Chair/Sde-kl-Nefgj Xfer(QC): 3 Bed to/from Chair: 5 Car Transfer (QC): 3 Gait Training Does the Patient Walk?: Yes Gait (FIM): 5 Distance (FIM): 3=150 ft Distance: 250', 150' Walk 10 feet (QC): 5 Walk 50 ft with 2 Turns(QC): 5 Walk 150 ft (QC): 5 Walking 10ft/uneven surface-QC: 3 Gait Level of Assist: 5 Gait Persons Needed: 1 Gait Assistive Device: FWW Wheelchair Training Does the Pt Use a Wheelchair?: No Stair Training Stairs (FIM): 1 1 Step (curb) (QC): 1 4 Steps (QC): 88 12 Steps (QC): 88 Balance Picking up an Object (QC): 88 Mental Status/Objective Comprehension: 7 Expression: 7 Social Interaction: 7 Problem Solvin Memory: 7 ADL-Treatment Feedin Eating (QC): 5 Groomin (set up, pt used electric razor to shave, brushed his dentures, washed face and hands with set up assistance) Oral Hygiene (QC): 5 Bathin (Pt completed sponge bath seated EOB, CGA during stand) Shower/Bathe Self (QC): 4 Upper Extremity Dressin (Min A required to don button up shirt) Upper Body Dressing (QC): 3 Lower Extremity Dressin (Pt able to don shoes and donned pants with CGA during stand at W. OT assisted pt in donning tab style brief.) Lower Body Dressing (QC): 3 On/Off Footwear (QC): 6 (shoes only) Toiletin (CGA during stand for clothing management) Toileting Hygiene (QC): 4 Toilet/Commode Transfer: 4 (Min A to stand) Toilet Transfer (QC): 3 Shower: 4 Assessment/Plan Assessment and Plan Assess & Plan/Chief Complaint Plan: IRF protocol Cardiology appreciated Home meds Monitor for falls Noted severe kyphosis will limit overall physical function wbc count now normal Regular diet tolerated Heels off bed Appreciate Cardiology management IS for lung expansion due to severe kyphosis and crackles on exam which are now much improved Needs AL so will inquire with SW regarding that option (1) Myopathy Status: Acute (2) Kyphosis Status: Chronic Qualifiers: Kyphosis type: postural Spinal region: cervicothoracic Qualified Codes: 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, cervicothoracic region (3) DNR (do not resuscitate) Status: Chronic (4) COPD (chronic obstructive pulmonary disease) Status: Chronic Qualifiers: COPD type: unspecified COPD Qualified Codes: J44.9 - Chronic obstructive pulmonary disease, unspecified (5) CHF (congestive heart failure) Status: Chronic Qualifiers: Heart failure type: unspecified (6) Prostate cancer Status: Chronic (7) Oxygen dependent Status: Chronic (8) Atrial fibrillation with rapid ventricular response Status: Acute (9) Advanced age Status: Chronic (10) Atrial fibrillation, chronic Status: Chronic (11) Presbycusis of both ears Status: Chronic (12) At risk for aspiration Status: Chronic (13) History of Clostridioides difficile colitis Status: Chronic QUANG HINTON DO Feb 12, 2019 09:52
[2019-02-12] MEDS: CHOLESTYRAMINE 4 GM (QUESTRAN LITE, PREVALITE) PKT PO SCH (10:00)
--- NOTE | 2019-02-12 11:24 | Progress Note - Cardiology ---
Cardiology SOAP Progress Note Subjective: Up ambulating with PT with walker. Objective: I&O/Vital Signs 02/12/19 02/12/19 02/12/19 02/12/19 06:04 06:29 08:43 09:59 Temp 97.0 Pulse 67 91 Resp 16 16 B/P (MAP) 92/58 (69) 96/62 (73) Pulse Ox 96 91 94 O2 Delivery Room Air Room Air Room Air Room Air 02/12/19 00:00 Intake Total 1030 ml Output Total 1000 ml Balance 30 ml Weight (Pounds): 132 Weight (Ounces): 1.6 Weight (Calculated Kilograms): [id number] Constitutional: AAO x 3, other (thin) Respiratory: No accessory muscle use, No respiratory distress; chest expansion is symmetric, chest is bilaterally symmetric, lungs clear to auscultation Cardiovascular: irregularly irregular; No JVD; S1 and S2 Gastrointestional: No tender; soft, round, audible bowel sounds Extremities: no lower extremity edema bilateral Neurologic/Psychiatric: alert, grossly intact Skin: other (dressings to heels bilat; not removed) Results/Procedures: Labs Laboratory Tests 02/11/19 06:15 A/P: Assessment: PAF/Flutter vs SVT with vent rates up to 150 bpm. 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 TSH normal (1.43) on 02/03/19 Plan: * Continue long-acting dilt for vent rate control * Not suitable candidate for BB d/t hypotension * Continue Eliquis for stroke prophylaxis * Monitor lab from time to time FRANK REYES Feb 12, 2019 11:24
--- NOTE | 2019-02-12 11:54 | Physical Therapy Daily Note ---
PT Daily Note-Current Subjective Patient in therapy gym pre tx, agrees to PT, has no complaints of pain. Appearance Patient in recliner post tx, nurse in room to change dressing on his foot, has nurse call, magdiel. Mental Status Patient Orientation: Person, Place, Situation Transfers Therapy Code Descriptions/Definitions Functional [place] Measure: 0=Not Assessed/NA 4=Minimal Assistance 1=Total Assistance 5=Supervision or Setup 2=Maximal Assistance 6=Modified [place] 3=Moderate Assistance 7=Complete [place] Therapy Quality Codes: 6 Independent with activity with or without an assistive device 5 Patient requires set up or clean up by helper. Patient completes activity by themselves 4 Supervision or touching assist (CGA). [place] provide cues , steadying assist 3 The helper provides less than half the effort to complete the activity 2 The helper provides more than half the effort to complete the activity 1 Dependent. The helper does all the effort to complete an activity 7 Patient refused to complete or attempt activity 9 The patient did not perform the activity before the current illness or injury 88 Not attempted due to Medical conditions or safety concerns Transfers (B, C, W/C) (FIM): 5 Sit to/from Stand: 5 Bed to/from Chair: 5 no retropulsion or unsteadiness Weight Bearing Full Weight Bearing Full Weight Bearing Gait Training Gait (FIM): 5 Distance: 200'x3 Gait Level of Assist: 5 Gait Persons Needed: 1 Gait Assistive Device: FWW slow but steady ambulation Exercises LAQ alternating for 5 min with 2# ankle weights NuStep Minutes: 15 NuStep Workload: 4 Treatments LE exercise, ambulation, transfers Assessment Current Status: Fair Progress improving endurance and balance PT Short Term Goals Short Term Goals Time Frame: Feb 14, 2019 Transfers (B,C,W/C) (FIM): 4 Gait (FIM): 4 Distance (FIM): 3=150 ft Gait Assistive Device: FWW PT Collection Manager Goals Collection Manager Goals PT Residential Goals Time Frame: Feb 28, 2019 Transfers (B,C,W/C) (FIM): 6 Sit to Lying (QC): 6 Lying-Sitting on Side/Bed(QC): 6 Sit to Stand (QC): 6 Rollin Roll Left to Right (QC): 6 Chair/Kqw-mj-Qoezd Xfer(QC): 6 Car Transfer (QC): 6 Does the Patient Walk: Yes Gait (FIM): 6 Gait distance (FIM): 3=150 ft Walk 10 feet (QC): 6 Walk 10ft-Uneven Surface(QC): 6 Walk 50ft with 2 Turns (QC): 6 Walk 150 ft (QC): 6 Gait Assistive Device: FWW Does the Pt use WC or Scooter?: No Stairs (FIM): 5 # of Steps: 4 1 Step (curb) (QC): 6 4 Steps (QC): 6 12 Steps (QC): 9 Picking up an Object (QC): 88 PT Plan Problem List Problem List: Activity Tolerance, Functional Strength, Safety, Balance, Gait, Transfer, Bed Mobility Treatment/Plan Treatment Plan: Continue Plan of Care Treatment Plan: Bed Mobility, Education, Functional Activity Mahamed, Functional Strength, Group Therapy, Gait, Safety, Therapeutic Exercise, Transfers Treatment Duration: Feb 28, 2019 Frequency: At least 5 of 7 days/Wk (IRF) Estimated Hrs Per Day: 1.5 hours per day Patient and/or Family Agrees t: Yes Safety Risks/Education Patient Education: Gait Training, Transfer Techniques, Correct Positioning, Safety Issues Teaching Recipient: Patient Teaching Methods: Demonstration, Discussion Response to Teaching: Reinforcement Needed Time/GCodes Time In: 1100 Time Out: 1200 Total Billed Treatment Time: 60 Total Billed Treatment 1 visit EX 20' GT 40' BIN ROSE PT Feb 12, 2019 11:54
--- NOTE | 2019-02-12 13:25 | Speech Therapy Daily Note ---
Speech Daily Progress Note Subjective Date Seen by Provider: Feb 12, 2019 Time Seen by Provider: 00:30 The patient was sitting up in his bed eating breakfast when I entered his room. Objective The patient utilizes directions for intake of liquids of small sips and food in small bites with 90% and minimal cues. Assessment Assessment Current Status: Good Progress Treatment Plan Continue Plan of Care Communication Comprehension: 7 Expression: 7 Social Cognition Social Interaction: 7 Problem Solvin Memory: 7 Speech Short Term Goals Short Term Goals Short Term Goals 1) The patient will tolerate least restrictive diet level without s/s of aspiration with 90% or greater. 2) The patient will utilize compensatory strategies as trained with 90% or greater given minimal cues. Speech Health Education Assistant Goals Fdc Goals The patient will maintain adequate nutrition/hydration via safe effective swallow function. Comprehension: 6 Expression: 6 Social Interaction: 6 Problem Solvin Memory: 6 Speech-Plan Patient/Family Goals Patient/Family Goals: The patient plans to return home with family support upon discharge. Treatment Plan Speech Therapy Treatment Plan: Continue Plan of Care The patient has made good progress with oral intake. Treatment Duration: Feb 15, 2019 Frequency: 5 times per week Estimated Hrs Per Day: .25 hour per day Rehab Potential: Fair Barriers to Learning: The patient has mild cognitive deficits intermittently Pt/Family Agrees to Plan: Yes Safety Risks/Education Teaching Recipient: Patient Teaching Methods: Demonstration, Discussion Response to Teaching: Verbalize Understanding, Return Demonstration Education Topics Provided: Continued safety with oral intake. Time Speech Therapy Time In: 08:30 Speech Therapy Time Out: 09:00 Total Billed Time: 30 Billed Treatment Time 1, KRISTIN Stanford Feb 12, 2019 13:25
--- NOTE | 2019-02-12 14:05 | NUR ---
SAEID Bermudez per Dr. Shi.
--- NOTE | 2019-02-12 14:57 | Physical Therapy Daily Note ---
PT Daily Note-Current Subjective Patient in recliner pre tx, agrees to PT, has no complaints of pain. Appearance Patient in bed post tx with nurse call, phone, tray, all needs met. Mental Status Patient Orientation: Person, Place, Situation Transfers Therapy Code Descriptions/Definitions Functional Wallace Measure: 0=Not Assessed/NA 4=Minimal Assistance 1=Total Assistance 5=Supervision or Setup 2=Maximal Assistance 6=Modified [place] 3=Moderate Assistance 7=Complete [place] Therapy Quality Codes: 6 Independent with activity with or without an assistive device 5 Patient requires set up or clean up by helper. Patient completes activity by themselves 4 Supervision or touching assist (CGA). [place] provide cues , steadying assist 3 The helper provides less than half the effort to complete the activity 2 The helper provides more than half the effort to complete the activity 1 Dependent. The helper does all the effort to complete an activity 7 Patient refused to complete or attempt activity 9 The patient did not perform the activity before the current illness or injury 88 Not attempted due to Medical conditions or safety concerns Transfers (B, C, W/C) (FIM): 5 Scootin Rollin Supine to/from Sit: 5 Sit to/from Stand: 5 Bed to/from Chair: 5 Weight Bearing Full Weight Bearing Full Weight Bearing Gait Training Gait (FIM): 5 Distance: 200'x2 Gait Level of Assist: 5 Gait Persons Needed: 1 Gait Assistive Device: FWW slow ambulation but steady Exercises Seated Therapy Exercises: Ankle pumps, Long arc quads Seated Reps: 20 Treatments LE exercise, ambulation, bed mobility and transfers Assessment Current Status: Fair Progress improving general mobility PT Short Term Goals Short Term Goals Time Frame: Feb 14, 2019 Transfers (B,C,W/C) (FIM): 4 Gait (FIM): 4 Distance (FIM): 3=150 ft Gait Assistive Device: FWW PT Long-Term Goals [place]bler Goals PT Long-Term Goals Time Frame: Feb 28, 2019 Transfers (B,C,W/C) (FIM): 6 Sit to Lying (QC): 6 Lying-Sitting on Side/Bed(QC): 6 Sit to Stand (QC): 6 Rollin Roll Left to Right (QC): 6 Chair/Wtl-sg-Uhihj Xfer(QC): 6 Car Transfer (QC): 6 Does the Patient Walk: Yes Gait (FIM): 6 Gait distance (FIM): 3=150 ft Walk 10 feet (QC): 6 Walk 10ft-Uneven Surface(QC): 6 Walk 50ft with 2 Turns (QC): 6 Walk 150 ft (QC): 6 Gait Assistive Device: FWW Does the Pt use WC or Scooter?: No Stairs (FIM): 5 # of Steps: 4 1 Step (curb) (QC): 6 4 Steps (QC): 6 12 Steps (QC): 9 Picking up an Object (QC): 88 PT Plan Problem List Problem List: Activity Tolerance, Functional Strength, Safety, Balance, Gait, Transfer, Bed Mobility, ROM Treatment/Plan Treatment Plan: Continue Plan of Care Treatment Plan: Bed Mobility, Education, Functional Activity Mahamed, Functional Strength, Group Therapy, Gait, Safety, Therapeutic Exercise, Transfers Treatment Duration: Feb 28, 2019 Frequency: At least 5 of 7 days/Wk (IRF) Estimated Hrs Per Day: 1.5 hours per day Patient and/or Family Agrees t: Yes Safety Risks/Education Patient Education: Gait Training, Transfer Techniques, Correct Positioning, Safety Issues Teaching Recipient: Patient Teaching Methods: Demonstration, Discussion Response to Teaching: Reinforcement Needed Time/GCodes Time In: 1400 Time Out: 1430 Total Billed Treatment Time: 30 Total Billed Treatment 1 visit GT 30' BIN ROSE PT Feb 12, 2019 14:57
--- NOTE | 2019-02-12 15:19 | Occupational Ther Daily Note ---
OT Current Status-Daily Note Subjective No pain reported. Appearance Pt. in bed. Agrees to work with OT. Mental Status/Objective Patient Orientation: Person, Place Therapy Code Descriptions/Definitions Functional [place] Measure: 0=Not Assessed/NA 4=Minimal Assistance 1=Total Assistance 5=Supervision or Setup 2=Maximal Assistance 6=Modified [place] 3=Moderate Assistance 7=Complete [place] ADL-Treatment Therapy Code Descriptions/Definitions Functional [place] Measure: 0=Not Assessed/NA 4=Minimal Assistance 1=Total Assistance 5=Supervision or Setup 2=Maximal Assistance 6=Modified [place] 3=Moderate Assistance 7=Complete [place] Therapy Quality Codes: 6 Independent with activity with or without an assistive device 5 Patient requires set up or clean up by helper. Patient completes activity by themselves 4 Supervision or touching assist (CGA). [place] provide cues , steadying assist 3 The helper provides less than half the effort to complete the activity 2 The helper provides more than half the effort to complete the activity 1 Dependent. The helper does all the effort to complete an activity 7 Patient refused to complete or attempt activity 9 The patient did not perform the activity before the current illness or injury 88 Not attempted due to Medical conditions or safety concerns Bathing (FIM): 4 (CGA/min assist in stance.) Shower/Bathe Self (QC): 4 Upper Body (FIM): 5 Upper Body Dressing (QC): 4 Lower Body Dressing (FIM): 3 Lower Body Dressing (QC): 3 On/Off Footwear (QC): 4 Transfers (B, C, W/C) (FIM): 3 (Mod assist sit-stand from bed. Min assist sit- stand from chair in room.) Shower Transfer(FIM): 4 Other Treatment After ADLs, pt. ambulated with walker and CGA to therapy gym. Tolerated 5 minut es on arm bike at min resistance to increase overall endurance. Then ambulated back to room with CGA and walker. Pt. requires increased time to ambulate. All needs met back in room. Education OT Patient Education: Correct positioning, Exercise program, Modified ADL techniques, Progress toward Goal/Update tx plan, Purpose of tx/functional activities, Reviewed precautions, Rehab process, Transfer techniques, Use of adapted equipment Teaching Recipient: Patient Teaching Methods: Demonstration, Discussion Response to Teaching: Verbalize Understanding, Return Demonstration OT Short Term Goals Short Term Goals Transfers (B,C,W/C) (FIM): 4 1=Demonstrate adherence to instructed precautions during ADL tasks. 2=Patient will verbalize/demonstrate understanding of assistive devices/modifications for ADL. 3=Patient will improve strength/tolerance for activity to enable patient to perform ADL's. OT Parts Counter Associate Goals [facility] Goals Time Frame: Feb 21, 2019 Eating (FIM): 6 Eating (QC): 6 Groomin Oral Hygiene (QC): 6 Bathing(FIM): 5 Shower/Bathe Self (QC): 5 Upper Body Dressing(FIM): 6 Upper Body Dressing (QC): 6 Lower Body Dressing(FIM): 6 Lower Body Dressing (QC): 6 On/Off Footwear (QC): 6 Toileting(FIM): 5 Toileting Hygiene (QC): 6 Transfers (B,C,W/C) (FIM): 6 Toilet/Commode Transfer(FIM): 6 Toilet/Commode Transfer (QC): 6 Shower Transfer(FIM): 5 Comprehension(FIM): 6 Expression (FIM): 6 Social Interaction(FIM): 6 Problem Solving(FIM): 6 Memory(FIM): 6 Additional Goals: 1-Demonstrate ADL Tasks, 2-Verbalize Understanding, 3- ImproveStrength/Mahamed 1=Demonstrate adherence to instructed precautions during ADL tasks. 2=Patient will verbalize/demonstrate understanding of assistive devices/modifications for ADL. 3=Patient will improve strength/tolerance for activity to enable patient to perform ADL's. OT Education/Plan Problem List/Assessment Assessment: Decreased Activ Tolerance, Decreased UE Strength, Dependent Transfers, Impaired Bed Mobility, Impaired Funct Balance, Impaired I ADL's, Impaired Self-Care Skills, Restricted Funct UE ROM Discharge Recommendations Plan/Recommendations: Continue POC Treatment Plan/Plan of Care Treatment,Training & Education: Yes Patient would benefit from OT for education, treatment and training to promote independence in ADL's, mobility, safety and/or upper extremity function for ADL's. Plan of Care: ADL Retraining, Functional Mobility, Group Exercise/Act as Ind, UE Funct Exercise/Act Treatment Duration: Feb 21, 2019 Frequency: At least 5 of 7 days/Wk (IRF) Estimated Hrs Per Day: 1.5 hours per day Agreement: Yes Rehab Potential: Fair Time/GCodes Start Time: 09:45 Stop Time: 11:00 Total Time Billed (hr/min): 75 Billed Treatment Time 1, ADL x 60minutes, Ex x 15minutes ADITHYA MAC OT Feb 12, 2019 15:19
--- NOTE | 2019-02-12 16:16 | Progress Note - Cardiology ---
Cardiology SOAP Progress Note Subjective: No cp or palp or syncope Still weak and tires easily No shortness of breath at rest Objective: I&O/Vital Signs 02/12/19 02/12/19 02/12/19 02/12/19 06:04 06:29 08:43 09:59 Temp 97.0 Pulse 67 91 Resp 16 16 B/P (MAP) 92/58 (69) 96/62 (73) Pulse Ox 96 91 94 O2 Delivery Room Air Room Air Room Air Room Air 02/12/19 00:00 Intake Total 1030 ml Output Total 1000 ml Balance 30 ml Weight (Pounds): 132 Weight (Ounces): 1.6 Weight (Calculated Kilograms): 59.227985 Constitutional: AAO x 3, other (thin) Respiratory: No accessory muscle use, No respiratory distress; chest expansion is symmetric, chest is bilaterally symmetric, lungs clear to auscultation Cardiovascular: irregularly irregular; No JVD; S1 and S2 Gastrointestional: No tender; soft, round, audible bowel sounds Extremities: no lower extremity edema bilateral Neurologic/Psychiatric: alert, grossly intact Skin: other (dressings to heels bilat; not removed) Results/Procedures: Labs Laboratory Tests 02/11/19 06:15 A/P: Assessment: PAF/Flutter vs SVT with vent rates up to 150 bpm. These are relatively brief episodes that are asymptomatic Stroke prophylaxis with apixaban Echo of 02/01/19: LVEF 50%, dilated LA, trivial AI, mild MR, RVSP 19 mmHg Generalized weakness following lengthy hospitalization for aspiration pneumonia and C-Diff CAD - reports h/o stents x7 - states last cor stent was to [facility] in Jul 2017 - primary front office help Dr. Stern at [facility] in [place], [place] HLD - statin tx H/O bilat CEA - unsure of details - reports done at [facility] H/O tobacco use - quit > 20 years ago HTN CKD stage III Reported h/o cirrhosis Chronic back pain with nerve stimulator in place Kyphosis H/o hypothyroidism. TSH normal (1.43) on 02/03/19 Plan: * Continue current cardiac regimen * Monitor lab from time to time NYA PENALOZA MD FACP FAC CCDS Feb 12, 2019 16:15
[2019-02-12 17:31] VITALS: BP 113/66
[2019-02-12] MEDS: ATORVASTATIN 40 MG (LIPITOR) TABLET PO SCH (18:06)
[2019-02-12] MEDS: rOPINIRole 1 MG (REQUIP) TABLET PO SCH (20:58)
--- NOTE | 2019-02-13 04:51 | Progress Note - Hospitalist ---
[facility]: Progress Note Mr. Long is an 83 y.o WM w/ PMH of CHF, AFib w/ RVR, CAD, CKD stage 3, and prostate CA who is admitted to Inpatient Rehab after a lengthy hospital stay He is recovering and feels like he is doing much better currently. Since last discussed with patient, not much has changed at home; he is still living on the first floor of his 2 story home with chair lift access to the second floor. Gaining entry to his home entails climbing up 3 steps which he states may provide some trouble for him until he is able to gain more strength. Pt states he is able dress, use the facilities, and shower by himself but he has outside assistance for daily chores (e.g cleaning) and cooking. Pt still has his 2 large dogs and states he wont be able to walk them without his walker at this . Pt denies any change to his social hx since last reconciled on Jan 31, 2019. CLEMENTINA HINTON DO 02/13/19 1131: Supervisory-Addendum Brief Verification & Attestation Participated in pt care: history, MDM, physical Personally performed: exam, history, MDM, supervision of care Care discussed with: Medical Student Procedures: n/a Results interpretation: Verified all documentation Verification and Attestation of Medical Student E/M Service A medical student performed and documented this service in my presence. I reviewed and verified all information documented by the medical student and made modifications to such information, when appropriate. I personally performed the physical exam and medical decision making. Clementina Hinton Feb 13, 2019,11:[address] [facility] Feb 13, 2019 04:51 CLEMENTINA HINTON DO Feb 13, 2019 11:31
[2019-02-13 05:55] LABS: BUN/CREATININE RATIO 27; CALCIUM 8.7 MG/DL (8.5-10.1); CARBON DIOXIDE 27 MMOL/L (21-32); CHLORIDE 108 MMOL/L (98-107); CREATININE SERUM 0.79 MG/DL (0.60-1.30); GFR ESTIMATED > 60; GLUCOSE 91 MG/DL (70-105); SODIUM 141 MMOL/L (135-145)
[2019-02-13 06:05] VITALS: BP 104/50
[2019-02-13] MEDS: LEVOTHYROXINE 75 MCG (LEVOTHROID) TABLET PO SCH (06:08)
[2019-02-13] MEDS: LACTOBACILLUS ACIDOPHILUS (PROBIOTIC) CAPSULE PO SCH ×3 (06:08→17:59)
[2019-02-13] MEDS: MULTIVIT W/MINERALS TAB (THERAGRAN M) PO SCH (06:08)
[2019-02-13] MEDS: LACTOSE REDUCED FOOD PO SCH ×3 (06:08→17:59)
[2019-02-13] MEDS: CATHETER FLUSH 10 ML SYR IV SCH ×3 (06:10→22:11)
[2019-02-13] MEDS: FAMOTIDINE 20 MG (PEPCID) TABLET PO SCH (07:56)
[2019-02-13] MEDS: GABAPENTIN 100 MG (NEURONTIN) CAP PO SCH ×3 (07:56→21:03)
[2019-02-13 07:57] VITALS: BP 95/59
[2019-02-13] MEDS: DILTIAZEM 240 MG (CARDIZEM CD) CAP PO SCH (07:57)
[2019-02-13] MEDS: APIXABAN 2.5 MG (ELIQUIS) TABLET PO SCH ×2 (07:57→21:05)
[2019-02-13] MEDS: OXYBUTYNIN (DITROPAN) 5 MG TAB PO SCH ×2 (07:57→21:05)
[2019-02-13] MEDS: DIGOXIN 0.125 MG (LANOXIN) TAB PO SCH (07:57)
[2019-02-13] MEDS: LORATADINE (CLARITIN) 10 MG TAB PO SCH (07:57)
[2019-02-13] MEDS: VITAMIN D3 1,000 UNITS (CHOLECALCIFEROL) TABLET PO SCH ×2 (07:57→22:11)
[2019-02-13] MEDS: ASPIRIN 81 MG CHEW (CHILDREN'S ASA) PO SCH (07:57)
--- NOTE | 2019-02-13 10:18 | Physical Therapy Daily Note ---
PT Daily Note-Current Subjective Pt. agrees to Rx, jovial and pleasant Pain Location: No Pain Reported Appearance very kyphotic, Mental Status Patient Orientation: Normal For Age Transfers Therapy Code Descriptions/Definitions Functional Heard Measure: 0=Not Assessed/NA 4=Minimal Assistance 1=Total Assistance 5=Supervision or Setup 2=Maximal Assistance 6=Modified Heard 3=Moderate Assistance 7=Complete Heard Therapy Quality Codes: 6 Independent with activity with or without an assistive device 5 Patient requires set up or clean up by helper. Patient completes activity by themselves 4 Supervision or touching assist (CGA). [place] provide cues , steadying assist 3 The helper provides less than half the effort to complete the activity 2 The helper provides more than half the effort to complete the activity 1 Dependent. The helper does all the effort to complete an activity 7 Patient refused to complete or attempt activity 9 The patient did not perform the activity before the current illness or injury 88 Not attempted due to Medical conditions or safety concerns Transfers (B, C, W/C) (FIM): 5 Scootin Rollin Supine to/from Sit: 6 Sit to/from Stand: 5 Bed to/from Chair: 5 pt. requires tall seated surface and is then Mod I sit to stand, uses hosp bed at home as well as lift recline chair Weight Bearing Full Weight Bearing Full Weight Bearing Gait Training Does the Patient Walk?: Yes Gait (FIM): 5 Distance (FIM): 3=150 ft (200x3) Gait Level of Assist: 5 Gait Persons Needed: 1 Gait Assistive Device: FWW small step length, head down extreme kyphosis Stair Training Stair Training: Handrails/: 2 handrails Stairs (FIM): 2 #of Steps: 4 Stairs: Pattern: Reciprocal Level of Assist: 4 Exercises Seated Therapy Exercises: Ankle pumps, Sit to stand, Long arc quads, Hip flexion Seated Reps: 10 NuStep Minutes: 10 NuStep Workload: 4 Treatments seated U&L reciprocating excercises Assessment Current Status: Good Progress PT Short Term Goals Short Term Goals Time Frame: Feb 14, 2019 Transfers (B,C,W/C) (FIM): 4 Gait (FIM): 4 Distance (FIM): 3=150 ft Gait Assistive Device: FWW PT Front End Web Designer Goals Front End Web Designer Goals PT Front End Web Designer Goals Time Frame: Feb 28, 2019 Transfers (B,C,W/C) (FIM): 6 Sit to Lying (QC): 6 Lying-Sitting on Side/Bed(QC): 6 Sit to Stand (QC): 6 Rollin Roll Left to Right (QC): 6 Chair/Wek-gg-Uvqyc Xfer(QC): 6 Car Transfer (QC): 6 Does the Patient Walk: Yes Gait (FIM): 6 Gait distance (FIM): 3=150 ft Walk 10 feet (QC): 6 Walk 10ft-Uneven Surface(QC): 6 Walk 50ft with 2 Turns (QC): 6 Walk 150 ft (QC): 6 Gait Assistive Device: FWW Does the Pt use WC or Scooter?: No Stairs (FIM): 5 # of Steps: 4 1 Step (curb) (QC): 6 4 Steps (QC): 6 12 Steps (QC): 9 Picking up an Object (QC): 88 PT Plan Treatment/Plan Treatment Plan: Continue Plan of Care Treatment Plan: Bed Mobility, Education, Functional Activity Mahamed, Functional Strength, Group Therapy, Gait, Safety, Therapeutic Exercise, Transfers Treatment Duration: Feb 28, 2019 Frequency: At least 5 of 7 days/Wk (IRF) Estimated Hrs Per Day: 1.5 hours per day Patient and/or Family Agrees t: Yes Safety Risks/Education Patient Education: Gait Training, Transfer Techniques, Steps, Correct Positioning, Disease Process, Safety Issues Teaching Recipient: Patient Teaching Methods: Demonstration, Discussion Response to Teaching: Verbalize Understanding, Return Demonstration, Reinforcement Needed Time/GCodes Time In: 935 Time Out: 1015 Total Billed Treatment Time: 40 Total Billed Treatment 1,GT15,EX15,FA10 SHAILA MCCULLOUGH DETAIL SUPERVISOR Feb 13, 2019 10:18
--- NOTE | 2019-02-13 10:27 | Occupational Ther Daily Note ---
OT Current Status-Daily Note Subjective pt agreed to OT TX session with focus on increasing indep with ADLS and functional mobility. 2nd OT session with focus on increasing energy conservation techniques and activity tolerance for daily activities. pt reports no pain Mental Status/Objective Patient Orientation: Normal For Age Therapy Code Descriptions/Definitions Functional Coleman Measure: 0=Not Assessed/NA 4=Minimal Assistance 1=Total Assistance 5=Supervision or Setup 2=Maximal Assistance 6=Modified Coleman 3=Moderate Assistance 7=Complete Coleman ADL-Treatment Therapy Code Descriptions/Definitions Functional Coleman Measure: 0=Not Assessed/NA 4=Minimal Assistance 1=Total Assistance 5=Supervision or Setup 2=Maximal Assistance 6=Modified Coleman 3=Moderate Assistance 7=Complete Coleman Therapy Quality Codes: 6 Independent with activity with or without an assistive device 5 Patient requires set up or clean up by helper. Patient completes activity by themselves 4 Supervision or touching assist (CGA). [place] provide cues , steadying assist 3 The helper provides less than half the effort to complete the activity 2 The helper provides more than half the effort to complete the activity 1 Dependent. The helper does all the effort to complete an activity 7 Patient refused to complete or attempt activity 9 The patient did not perform the activity before the current illness or injury 88 Not attempted due to Medical conditions or safety concerns Grooming (FIM): 5 (standing at sink to wash hands, close SBA ) Upper Body (FIM): 5 (set up/ SBA ) Lower Body Dressing (FIM): 3 (pants, underpatns, matty socks and shoes. ) Transfers (B, C, W/C) (FIM): 4 (useof RW) pt perform bed mobility with SBA and stand step transfer to recliner chair with CGA for safety/ balance using RW. pt perform dressing whiel seated in chair. post session pt seated in recliner chair and transition to MAIL SORTER AND DELIVERY services. Other Treatment 2nd OT session. pt perform UBE with no resistance for 5 minutes forward to increase activity tolerance for ADLs. pt then given energy conservation hand out of how to incorporate the "4'P" in daily living. pt read through handout and verbalized way how how to incorporate techniques within tasks. pt then ambulated back to room and sat in recliner chair, call light within reach, all needs met. Education OT Patient Education: Energy conservation, Modified ADL techniques, Progress toward Goal/Update tx plan, Purpose of tx/functional activities, Transfer techniques Teaching Recipient: Patient Teaching Methods: Demonstration, Discussion Response to Teaching: Verbalize Understanding, Return Demonstration OT Short Term Goals Short Term Goals Transfers (B,C,W/C) (FIM): 4 1=Demonstrate adherence to instructed precautions during ADL tasks. 2=Patient will verbalize/demonstrate understanding of assistive devices/modifications for ADL. 3=Patient will improve strength/tolerance for activity to enable patient to perform ADL's. OT Camp Dining Room Attendant Goals Camp Dining Room Attendant Goals Time Frame: Feb 21, 2019 Eating (FIM): 6 Eating (QC): 6 Groomin Oral Hygiene (QC): 6 Bathing(FIM): 5 Shower/Bathe Self (QC): 5 Upper Body Dressing(FIM): 6 Upper Body Dressing (QC): 6 Lower Body Dressing(FIM): 6 Lower Body Dressing (QC): 6 On/Off Footwear (QC): 6 Toileting(FIM): 5 Toileting Hygiene (QC): 6 Transfers (B,C,W/C) (FIM): 6 Toilet/Commode Transfer(FIM): 6 Toilet/Commode Transfer (QC): 6 Shower Transfer(FIM): 5 Comprehension(FIM): 6 Expression (FIM): 6 Social Interaction(FIM): 6 Problem Solving(FIM): 6 Memory(FIM): 6 Additional Goals: 1-Demonstrate ADL Tasks, 2-Verbalize Understanding, 3-I mproveStrength/Mahamed 1=Demonstrate adherence to instructed precautions during ADL tasks. 2=Patient will verbalize/demonstrate understanding of assistive devices/modifications for ADL. 3=Patient will improve strength/tolerance for activity to enable patient to perform ADL's. OT Education/Plan Problem List/Assessment Assessment: Decreased Activ Tolerance, Decreased UE Strength, Impaired I ADL's, Impaired Self-Care Skills Discharge Recommendations Plan/Recommendations: Continue POC Treatment Plan/Plan of Care Treatment,Training & Education: Yes Patient would benefit from OT for education, treatment and training to promote independence in ADL's, mobility, safety and/or upper extremity function for ADL's. Plan of Care: ADL Retraining, Functional Mobility, Group Exercise/Act as Ind, UE Funct Exercise/Act Treatment Duration: Feb 21, 2019 Frequency: At least 5 of 7 days/Wk (IRF) Estimated Hrs Per Day: 1.5 hours per day Agreement: Yes Rehab Potential: Fair Time/GCodes Start Time: 08:00 (829) Stop Time: 08:30 Billed Treatment Time 1st session 8-830, ADL 30 minutes, 2 units 2nd session 1015- 2045, FA 30 minutes, 2 units SAWYER HODGSON OT Feb 13, 2019 10:27
--- NOTE | 2019-02-13 11:10 | PM&R Progress Note ---
Subjective HPI/CC On Admission Date Seen by Provider: Feb 13, 2019 Time Seen by Provider: 09:30 Chief complaint: Myopathy HPI: This is a 83yoWM who previously worked at [employer] who has been to [facility] 3x recently, because the first was pneumonia the second C-Diff colitis, and the third was an aspiration pneumonia, so he was transferred to [facility], tub was placed for nutrition and he was able to work with speech therapy ultimately and resume a dysphasia one diet. Overall he has dramatically improved but definitely needs a lot of therapy to return home. He was placed in a shelter facility after the pneumonia and the C-Diff colitis episode but his intention is to go home. I did speak with speech therapy who will evaluate what his needs are as far as his diet and resume that. He does have a history of c hronic atrial fibrillation and he does have some rapid ventricular response of 120s when he was up working with therapy so I did consult cardiology, Dr. Blevins and updated him and [place] regarding this new Pt set to arrive any minute. I did speak with Dr. Ibrahim from [facility] regarding the admission and transfer and I accepted the care. Subjective/Events-last exam DC is planned for tomorrow Regular diet for 7 days and has been eating more and appetite is back Dr. Mora will be consulted on the right heel chronic decubitus ulcer that he had when he came in on 02/11 Blood pressure 95/59 but asymptomatic No dizziness Four steps with contact guard assist and did very well but he seems to be fragile but his daughters are very aware and very involved in his care. Participating in therapy Check meds and labs Reviewed therapy notes Conferred with public policy analyst of Systems General: Fatigue Objective Exam Vital Signs Vital Signs Date Time Temp Pulse Resp B/P (MAP) Pulse Ox O2 Delivery O2 Flow Rate FiO2 02/13/19 19:23 Room Air 02/13/19 17:08 98.0 62 18 119/63 (81) 96 02/08/19 08:00 95 02/07/19 08:15 2.00 Capillary Refill : Less Than 3 Seconds General Appearance: No Apparent Distress, WD/WN, Chronically ill HEENT: PERRL/EOMI, Normal ENT Inspection, Pharynx Normal; No Pale Conjunctivae (L), No Pale Conjunctivae (R) Neck: Normal Inspection; No Thyromegaly Respiratory: Chest Non Tender, Lungs Clear, Normal Breath Sounds, No Accessory Muscle Use, No Respiratory Distress, Crackles (subtle) Cardiovascular: Regular Rate, Rhythm, Irregularly Irregular Gastrointestinal: Normal Bowel Sounds, No Organomegaly, No Pulsatile Mass, Non Tender, Soft Rectal: Deferred Back: Normal Inspection, No CVA Tenderness, Decreased Range of Motion, Other (sevre kyphosis) Extremity: Normal Inspection; No Swelling Neurologic/Psychiatric: Alert, Oriented x3, Normal Mood/Affect Skin: Ecchymosis, Mottled, Rash, Other (Shallow ulcer on R heel, appears to be improving. L heel still blanching ) Results/Procedures Lab Laboratory Tests 02/13/19 05:25 Patient resulted labs reviewed. FIM Transfers Therapy Code Descriptions/Definitions Functional [place] Measure: 0=Not Assessed/NA 4=Minimal Assistance 1=Total Assistance 5=Supervision or Setup 2=Maximal Assistance 6=Modified [place] 3=Moderate Assistance 7=Complete [place] Therapy Quality Codes: 6 Independent with activity with or without an assistive device 5 Patient requires set up or clean up by helper. Patient completes activity by themselves 4 Supervision or touching assist (CGA). [place] provide cues , steadying assist 3 The helper provides less than half the effort to complete the activity 2 The helper provides more than half the effort to complete the activity 1 Dependent. The helper does all the effort to complete an activity 7 Patient refused to complete or attempt activity 9 The patient did not perform the activity before the current illness or injury 88 Not attempted due to Medical conditions or safety concerns Transfers (B, C, W/C) (FIM): 4 (useof RW) Scootin Rollin Roll Left to Right (QC): 4 Supine to/from Sit: 6 Sit to/from Stand: 5 Sit to Lying (QC): 3 Sit to Stand (QC): 5 Chair/Exv-wy-Gwvdi Xfer(QC): 3 Bed to/from Chair: 5 Car Transfer (QC): 3 Gait Training Does the Patient Walk?: Yes Gait (FIM): 5 Distance (FIM): 3=150 ft (200x3) Distance: 200'x2 Walk 10 feet (QC): 5 Walk 50 ft with 2 Turns(QC): 5 Walk 150 ft (QC): 5 Walking 10ft/uneven surface-QC: 3 Gait Level of Assist: 5 Gait Persons Needed: 1 Gait Assistive Device: FWW Wheelchair Training Does the Pt Use a Wheelchair?: No Stair Training Stair Training: Handrails/: 2 handrails Stairs (FIM): 2 #of Steps: 4 1 Step (curb) (QC): 1 4 Steps (QC): 88 12 Steps (QC): 88 Stairs: Pattern: Reciprocal Level of Assist: 4 Balance Picking up an Object (QC): 88 Mental Status/Objective Comprehension: 7 Expression: 7 Social Interaction: 7 Problem Solvin Memory: 7 ADL-Treatment Feedin Eating (QC): 5 Groomin (standing at sink to wash hands, close SBA ) Oral Hygiene (QC): 5 Bathin (CGA/min assist in stance.) Shower/Bathe Self (QC): 4 Upper Extremity Dressin (set up/ SBA ) Upper Body Dressing (QC): 4 Lower Extremity Dressin (pants, underpatns, matty socks and shoes. ) Lower Body Dressing (QC): 3 On/Off Footwear (QC): 4 Toiletin (CGA during stand for clothing management) Toileting Hygiene (QC): 4 Toilet/Commode Transfer: 4 (Min A to stand) Toilet Transfer (QC): 3 Shower: 4 Assessment/Plan Assessment and Plan Assess & Plan/Chief Complaint Plan: IRF protocol Cardiology appreciated Home meds Monitor for falls Noted severe kyphosis will limit overall physical function wbc count now normal Regular diet tolerated Heels off bed Appreciate Cardiology management IS for lung expansion due to severe kyphosis and crackles on exam which are now much improved DC home with family (1) Myopathy Status: Acute (2) Kyphosis Status: Chronic Qualifiers: Kyphosis type: postural Spinal region: cervicothoracic Qualified Codes: 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, cervicothoracic region (3) DNR (do not resuscitate) Status: Chronic (4) COPD (chronic obstructive pulmonary disease) Status: Chronic Qualifiers: COPD type: unspecified COPD Qualified Codes: J44.9 - Chronic obstructive pulmonary disease, unspecified (5) CHF (congestive heart failure) Status: Chronic Qualifiers: Heart failure type: unspecified (6) Prostate cancer Status: Chronic (7) Oxygen dependent Status: Chronic (8) Atrial fibrillation with rapid ventricular response Status: Acute (9) Advanced age Status: Chronic (10) Atrial fibrillation, chronic Status: Chronic (11) Presbycusis of both ears Status: Chronic (12) At risk for aspiration Status: Chronic (13) History of Clostridioides difficile colitis Status: Chronic QUANG HINTON DO Feb 13, 2019 11:10
[2019-02-13] MEDS: COLLAGENASE 30 GM (SANTYL) TUBE TP SCH (11:21)
--- NOTE | 2019-02-13 12:41 | NUR ---
FILLING TECHNICIAN received call from patient's daughter, Ena requesting that patient be discharged tomorrow as his other daughter will be in town to stay with him through Monday and then she is available to be with him often, as she was before. FILLING TECHNICIAN spoke with therapy, nursing and Dr. Shi to inquire about stability for discharge tomorrow. Therapy believes he has progressed to his new baseline, RN and Dr. Shi have no concerns with discharge plans for tomorrow. Ena would like to provide transport home early tomorrow morning. FILLING TECHNICIAN discussed options of [facility] services with patient and daughter, they would like to utilize [facility] if available. FILLING TECHNICIAN will follow up for additional needs.
--- NOTE | 2019-02-13 12:48 | Speech Therapy Daily Note ---
Speech Daily Progress Note Subjective Date Seen by Provider: Feb 13, 2019 Time Seen by Provider: 00:30 The patient was finishing eating his breakfast when I entered his room. Objective The patient utilizes directions for intake of food and drink alternation with 90% and minimal cues. Assessment Assessment Current Status: Good Progress Treatment Plan Continue Plan of Care Communication Comprehension: 7 Expression: 7 Social Cognition Social Interaction: 7 Problem Solvin Memory: 7 Speech Short Term Goals Short Term Goals Short Term Goals 1) The patient will tolerate least restrictive diet level without s/s of aspiration with 90% or greater. 2) The patient will utilize compensatory strategies as trained with 90% or greater given minimal cues. Speech Prison Goals Lift Truck Operator Goals The patient will maintain adequate nutrition/hydration via safe effective swallow function. Comprehension: 6 Expression: 6 Social Interaction: 6 Problem Solvin Memory: 6 Speech-Plan Patient/Family Goals Patient/Family Goals: The patient plans on returning to his home with family and staff support. Treatment Plan Speech Therapy Treatment Plan: Continue Plan of Care The patient has made good progress as oral intake increases. Treatment Duration: Feb 15, 2019 Frequency: 5 times per week Estimated Hrs Per Day: .25 hour per day Rehab Potential: Fair Barriers to Learning: Patient's age Pt/Family Agrees to Plan: Yes Safety Risks/Education Teaching Recipient: Patient Teaching Methods: Demonstration, Discussion Response to Teaching: Verbalize Understanding, Return Demonstration Education Topics Provided: Continued safety with oral intake as trained Time Speech Therapy Time In: 08:45 Speech Therapy Time Out: 09:15 Total Billed Time: 30 Billed Treatment Time 1, JAYNE KRISTIN Nam Feb 13, 2019 12:48
--- NOTE | 2019-02-13 13:08 | Progress Note - Cardiology ---
Cardiology SOAP Progress Note Subjective: No cp or palp or syncope Gen weakness present Mild to mod shortness of breath with exertion. Stamina gradually improving Objective: I&O/Vital Signs 02/13/19 02/13/19 02/13/19 02/13/19 06:05 07:57 08:00 08:17 Temp 97.4 Pulse 62 76 Resp 17 B/P (MAP) 104/50 (68) 95/59 (71) Pulse Ox 92 O2 Delivery Room Air Room Air Room Air 02/13/19 00:00 Intake Total 680 ml Output Total 600 ml Balance 80 ml Weight (Pounds): 132 Weight (Ounces): 1.6 Weight (Calculated Kilograms): 59.637923 Constitutional: AAO x 3, other (thin) Respiratory: No accessory muscle use, No respiratory distress; chest expansion is symmetric, chest is bilaterally symmetric, lungs clear to auscultation Cardiovascular: irregularly irregular; No JVD; S1 and S2 Gastrointestional: No tender; soft, round, audible bowel sounds Extremities: no lower extremity edema bilateral Neurologic/Psychiatric: alert, grossly intact Skin: other (dressings to heels bilat; not removed) Results/Procedures: Labs Laboratory Tests 02/13/19 05:25: Sodium Level 141, Potassium Level 4.0, Chloride Level 108H, Carbon Dioxide Level 27, Anion Gap 6, Blood Urea Nitrogen 21H, Creatinine 0.79, Estimat Glomerular Filtration Rate > 60, BUN/Creatinine Ratio 27, Glucose Level 91, Calcium Level 8.7, Digoxin Level 0.83 Laboratory Tests 02/13/19 05:25 A/P: Assessment: PAF/Flutter vs SVT with vent rates up to 150 bpm. These are relatively brief episodes that are asymptomatic Stroke prophylaxis with apixaban Echo of 02/01/19: LVEF 50%, dilated LA, trivial AI, mild MR, RVSP 19 mmHg Generalized weakness following lengthy hospitalization for aspiration pneumonia and C-Diff CAD - reports h/o stents x7 - states last cor stent was to [facility] in Jul 2017 - primary data modeling architect Dr. Stern at [facility] in [place], [place] HLD - statin tx H/O bilat CEA - unsure of details - reports done at [facility] H/O tobacco use - quit > 20 years ago HTN CKD stage III Reported h/o cirrhosis Chronic back pain with nerve stimulator in place Kyphosis H/o hypothyroidism. TSH normal (1.43) on 02/03/19 Plan: * I discussed his CV issues with him and answered questions * Continue current cardiac regimen * Monitor lab from time to time NYA PENALOZA MD FACP FAC CCDS Feb 13, 2019 13:08
--- NOTE | 2019-02-13 14:20 | NUR ---
Pastoral care visit.
--- NOTE | 2019-02-13 14:55 | Therapy Group Daily Note ---
Therapy Daily Group Note Patient Education Topic Exercises, Other List Below Exercises LE Seated Exercise, Stretching, UE Exercise Session Ratio (pt:therapist): 4:1 Goal of Session: Education on ARU Expectations, Memory Strategies, UE/LE Strengthing Goal Met for this Session: Yes Pt Benefit of Group: Contributions to Others, F/U Use of Strategies @Home, I ncreased Functional Strength, Improved Cognition, Recognition of Peers, Socialization Other/Notes Pt walked with FWW with assist to ARU [place] for OT group. Group consisted of introductions (name, place living, an item they forgot in the past), socialization, description/expectations of ARU, benefits of exercise and OT-lead exercises. Pt able to introduced self appropriately and actively listened to peers. Pt acknowledged understanding of educational topics by completing exercises, following instruction, and giving personal experiences. Pt acknowledged understanding of ARU description by affirmative gestures. Pt listened to and actively participated in cognitive memory strategies such as repetition, categorization, simplification, and identifying the main idea for daily use within ARF and home living. Pt participated within memory game, appropriately waited turns, and correctly identified and matched pictures with cognitive strategies. After therapy, pt transferred to recliner chair. Call light/phone in reach. All needs met in room. Start Time: 13:00 Stop Time: 14:20 Total Billed Treatment Time: 80 Total Billed Treatment 1 GRP XOCHITL BURT OTR Feb 13, 2019 14:55
[2019-02-13 17:08] VITALS: BP 119/63
[2019-02-13] MEDS: ATORVASTATIN 40 MG (LIPITOR) TABLET PO SCH (18:00)
[2019-02-13] MEDS: rOPINIRole 1 MG (REQUIP) TABLET PO SCH (21:05)
[2019-02-14 05:06] VITALS: BP 111/64
[2019-02-14] MEDS: LACTOBACILLUS ACIDOPHILUS (PROBIOTIC) CAPSULE PO SCH (05:08)
[2019-02-14] MEDS: LEVOTHYROXINE 75 MCG (LEVOTHROID) TABLET PO SCH (05:09)
[2019-02-14] MEDS: MULTIVIT W/MINERALS TAB (THERAGRAN M) PO SCH (05:09)
[2019-02-14] MEDS: LACTOSE REDUCED FOOD PO SCH (05:10)
[2019-02-14] MEDS: CATHETER FLUSH 10 ML SYR IV SCH (05:10)
--- NOTE | 2019-02-14 07:58 | Occupational Ther Daily Note ---
OT Current Status-Daily Note Subjective Pt alert, lying in bed. Pt agrees to therapy. No c/o pain at this time. Mental Status/Objective Patient Orientation: Person, Place, Time, Situation Therapy Code Descriptions/Definitions Functional Eden Measure: 0=Not Assessed/NA 4=Minimal Assistance 1=Total Assistance 5=Supervision or Setup 2=Maximal Assistance 6=Modified Eden 3=Moderate Assistance 7=Complete Eden Attachments: IV ADL-Treatment Ambulated to bathroom using FWW with CGA then transferred to toilet using FWW, BSC and grabbar with close SBA. Pt ambulated to shower using FWW with CGA. CGA for shower transfer using FWW, grabbbar and shower bench. Pt. is able to shower with SBA using grabbar, hand held shower and shower bench. Set up for dressing. Pt. is able to don pants/briefs using dressing stick with CGA in standing to hike over hips. Dons shirt after set up. Pt. transfers from chair surface with min assist, better when from a higher surface. Per previous OT report pt is able to complete grooming standing at sink with SBA. Pt is able to open packages/containers then uses regular utensils to eat. After therapy, pt sitting in recliner with call light/phone in reach. All needs met in room. Therapy Code Descriptions/Definitions Functional Eden Measure: 0=Not Assessed/NA 4=Minimal Assistance 1=Total Assistance 5=Supervision or Setup 2=Maximal Assistance 6=Modified Eden 3=Moderate Assistance 7=Complete Eden Therapy Quality Codes: 6 Independent with activity with or without an assistive device 5 Patient requires set up or clean up by helper. Patient completes activity by themselves 4 Supervision or touching assist (CGA). [place]on provide cues , steadying assist 3 The helper provides less than half the effort to complete the activity 2 The helper provides more than half the effort to complete the activity 1 Dependent. The helper does all the effort to complete an activity 7 Patient refused to complete or attempt activity 9 The patient did not perform the activity before the current illness or injury 88 Not attempted due to Medical conditions or safety concerns Eating (FIM): 6 (Dentures.) Eating (QC): 6 Grooming (FIM): 5 Oral Hygiene (QC): 4 Bathing (FIM): 4 (Pt requires shower bench, long handled sponge, and hand held shower head. Pt able to wash, rinse, and dry self. ) Bathing Location: L Arm, R Arm, L Upper Leg, R Upper Leg, L Lower Leg (including foot), R Lower Leg (including foot), Chest, Abdomen, Buttocks, Perineal Area Shower/Bathe Self (QC): 4 Upper Body (FIM): 5 Upper Body Dressing (QC): 5 Lower Body Dressing (FIM): 4 Lower Body Dressing (QC): 4 On/Off Footwear (QC): 5 Toileting (FIM): 4 Toileting Hygiene (QC): 4 Transfers (B, C, W/C) (FIM): 3 Toilet/Commode Transfer (FIM): 4 Toilet Transfer (QC): 4 Shower Transfer(FIM): 4 Pt to discharge home with [facility] and family support. OT Short Term Goals Short Term Goals Transfers (B,C,W/C) (FIM): 4 1=Demonstrate adherence to instructed precautions during ADL tasks. 2=Patient will verbalize/demonstrate understanding of assistive devices/modifications for ADL. 3=Patient will improve strength/tolerance for activity to enable patient to perform ADL's. OT Priming Machine Operator Goals Priming Machine Operator Goals Time Frame: Feb 21, 2019 Eating (FIM): 6 (met-02/14/19) Eating (QC): 6 (met-02/14/19) Groomin (not met) Oral Hygiene (QC): 6 (not met) Bathing(FIM): 5 (not met) Shower/Bathe Self (QC): 5 (not met) Upper Body Dressing(FIM): 6 (not met) Upper Body Dressing (QC): 6 (not met) Lower Body Dressing(FIM): 6 (not met) Lower Body Dressing (QC): 6 (not met) On/Off Footwear (QC): 6 (met-02/14/2019) Toileting(FIM): 6 (not met) Toileting Hygiene (QC): 6 (not met) Transfers (B,C,W/C) (FIM): 6 (not met) Toilet/Commode Transfer(FIM): 6 (not met) Toilet/Commode Transfer (QC): 6 (not met) Shower Transfer(FIM): 5 (not met) Comprehension(FIM): 6 Expression (FIM): 6 Social Interaction(FIM): 6 Problem Solving(FIM): 6 Memory(FIM): 6 Additional Goals: 1-Demonstrate ADL Tasks, 2-Verbalize Understanding, 3-ImproveStrength/Mahamed 1=Demonstrate adherence to instructed precautions during ADL tasks. 2=Patient will verbalize/demonstrate understanding of assistive devices/modifications for ADL. 3=Patient will improve strength/tolerance for activity to enable patient to perform ADL's. OT Education/Plan Discharge Recommendations Plan/Recommendations: Discharge/Goals Met (discharge 02/14/19) Therapy Discharge Recommendati: Other, See Comments (home with C and family support), Post Acute OT Equpiment Recommendations-D/C: Bath Chair, Hip Kit Treatment Plan/Plan of Care Patient would benefit from OT for education, treatment and training to promote independence in ADL's, mobility, safety and/or upper extremity function for ADL's. Plan of Care: ADL Retraining, Functional Mobility, Group Exercise/Act as Ind, UE Funct Exercise/Act Treatment Duration: Feb 21, 2019 Frequency: At least 5 of 7 days/Wk (IRF) Estimated Hrs Per Day: 1.5 hours per day Agreement: Yes Rehab Potential: Fair Time/GCodes Start Time: 07:00 Stop Time: 08:00 Total Time Billed (hr/min): 60 Billed Treatment Time 1 visit-ADL 4 (60 min) BENITO SERRANO Feb 14, 2019 07:58
[2019-02-14] MEDS: LORATADINE (CLARITIN) 10 MG TAB PO SCH (08:24)
[2019-02-14] MEDS: VITAMIN D3 1,000 UNITS (CHOLECALCIFEROL) TABLET PO SCH (08:24)
[2019-02-14] MEDS: APIXABAN 2.5 MG (ELIQUIS) TABLET PO SCH (08:24)
[2019-02-14] MEDS: FAMOTIDINE 20 MG (PEPCID) TABLET PO SCH (08:24)
[2019-02-14] MEDS: DIGOXIN 0.125 MG (LANOXIN) TAB PO SCH (08:24)
[2019-02-14] MEDS: DILTIAZEM 240 MG (CARDIZEM CD) CAP PO SCH (08:24)
[2019-02-14] MEDS: ASPIRIN 81 MG CHEW (CHILDREN'S ASA) PO SCH (08:24)
[2019-02-14] MEDS: COLLAGENASE 30 GM (SANTYL) TUBE TP SCH (08:24)
[2019-02-14] MEDS: OXYBUTYNIN (DITROPAN) 5 MG TAB PO SCH (08:24)
[2019-02-14] MEDS: GABAPENTIN 100 MG (NEURONTIN) CAP PO SCH (08:24)
--- NOTE | 2019-02-14 08:33 | Physical Therapy Daily Note ---
PT Daily Note-Current Subjective Patient in recliner pre tx, agrees to PT, has no complaints of pain. Patient is discharging today and needs FIM'ed Appearance Patient in recliner post tx with nurse call, phone, tray, all needs met. Mental Status Patient Orientation: Normal For Age Transfers Therapy Code Descriptions/Definitions Functional Foard Measure: 0=Not Assessed/NA 4=Minimal Assistance 1=Total Assistance 5=Supervision or Setup 2=Maximal Assistance 6=Modified Foard 3=Moderate Assistance 7=Complete Foard Therapy Quality Codes: 6 Independent with activity with or without an assistive device 5 Patient requires set up or clean up by helper. Patient completes activity by themselves 4 Supervision or touching assist (CGA). Jackson provide cues , steadying za t 3 The helper provides less than half the effort to complete the activity 2 The helper provides more than half the effort to complete the activity 1 Dependent. The helper does all the effort to complete an activity 7 Patient refused to complete or attempt activity 9 The patient did not perform the activity before the current illness or injury 88 Not attempted due to Medical conditions or safety concerns Transfers (B, C, W/C) (FIM): 5 Scootin Rollin Roll Left to Right (QC): 6 Supine to/from Sit: 6 Sit to/from Stand: 5 Sit to Lying (QC): 6 Sit to Stand (QC): 4 Chair/Pse-jk-Cvkfj Xfer(QC): 4 Bed to/from Chair: 5 Car Transfer (QC): 4 Patient performs bed mobility with mod I, supine <-> sit with mod I, sit <-> stand with SBA, transfers with SBA, car transfer SBA. Has some difficulty standing from lower surfaces but can do it with effort without assist. Weight Bearing Full Weight Bearing Full Weight Bearing Gait Training Gait (FIM): 5 Distance: 200', 150' Walk 10 feet (QC): 4 Walk 50 ft with 2 Turns(QC): 4 Walk 150 ft (QC): 4 Walking 10ft/uneven surface-QC: 4 Gait Level of Assist: 5 Gait Persons Needed: 1 Gait Assistive Device: FWW Patient can ambulate 200' with a rolling walker with SBA (including 50' with at least 2 turns of 90 degrees and 10' over an uneven surface). Patient ambulates very slowly but steady. Stair Training Stair Training: Handrails/: 2 handrails Stairs (FIM): 2 #of Steps: 4 1 Step (curb) (QC): 4 4 Steps (QC): 4 Stairs: Pattern: Reciprocal Level of Assist: 5 Patient can go up and down 4 steps using 2 handrails with SBA. Treatments bed mobility and transfers, ambulation, stairs Assessment Current Status: Fair Progress improved general mobility and balance PT Short Term Goals Short Term Goals Time Frame: Feb 14, 2019 Transfers (B,C,W/C) (FIM): 4 Gait (FIM): 4 Distance (FIM): 3=150 ft Gait Assistive Device: FWW PT Die Cut Operator Goals Die Cut Operator Goals PT Die Cut Operator Goals Time Frame: Feb 28, 2019 Transfers (B,C,W/C) (FIM): 6 Sit to Lying (QC): 6 (met) Lying-Sitting on Side/Bed(QC): 6 (met) Sit to Stand (QC): 6 Rollin (met) Roll Left to Right (QC): 6 (met) Chair/Uay-ts-Ahlut Xfer(QC): 6 Car Transfer (QC): 6 Does the Patient Walk: Yes Gait (FIM): 6 Gait distance (FIM): 3=150 ft Walk 10 feet (QC): 6 Walk 10ft-Uneven Surface(QC): 6 Walk 50ft with 2 Turns (QC): 6 Walk 150 ft (QC): 6 Gait Assistive Device: FWW Does the Pt use WC or Scooter?: No Stairs (FIM): 5 # of Steps: 4 1 Step (curb) (QC): 6 4 Steps (QC): 6 12 Steps (QC): 9 Picking up an Object (QC): 88 PT Plan Problem List Problem List: Activity Tolerance, Functional Strength, Safety, Balance, Gait, Transfer Treatment/Plan Treatment Plan: Continue Plan of Care Treatment Plan: Bed Mobility, Education, Functional Activity Mahamed, Functional Strength, Group Therapy, Gait, Safety, Therapeutic Exercise, Transfers Treatment Duration: Feb 28, 2019 Frequency: At least 5 of 7 days/Wk (IRF) Estimated Hrs Per Day: 1.5 hours per day Patient and/or Family Agrees t: Yes Safety Risks/Education Patient Education: Gait Training, Transfer Techniques, Steps, Correct Positioning, Safety Issues Teaching Recipient: Patient Teaching Methods: Demonstration, Discussion Response to Teaching: Reinforcement Needed Time/GCodes Time In: 0800 Time Out: 08 Total Billed Treatment Time: 26 Total Billed Treatment 1 visit FA 26' BIN ROSE PT Feb 14, 2019 08:33
--- NOTE | 2019-02-14 08:38 | Therapy Team Discharge Summary ---
Therapy Discharge Summary Discharge Recommendations Date of Discharge Therapy D/C Recommendations: 24 hr Supervision Physical Therapy Patient came to rehab with aspiration pneumonia. Upon evaluation patient performed bed mobility and transfers with mod assist, ambulated 50' with a rolling walker with min assist. Patient has been performing bed mobility and transfer training, balance and endurance training, functional strengthening, stair training, gait training, and education. He has made fair progress but has only met his [facility] goals for bed mobility. Now, patient performs bed mobility with mod I, supine <-> sit with mod I, sit <-> stand with SBA, transfers with SBA, car transfer SBA, ambulates 200' with a rolling walker with SBA (including 50' with at least 2 turns of 90 degrees and 10' over an uneven surface), and can go up and down 4 steps using 2 handrails with SBA. Patient is discharging from this facility today and will be discharged from PT at this time. Occupational Therapy Decreased Activ Tolerance, Decreased UE Strength, Impaired I ADL's, Impaired Self-Care Skills PT Long-Term Goals Minute Clerk Goals PT Minute Clerk Goals Time Frame: Feb 28, 2019 Transfers (B,C,W/C) (FIM): 6 Roll Left to Right (QC): 6 (met) Sit to Lying (QC): 6 (met) Lying-Sitting on Side/Bed(QC): 6 (met) Sit to Stand (QC): 6 Chair/Hge-sp-Wetfw Xfer(QC): 6 Car Transfer (QC): 6 Does the Patient Walk: Yes Gait (FIM): 6 Gait distance (FIM): 3=150 ft Walk 10 feet (QC): 6 Walk 10ft-Uneven Surface(QC): 6 Walk 50ft with 2 Turns (QC): 6 Walk 150 ft (QC): 6 Gait Assistive Device: FWW Does the Pt use WC or Scooter?: No Stairs (FIM): 5 # of Steps: 4 1 Step (curb) (QC): 6 4 Steps (QC): 6 12 Steps (QC): 9 Picking up an Object (QC): 88 OT Long-Term Goals Long-Term Goals Time Frame: Feb 21, 2019 Eating (FIM): 6 Eating (QC): 6 Oral Hygiene (QC): 6 Grooming(FIM): 6 Bathing(FIM): 5 Shower/Bathe Self (QC): 5 Upper Body Dressing(FIM): 6 Upper Body Dressing (QC): 6 Lower Body Dressing(FIM): 6 Lower Body Dressing (QC): 6 On/Off Footwear (QC): 6 Toileting(FIM): 5 Toileting Hygiene (QC): 6 Transfers (B,C,W/C) (FIM): 6 Toilet/Commode Transfer(FIM): 6 Toilet/Commode Transfer (QC): 6 Shower Transfer(FIM): 5 Comprehension(FIM): 6 Expression (FIM): 6 Social Interaction(FIM): 6 Problem Solving(FIM): 6 Memory(FIM): 6 Additional Goals: 1-Demonstrate ADL Tasks, 2-Verbalize Understanding, 3-ImproveStrength/Mahamed 1=Demonstrate adherence to instructed precautions during ADL tasks. 2=Patient will verbalize/demonstrate understanding of assistive devices/modifications for ADL. 3=Patient will improve strength/tolerance for activity to enable patient to perf orm ADL's. Speech Minute Clerk Goals Long-Term Goals The patient will maintain adequate nutrition/hydration via safe effective swallow function. Comprehension: 6 Expression: 6 Social Interaction: 6 Problem Solvin Memory: 6 BIN ROSE PT Feb 14, 2019 08:38
[2019-02-14] MEDS ORDERED: OXC5T PO (08:55)
[2019-02-14] MEDS ORDERED: ASPI-999 PO (08:55)
[2019-02-14] MEDS ORDERED: DILT240C97 PO (08:55)
[2019-02-14] MEDS ORDERED: DIGO125T18 PO (08:55)
[2019-02-14] MEDS ORDERED: LACT1CAP7 PO (08:55)
[2019-02-14] MEDS ORDERED: APIX2.5T PO (08:55)
--- NOTE | 2019-02-14 08:59 | D/C HH Face to Face Order ---
D/C HH Face to Face Orders Reconcile Patient Problems Problems Reviewed?: Yes Instructions for Patient HH Patient Instructions/FollowUp: PCP 1 week Physician to follow Patient: PCP Discharge Diet for Home: No Restrictions Patient Problems: s/p pneumonia Right heel decubitus ulcer Kyphosis Goals for Patient: Return to independent living Patient Data-Allergies,Ht & Wt Patient Allergies: Coded Allergies: diazepam (Verified Allergy, Unknown, 01/31/19) morphine (Verified Allergy, Unknown, 01/31/19) propoxyphene (Verified Allergy, Unknown, 01/31/19) Height (Feet): 5 Height (Inches): 8.00 Weight (Pounds): 132 Weight (Ounces): 1.6 Home Health Need/Face to Face Date of Face to Face: Feb 14, 2019 Clinical Findings: Generalized weakness and fatigue, Instability, Muscle weakness, Unsteady gait, Non-healing wound I have seen Pt owqg-on-[id number]: Yes Discharged To: Home Diagnosis/Conditions: s/p pneumonia Right heel decubitus ulcer Kyphosis Patient is Homebound due to: Felix fall risk due to instabilty, Muscle weakness, Pain w/ambulation Homebound Status Due to the above stated illness, injury or surgical procedure (medical condition or diagnosis) and associated clinical findings, the patient is homebound because of his/her inability to leave home except with aid of a supportive device and/or person AND leaving the home requires a considerable and taxing effort or is medically contraindicated. Pt req the following assistanc: Aid of another person, Walker Home Health Nursing Orders Home Health Services Order: Nursing Services (BP monitoring), Benefits Representative-Evaluate & Treat, Physical Therapy-Evaluate & Treat, Speech Language- Evaluate & Treat (right heel dressing changes) Certify Stmt I certify that this patient is under my care and that I, a nurse practitioner or a physician; a medical receptionist medical assistant working with me, had a face to face encounter that - meets the physician face to face encounter requirements with this patient as dated. QUANG HINTON DO Feb 14, 2019 08:59
--- NOTE | 2019-02-14 09:00 | Discharge Summary ---
Diagnosis/Chief Complaint Date of Admission Jan 31, 2019 at 10:30 Date of Discharge Discharge Date: Feb 14, 2019 Discharge Diagnosis Plan: IRF protocol Cardiology appreciated Home meds Monitor for falls Noted severe kyphosis will limit overall physical function wbc count now normal Regular diet tolerated Heels off bed Appreciate Cardiology management IS for lung expansion due to severe kyphosis and crackles on exam which are now much improved DC home with family (1) Myopathy Status: Acute (2) Kyphosis Status: Chronic Qualifiers: Kyphosis type: postural Spinal region: cervicothoracic Qualified Codes: 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, cervicothoracic region (3) DNR (do not resuscitate) Status: Chronic (4) COPD (chronic obstructive pulmonary disease) Status: Chronic Qualifiers: COPD type: unspecified COPD Qualified Codes: J44.9 - Chronic obstructive pulmonary disease, unspecified (5) CHF (congestive heart failure) Status: Chronic Qualifiers: Heart failure type: unspecified (6) Prostate cancer Status: Chronic (7) Oxygen dependent Status: Chronic (8) Atrial fibrillation with rapid ventricular response Status: Acute (9) Advanced age Status: Chronic (10) Atrial fibrillation, chronic Status: Chronic (11) Presbycusis of both ears Status: Chronic (12) At risk for aspiration Status: Chronic (13) History of Clostridioides difficile colitis Status: Chronic Reason Hospital Visit Verification and Attestation of Medical Student E/M Service A medical student performed and documented this service in my presence. I reviewed and verified all information documented by the medical student and made modifications to such information, when appropriate. I personally performed the physical exam and medical decision making. Clementina Shi, Jan 31, 2019,20:29 Discharge Summary Discharge Physical Examination Allergies: Coded Allergies: diazepam (Verified Allergy, Unknown, 01/31/19) morphine (Verified Allergy, Unknown, 01/31/19) propoxyphene (Verified Allergy, Unknown, 01/31/19) Vitals & I&Os Vital Signs Date Time Temp Pulse Resp B/P (MAP) Pulse Ox O2 Delivery O2 Flow Rate FiO2 02/14/19 10:59 02/14/19 08:00 Room Air 02/14/19 05:06 97.7 73 20 96 02/13/19 20:00 2.00 02/08/19 08:00 95 General Appearance: Alert, Oriented X3, Cooperative Respiratory: Clear to Auscultation Cardiovascular: Regular Rate, Normal S1, Normal S2 Neuro: Normal Speech, Strength at 5/5 X4 Ext Psych/Mental Status: Mental Status NL Hospital Course Was the Problem List Reviewed?: Yes Hospital course: Pt had an uneventful hospital course for 15 days in inpatient rehab after he was transferred from [place] due to pneumonia then recurrent pneumonia aspiration type after discharge from [facility] went to long term then back to [facility] then [place] then here to continue recovery. His Kyphosis put him at additional risk for pneumonia B/L basis because of positional and restrictive lung disease. He did have very good luck with IS, which has made a huge difference in his lung function and he will continue using that at home and will make a world of difference and possibly prevent a pneumonia although kyphosis and advanced age and history of pneumonias in the past will increase risk regardless. Bowel function was regained to normalcy although loose stools and history of C-Diff put us at a concern for C-diff Colitis recurrence but he then had formed stools from then on out and no need for checking C-diff in a formed stool. Labs remained stable, he did not require any additional transfusions or anything of that matter. Dr. Blevins was consulted for atrial fibrillation. Digoxin was started at 0.125 in addition to Cardizem that has resulted in better rate control with exertion and really did well for the Pt. He is maintained on Plavix, Aspirin and low dose Eliquis for anti-platelet agent for coronary artery disease in addition to atrial-fibrillation stroke prophylaxis. A the current time he is participating in all therapy, he is back to prior level of functioning with the use of a walker, he had been weened off oxygen completely and overall he will have additional support with his daughters and he will need home health, PT, OT and RN for wound care for right heel from small decubitis ulcer he had acquired before arrival to the inpatient rehab unit and will do well in returning back home as he wished. Labs (last 24 hrs) Laboratory Tests 02/01/19 05:55: White Blood Count 18.7H, Red Blood Count 3.65L, Hemoglobin 11.7L, Hematocrit 36L , Mean Corpuscular Volume 100H, Mean Corpuscular Hemoglobin 32, Mean Corpuscular Hemoglobin Concent 32, Red Cell Distribution Width 16.7H, Platelet Count 325, Mean Platelet Volume 10.4, Neutrophils (%) (Auto) 85H, Lymphocytes (%) (Auto) 7L , Monocytes (%) (Auto) 8, Eosinophils (%) (Auto) 1, Basophils (%) (Auto) 0, Neutrophils # (Auto) 15.9H, Lymphocytes # (Auto) 1.3, Monocytes # (Auto) 1.5H, Eosinophils # (Auto) 0.1, Basophils # (Auto) 0.0, Neutrophils % (Manual) 85, Lymphocytes % (Manual) 6, Monocytes % (Manual) 8, Eosinophils % (Manual) 0, Basophils % (Manual) 1, Band Neutrophils 0, Blood Morphology Comment NORMAL, Sodium Level 139, Potassium Level 4.9, Chloride Level 100, Carbon Dioxide Level 29, Anion Gap 10, Blood Urea Nitrogen 32H, Creatinine 1.02, Estimat Glomerular Filtration Rate > 60, BUN/Creatinine Ratio 31, Glucose Level 124H, Calcium Level 10.0, Corrected Calcium 10.7H, Total Bilirubin 0.8, Aspartate Amino Transf (AST/SGOT) 32, Alanine Aminotransferase (ALT/SGPT) 38, Alkaline Phosphatase 342H , Total Protein 6.4, Albumin 3.1L 02/02/19 07:00: White Blood Count 13.6H, Red Blood Count 3.07L, Hemoglobin 10.0L, Hematocrit 31L , Mean Corpuscular Volume 101H, Mean Corpuscular Hemoglobin 33, Mean Corpuscular Hemoglobin Concent 32, Red Cell Distribution Width 16.2H, Platelet Count 313, Mean Platelet Volume 10.5H, Neutrophils (%) (Auto) 81H, Lymphocytes (%) (Auto) 10L, Monocytes (%) (Auto) 7, Eosinophils (%) (Auto) 2, Basophils (%) (Auto) 0, Neutrophils # (Auto) 11.0H, Lymphocytes # (Auto) 1.4, Monocytes # (Auto) 0.9, Eosinophils # (Auto) 0.3, Basophils # (Auto) 0.0, Sodium Level 137, Potassium Level 4.1, Chloride Level 100, Carbon Dioxide Level 24, Anion Gap 13, Blood Urea Nitrogen 30H, Creatinine 0.95, Estimat Glomerular Filtration Rate > 60, BUN/Creatinine Ratio 32, Glucose Level 96, Calcium Level 9.7, Corrected Calcium 10.6H, Total Bilirubin 0.9, Aspartate Amino Transf (AST/SGOT) 25, Alanine Aminotransferase (ALT/SGPT) 37, Alkaline Phosphatase 255H, Total Protein 5.7L, Albumin 2.9L 02/03/19 05:30: Sodium Level 139, Potassium Level 4.4, Chloride Level 103, Carbon Dioxide Level 25, Anion Gap 11, Blood Urea Nitrogen 34H, Creatinine 0.97, Estimat Glomerular Filtration Rate > 60, BUN/Creatinine Ratio 35, Glucose Level 110H, Calcium Level 9.5, Corrected Calcium 10.4H, Total Bilirubin 0.7, Aspartate Amino Transf (AST/SGOT) 20, Alanine Aminotransferase (ALT/SGPT) 27, Alkaline Phosphatase 273H , Total Protein 6.0L, Albumin 2.9L, Magnesium Level 1.7, Thyroid Stimulating Hormone (TSH) 1.43 02/04/19 05:40: White Blood Count 10.4, Red Blood Count 3.16L, Hemoglobin 10.3L, Hematocrit 32L, Mean Corpuscular Volume 101H, Mean Corpuscular Hemoglobin 33, Mean Corpuscular Hemoglobin Concent 32, Red Cell Distribution Width 16.0H, Platelet Count 274, Mean Platelet Volume 9.7, Neutrophils (%) (Auto) 76H, Lymphocytes (%) (Auto) 11L , Monocytes (%) (Auto) 10, Eosinophils (%) (Auto) 3, Basophils (%) (Auto) 0, Neutrophils # (Auto) 7.9H, Lymphocytes # (Auto) 1.1, Monocytes # (Auto) 1.1H, Eosinophils # (Auto) 0.3, Basophils # (Auto) 0.0, Sodium Level 137, Potassium Le pritesh 4.2, Chloride Level 103, Carbon Dioxide Level 26, Anion Gap 8, Blood Urea Nitrogen 27H, Creatinine 0.81, Estimat Glomerular Filtration Rate > 60, BUN/Creatinine Ratio 33, Glucose Level 91, Calcium Level 9.3, Corrected Calcium 10.2H, Total Bilirubin 0.6, Aspartate Amino Transf (AST/SGOT) 24, Alanine Aminotransferase (ALT/SGPT) 29, Alkaline Phosphatase 225H, Total Protein 5.7L, Albumin 2.9L 02/06/19 06:15: White Blood Count 11.2H, Red Blood Count 2.96L, Hemoglobin 9.6L, Hematocrit 30L, Mean Corpuscular Volume 101H, Mean Corpuscular Hemoglobin 32, Mean Corpuscular Hemoglobin Concent 32, Red Cell Distribution Width 15.9H, Platelet Count 281, Mean Platelet Volume 10.0, Sodium Level 140, Potassium Level 4.1, Chloride Level 106, Carbon Dioxide Level 27, Anion Gap 7, Blood Urea Nitrogen 23H, Creatinine 0.85, Estimat Glomerular Filtration Rate > 60, BUN/Creatinine Ratio 27, Glucose Level 100, Calcium Level 9.1, Corrected Calcium 10.1, Magnesium Level 1.9, Total Bilirubin 0.4, Aspartate Amino Transf (AST/SGOT) 23, Alanine Aminotransferase (ALT/SGPT) 29, Alkaline Phosphatase 246H, Total Protein 5.6L, Albumin 2.8L, Digoxin Level < 0.30L 02/08/19 06:10: White Blood Count 8.8, Red Blood Count 2.99L, Hemoglobin 9.8L, Hematocrit 30L, Mean Corpuscular Volume 101H, Mean Corpuscular Hemoglobin 33, Mean Corpuscular Hemoglobin Concent 32, Red Cell Distribution Width 15.9H, Platelet Count 285, Mean Platelet Volume 10.2, Sodium Level 140, Potassium Level 4.1, Chloride Level 106, Carbon Dioxide Level 23, Anion Gap 11, Blood Urea Nitrogen 22H, Creatinine 0.82, Estimat Glomerular Filtration Rate > 60, BUN/Creatinine Ratio 27, Glucose Level 89, Calcium Level 9.4, Magnesium Level 1.9, Digoxin Level 0.58L 02/11/19 06:15: White Blood Count 10.2, Red Blood Count 3.00L, Hemoglobin 9.7L, Hematocrit 31L, Mean Corpuscular Volume 102H, Mean Corpuscular Hemoglobin 32, Mean Corpuscular Hemoglobin Concent 32, Red Cell Distribution Width 16.4H, Platelet Count 306, Mean Platelet Volume 9.4, Sodium Level 140, Potassium Level 4.0, Chloride Level 107, Carbon Dioxide Level 28, Anion Gap 5, Blood Urea Nitrogen 22H, Creatinine 0.79, Estimat Glomerular Filtration Rate > 60, BUN/Creatinine Ratio 28, Glucose Level 77, Calcium Level 8.7, Corrected Calcium 9.7, Total Bilirubin 0.5, Aspartate Amino Transf (AST/SGOT) 45H, Alanine Aminotransferase (ALT/SGPT) 43, Alkaline Phosphatase 322H, Total Protein 5.5L, Albumin 2.7L, Digoxin Level 0.85, Neutrophils (%) (Auto) 71, Lymphocytes (%) (Auto) 17, Monocytes (%) (Auto) 9, Eosinophils (%) (Auto) 3, Basophils (%) (Auto) 0, Neutrophils # (Auto) 7.2, Lymphocytes # (Auto) 1.8, Monocytes # (Auto) 0.9, Eosinophils # (Auto) 0.3, Basophils # (Auto) 0.0 02/13/19 05:25: Sodium Level 141, Potassium Level 4.0, Chloride Level 108H, Carbon Dioxide Level 27, Anion Gap 6, Blood Urea Nitrogen 21H, Creatinine 0.79, Estimat Glomerular Filtration Rate > 60, BUN/Creatinine Ratio 27, Glucose Level 91, Calcium Level 8.7, Digoxin Level 0.83 Pending Labs Laboratory Tests 02/01/19 05:55: White Blood Count 18.7, Red Blood Count 3.65, Hemoglobin 11.7, Hematocrit 36, Mean Corpuscular Volume 100, Mean Corpuscular Hemoglobin 32, Mean Corpuscular Hemoglobin Concent 32, Red Cell Distribution Width 16.7, Platelet Count 325, Mean Platelet Volume 10.4, Neutrophils (%) (Auto) 85, Lymphocytes (%) (Auto) 7, Monocytes (%) (Auto) 8, Eosinophils (%) (Auto) 1, Basophils (%) (Auto) 0, Neutrophils # (Auto) 15.9, Lymphocytes # (Auto) 1.3, Monocytes # (Auto) 1.5, Eosinophils # (Auto) 0.1, Basophils # (Auto) 0.0, Neutrophils % (Manual) 85, Lymphocytes % (Manual) 6, Monocytes % (Manual) 8, Eosinophils % (Manual) 0, Basophils % (Manual) 1, Band Neutrophils 0, Blood Morphology Comment NORMAL, Sodium Level 139, Potassium Level 4.9, Chloride Level 100, Carbon Dioxide Level 29, Anion Gap 10, Blood Urea Nitrogen 32, Creatinine 1.02, Estimat Glomerular Filtration Rate > 60, BUN/Creatinine Ratio 31, Glucose Level 124, Calcium Level 10.0, Corrected Calcium 10.7, Total Bilirubin 0.8, Aspartate Amino Transf (AST/SGOT) 32, Alanine Aminotransferase (ALT/SGPT) 38, Alkaline Phosphatase 342, Total Protein 6.4, Albumin 3.1 02/02/19 07:00: White Blood Count 13.6, Red Blood Count 3.07, Hemoglobin 10.0, Hematocrit 31, Mean Corpuscular Volume 101, Mean Corpuscular Hemoglobin 33, Mean Corpuscular Hemoglobin Concent 32, Red Cell Distribution Width 16.2, Platelet Count 313, Mean Platelet Volume 10.5, Neutrophils (%) (Auto) 81, Lymphocytes (%) (Auto) 10, Monocytes (%) (Auto) 7, Eosinophils (%) (Auto) 2, Basophils (%) (Auto) 0, Neutrophils # (Auto) 11.0, Lymphocytes # (Auto) 1.4, Monocytes # (Auto) 0.9, Eosinophils # (Auto) 0.3, Basophils # (Auto) 0.0, Sodium Level 137, Potassium Level 4.1, Chloride Level 100, Carbon Dioxide Level 24, Anion Gap 13, Blood Urea Nitrogen 30, Creatinine 0.95, Estimat Glomerular Filtration Rate > 60, BUN/Creatinine Ratio 32, Glucose Level 96, Calcium Level 9.7, Corrected Calcium 10.6, Total Bilirubin 0.9, Aspartate Amino Transf (AST/SGOT) 25, Alanine Aminotransferase (ALT/SGPT) 37, Alkaline Phosphatase 255, Total Protein 5.7, Albumin 2.9 02/03/19 05:30: Sodium Level 139, Potassium Level 4.4, Chloride Level 103, Carbon Dioxide Level 25, Anion Gap 11, Blood Urea Nitrogen 34, Creatinine 0.97, Estimat Glomerular Filtration Rate > 60, BUN/Creatinine Ratio 35, Glucose Level 110, Calcium Level 9.5, Corrected Calcium 10.4, Total Bilirubin 0.7, Aspartate Amino Transf (AST/SGOT) 20, Alanine Aminotransferase (ALT/SGPT) 27, Alkaline Phosphatase 273, Total Protein 6.0, Albumin 2.9, Magnesium Level 1.7, Thyroid Stimulating Hormone (TSH) 1.43 02/04/19 05:40: White Blood Count 10.4, Red Blood Count 3.16, Hemoglobin 10.3, Hematocrit 32, Mean Corpuscular Volume 101, Mean Corpuscular Hemoglobin 33, Mean Corpuscular Hemoglobin Concent 32, Red Cell Distribution Width 16.0, Platelet Count 274, Mean Platelet Volume 9.7, Neutrophils (%) (Auto) 76, Lymphocytes (%) (Auto) 11, Monocytes (%) (Auto) 10, Eosinophils (%) (Auto) 3, Basophils (%) (Auto) 0, Neutrophils # (Auto) 7.9, Lymphocytes # (Auto) 1.1, Monocytes # (Auto) 1.1, Eosinophils # (Auto) 0.3, Basophils # (Auto) 0.0, Sodium Level 137, Potassium Level 4.2, Chloride Level 103, Carbon Dioxide Level 26, Anion Gap 8, Blood Urea Nitrogen 27, Creatinine 0.81, Estimat Glomerular Filtration Rate > 60, BUN/Creatinine Ratio 33, Glucose Level 91, Calcium Level 9.3, Corrected Calcium 10.2, Total Bilirubin 0.6, Aspartate Amino Transf (AST/SGOT) 24, Alanine Aminotransferase (ALT/SGPT) 29, Alkaline Phosphatase 225, Total Protein 5.7, Albumin 2.9 02/06/19 06:15: White Blood Count 11.2, Red Blood Count 2.96, Hemoglobin 9.6, Hematocrit 30, Mean Corpuscular Volume 101, Mean Corpuscular Hemoglobin 32, Mean Corpuscular Hemoglobin Concent 32, Red Cell Distribution Width 15.9, Platelet Count 281, Mean Platelet Volume 10.0, Sodium Level 140, Potassium Level 4.1, Chloride Level 106, Carbon Dioxide Level 27, Anion Gap 7, Blood Urea Nitrogen 23, Creatinine 0.85, Estimat Glomerular Filtration Rate > 60, BUN/Creatinine Ratio 27, Glucose Level 100, Calcium Level 9.1, Corrected Calcium 10.1, Magnesium Level 1.9, Total Bilirubin 0.4, Aspartate Amino Transf (AST/SGOT) 23, Alanine Aminotransferase (ALT/SGPT) 29, Alkaline Phosphatase 246, Total Protein 5.6, Albumin 2.8, Digoxin Level < 0.30 02/08/19 06:10: White Blood Count 8.8, Red Blood Count 2.99, Hemoglobin 9.8, Hematocrit 30, Mean Corpuscular Volume 101, Mean Corpuscular Hemoglobin 33, Mean Corpuscular Hemoglobin Concent 32, Red Cell Distribution Width 15.9, Platelet Count 285, Mean Platelet Volume 10.2, Sodium Level 140, Potassium Level 4.1, Chloride Level 106, Carbon Dioxide Level 23, Anion Gap 11, Blood Urea Nitrogen 22, Creatinine 0.82, Estimat Glomerular Filtration Rate > 60, BUN/Creatinine Ratio 27, Glucose Level 89, Calcium Level 9.4, Magnesium Level 1.9, Digoxin Level 0.58 02/11/19 06:15: White Blood Count 10.2, Red Blood Count 3.00, Hemoglobin 9.7, Hematocrit 31, Mean Corpuscular Volume 102, Mean Corpuscular Hemoglobin 32, Mean Corpuscular Hemoglobin Concent 32, Red Cell Distribution Width 16.4, Platelet Count 306, Mean Platelet Volume 9.4, Sodium Level 140, Potassium Level 4.0, Chloride Level 107, Carbon Dioxide Level 28, Anion Gap 5, Blood Urea Nitrogen 22, Creatinine 0.79, Estimat Glomerular Filtration Rate > 60, BUN/Creatinine Ratio 28, Glucose Level 77, Calcium Level 8.7, Corrected Calcium 9.7, Total Bilirubin 0.5, Aspartate Amino Transf (AST/SGOT) 45, Alanine Aminotransferase (ALT/SGPT) 43, Alkaline Phosphatase 322, Total Protein 5.5, Albumin 2.7, Digoxin Level 0.85, Neutrophils (%) (Auto) 71, Lymphocytes (%) (Auto) 17, Monocytes (%) (Auto) 9, Eosinophils (%) (Auto) 3, Basophils (%) (Auto) 0, Neutrophils # (Auto) 7.2, Lymphocytes # (Auto) 1.8, Monocytes # (Auto) 0.9, Eosinophils # (Auto) 0.3, Basophils # (Auto) 0.0 02/13/19 05:25: Sodium Level 141, Potassium Level 4.0, Chloride Level 108, Carbon Dioxide Level 27, Anion Gap 6, Blood Urea Nitrogen 21, Creatinine 0.79, Estimat Glomerular Filtration Rate > 60, BUN/Creatinine Ratio 27, Glucose Level 91, Calcium Level 8.7, Digoxin Level 0.83 Discharge Home Medications: Active Scripts Active Acidophilus-Pectin Capsule (Lactobacillus Acidophilus/Pect) 1 Each Capsule 2 Each PO TIDWM Digox (Digoxin) 125 Mcg Tablet 0.125 Mg PO DAILY Aspirin 81 Mg Tab.chew 81 Mg PO DAILY Diltiazem 24Hr Cd (Diltiazem HCl) 240 Mg Cap.er.24h 240 Mg PO DAILY Eliquis (Apixaban) 2.5 Mg Tablet 2.5 Mg PO BID Oxyir Tablet (Oxycodone HCl) 5 Mg Tab 5 Mg PO Q4H PRN Reported Ensure Liquid (Lactose-Reduced Food) 237 Ml Liquid 237 Ml PO TIDWM Ondansetron Odt (Ondansetron) 4 Mg Tab.rapdis 4 Mg PO Q8H PRN Miralax (Polyethylene Glycol 3350) 17 Gm Powd.pack 17 Gm PO DAILY PRN Metoprolol Tartrate 5 Mg/5 Ml Vial 2.5 Mg IV Q6H PRN Senna S Tablet (Sennosides/Docusate Sodium) 1 Each Tablet 1 Tab PO BID PRN Bisacodyl 10 Mg Supp.rect 10 Mg RC DAILY PRN Iprat-Albut 0.5-3(2.5) mg/3 ml (Ipratropium/Albuterol Sulfate) 3 Ml Ampul.neb 3 Ml NEB Q6H PRN Tylenol Arthritis (Acetaminophen) 650 Mg Tablet.er 650 Mg PO Q6H PRN Vitamin D3 (Cholecalciferol (Vitamin D3)) 2,000 Unit Capsule 2,000 Unit PO BID Aldactone (Spironolactone) 25 Mg Tablet 25 Mg PO DAILY Ropinirole HCl 1 Mg Tablet 2 Mg PO HS Oxybutynin Chloride 5 Mg Tablet 5 Mg PO BID Theragran-M Premier 50+ Caplet (Mv-Mn/FA/Coq10/Lycopene/Lutein) 1 Each Tablet 1 Tab PO DAILY Midodrine HCl 10 Mg Tablet 10 Mg PO TID Levothyroxine Sodium 75 Mcg Tablet 75 Mcg PO 0600 Gabapentin 100 Mg Capsule 500 Mg PO TID TAKES 5 (100MG) CAPSULES Acid Entry Level Recruiter (FAMOTIDINE) (Famotidine) 20 Mg Tablet 20 Mg PO BID Santyl (Collagenase) 30 Gm Oint..gm. TP DAILY APPLY SANTYL NICKEL THICK TO ENTIRE WOUND BED ON BOTH HEALS DAILY. COVER WITH GAUZE AND SECURE WITH TAPE. Plavix (Clopidogrel Bisulfate) 75 Mg Tablet 75 Mg PO DAILY Zyrtec (Cetirizine HCl) 10 Mg Tablet 10 Mg PO DAILY Lipitor (Atorvastatin Calcium) 40 Mg Tablet 40 Mg PO 1900 Instructions to patient/family Please see electronic discharge instructions given to patient. 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, cervicothoracic region (3) DNR (do not resuscitate) Status: Chronic (4) COPD (chronic obstructive pulmonary disease) Status: Chronic Qualifiers: Qualified Codes: J44.9 - Chronic obstructive pulmonary disease, unspecified (5) CHF (congestive heart failure) Status: Chronic Qualifiers: (6) Prostate cancer Status: Chronic (7) Oxygen dependent Status: Chronic (8) Atrial fibrillation with rapid ventricular response Status: Acute (9) Advanced age Status: Chronic (10) Atrial fibrillation, chronic Status: Chronic (11) Presbycusis of both ears Status: Chronic (12) At risk for aspiration Status: Chronic (13) History of Clostridioides difficile colitis Status: Chronic Clinical Quality Measures DVT/VTE Risk/Contraindication: Risk Factor Score Per Nursin RFS Level Per Nursing on Admit: 3=High CLEMENTINA SHI DO Feb 14, 2019 09:00
--- NOTE | 2019-02-14 10:10 | Progress Note - Cardiology ---
Cardiology SOAP Progress Note Subjective: No cp or palp or syncope Stamina improving Objective: I&O/Vital Signs 02/14/19 02/14/19 02/14/19 05:06 07:30 08:00 Temp 97.7 Pulse 73 Resp 20 B/P (MAP) 111/64 (80) Pulse Ox 96 O2 Delivery Room Air Room Air 02/14/19 00:00 Intake Total 680 ml Balance 680 ml Weight (Pounds): 132 Weight (Ounces): 1.6 Weight (Calculated Kilograms): [id number] Constitutional: AAO x 3, other (thin) Respiratory: No accessory muscle use, No respiratory distress; chest expansion is symmetric, chest is bilaterally symmetric, lungs clear to auscultation Cardiovascular: irregularly irregular; No JVD; S1 and S2 Gastrointestional: No tender; soft, round, audible bowel sounds Extremities: no lower extremity edema bilateral Neurologic/Psychiatric: alert, grossly intact Skin: other (dressings to heels bilat; not removed) Results/Procedures: Labs Laboratory Tests 02/13/19 05:25 A/P: Assessment: PAF/Flutter vs SVT with vent rates up to 150 bpm. 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 Stern at [facility] in [place], [place] HLD - statin tx H/O bilat CEA - unsure of details - reports done at [facility] H/O tobacco use - quit > 20 years ago HTN CKD stage III Reported h/o cirrhosis Chronic back pain with nerve stimulator in place Kyphosis H/o hypothyroidism. TSH normal (1.43) on 02/03/19 Plan: * I answered his CV-related questions * Continue current regimen * Monitor lab from time to time NYA PENALOZA MD FACP [facility] Feb 14, 2019 10:10
--- NOTE | 2019-02-14 11:36 | Progress Note ---
[facility] 02/14/19 1136: Subjective Date Seen by a Provider: Feb 14, 2019 Time Seen by a Provider: 07:30 Subjective/Events-last exam pt is alert, pleasant, well groomed, smiling and interactive. His vitals and PE are normal, except for R heel pain 2/2 chronic decubitus ulcer. Dressing for his R heel was changed this morning. Pt denies any new pain, Diarrhea, constipation, bowel incontinence, however reports Urinary incontinence which is not a new complaint. pt has no new complaints and is excited to be D/C home. He was seen by Dr. Blevins who reviewed his current CV problems with him and answered CV- related questions. Pt has done well in therapy and will be D/C. Reviewed Labs/consults/Pt notes. Review of Systems General: No Fatigue HEENT: No Head Aches Pulmonary: No Dyspnea, No Cough, No Pleuritic Chest Pain Cardiovascular: Other (irregular Heart beat); No: Chest Pain, Orthopnea, Paroxysmal Noc. Dyspnea, Edema, Lt Headedness Gastrointestinal: No: Nausea, Vomiting Genitourinary: No Dysuria; Incontinence Musculoskeletal: foot pain (R foot ulcer, chronic) Neurological: No: Change in speech, Confusion Objective Exam Last Set of Vital Signs Vital Signs Date Time Temp Pulse Resp B/P (MAP) Pulse Ox O2 Delivery O2 Flow Rate FiO2 02/14/19 10:59 02/14/19 08:00 Room Air 02/14/19 05:06 97.7 73 20 96 02/13/19 20:00 2.00 02/08/19 08:00 95 Capillary Refill : Less Than 3 Seconds I&O Intake and Output 02/14/19 00:00 Intake Total 1260 ml Output Total 450 ml Balance 810 ml Intake Oral 1260 ml Output Urine Total 450 ml # Voids 3 # Bowel Movements 1 General: Alert, Oriented X3, Cooperative, No Acute Distress HEENT: Atraumatic Neck: Supple Lungs: Clear to Auscultation, Normal Air Movement Heart: Normal S1, Normal S2, No Murmurs, Other (+irregular heart beat: PER cardiology: PAF/Flutter vs SVT with vent rates up to 150 bpm, Asymptomatic episodes) Extremities: No Clubbing, No Cyanosis, No Edema, Normal Pulses Skin: No Rashes, No Breakdown, No Significant Lesion Psych/Mental Status: Mental Status NL Assessment/Plan Assessment/Plan Assess & Plan/Chief Complaint PAF/Flutter vs SVT with vent rates up to 150 bpm. These are relatively brief episodes that are asymptomatic Per Dr. Blevins: Continue Stroke prophylaxis with apixaban, current regimen, and Monitor lab from time to time Significantly improved weakness R heel decubitus ulcer, dressing in place Pt to be d/c to family: home-bound 2/2 high fall risk Pt to continue using his walker to ambulate after d/c Take d/c Meds as prescribed Clinical Quality Measures DVT/VTE Risk/Contraindication: Risk Factor Score Per Nursin RFS Level Per Nursing on Admit: 3=High CLEMENTINA SHI DO 02/14/192128: Supervisory-Addendum Brief Verification & Attestation Participated in pt care: history, MDM, physical Personally performed: exam, history, MDM, supervision of care Care discussed with: Medical Student Procedures: n/a Results interpretation: Verified all documentation Verification and Attestation of Medical Student E/M Service A medical student performed and documented this service in my presence. I reviewed and verified all information documented by the medical student and made modifications to such information, when appropriate. I personally performed the physical exam and medical decision making. Clementina Shi, Feb 14, 2019,21:29 [facility] Feb 14, 2019 11:36 CLEMENTINA SHI DO Feb 14, 2019 21:29
--- NOTE | 2019-02-14 13:17 | Speech Therapy Daily Note ---
Speech Daily Progress Note Subjective Date Seen by Provider: Feb 14, 2019 Time Seen by Provider: 00:10 The patient was waiting for his daughter to come and take him home. Objective The patient continued to utilize compensatory strategies as trained for safe oral intake at 90% with minimal cues. Assessment Assessment Current Status: Good Progress Treatment Plan Discontinue ST, Goals Met Communication Comprehension: 7 Expression: 7 Social Cognition Social Interaction: 7 Problem Solvin Memory: 7 Speech Short Term Goals Short Term Goals Short Term Goals 1) The patient will tolerate least restrictive diet level without s/s of aspiration with 90% or greater. 2) The patient will utilize compensatory strategies as trained with 90% or greater given minimal cues. Speech Production Ski Repairer Goals Production Ski Repairer Goals The patient will maintain adequate nutrition/hydration via safe effective swallow function. Comprehension: 6 Expression: 6 Social Interaction: 6 Problem Solvin Memory: 6 Speech-Plan Patient/Family Goals Patient/Family Goals: The patient was discharged to home this am. Treatment Plan Speech Therapy Treatment Plan: Discontinue ST, Goals Met Patient made very good progress with meeting ST goals. Treatment Duration: Feb 14, 2019 Frequency: 5 times per week Estimated Hrs Per Day: .25 hour per day Rehab Potential: Fair Barriers to Learning: Patient was weak but remembered his training for safe oral intake with minimal cues. Pt/Family Agrees to Plan: Yes Safety Risks/Education Teaching Recipient: Patient Teaching Methods: Demonstration, Discussion Response to Teaching: Verbalize Understanding, Return Demonstration Education Topics Provided: Continued safety strategies for oral intake upon his return home. Time Speech Therapy Time In: 10:45 Speech Therapy Time Out: 10:55 Total Billed Time: 10 Billed Treatment Time 1, DYST KRISTIN Nam Feb 14, 2019 13:17
--- NOTE | 2019-02-14 13:20 | Therapy Team Discharge Summary ---
Therapy Discharge Summary Discharge Recommendations Date of Discharge Feb 14, 2019 at 11:00 Therapy D/C Recommendations: 24 hr Supervision Occupational Therapy Decreased Activ Tolerance, Decreased UE Strength, Impaired I ADL's, Impaired Self-Care Skills Speech-Language Pathology The patient was admitted to the ARU due to debility. He was having difficulty with oral intake upon admission. He completed and EGD and was able to eat soft foods. He received skilled dysphagia therapy and was advanced to a regular diet level with thin liquids. His level of consumption improved as his medical status improved. The patient was discharged to his home with family support and hired staff. He met ST goals and is being discharged from skilled therapy today as well. PT Lacquer Coater Goals Intermediate Goals PT Lacquer Coater Goals Time Frame: Feb 28, 2019 Transfers (B,C,W/C) (FIM): 6 Roll Left to Right (QC): 6 (met) Sit to Lying (QC): 6 (met) Lying-Sitting on Side/Bed(QC): 6 (met) Sit to Stand (QC): 6 Chair/[id number]-uc-[id number] Xfer(QC): 6 Car Transfer (QC): 6 Does the Patient Walk: Yes Gait (FIM): 6 Gait distance (FIM): 3=150 ft Walk 10 feet (QC): 6 Walk 10ft-Uneven Surface(QC): 6 Walk 50ft with 2 Turns (QC): 6 Walk 150 ft (QC): 6 Gait Assistive Device: FWW Does the Pt use WC or Scooter?: No Stairs (FIM): 5 # of Steps: 4 1 Step (curb) (QC): 6 4 Steps (QC): 6 12 Steps (QC): 9 Picking up an Object (QC): 88 OT Intermediate Goals Lacquer Coater Goals Time Frame: Feb 21, 2019 Eating (FIM): 6 (met-02/14/19) Eating (QC): 6 (met-02/14/19) Oral Hygiene (QC): 6 (not met) Grooming(FIM): 6 (not met) Bathing(FIM): 5 (not met) Shower/Bathe Self (QC): 5 (not met) Upper Body Dressing(FIM): 6 (not met) Upper Body Dressing (QC): 6 (not met) Lower Body Dressing(FIM): 6 (not met) Lower Body Dressing (QC): 6 (not met) On/Off Footwear (QC): 6 (met-02/14/2019) Toileting(FIM): 6 (not met) Toileting Hygiene (QC): 6 (not met) Transfers (B,C,W/C) (FIM): 6 (not met) Toilet/Commode Transfer(FIM): 6 (not met) Toilet/Commode Transfer (QC): 6 (not met) Shower Transfer(FIM): 5 (not met) Comprehension(FIM): 6 Expression (FIM): 6 Social Interaction(FIM): 6 Problem Solving(FIM): 6 Memory(FIM): 6 Additional Goals: 1-Demonstrate ADL Tasks, 2-Verbalize Understanding, 3- ImproveStrength/Mahamed 1=Demonstrate adherence to instructed precautions during ADL tasks. 2=Patient will verbalize/demonstrate understanding of assistive devices/modifications for ADL. 3=Patient will improve strength/tolerance for activity to enable patient to perform ADL's. Speech Lacquer Coater Goals Intermediate Goals The patient will maintain adequate nutrition/hydration via safe effective swall ow function. Met Comprehension: 6 Expression: 6 Social Interaction: 6 Problem Solvin Memory: 6 KRISTIN JIANG Feb 14, 2019 13:20
--- NOTE | 2019-02-18 11:52 | Therapy Team Discharge Summary ---
Therapy Discharge Summary Discharge Recommendations Date of Discharge Feb 14, 2019 at 11:00 Therapy D/C Recommendations: 24 hr Supervision, Home w/ Family Support, Occupational Therapy Home Care, Scheduled Assistance Occupational Therapy Pt. seen by occupational therapy to increase overall strength and independence with daily skills. Pt. has made progress, but continues to require assist. Pt. did not meet goals, as he did not achieve mod I with bathing/dressing/toileting/transfers. However, pt. is returning home with full family support and supervision. Would benefit from home health OT to continue working towards independence. All needs met at this facility. Decreased Activ Tolerance, Decreased UE Strength, Dependent Transfers, Impaired Funct Balance, Impaired I ADL's, Impaired Self-Care Skills PT Fci Goals Fci Goals PT Labor Delivery Specialist Goals Time Frame: Feb 28, 2019 Transfers (B,C,W/C) (FIM): 6 Roll Left to Right (QC): 6 (met) Sit to Lying (QC): 6 (met) Lying-Sitting on Side/Bed(QC): 6 (met) Sit to Stand (QC): 6 Chair/Jap-sv-Rshma Xfer(QC): 6 Car Transfer (QC): 6 Does the Patient Walk: Yes Gait (FIM): 6 Gait distance (FIM): 3=150 ft Walk 10 feet (QC): 6 Walk 10ft-Uneven Surface(QC): 6 Walk 50ft with 2 Turns (QC): 6 Walk 150 ft (QC): 6 Gait Assistive Device: FWW Does the Pt use WC or Scooter?: No Stairs (FIM): 5 # of Steps: 4 1 Step (curb) (QC): 6 4 Steps (QC): 6 12 Steps (QC): 9 Picking up an Object (QC): 88 OT Labor Delivery Specialist Goals Fci Goals Time Frame: Feb 21, 2019 Eating (FIM): 6 (met-02/14/19) Eating (QC): 6 (met-02/14/19) Oral Hygiene (QC): 6 (not met) Grooming(FIM): 6 (not met) Bathing(FIM): 5 (not met) Shower/Bathe Self (QC): 5 (not met) Upper Body Dressing(FIM): 6 (not met) Upper Body Dressing (QC): 6 (not met) Lower Body Dressing(FIM): 6 (not met) Lower Body Dressing (QC): 6 (not met) On/Off Footwear (QC): 6 (met-02/14/2019) Toileting(FIM): 6 (not met) Toileting Hygiene (QC): 6 (not met) Transfers (B,C,W/C) (FIM): 6 (not met) Toilet/Commode Transfer(FIM): 6 (not met) Toilet/Commode Transfer (QC): 6 (not met) Shower Transfer(FIM): 5 (not met) Comprehension(FIM): 6 Expression (FIM): 6 Social Interaction(FIM): 6 Problem Solving(FIM): 6 Memory(FIM): 6 Additional Goals: 1-Demonstrate ADL Tasks, 2-Verbalize Understanding, 3-ImproveStrength/Mahamed 1=Demonstrate adherence to instructed precautions during ADL tasks. 2=Patient will verbalize/demonstrate understanding of assistive devices/modifications for ADL. 3=Patient will improve strength/tolerance for activity to enable patient to perform ADL's. Speech Fci Goals Labor Delivery Specialist Goals The patient will maintain adequate nutrition/hydration via safe effective swallow function. Met Comprehension: 6 Expression: 6 Social Interaction: 6 Problem Solvin Memory: 6 ADITHYA MAC OT Feb 18, 2019 11:52
== END 2019-02-14 11:00 | disposition home health service (06) | DRG 91 ==
PROVIDERS: ADMIT Internal Medicine; ATTEND Internal Medicine
DX: G72.89 Other specified myopathies (principal); I48.0 Paroxysmal atrial fibrillation; I48.2 Chronic atrial fibrillation; I48.92 Unspecified atrial flutter; L89.613 Pressure ulcer of right heel, stage 3; L89.629 Pressure ulcer of left heel, unspecified stage; I13.0 Hypertensive heart and chronic kidney disease with heart failure and stage 1 through stage 4 chronic kidney disease, or unspecified chronic kidney disease; I50.9 Heart failure, unspecified; Z66 Do not resuscitate; N18.3 Chronic kidney disease, stage 3 (moderate); M40.209 Unspecified kyphosis, site unspecified; I25.10 Atherosclerotic heart disease of native coronary artery without angina pectoris; J44.9 Chronic obstructive pulmonary disease, unspecified; R19.7 Diarrhea, unspecified; L89.151 Pressure ulcer of sacral region, stage 1; L98.491 Non-pressure chronic ulcer of skin of other sites limited to breakdown of skin; I49.5 Sick sinus syndrome; C61 Malignant neoplasm of prostate; E78.5 Hyperlipidemia, unspecified; K74.60 Unspecified cirrhosis of liver; E03.9 Hypothyroidism, unspecified; F32.9 Major depressive disorder, single episode, unspecified; H91.13 Presbycusis, bilateral; Z79.01 Long term (current) use of anticoagulants; Z99.81 Dependence on supplemental oxygen; Z87.01 Personal history of pneumonia (recurrent)
CPT/HCPCS: 36415; 80048; 80053; 80162; 83735; 84443; 85007; 85025; 85027; 93005; 93306; 94640; 94664; 94760